=== PATIENT | female | born 1945 | race Caucasian/White ===

== ENCOUNTER → 2017-01-17 | Outpatient (CLI) | payer OTHER ==
[2015-12-27 09:49] VITALS: BP 185/74
[2017-01-17 11:39] LABS: CREATININE 1.02 mg/dL (0.55-1.02)
--- NOTE | 2017-01-17 12:32 | VAS ---
HISTORY: Right lower extremity edema Study: Right lower extremity venous Doppler Comparison: None TECHNIQUE: Multiple luis scale as well as spectral and color flow Doppler images of the deep venous system were obtained of the right lower extremity. FINDINGS: The deep venous system of the right lower extremity was evaluated from the level of the common femora l vein through the popliteal vein. Normal color flow and augmentation can be observed. In addition, normal compression is seen throughout the deep venous system. IMPRESSION: Negative for DVT. Reported By:
--- NOTE | 2017-01-17 14:06 | RAD ---
HISTORY: Dyspnea, shortness of breath or Study: Two views of the chest Comparison: None Findings: The patient is slightly rotated. The cardiac silhouette is enlarged. The lungs are clear without fo mary infiltrate or effusion. The aortic knob is partially calcified. Postoperative changes of midli ne sternotomy are noted and cardiac valve replacement are noted. IMPRESSION: 1. Cardiomegaly. Reported By:
--- NOTE | 2017-01-17 17:10 | MRI ---
MRI lumbar spine with and without contrast Indication: Back pain Technique: Multisequence, multiplanar MR images of the lumbar spine were obtained with and without IV contrast. Comparison: MRI November 28, 2015, CT December 10, 2015 Findings: There is a healed fracture of the S2 vertebral body, which appears unchanged in alignment s presley the prior CT. Lumbar spine vertebral body heights, alignment and marrow signal are otherwise nor mal. No acute fracture, subluxation or suspicious osseous lesion is seen. The conus terminates normal ly at T12-L1. The cauda equina is unremarkable. The imaged paraspinal soft tissues demonstrate no alexandria ss, unexpected findings. There is no abnormal enhancement post contrast administration. T12-L1, L1-L2, L2-L3, L3-L4: Unremarkable L4-L5: Mild broad-based disk bulge without significant canal or foraminal stenosis. Previously seen a nnular fissures of the right lateral and left paracentral posterior disc are again seen but are less conspicuous on today's exam. L5-S1: Mild broad-based disc bulge and facet arthropathy without significant canal or foraminal steno sis. Previously seen small annular fissure within the central posterior disk is not identified on tod ay's exam. Impression: Mild degenerative changes of the lumbar spine without high-grade canal or foraminal stenosis identifi ed at any level. Findings appear overall unchanged in the interval. Persistent but healing annular fissure of the L4-L5 posterior disc. Previously seen annular fissure a t L5-S1 is no longer appreciated. Healed, S2 vertebral body fracture. Reported By:
== END | disposition home or self-care (01) | DRG 204 ==
LOC: RAD 11:01
PROVIDERS: ATTEND Internal Medicine Cardiovascular Disease
DX: R06.09 Other forms of dyspnea (principal); R60.0 Localized edema; M51.37 Other intervertebral disc degeneration, lumbosacral region; I51.7 Cardiomegaly; M51.36 Other intervertebral disc degeneration, lumbar region; K60.2 Anal fissure, unspecified
CPT/HCPCS: 36415; 71020; 72158; 82565; 84520; 93971

== ENCOUNTER → 2017-07-16 | Outpatient (CLI) | payer OTHER ==
[2015-12-27 09:49] VITALS: BP 185/74
--- NOTE | 2017-07-16 12:29 | CT ---
HISTORY: Hematuria Study: CT abdomen and pelvis without contrast Comparison: None Technique: Multiple axial images of the abdomen and pelvis were obtained from the lung bases to the pubic symphy sis without the administration of IV contrast. Dose reduction techniques including automated exposur e control (AEC) and adjustment of mA and kV were utilized. Findings: The visualized portions of the lung bases are unremarkable. The liver, spleen, pancreas, adrenals, an d kidneys are grossly unremarkable in appearance given limitations of this noncontrast exam. No CT ev idence of hydronephrosis is identified. Surgical clips are noted within the gallbladder fossa. Evalua tion of the stomach, small bowel, and colon is limited without oral contrast. The appendix is grossly unremarkable. A small hiatal hernia is noted. Atherosclerotic changes are seen within the visualized aorta. Curvilinear calcifications within the distal abdominal aorta may reflect chronic dissection a nd do not appear to have significantly changed since previous CT of the lumbar spine performed on Nov. Scattered diverticula are seen within the sigmoid colon. The urinary bladder is not wel l distended which limits evaluation. An approximate 2 mm density is seen at/near the left ureterovesi mary junction and may reflect a phlebolith or perhaps stone. No evidence of hydroureter is appreciated . If symptoms persist follow-up exam may be helpful. Degenerative changes of visualized spine are not ed. IMPRESSION: Questionable 2 mm stone at the left ureterovesical junction as discussed above. Otherwise no CT evide nce of obstructive uropathy is appreciated. Diverticulosis. Cholecystectomy. Other findings as noted above. Reported By:
== END ==
LOC: RAD 11:42
PROVIDERS: ATTEND Internal Medicine
DX: R31.9 Hematuria, unspecified (principal); K57.30 Diverticulosis of large intestine without perforation or abscess without bleeding
CPT/HCPCS: 74176

== ENCOUNTER 2017-09-02 07:38 | Day surgery (SDC) | payer OTHER ==
[2017-09-02] MEDS ORDERED: ANCEF 1 GM IV PREMIX* 1 GM/50 ML BAG IV ONE (07:47)
[2017-09-02] MEDS ORDERED: LR 1000 ML IV 1,000 ML IV ONE (07:47)
[2017-09-02] MEDS ORDERED: FENTANYL INJ 100 mcg ONE (08:27)
[2017-09-02] MEDS ORDERED: XYLOCAINE 1% and EPINEPHRINE 1:100,000 ONE ×2 (08:48→09:19)
[2017-09-02] MEDS ORDERED: NS IRRIGATION 1000 ML 1,000 ML IR ONE (08:55)
[2017-09-02] MEDS ORDERED: NEOSPORIN OINT ONE ×2 (09:07→09:53)
[2017-09-02] MEDS ORDERED: ZOFRAN INJ 4 MG VIAL IVP PRN (10:25)
[2017-09-02] MEDS ORDERED: DILAUDID INJ IVP PRN (10:25)
[2017-09-02] MEDS ORDERED: BENADRYL INJ 50 MG VIAL IVP PRN (10:25)
[2017-09-02] MEDS ORDERED: PHENERGAN INJ 25 MG IVP PRN (10:25)
[2017-09-02] MEDS ORDERED: REGLAN INJ 10 MG VIAL IVP PRN (10:25)
[2017-09-02] MEDS ORDERED: PERCOCET TAB 5/325 MG ONE (11:09)
[2017-09-02 12:18] VITALS: BP 182/87
[2017-09-02] MEDS ORDERED: DIPRIVAN VIAL ONE (15:04)
[2017-09-02] MEDS ORDERED: VERSED ONE (15:04)
[2017-09-02] MEDS ORDERED: SUPRANE IN ONE (15:38)
== END 2017-09-02 12:06 | disposition home or self-care (01) ==
LOC: SURG1 07:38
PROVIDERS: ATTEND Surgery
PROC: 0JBD0ZZ Excision of Right Upper Arm Subcutaneous Tissue and Fascia, Open Approach (ICD-10-PCS; 2017-09-02)
PROC: 0JBG0ZZ Excision of Right Lower Arm Subcutaneous Tissue and Fascia, Open Approach (ICD-10-PCS; 2017-09-02)
PROC: 0JB70ZZ Excision of Back Subcutaneous Tissue and Fascia, Open Approach (ICD-10-PCS; 2017-09-02)
PROC: 0JBH0ZZ Excision of Left Lower Arm Subcutaneous Tissue and Fascia, Open Approach (ICD-10-PCS; principal; 2017-09-02 08:15)
DX: D17.22 Benign lipomatous neoplasm of skin and subcutaneous tissue of left arm (principal); D17.21 Benign lipomatous neoplasm of skin and subcutaneous tissue of right arm; D17.1 Benign lipomatous neoplasm of skin and subcutaneous tissue of trunk; Z79.01 Long term (current) use of anticoagulants
CPT/HCPCS: 36415; 85610; A4222; J0690; J2001; J2250; J3010; J3490; J7120

== ENCOUNTER 2021-02-19 12:10 | Inpatient (IN) ==
--- NOTE | 2021-02-19 12:57 | DR.SOBA ---
HPI Time Seen Time Seen by Provider: 02/19/21 12:50 Primary Care Physician Primary Care Physician: DENNYS Complaints Chief Complaint:: TONH STAFF STATES PATIENT TOOK HER OXYGEN OFF AND WAS HAVING SLIGHT SHORTNESS OF BREATH. CHARGE NURSE STATES THE HIGHEST PATIENTS SPO2 WAS 54%. SHE STATED THEY TRIED TO OBTAIN IN MULTIPLE PLACES WITH BETTER VALUE. UPON ARRIVAL TO ED NOTED PATIENT TO LOOK WEAK AND IN NO OBVIOUS RESPIRATORY DISTRESS. N/C AT 4LPM IN PLACE FOR TRANSPORT. PATIENT STATES SHE HAS BEEN FEELING A LITTLE TIRED AND FUZZY HEADED. SHE ALSO STATED SHE HAS BEEN HAVING SOME POST NASAL DRIP OVER THE PAST FEW NIGHTS. PATIENT DENIES COUGH. COVID-19 Coronavirus risk:travel/contact w/high risk person: No Has patient experienced Coronavirus symptoms: No Source History Provided: Correction Mode of Arrival Mode of Arrival: Stretcher Timing Onset of Chief Complaint: 02/17/21 Duration Duration: Hours Context Onset:: At Rest PE Risk Factors:: None History of:: None PMH PMH Past Medical History: Yes Past Medical History: Anemia, Angina, Anxiety, CHF, Depression, Dyslipidemia, G ERD, Hypertension, Hypothyroidism, TN and Sleep Apnea Past Medical History Comment: AFIB Past Surgical History: Yes Surgical History: Angioplasty/Stents, CABG/Valve Surgery, Cholecystectomy, Hysterectomy and Ortho Surgery Family History History of Family Medical Conditions: Yes Family Medical History: Coronary Artery Disease Social History Does any household member use tobacco: No Alcohol Use: None Do you use any recreational Drugs:: No Lives With: Other Lives Where: [place] Travel Risk Coronavirus risk:travel/contact w/high risk person: No Has patient experienced Coronavirus symptoms: No Infectious screening In the last 2 months have you had wt loss of >10#?: NO Have you had fever, night sweats or hemotysis?: No Have you traveled outside the country in the last 6 months?: No Isolation: Droplet ROS Review of Systems Constitutional: No Symptoms Reported and See HPI Eyes: No Symptoms Reported and See HPI ENTM: No Symptoms Reported and See HPI Respiratoy: No Symptoms Reported and See HPI Cardiovascular: No Symptoms Reported and See HPI Gastrointestinal/Abdominal: No Symptoms Reported and See HPI Genitourinary: No Symptoms Reported and See HPI Neurological: No Symptoms Reported and See HPI Musculoskeletal: No Symptoms Reported and See HPI Integumentary: No Symptoms Reported and See HPI Hematologic/Lymphatic: No Symptoms Reported and See HPI Endocrine: No Symptoms Reported and See HPI Psychiatric: No Symptoms Reported and See HPI All Other Systems: Reviewed and Negative PE Vital Signs Vitals: Temperature 98.0 F Pulse Rate 81 Respiratory Rate 30 Blood Pressure [Left Arm] 146/64 Blood Pressure 127/59 O2 Sat by Pulse Oximetry 92 General Limitations: No Limitations General Appearance: Alert and In No Apparent Distress Head Head Exam: Normal Inspection Eyes Eye exam: Normal Appearance ENT ENT Exam: Normal Exam Neck Neck Exam: Normal Inspection Chest Chest Inspection: Normal Inspection Respiratory Respiratory Exam: Normal Lung Sounds Bilat Respiratory Exam: Bilateral: Clear to Auscultation Cardiovascular Cardiovascular Exam: Regular Rate and Normal Rhythm Abdominal Exam Abdominal Exam: Normal Inspection, Normal Bowel Sounds and Soft Extremities Extremities Exam: Normal Inspection Back Back Exam: Normal Inspection Neurologic Neurological Exam: Alert and Oriented X3 Psychiatric Psychiatric Exam: Normal Affect and Normal Mood Skin Skin Exam: Warm, Dry, Intact and Normal Color ROR Labs Reviewed Result Diagrams: 02/19/21 12:45 02/19/21 12:45 Laboratory: WBC 9.6 X10^3/uL (3.6-10.0) 02/19/21 12:45 RBC 4.12 X10^6/uL (3.5-5.4) 02/19/21 12:45 Hgb 11.8 g/dL (12.0-16.0) L 02/19/21 12:45 Hct 34.7 % (36.0-47.0) L 02/19/21 12:45 MCV 84.2 fL (80.0-100.0) 02/19/21 12:45 MCH 28.5 pg (27.0-34.0) 02/19/21 12:45 MCHC 33.9 g/dL (33.0-35.0) 02/19/21 12:45 RDW 25.6 % (11.6-16.5) H 02/19/21 12:45 Plt Count 469 X10^3/uL (150.0-450.0) H 02/19/21 12:45 Plt Count Comment Adequate (ADEQUATE) 02/19/21 12:45 MPV 7.9 fL (7.4-11.0) 02/19/21 12:45 Neut % (Auto) 79.8 % (42.0-75.0) H 02/19/21 12:45 Lymph % (Auto) 8.1 % (21.0-51.0) L 02/19/21 12:45 [place] % (Auto) 10.8 % (0.0-13.0) 02/19/21 12:45 Eos % (Auto) 0.6 % (0.9-2.9) L 02/19/21 12:45 Baso % (Auto) 0.7 % (0.2-1.0) 02/19/21 12:45 Neut # (Auto) 7.7 x10^3/uL (2.2-4.8) H 02/19/21 12:45 Lymph # (Auto) 0.8 X10^3/uL (1.3-2.9) L 02/19/21 12:45 [place] # (Auto) 1.0 x10^3/uL (0.3-0.8) H 02/19/21 12:45 Eos # (Auto) 0.1 x10^3/uL (0.0-0.2) 02/19/21 12:45 Baso # (Auto) 0.1 X10^3/uL (0.0-0.1) 02/19/21 12:45 Absolute Nucleated RBC 0.1 /100WBC 02/19/21 12:45 Total Counted 100 02/19/21 12:45 Neutrophils % (Manual) 87 % (39-76) H 02/19/21 12:45 Lymphocytes % (Manual) 8 % (13-43) L 02/19/21 12:45 Monocytes % (Manual) 5 % (4-9) 02/19/21 12:45 Plt Morphology Comment Normal (NORMAL) 02/19/21 12:45 RBC Morphology Abnormal (NORMAL) A 02/19/21 12:45 Dimorphic RBCs Slight 02/19/21 12:45 Anisocytosis 3+ A 02/19/21 12:45 PT 23.9 SECONDS (11.8-14.3) 02/19/21 12:45 INR Target Range - 02/19/21 12:45 INR 2.26 (0.8-1.3) H 02/19/21 12:45 APTT 62.1 SECONDS (22.9-36.5) H 02/19/21 12:45 PTT Comment - 02/19/21 12:45 D-Dimer 0.42 ug/ml (0.0-0.57) 02/19/21 12:45 Sample Site Rra 02/19/21 12:59 ABG pH 7.440 (7.35-7.45) 02/19/21 12:59 ABG pCO2 39.0 mmHg (35.0-45.0) 02/19/21 12:59 ABG pO2 53.0 mmHg (80.0-100.0) L 02/19/21 12:59 ABG HCO3 26.5 mmol/L (22-26) H 02/19/21 12:59 ABG O2 Saturation 88.0 % (90-100) L 02/19/21 12:59 ABG Base Excess 2.2 mmol/L (-2.0-2.0) H 02/19/21 12:59 Singh Test Pos 02/19/21 12:59 A-a Gradient 98.0 mmHg 02/19/21 12:59 FiO2 28.0 02/19/21 12:59 Blood Gas Comments Pt krysta well eb 02/19/21 12:59 Sodium 126 mmol/L (136-145) L 02/19/21 12:45 Corrected Sodium TNP 02/19/21 12:45 Potassium 4.3 mmol/L (3.5-5.1) 02/19/21 12:45 Chloride 90 mmol/L (98-107) L 02/19/21 12:45 Carbon Dioxide 27.2 mmol/L (21-32) 02/19/21 12:45 BUN 40 mg/dL (7-18) H 02/19/21 12:45 Creatinine 2.14 mg/dL (0.55-1.02) H 02/19/21 12:45 Est GFR (MDRD) Af Amer 29 (>60) L 02/19/21 12:45 Est GFR (MDRD) Non-Af 24 (>60) L 02/19/21 12:45 Glucose 100 mg/dL (65-99) H 02/19/21 12:45 Lactic Acid 1.0 mmol/L (0.4-2.0) 02/19/21 12:45 Calcium 9.4 mg/dL (8.5-10.1) 02/19/21 12:45 Corrected Calcium 10.7 mg/dL (8.5-10.1) H 02/19/21 12:45 Total Bilirubin 0.50 mg/dL (0.2-1.0) 02/19/21 12:45 AST 51 Units/L (15-37) H 02/19/21 12:45 ALT 18 Units/L (12-78) 02/19/21 12:45 Alkaline Phosphatase 118 Units/L (46-116) H 02/19/21 12:45 Creatine Kinase 28 Units/L (26-192) 02/19/21 12:45 CK-MB (CK-2) < 1.0 ng/mL (0-4.0) 02/19/21 12:45 CK/CKMB % Calc 3.6 % (<4) 02/19/21 12:45 Troponin I < 0.02 ng/mL (0-1.5) 02/19/21 12:45 Total Protein 7.5 g/dL (6.4-8.2) 02/19/21 12:45 Albumin 2.4 g/dL (3.4-5.0) L 02/19/21 12:45 Globulin 5.1 g/dL (2.5-4.5) H 02/19/21 12:45 Albumin/Globulin Ratio 0.5 Ratio (1.1-2.1) L 02/19/21 12:45 SARS-CoV-2 (PCR) Negative (NEGATIVE) 02/19/21 12:46 Influenza Type A (PCR) Negative (NEGATIVE) 02/19/21 12:46 Influenza Type B (PCR) Negative (NEGATIVE) 02/19/21 12:46 RSV (PCR) Negative (NEGATIVE) 02/19/21 12:46 Opioid Opioid Risk Tool Age (Clint box if 16-45): No History of Preadolescent Sexual Abuse: No Total: 0 Total Score Risk Category: Low Risk Copyright: Junior GARCIA predicting aberrant behaviors Diagnosis Discharge Problem: Pneumonia, Hypoxia Instructions Forms: Precautions for COVID19 [facility] Social Distancing
[2021-02-19 13:10] LABS: ABG BASE EXCESS 2.2 mmol/L (-2.0-2.0); ABG HCO3 26.5 mmol/L (22-26)
[2021-02-19 13:10] LABS: BASOPHILS # (AUTO) 0.1 X10^3/uL (0.0-0.1); BASOPHILS % (AUTO) 0.7 % (0.2-1.0); EOSINOPHILS # (AUTO) 0.1 x10^3/uL (0.0-0.2); EOSINOPHILS % (AUTO) 0.6 % (0.9-2.9); HEMATOCRIT 34.7 % (36.0-47.0); HEMOGLOBIN 11.8 g/dL (12.0-16.0); LYMPHOCYTES # (AUTO) 0.8 X10^3/uL (1.3-2.9); LYMPHOCYTES % (AUTO) 8.1 % (21.0-51.0); MEAN CORPUSCULAR HEMOGLOBIN 28.5 pg (27.0-34.0); MEAN CORPUSCULAR HGB CONC 33.9 g/dL (33.0-35.0); MEAN CORPUSCULAR VOLUME 84.2 fL (80.0-100.0); MEAN PLATELET VOLUME 7.9 fL (7.4-11.0); MONOCYTES % (AUTO) 10.8 % (0.0-13.0); NEUTROPHILS # (AUTO) 7.7 x10^3/uL (2.2-4.8); NEUTROPHILS % (AUTO) 79.8 % (42.0-75.0); PLATELET COUNT 469 X10^3/uL (150.0-450.0); RED BLOOD COUNT 4.12 X10^6/uL (3.5-5.4); RED CELL DISTRIBUTION WIDTH 25.6 % (11.6-16.5); WHITE BLOOD COUNT 9.6 X10^3/uL (3.6-10.0)
[2021-02-19 13:11] LABS: ABG ALLEN TEST POS
--- NOTE | 2021-02-19 13:12 | RAD ---
HISTORYLOW O2 SAT HTN PSH:HYSTO, GB, CABG [id number], 1 VIEWCOMPARISONNone itsFINDINGSThe trachea is midline. The cardiac silhouette is mildly enlarged. There are sternotomy wires from prior CABG surgery and cardiac valve surgery. There is an interstitial infiltrate in the right lung base which without old films for comparison is suspicious for interstitial pneumonitis/bronchopneumonia. Radiographic follow-up is recommended. No effusions or pneumothorax are observed.. The bony thorax is unremarkable.IMPRESSIONCardiomegaly and postsurgical changes from CABG surgery and cardiac valve replacement.Perihilar interstitial infiltrate in the left and right lower lobe interstitial infiltrates suspicious for bronchopneumonia. Recommend radiographic follow-up. These interstitial infiltrates were not reported on prior films of December 2016 and old chest films are will not load for comparison.. Recommend radiographic follow-up.Electronically signed by: ASHLEY LIVE (Feb 19, 2021 13:10:11)
[2021-02-19 13:30] LABS: ALANINE AMINOTRANSFERASE 18 Units/L (12-78); ALBUMIN 2.4 g/dL (3.4-5.0); ALKALINE PHOSPHATASE 118 Units/L (46-116); ASPARTATE AMINO TRANSFERASE 51 Units/L (15-37); BLOOD UREA NITROGEN 40 mg/dL (7-18); CALCIUM 9.4 mg/dL (8.5-10.1); CARBON DIOXIDE 27.2 mmol/L (21-32); CHLORIDE 90 mmol/L (98-107); CKMB % 3.6 % (<4); COR CA(FOR HYPOALB) 10.7 mg/dL (8.5-10.1); CREATINE KINASE 28 Units/L (26-192); CREATINE KINASE MB < 1.0 ng/mL (0-4.0); CREATININE 2.14 mg/dL (0.55-1.02); SODIUM 126 mmol/L (136-145); TOTAL PROTEIN 7.5 g/dL (6.4-8.2); TROPONIN I < 0.02 ng/mL (0-1.5); eGFR NON BLACK RACES 24 (>60)
[2021-02-19 13:31] LABS: ANISOCYTOSIS 3+; PLATELET MORPHOLOGY COMMENT NORMAL (NORMAL)
[2021-02-19 16:54] VITALS: BMI 31.4
[2021-02-19] MEDS ORDERED: NS 1/2 1,000 ML IV 1,000 ML IV ONE (17:19)
[2021-02-19] MEDS: NS 1/2 1,000 ML IV 1,000 ML IV SCH (17:22)
[2021-02-19] MEDS: ROBITUSSIN DM PO SCH ×2 (17:23→20:54)
[2021-02-19] MEDS: ZOSYN VIAL 3.375 GRAMS 3.375 G in NS 100 ML IV + SPIKE MINIBAG* 100 ML IV SCH ×2 (17:50→18:16)
[2021-02-19] MEDS: DUONEB 0.5 MG/3 MG (3 mL) NEB SCH ×2 (18:00→20:00)
[2021-02-19] MEDS ORDERED: PULMICORT NEB TX 0.5 MG NEB ONE (19:50)
[2021-02-19] MEDS: PULMICORT NEB TX 0.5 MG NEB SCH (20:00)
[2021-02-20] MEDS: ROXICODONE TAB 5 MG PO PRN ×2 (00:10→22:30)
[2021-02-20 05:24] LABS: BASOPHILS % (AUTO) 0.7 % (0.2-1.0); EOSINOPHILS # (AUTO) 0.2 x10^3/uL (0.0-0.2); EOSINOPHILS % (AUTO) 2.5 % (0.9-2.9); HEMATOCRIT 32.9 % (36.0-47.0); HEMOGLOBIN 11.1 g/dL (12.0-16.0); LYMPHOCYTES # (AUTO) 0.8 X10^3/uL (1.3-2.9); MEAN CORPUSCULAR HEMOGLOBIN 28.4 pg (27.0-34.0); MEAN CORPUSCULAR HGB CONC 33.7 g/dL (33.0-35.0); MEAN CORPUSCULAR VOLUME 84.2 fL (80.0-100.0); MEAN PLATELET VOLUME 7.8 fL (7.4-11.0); MONOCYTES # (AUTO) 0.7 x10^3/uL (0.3-0.8); MONOCYTES % (AUTO) 11.5 % (0.0-13.0); NEUTROPHILS # (AUTO) 4.5 x10^3/uL (2.2-4.8); NEUTROPHILS % (AUTO) 72.3 % (42.0-75.0); PLATELET COUNT 365 X10^3/uL (150.0-450.0); RED CELL DISTRIBUTION WIDTH 25.3 % (11.6-16.5); WHITE BLOOD COUNT 6.2 X10^3/uL (3.6-10.0)
[2021-02-20 05:40] LABS: ALANINE AMINOTRANSFERASE 17 Units/L (12-78); ALBUMIN 2.1 g/dL (3.4-5.0); ALKALINE PHOSPHATASE 104 Units/L (46-116); ASPARTATE AMINO TRANSFERASE 42 Units/L (15-37); BLOOD UREA NITROGEN 34 mg/dL (7-18); CALCIUM 9.3 mg/dL (8.5-10.1); CARBON DIOXIDE 28.9 mmol/L (21-32); CHLORIDE 94 mmol/L (98-107); COR CA(FOR HYPOALB) 10.8 mg/dL (8.5-10.1); CREATININE 1.78 mg/dL (0.55-1.02); SODIUM 132 mmol/L (136-145); TOTAL PROTEIN 6.7 g/dL (6.4-8.2); eGFR NON BLACK RACES 30 (>60)
[2021-02-20 05:46] LABS: PLATELET MORPHOLOGY COMMENT NORMAL (NORMAL)
--- NOTE | 2021-02-20 05:48 | RAD ---
PROCEDURE: Chest X-ray 1 View .HISTORY: Dyspnea.TECHNIQUE: AP view .COMPARISON: 02/19/2021.TECHNICAL QUALITY: Satisfactory .FINDINGS:Unchanged mild cardiomegaly with previous sternotomy.Mediastinum and hilar regions show no masses or lymphadenopathy .Normal central vascularity .Continued increased interstitial markings both lung nam could represent interstitial fluid pneumonia or fibrosis. No pleural fluid or pneumothorax.No acute bony abnormality .IMPRESSION:1. Continued increased interstitial markings similar to previous study that could be acute or chronic.2. Unchanged mild cardiomegaly.Electronically signed by: Yusuf Medellin (Feb 20, 2021 05:46:02)
[2021-02-20] MEDS: ZOSYN VIAL 3.375 GRAMS 3.375 G in NS 100 ML IV + SPIKE MINIBAG* 100 ML IV SCH ×5 (06:12→22:03)
[2021-02-20] MEDS: NS 1/2 1,000 ML IV 1,000 ML IV SCH ×2 (08:37→21:52)
[2021-02-20] MEDS: PULMICORT NEB TX 0.5 MG NEB SCH ×2 (08:45→21:51)
[2021-02-20] MEDS: DUONEB 0.5 MG/3 MG (3 mL) NEB SCH ×4 (08:45→21:51)
[2021-02-20] MEDS ORDERED: ROCEPHIN 1 GRAM IV PREMIX 1 G/50 ML IV.SOLN. IV SCH (09:00)
[2021-02-20] MEDS: ROBITUSSIN DM PO SCH ×4 (10:30→21:52)
[2021-02-20] MEDS: VSL#3 PO SCH (10:31)
[2021-02-21] MEDS ORDERED: NS 1/2 1,000 ML IV 1,000 ML IV ONE (03:47)
[2021-02-21] MEDS: NS 1/2 1,000 ML IV 1,000 ML IV SCH ×2 (04:00→12:29)
[2021-02-21 05:26] LABS: BASOPHILS % (AUTO) 0.7 % (0.2-1.0); EOSINOPHILS # (AUTO) 0.2 x10^3/uL (0.0-0.2); EOSINOPHILS % (AUTO) 3.8 % (0.9-2.9); HEMATOCRIT 31.5 % (36.0-47.0); HEMOGLOBIN 10.6 g/dL (12.0-16.0); LYMPHOCYTES # (AUTO) 0.6 X10^3/uL (1.3-2.9); LYMPHOCYTES % (AUTO) 12.3 % (21.0-51.0); MEAN CORPUSCULAR HEMOGLOBIN 28.6 pg (27.0-34.0); MEAN CORPUSCULAR HGB CONC 33.7 g/dL (33.0-35.0); MEAN PLATELET VOLUME 7.6 fL (7.4-11.0); MONOCYTES # (AUTO) 0.7 x10^3/uL (0.3-0.8); MONOCYTES % (AUTO) 13.2 % (0.0-13.0); NEUTROPHILS # (AUTO) 3.4 x10^3/uL (2.2-4.8); PLATELET COUNT 377 X10^3/uL (150.0-450.0); RED BLOOD COUNT 3.71 X10^6/uL (3.5-5.4); RED CELL DISTRIBUTION WIDTH 25.2 % (11.6-16.5); WHITE BLOOD COUNT 4.9 X10^3/uL (3.6-10.0)
[2021-02-21 05:44] LABS: ALANINE AMINOTRANSFERASE 22 Units/L (12-78); ALKALINE PHOSPHATASE 94 Units/L (46-116); ASPARTATE AMINO TRANSFERASE 42 Units/L (15-37); BLOOD UREA NITROGEN 16 mg/dL (7-18); CALCIUM 8.9 mg/dL (8.5-10.1); CARBON DIOXIDE 30.9 mmol/L (21-32); CHLORIDE 97 mmol/L (98-107); COR CA(FOR HYPOALB) 10.5 mg/dL (8.5-10.1); CREATININE 1.06 mg/dL (0.55-1.02); SODIUM 135 mmol/L (136-145); TOTAL PROTEIN 6.5 g/dL (6.4-8.2); eGFR NON BLACK RACES 54 (>60)
[2021-02-21 05:50] LABS: ANISOCYTOSIS 3+; PLATELET MORPHOLOGY COMMENT NORMAL (NORMAL)
--- NOTE | 2021-02-21 05:58 | RAD ---
PROCEDURE: Chest X-ray 1 View .HISTORY: Dyspnea.TECHNIQUE: AP view .COMPARISON: 02/20/2021.TECHNICAL QUALITY: Satisfactory .FINDINGS:Unchanged prominent size heart with previous sternotomy and valve replacement.Mediastinum and hilar regions show no masses or lymphadenopathy .Normal central vascularity .No pulmonary consolidation, masses, pleural fluid, or pneumothorax. Unchanged increased interstitial markings.No acute bony abnormality .IMPRESSION:Stable chest.Electronically signed by: Yusuf Medellin (Feb 21, 2021 05:56:08)
[2021-02-21] MEDS ORDERED: NS 100 ML IV + SPIKE MINIBAG* 100 ML IV ONE (06:20)
[2021-02-21] MEDS: ZOSYN VIAL 3.375 GRAMS 3.375 G in NS 100 ML IV + SPIKE MINIBAG* 100 ML IV SCH ×3 (06:41→21:56)
[2021-02-21] MEDS ORDERED: POTASSIUM CHL 40 MEQ/NS 0.45% 500 ML IV PRN (07:43)
[2021-02-21] MEDS ORDERED: POTASSIUM CHL 60 MEQ/NS 0.45% 500 ML IV PRN (07:43)
[2021-02-21] MEDS ORDERED: MICRO K EXTEN CAP 10 MEQ PO PRN (07:43)
[2021-02-21] MEDS ORDERED: KLOR-CON PO PRN (07:43)
[2021-02-21] MEDS ORDERED: POTASSIUM CHLORIDE LIQ 20 MEQ UDC PO PRN (07:43)
[2021-02-21] MEDS ORDERED: K-RIDER 10 MEQ/NS 100 ML 10 MEQ/100 ML BAG IV PRN (07:43)
[2021-02-21] MEDS: DUONEB 0.5 MG/3 MG (3 mL) NEB SCH ×4 (08:25→20:43)
[2021-02-21] MEDS: PULMICORT NEB TX 0.5 MG NEB SCH ×2 (08:25→20:43)
[2021-02-21] MEDS: K-DUR TAB 20 MEQ PO PRN (09:09)
[2021-02-21] MEDS: VSL#3 PO SCH (09:09)
[2021-02-21] MEDS: ROBITUSSIN DM PO SCH ×4 (09:09→20:23)
--- NOTE | 2021-02-21 11:13 | DR.H&P ---
H&P - History & Physical for Day of: H&P Date: 02/19/21 - Chief Complaint Chief Complaint: SHORTNESS OF BREATH, WEAKNESS, FATIGUE, LOW OXYGEN SATURATIONS - History of Present Illness History of Present Illness: IS A 75 YEAR OLD PATIENT OF OURS. SHE IS A RESIDENT OF [facility]. SHE HAS BEEN AT THE INTERMEDIATE FOR PHYSICAL THERAPY AND REHAB FOLLOWING SURGERY TO THE RIGHT ANKLE AND TIB/FIB. PATIENT REPORTS TRIPPING OVER A SHOE AT HOME AND BREAKING HER ANKLE. SHE HAS AN EXTERNAL FIXATOR TO THE RIGHT FOOT/LOWER LEG. SURGERY WAS PERFORMED BY DR.ERIC MELARA IN [place], [place]. PATIENT BEGAN HAVING SHORTNESS OF BREATH AT THE INTERMEDIATE ON 02/19. INTERMEDIATE STAFF REPORTED THAT PATIENTS OXYGEN SATURATIONS WERE 54%. SHE WAS PLACED ON NASAL CANNULA WITH OXYGEN AT 4 LITERS/MINUTE AND TRANSPORTED TO THE ER FOR FURTHER EVALUATION AND TREATMENT. UPON ARRIVAL TO THE ER, PATIENT COMPLAINED OF WEAKNESS AND FATIGUE. SHE ADMITTED TO POST NASAL DRIP FOR A FEW NIGHTS PRIOR TO PRESENTATION TO THE ER. SHE DENIED FEVER OR COUGH. ON EXAMINATION, SHE WAS NOTED TO HAVE DIMINISHED LUNG SOUNDS. HER PMH INCLUDES: ANEMIA, ANGINA, ANXIETY, CHF, DEPRESSION, DYSLIPIDEMIA, GERD, HTN, HYPOTHYROIDISM, NJ, SLEEP APNEA, A-FIB, CARDIAC STENTS, CABG, CHOLECYSTECTOMY, HYSTERECTOMY, AND ORTHOPEDIC SURGERY. ON ARRIVAL, HER VITALS WERE 98.0-90-24-90%NC-116/58. LABS WERE OBTAINED. ABNORMAL LAB VALUES INCLUDE THE FOLLOWING: HGB 11.8, HCT 34.7, PLT COUNT 469, INR 2.26, PTT 62.1, SODIUM 126, CHLORIDE 90, BUN 40, CREATININE 2.14, GLUCOSE 100, AST 51, ALK PHOS 118, ALBUMIN 2.4, GLOBULIN 5.1. COVID, INFLUENZA, AND RSV WERE NEGATIVE. AN ABG WAS OBTAINED AND REVEALED: PH 7.440, PC02 39, P02 53, HC03 26.5, 02 SAT 88, BASE EXCESS 2.2, A-A GRADIENT 98, FI02 28. BLOOD CULTURES WERE SET UP. A CHEST XRAY WAS OBTAINED AND REVEALED: Cardiomegaly and postsurgical changes from CABG surgery and cardiac valve replacement. Perihilar interstitial infiltrate in the left and right lower lobe interstitial infiltrates suspicious for bronchopneumonia. These interstitial infiltrates were not reported on prior films of December 2016 and old chest films are will not load for comparison. AND ECHO WAS OBTAINED AND REVEALED AN EJECTION FRACTION OF 55%, RVSP 55mmHg. EKG WAS OBTAINED AND REVEALED: SINUS RHYTHM WITH HR 88. SHE WAS ADMITTED TO THE HOSPITAL FOR FURTHER EVALUATION AND TREATMENT OF PNEUMONIA, HYPOXIA, HYPONATREMIA, AND RENAL INSUFFICIENCY. SHE WAS STARTED ON 1/2NORMAL SALINE AT 75 ML/HR, ZOSYN 3.375G IV TID, THE POTASSIUM PROTOCOL, DUONEBS QID, PULMICORT NEBS QID, ROBITUSSIN DM 10ML PO QID, PROBIOTICS 2 CAP PO DAILY, AND OXYCODONE 5MG PO Q4H PRN PAIN. WE WILL REVIEW HER HOME MEDICATIONS AND RESUME APPROPRIATE. OTHERWISE, WE PLAN TO FOLLOW UP WITH AM LABS AND CHEST XRAY AND CONTINUE TO MONITOR. PHYSICAL THERAPY WILL EVALUATE AND WORK WITH PATIENT. TIME SPENT ON CLINICAL ASSESSMENT, REVIEWING LABS AND IMAGING, DECISION MAKING, AND DOCUMENTATION GREATER THAN 75 MINUTES. - Past Medical History Past Medical History: Angina, NJ, Hypertension, Dyslipidemia, Depression, Anxiety, Hypothyroidism, Anemia, GERD, Sleep Apnea, CHF - Past Surgical History Surgical History: Cholecystectomy, Hysterectomy - Family History Family Medical History: Coronary Artery Disease - Social History Does patient currently use any type of tobacco product: No Have you used tobacco products in the last 12 months: No Type of Tobacco Use: None Does any household member use tobacco: No Alcohol Use: None Drug Use: None - Medications Home Medications: ANGIE Inhibitors Allergy (Verified 03/05/18 10:04) codeine Allergy (Verified 03/05/18 09:54) gabapentin Allergy (Verified 03/05/18 09:54) vancomycin Allergy (Verified 03/05/18 09:54) STATINS Allergy (Uncoded 03/05/18 09:54) CONTINUE taking the following medications amiodarone 200 mg PO DAILY 02/19/21 [History] ascorbic acid (vitamin C) 200 mg PO BID 02/19/21 [History] cholecalciferol (vitamin D3) 100 mcg PO DAILY 02/19/21 [History] esomeprazole magnesium 40 mg PO DAILY 02/19/21 [History] lactobacillus combination no.4 [Probiotic] 3,000 mmu cells PO DAILY PRN 02/19/21 [History] levothyroxine [Synthroid] 125 mcg PO DAILY 02/19/21 [History] melatonin 5 mg PO HS 02/19/21 [History] metoprolol succinate 50 mg PO DAILY 02/19/21 [History] multivitamin 1 tab PO QAM 02/19/21 [History] ondansetron HCl [Zofran] 8 mg PO Q4H PRN 02/19/21 [History] oxycodone 5 mg PO Q4H PRN 02/19/21 [History] ropinirole 1 mg PO TID 02/19/21 [History] sennosides [senna] 8.6 mg PO QHS 02/19/21 [History] tizanidine 4 mg PO HS 02/19/21 [History] warfarin [Coumadin] 1 mg PO DAILY 02/19/21 [History] - Review of Systems Constitutional: Weakness Eyes: No Symptoms Reported ENT: No Symptoms Reported Respiratory: Shortness of Breath, SOB with Excertion. denies: Cough Cardiovascular: No Symptoms Reported Gastrointestinal: No Symptoms Reported Genitourinary: No Symptoms Reported Musculoskeletal: Leg Pain, Foot Pain (RIGHT LEG/FOOT) Skin: No Symptoms Reported Neurological: Weakness - Physical Exam Vital Signs: Temperature 97.6 F Pulse Rate 88 Respiratory Rate 29 Blood Pressure [Left Arm] 146/64 Blood Pressure 128/61 O2 Sat by Pulse Oximetry 99 Oriented: Normal Eyes: Normal Ear: Normal Nose: Normal Throat: Normal Respiratory: Diminished Throughout Cardiovascular: Normal : Normal Auscultation: Bowel Sounds: Normal Palpation: Normal Tenderness: Normal Skin: Normal Musculoskeletal: Right (RIGHT ANKLE/LOWER LEG EXTERNAL FIXATOR ), Leg, Ankle, Foot, Tender Psychiatric: Normal Mood Description: Calm Affect: Normal Speech Pattern: Clear - Assessment/Plan (1) Pneumonia Qualifiers: Pneumonia type: due to unspecified organism Laterality: bilateral Lung location: lower lobe of lung Qualified Code(s): J18.9 - Pneumonia, unspecified organism Status: Acute Plan: ADMIT, SUPPLEMENTAL OXYGEN, NORMAL SALINE AT 75 ML/HR, ZOSYN 3.375G IV TID, THE POTASSIUM PROTOCOL, DUONEBS QID, PULMICORT NEBS QID, ROBITUSSIN DM 10ML PO QID, PROBIOTICS 2 CAP PO DAILY, AND OXYCODONE 5MG PO Q4H PRN PAIN. (2) Hypoxia Status: Acute (3) Hyponatremia Status: Acute (4) Renal insufficiency Status: Acute - Allergies Allergies/Adverse Reactions: Allergies Allergy/AdvReac Type Severity Reaction Status Date / Time ANGIE Inhibitors Allergy Verified 03/05/18 10:04 codeine Allergy Verified 03/05/18 09:54 gabapentin Allergy Verified 03/05/18 09:54 vancomycin Allergy Verified 03/05/18 09:54 STATINS Allergy Uncoded 03/05/18 09:54
[2021-02-21] MEDS ORDERED: ZOFRAN TAB 4 MG PO PRN (12:22)
--- NOTE | 2021-02-21 12:22 | PCM.PROG ---
Progress Note - Progress Note for Day of Date of Exam: 02/21/21 - Subjective Subjective: WAS ADMITTED FOR TREATMENT OF BILATERAL LOWER LOBE PNEUMONIA. TODAY, SHE IS ALERT AND ORIENTED, SITTING UP IN BED ON MORNING ROUNDS. SHE CONTINUES WITH SHORTNESS OF BREATH AT TIMES, BUT DOES ADMIT TO SLIGHT IMPROVEMENT IN SYMPTOMS. SHE ALSO ADMITS TO INTERMITTENT RIGHT FOOT/LEG PAIN BUT PAIN SEEMS TO BE CONTROLLED BY HER CURRENT PAIN MEDICATIONS. ON EXAMINATION, HEART IS REGULAR IN RATE AND RHYTHM. BILATERAL LUNGS NOTED WITH DIMINISHED LUNG SOUNDS THROUGHOUT. ABDOMEN IS ROUND, SOFT, AND NON-TENDER WITH NORMAL BOWEL SOUNDS NOTED IN ALL QUADRANTS. EXTERNAL FIXATOR AND DRESSING NOTED TO RIGHT ANKLE/LOWER LEG. HER VITALS THIS MORNING ARE: 97.6-90-16-100%-158/67. LABS WERE OBTAINED. WBC 4.9, SODIUM 135, HGB 10.6, POTASSIUM 3.1, BUN 16, CREATININE 1.06, ALBUMIN 2.0. BLOOD CULTURES ARE PENDING. CHEST XRAY REPEATED AND REVEALED: STABLE CHEST. SHE IS CURRENTLY RECEIVING 1/2NORMAL SALINE AT 75 ML/HR, ZOSYN 3.375G IV TID, THE POTASSIUM PROTOCOL, DUONEBS QID, PULMICORT NEBS QID, ROBITUSSIN DM 10ML PO QID, PROBIOTICS 2 CAP PO DAILY, AND OXYCODONE 5MG PO Q4H PRN PAIN. WE WILL REVIEW HER HOME MEDICATIONS AND RESUME APPROPRIATE. WE WILL ALSO ADD ALBUMIN 25% IV DAILY. OTHERWISE, WE PLAN TO FOLLOW UP WITH AM LABS AND CHEST XRAY AND CONTINUE TO MONITOR. TIME SPENT ON CLINICAL ASSESSMENT, REVIEWING LABS AND IMAGING, DECISION MAKING, AND DOCUMENTATION GREATER THAN 45 MINUTES. - Past Medical Family Social History Past Med/Fam/Surg Hx: No changes since H&P Allergies: Allergies ANGIE Inhibitors Allergy (Verified 03/05/18 10:04) codeine Allergy (Verified 03/05/18 09:54) gabapentin Allergy (Verified 03/05/18 09:54) vancomycin Allergy (Verified 03/05/18 09:54) STATINS Allergy (Uncoded 03/05/18 09:54) - Review of Systems ROS: No change since H&P - Vital Signs and I&O's Vital Signs: Temperature 97.6 F Pulse Rate 92 Respiratory Rate 17 Blood Pressure [Left Arm] 146/64 Blood Pressure 126/57 O2 Sat by Pulse Oximetry 97 Intake and Output: Intake & Output 02/19/21 02/20/21 02/21/21 02/22/21 11:59 11:59 11:59 11:59 Intake Total 881 / 881 2158 / 2158 Output Total 400 / 400 950 / 950 Balance 481 / 481 1208 / 1208 - Physical Exam Oriented: Normal Eyes: Normal Ear: Normal Nose: Normal Throat: Normal Respiratory: Generalized, Diminished Cardiovascular: Normal : Normal Auscultation: Bowel Sounds: Normal Palpation: Normal Tenderness: Normal Skin: Normal Musculoskeletal: Right (RIGHT ANKLE/LOWER LEG EXTERNAL FIXATOR ), Leg, Ankle, Foot, Tender Psychiatric: Normal Mood Description: Calm Affect: Normal Speech Pattern: Clear - Laboratory and Diagnostics Result Diagrams: 02/21/21 04:36 02/21/21 04:36 Labs: 02/19/21 12:45 Blood Blood Culture - Preliminary 02/19/21 12:54 Blood Blood Culture - Preliminary Laboratory WBC 4.9 X10^3/uL (3.6-10.0) 02/21/21 04:36 RBC 3.71 X10^6/uL (3.5-5.4) 02/21/21 04:36 Hgb 10.6 g/dL (12.0-16.0) L 02/21/21 04:36 Hct 31.5 % (36.0-47.0) L 02/21/21 04:36 MCV 85.0 fL (80.0-100.0) 02/21/21 04:36 MCH 28.6 pg (27.0-34.0) 02/21/21 04:36 MCHC 33.7 g/dL (33.0-35.0) 02/21/21 04:36 RDW 25.2 % (11.6-16.5) H 02/21/21 04:36 Plt Count 377 X10^3/uL (150.0-450.0) 02/21/21 04:36 Plt Count Comment Adequate (ADEQUATE) 02/21/21 04:36 MPV 7.6 fL (7.4-11.0) 02/21/21 04:36 Neut % (Auto) 70.0 % (42.0-75.0) 02/21/21 04:36 Lymph % (Auto) 12.3 % (21.0-51.0) L 02/21/21 04:36 [place] % (Auto) 13.2 % (0.0-13.0) H 02/21/21 04:36 Eos % (Auto) 3.8 % (0.9-2.9) H 02/21/21 04:36 Baso % (Auto) 0.7 % (0.2-1.0) 02/21/21 04:36 Neut # (Auto) 3.4 x10^3/uL (2.2-4.8) 02/21/21 04:36 Lymph # (Auto) 0.6 X10^3/uL (1.3-2.9) L 02/21/21 04:36 [place] # (Auto) 0.7 x10^3/uL (0.3-0.8) 02/21/21 04:36 Eos # (Auto) 0.2 x10^3/uL (0.0-0.2) 02/21/21 04:36 Baso # (Auto) 0.0 X10^3/uL (0.0-0.1) 02/21/21 04:36 Absolute Nucleated RBC 0.2 /100WBC 02/21/21 04:36 Total Counted 100 02/21/21 04:36 Neutrophils % (Manual) 70 % (39-76) 02/21/21 04:36 Lymphocytes % (Manual) 18 % (13-43) 02/21/21 04:36 Monocytes % (Manual) 6 % (4-9) 02/21/21 04:36 Eosinophils % (Manual) 6 % (0-6) 02/21/21 04:36 Plt Morphology Comment Normal (NORMAL) 02/21/21 04:36 RBC Morphology Abnormal (NORMAL) A 02/21/21 04:36 Dimorphic RBCs 2+ 02/21/21 04:36 Anisocytosis 3+ A 02/21/21 04:36 PT 23.9 SECONDS (11.8-14.3) 02/19/21 12:45 INR Target Range - 02/19/21 12:45 INR 2.26 (0.8-1.3) H 02/19/21 12:45 APTT 62.1 SECONDS (22.9-36.5) H 02/19/21 12:45 PTT Comment - 02/19/21 12:45 D-Dimer 0.42 ug/ml (0.0-0.57) 02/19/21 12:45 Sample Site Rra 02/19/21 12:59 ABG pH 7.440 (7.35-7.45) 02/19/21 12:59 ABG pCO2 39.0 mmHg (35.0-45.0) 02/19/21 12:59 ABG pO2 53.0 mmHg (80.0-100.0) L 02/19/21 12:59 ABG HCO3 26.5 mmol/L (22-26) H 02/19/21 12:59 ABG O2 Saturation 88.0 % (90-100) L 02/19/21 12:59 ABG Base Excess 2.2 mmol/L (-2.0-2.0) H 02/19/21 12:59 Singh Test Pos 02/19/21 12:59 A-a Gradient 98.0 mmHg 02/19/21 12:59 FiO2 28.0 02/19/21 12:59 Blood Gas Comments Pt krysta well eb 02/19/21 12:59 Sodium 135 mmol/L (136-145) L 02/21/21 04:36 Corrected Sodium TNP 02/21/21 04:36 Potassium 3.1 mmol/L (3.5-5.1) L 02/21/21 04:36 Chloride 97 mmol/L (98-107) L 02/21/21 04:36 Carbon Dioxide 30.9 mmol/L (21-32) 02/21/21 04:36 BUN 16 mg/dL (7-18) 02/21/21 04:36 Creatinine 1.06 mg/dL (0.55-1.02) H 02/21/21 04:36 Est GFR (MDRD) Af Amer > 60 (>60) 02/21/21 04:36 Est GFR (MDRD) Non-Af 54 (>60) L 02/21/21 04:36 Glucose 87 mg/dL (65-99) 02/21/21 04:36 Lactic Acid 1.0 mmol/L (0.4-2.0) 02/19/21 12:45 Calcium 8.9 mg/dL (8.5-10.1) 02/21/21 04:36 Corrected Calcium 10.5 mg/dL (8.5-10.1) H 02/21/21 04:36 Magnesium 1.7 mg/dL (1.7-2.9) 02/21/21 04:36 Total Bilirubin 0.30 mg/dL (0.2-1.0) 02/21/21 04:36 AST 42 Units/L (15-37) H 02/21/21 04:36 ALT 22 Units/L (12-78) 02/21/21 04:36 Alkaline Phosphatase 94 Units/L (46-116) 02/21/21 04:36 Creatine Kinase 28 Units/L (26-192) 02/19/21 12:45 CK-MB (CK-2) < 1.0 ng/mL (0-4.0) 02/19/21 12:45 CK/CKMB % Calc 3.6 % (<4) 02/19/21 12:45 Troponin I < 0.02 ng/mL (0-1.5) 02/19/21 12:45 B-Natriuretic Peptide 126 pg/mL (0-79) H 02/20/21 04:15 Total Protein 6.5 g/dL (6.4-8.2) 02/21/21 04:36 Albumin 2.0 g/dL (3.4-5.0) L 02/21/21 04:36 Globulin 4.5 g/dL (2.5-4.5) 02/21/21 04:36 Albumin/Globulin Ratio 0.4 Ratio (1.1-2.1) L 02/21/21 04:36 SARS-CoV-2 (PCR) Negative (NEGATIVE) 02/19/21 12:46 Influenza Type A (PCR) Negative (NEGATIVE) 02/19/21 12:46 Influenza Type B (PCR) Negative (NEGATIVE) 02/19/21 12:46 RSV (PCR) Negative (NEGATIVE) 02/19/21 12:46 - Plan (1) Pneumonia Status: Acute Qualifiers: Pneumonia type: due to unspecified organism Laterality: bilateral Lung location: lower lobe of lung Qualified Code(s): J18.9 - Pneumonia, unspecified organism Plan: SUPPLEMENTAL OXYGEN, NORMAL SALINE AT 75 ML/HR, ZOSYN 3.375G IV TID, ALBUMIN 25% IV DAILY, THE POTASSIUM PROTOCOL, DUONEBS QID, PULMICORT NEBS QID, ROBITUSSIN DM 10ML PO QID, PROBIOTICS 2 CAP PO DAILY, AND OXYCODONE 5MG PO Q4H PRN PAIN. (2) Hypoxia Status: Acute (3) Hyponatremia Status: Acute (4) Renal insufficiency Status: Acute
--- NOTE | 2021-02-21 12:29 | PCM.PROG ---
Progress Note - Progress Note for Day of Date of Exam: 02/20/21 - Subjective Subjective: WAS ADMITTED FOR TREATMENT OF BILATERAL LOWER LOBE PNEUMONIA. TODAY, SHE IS ALERT AND ORIENTED, SITTING UP IN BED ON MORNING ROUNDS. SHE CONTINUES WITH SHORTNESS OF BREATH AT TIMES, BUT DOES ADMIT TO SLIGHT IMPROVEMENT IN SYMPTOMS. SHE ALSO ADMITS TO INTERMITTENT RIGHT FOOT/LEG PAIN BUT PAIN SEEMS TO BE CONTROLLED BY HER CURRENT PAIN MEDICATIONS. ON EXAMINATION, HEART IS REGULAR IN RATE AND RHYTHM. BILATERAL LUNGS NOTED WITH DIMINISHED LUNG SOUNDS THROUGHOUT. ABDOMEN IS ROUND, SOFT, AND NON-TENDER WITH NORMAL BOWEL SOUNDS NOTED IN ALL QUADRANTS. EXTERNAL FIXATOR AND DRESSING NOTED TO RIGHT ANKLE/LOWER LEG. HER VITALS THIS MORNING ARE: 97.6-73-20-98%-128/60. LABS WERE OBTAINED. HGB 11.1, HCT 32.9, SODIUM 132, CHLORIDE 94, BUN 34, CREATININE 1.78, AST 42, BNP 126, ALBUMIN 2.1, GLOBULIN 4.6. BLOOD CULTURES ARE PENDING. CHEST XRAY REPEATED AND REVEALED: 1. Continued increased interstitial markings similar to previous study that could be acute or chronic. 2. Unchanged mild cardiomegaly. SHE IS CURRENTLY RECEIVING NORMAL SALINE AT 75 ML/HR, ZOSYN 3.375G IV TID, THE POTASSIUM PROTOCOL, DUONEBS QID, PULMICORT NEBS QID, ROBITUSSIN DM 10ML PO QID, PROBIOTICS 2 CAP PO DAILY, AND OXYCODONE 5MG PO Q4H PRN PAIN. WE WILL REVIEW HER HOME MEDICATIONS AND RESUME APPROPRIATE. OTHERWISE, WE PLAN TO FOLLOW UP WITH AM LABS AND CHEST XRAY AND CONTINUE TO MONITOR. TIME SPENT ON CLINICAL ASSESSMENT, REVIEWING LABS AND IMAGING, DECISION MAKING, AND DOCUMENTATION GREATER THAN 45 MINUTES. - Past Medical Family Social History Past Med/Fam/Surg Hx: No changes since H&P Allergies: Allergies ANGIE Inhibitors Allergy (Verified 03/05/18 10:04) codeine Allergy (Verified 03/05/18 09:54) gabapentin Allergy (Verified 03/05/18 09:54) vancomycin Allergy (Verified 03/05/18 09:54) STATINS Allergy (Uncoded 03/05/18 09:54) - Review of Systems ROS: No change since H&P - Vital Signs and I&O's Vital Signs: Temperature 97.6 F Pulse Rate 92 Respiratory Rate 17 Blood Pressure [Left Arm] 146/64 Blood Pressure 126/57 O2 Sat by Pulse Oximetry 97 Intake and Output: Intake & Output 02/19/21 02/20/21 02/21/21 02/22/21 11:59 11:59 11:59 11:59 Intake Total 881 / 881 2158 / 2158 Output Total 400 / 400 950 / 950 Balance 481 / 481 1208 / 1208 - Physical Exam Oriented: Normal Eyes: Normal Ear: Normal Nose: Normal Throat: Normal Respiratory: Generalized, Diminished Cardiovascular: Normal : Normal Auscultation: Bowel Sounds: Normal Palpation: Normal Tenderness: Normal Skin: Normal Musculoskeletal: Right (RIGHT ANKLE/LOWER LEG EXTERNAL FIXATOR ), Leg, Ankle, Foot, Tender Psychiatric: Normal Mood Description: Calm Affect: Normal Speech Pattern: Clear - Laboratory and Diagnostics Result Diagrams: 02/21/21 04:36 02/21/21 04:36 Labs: 02/19/21 12:45 Blood Blood Culture - Preliminary 02/19/21 12:54 Blood Blood Culture - Preliminary Laboratory WBC 4.9 X10^3/uL (3.6-10.0) 02/21/21 04:36 RBC 3.71 X10^6/uL (3.5-5.4) 02/21/21 04:36 Hgb 10.6 g/dL (12.0-16.0) L 02/21/21 04:36 Hct 31.5 % (36.0-47.0) L 02/21/21 04:36 MCV 85.0 fL (80.0-100.0) 02/21/21 04:36 MCH 28.6 pg (27.0-34.0) 02/21/21 04:36 MCHC 33.7 g/dL (33.0-35.0) 02/21/21 04:36 RDW 25.2 % (11.6-16.5) H 02/21/21 04:36 Plt Count 377 X10^3/uL (150.0-450.0) 02/21/21 04:36 Plt Count Comment Adequate (ADEQUATE) 02/21/21 04:36 MPV 7.6 fL (7.4-11.0) 02/21/21 04:36 Neut % (Auto) 70.0 % (42.0-75.0) 02/21/21 04:36 Lymph % (Auto) 12.3 % (21.0-51.0) L 02/21/21 04:36 [place] % (Auto) 13.2 % (0.0-13.0) H 02/21/21 04:36 Eos % (Auto) 3.8 % (0.9-2.9) H 02/21/21 04:36 Baso % (Auto) 0.7 % (0.2-1.0) 02/21/21 04:36 Neut # (Auto) 3.4 x10^3/uL (2.2-4.8) 02/21/21 04:36 Lymph # (Auto) 0.6 X10^3/uL (1.3-2.9) L 02/21/21 04:36 [place] # (Auto) 0.7 x10^3/uL (0.3-0.8) 02/21/21 04:36 Eos # (Auto) 0.2 x10^3/uL (0.0-0.2) 02/21/21 04:36 Baso # (Auto) 0.0 X10^3/uL (0.0-0.1) 02/21/21 04:36 Absolute Nucleated RBC 0.2 /100WBC 02/21/21 04:36 Total Counted 100 02/21/21 04:36 Neutrophils % (Manual) 70 % (39-76) 02/21/21 04:36 Lymphocytes % (Manual) 18 % (13-43) 02/21/21 04:36 Monocytes % (Manual) 6 % (4-9) 02/21/21 04:36 Eosinophils % (Manual) 6 % (0-6) 02/21/21 04:36 Plt Morphology Comment Normal (NORMAL) 02/21/21 04:36 RBC Morphology Abnormal (NORMAL) A 02/21/21 04:36 Dimorphic RBCs 2+ 02/21/21 04:36 Anisocytosis 3+ A 02/21/21 04:36 PT 23.9 SECONDS (11.8-14.3) 02/19/21 12:45 INR Target Range - 02/19/21 12:45 INR 2.26 (0.8-1.3) H 02/19/21 12:45 APTT 62.1 SECONDS (22.9-36.5) H 02/19/21 12:45 PTT Comment - 02/19/21 12:45 D-Dimer 0.42 ug/ml (0.0-0.57) 02/19/21 12:45 Sample Site Rra 02/19/21 12:59 ABG pH 7.440 (7.35-7.45) 02/19/21 12:59 ABG pCO2 39.0 mmHg (35.0-45.0) 02/19/21 12:59 ABG pO2 53.0 mmHg (80.0-100.0) L 02/19/21 12:59 ABG HCO3 26.5 mmol/L (22-26) H 02/19/21 12:59 ABG O2 Saturation 88.0 % (90-100) L 02/19/21 12:59 ABG Base Excess 2.2 mmol/L (-2.0-2.0) H 02/19/21 12:59 Singh Test Pos 02/19/21 12:59 A-a Gradient 98.0 mmHg 02/19/21 12:59 FiO2 28.0 02/19/21 12:59 Blood Gas Comments Pt krysta well eb 02/19/21 12:59 Sodium 135 mmol/L (136-145) L 02/21/21 04:36 Corrected Sodium TNP 02/21/21 04:36 Potassium 3.1 mmol/L (3.5-5.1) L 02/21/21 04:36 Chloride 97 mmol/L (98-107) L 02/21/21 04:36 Carbon Dioxide 30.9 mmol/L (21-32) 02/21/21 04:36 BUN 16 mg/dL (7-18) 02/21/21 04:36 Creatinine 1.06 mg/dL (0.55-1.02) H 02/21/21 04:36 Est GFR (MDRD) Af Amer > 60 (>60) 02/21/21 04:36 Est GFR (MDRD) Non-Af 54 (>60) L 02/21/21 04:36 Glucose 87 mg/dL (65-99) 02/21/21 04:36 Lactic Acid 1.0 mmol/L (0.4-2.0) 02/19/21 12:45 Calcium 8.9 mg/dL (8.5-10.1) 02/21/21 04:36 Corrected Calcium 10.5 mg/dL (8.5-10.1) H 02/21/21 04:36 Magnesium 1.7 mg/dL (1.7-2.9) 02/21/21 04:36 Total Bilirubin 0.30 mg/dL (0.2-1.0) 02/21/21 04:36 AST 42 Units/L (15-37) H 02/21/21 04:36 ALT 22 Units/L (12-78) 02/21/21 04:36 Alkaline Phosphatase 94 Units/L (46-116) 02/21/21 04:36 Creatine Kinase 28 Units/L (26-192) 02/19/21 12:45 CK-MB (CK-2) < 1.0 ng/mL (0-4.0) 02/19/21 12:45 CK/CKMB % Calc 3.6 % (<4) 02/19/21 12:45 Troponin I < 0.02 ng/mL (0-1.5) 02/19/21 12:45 B-Natriuretic Peptide 126 pg/mL (0-79) H 02/20/21 04:15 Total Protein 6.5 g/dL (6.4-8.2) 02/21/21 04:36 Albumin 2.0 g/dL (3.4-5.0) L 02/21/21 04:36 Globulin 4.5 g/dL (2.5-4.5) 02/21/21 04:36 Albumin/Globulin Ratio 0.4 Ratio (1.1-2.1) L 02/21/21 04:36 SARS-CoV-2 (PCR) Negative (NEGATIVE) 02/19/21 12:46 Influenza Type A (PCR) Negative (NEGATIVE) 02/19/21 12:46 Influenza Type B (PCR) Negative (NEGATIVE) 02/19/21 12:46 RSV (PCR) Negative (NEGATIVE) 02/19/21 12:46 - Plan (1) Pneumonia Status: Acute Qualifiers: Pneumonia type: due to unspecified organism Laterality: bilateral Lung location: lower lobe of lung Qualified Code(s): J18.9 - Pneumonia, unspecified organism Plan: SUPPLEMENTAL OXYGEN, NORMAL SALINE AT 75 ML/HR, ZOSYN 3.375G IV TID, THE POTASSIUM PROTOCOL, DUONEBS QID, PULMICORT NEBS QID, ROBITUSSIN DM 10ML PO QID, PROBIOTICS 2 CAP PO DAILY, AND OXYCODONE 5MG PO Q4H PRN PAIN. (2) Hypoxia Status: Acute (3) Hyponatremia Status: Acute (4) Renal insufficiency Status: Acute
[2021-02-21] MEDS: VITAMIN D3 125 mcg (5,000 UNITS) PO SCH (12:59)
[2021-02-21] MEDS: ALBUMIN HUMAN 25%- 100 ML 100 ML IV SCH (13:00)
[2021-02-21] MEDS: CORDARONE TAB 200 MG PO SCH (13:01)
[2021-02-21] MEDS: EFFEXOR XR 150 MG CAP 24-HR PO SCH (13:02)
[2021-02-21] MEDS: NexIUM PO SCH (13:02)
[2021-02-21] MEDS: SENOKOT PO SCH ×2 (13:02→20:23)
[2021-02-21] MEDS: SYNTHROID 125 mcg TAB PO SCH (13:02)
[2021-02-21] MEDS: TOPROL XL PO SCH (13:03)
[2021-02-21] MEDS: COUMADIN PO SCH (20:18)
[2021-02-21] MEDS: BRILINTA PO SCH (20:18)
[2021-02-21] MEDS: MELATONIN PO SCH (20:22)
[2021-02-21] MEDS: VITAMIN C PO SCH (20:23)
[2021-02-21] MEDS: REQUIP PO PRN (20:24)
[2021-02-21] MEDS: ZANAFLEX PO SCH (20:24)
[2021-02-21] MEDS: MAGNESIUM SULFATE 1 GRAM/100 mL PREMIX 1 G/100 ML BAG IV PRN (20:29)
[2021-02-22] MEDS: MAGNESIUM SULFATE 1 GRAM/100 mL PREMIX 1 G/100 ML BAG IV PRN (02:45)
[2021-02-22] MEDS: NS 1/2 1,000 ML IV 1,000 ML IV SCH ×2 (05:16→14:02)
[2021-02-22] MEDS: ZOSYN VIAL 3.375 GRAMS 3.375 G in NS 100 ML IV + SPIKE MINIBAG* 100 ML IV SCH ×3 (05:17→21:14)
[2021-02-22 05:32] LABS: BASOPHILS % (AUTO) 0.7 % (0.2-1.0); EOSINOPHILS # (AUTO) 0.2 x10^3/uL (0.0-0.2); EOSINOPHILS % (AUTO) 4.4 % (0.9-2.9); HEMATOCRIT 29.7 % (36.0-47.0); HEMOGLOBIN 10.1 g/dL (12.0-16.0); LYMPHOCYTES # (AUTO) 0.6 X10^3/uL (1.3-2.9); LYMPHOCYTES % (AUTO) 13.4 % (21.0-51.0); MEAN CORPUSCULAR HEMOGLOBIN 28.7 pg (27.0-34.0); MEAN CORPUSCULAR HGB CONC 33.9 g/dL (33.0-35.0); MEAN CORPUSCULAR VOLUME 84.6 fL (80.0-100.0); MEAN PLATELET VOLUME 7.3 fL (7.4-11.0); MONOCYTES # (AUTO) 0.7 x10^3/uL (0.3-0.8); MONOCYTES % (AUTO) 15.8 % (0.0-13.0); NEUTROPHILS # (AUTO) 2.9 x10^3/uL (2.2-4.8); NEUTROPHILS % (AUTO) 65.7 % (42.0-75.0); PLATELET COUNT 349 X10^3/uL (150.0-450.0); RED BLOOD COUNT 3.51 X10^6/uL (3.5-5.4); WHITE BLOOD COUNT 4.4 X10^3/uL (3.6-10.0)
[2021-02-22 05:52] LABS: ALANINE AMINOTRANSFERASE 20 Units/L (12-78); ALBUMIN 2.4 g/dL (3.4-5.0); ALKALINE PHOSPHATASE 77 Units/L (46-116); ASPARTATE AMINO TRANSFERASE 33 Units/L (15-37); BLOOD UREA NITROGEN 7 mg/dL (7-18); CALCIUM 9.1 mg/dL (8.5-10.1); CARBON DIOXIDE 27.5 mmol/L (21-32); CHLORIDE 103 mmol/L (98-107); COR CA(FOR HYPOALB) 10.4 mg/dL (8.5-10.1); COR NA(FOR HYPERGLY) 139 mmol/L (136-145); CREATININE 0.81 mg/dL (0.55-1.02); SODIUM 139 mmol/L (136-145); TOTAL PROTEIN 6.4 g/dL (6.4-8.2); eGFR NON BLACK RACES > 60 (>60)
[2021-02-22 06:17] LABS: PLATELET MORPHOLOGY COMMENT NORMAL (NORMAL)
--- NOTE | 2021-02-22 06:34 | RAD ---
HISTORYShortness of breathSTUDYChest AP [id number] ent is status post median sternotomy, CABG, and valve replacement. Heart is enlarged. Pulmonary venous congestion is present. Diffuse interstitial lung changes are present and unchanged. This could represent interstitial edema, pneumonitis, chronic lung changes or a combination of acute and chronic lung changes. No definite alveolar infiltrates or pleural effusions are identified. Bony thorax is unremarkable.IMPRESSIONCardiomegaly with pulmonary venous congestionDiffuse interstitial lung changes which could be chronic or acute and represent interstitial edema or pneumonitis.Electronically signed by: MARIA T GARCIA (Feb 22, 2021 06:32:03)
[2021-02-22] MEDS: BRILINTA PO SCH ×2 (08:59→20:22)
[2021-02-22] MEDS: CORDARONE TAB 200 MG PO SCH (08:59)
[2021-02-22] MEDS: NexIUM PO SCH (09:00)
[2021-02-22] MEDS: EFFEXOR XR 150 MG CAP 24-HR PO SCH (09:00)
[2021-02-22] MEDS: ROBITUSSIN DM PO SCH ×4 (09:00→20:25)
[2021-02-22] MEDS: SYNTHROID 125 mcg TAB PO SCH (09:01)
[2021-02-22] MEDS: TAB-A-VITE PO SCH (09:01)
[2021-02-22] MEDS: VITAMIN D3 125 mcg (5,000 UNITS) PO SCH (09:02)
[2021-02-22] MEDS: VITAMIN C PO SCH ×2 (09:02→20:26)
[2021-02-22] MEDS: TOPROL XL PO SCH (09:02)
[2021-02-22] MEDS: VSL#3 PO SCH (09:02)
[2021-02-22] MEDS: ALBUMIN HUMAN 25%- 100 ML 100 ML IV SCH (09:30)
[2021-02-22] MEDS: PULMICORT NEB TX 0.5 MG NEB SCH ×2 (09:35→20:10)
[2021-02-22] MEDS: DUONEB 0.5 MG/3 MG (3 mL) NEB SCH ×4 (09:35→20:10)
--- NOTE | 2021-02-22 10:08 | PCM.PROG ---
Progress Note - Progress Note for Day of Date of Exam: 02/22/21 - Subjective Subjective: IS BEING TREATED FOR BILATERAL LOWER LOBE PNEUMONIA. TODAY, SHE IS ALERT AND ORIENTED, SITTING UP IN BED ON MORNING ROUNDS. SHE CONTINUES WITH SHORTNESS OF BREATH AT TIMES, BUT DOES ADMIT TO IMPROVEMENT IN SYMPTOMS SINCE ADMISSION. SHE ALSO ADMITS TO INTERMITTENT RIGHT FOOT/LEG PAIN BUT PAIN SEEMS TO BE CONTROLLED BY HER CURRENT PAIN MEDICATIONS. ON EXAMINATION, HEART IS REGULAR IN RATE AND RHYTHM. BILATERAL LUNGS NOTED WITH DIMINISHED LUNG SOUNDS THROUGHOUT. ABDOMEN IS ROUND, SOFT, AND NON-TENDER WITH NORMAL BOWEL SOUNDS NOTED IN ALL QUADRANTS. EXTERNAL FIXATOR AND DRESSING NOTED TO RIGHT ANKLE/LOWER LEG. HER VITALS THIS MORNING ARE: 97.9-76-23-97%-142/76. LABS WERE OBTAINED. WBC 4.4, HGB 10.1, HCT 29.7, GLUCOSE 112, ALBUMIN 2.4, OTHERWISE UNREMARKABLE. BLOOD CULTURES ARE PENDING. CHEST XRAY REPEATED AND REVEALED: Cardiomegaly with pulmonary venous congestion. Diffuse interstitial lung changes which could be chronic or acute and represent interstitial edema or pneumonitis. SHE IS CURRENTLY RECEIVING 1/2NORMAL SALINE AT 75 ML/HR, ALBUMIN 25% IV DAILY, ZOSYN 3.375G IV TID, THE POTASSIUM PROTOCOL, DUONEBS QID, PULMICORT NEBS QID, ROBITUSSIN DM 10ML PO QID, PROBIOTICS 2 CAP PO DAILY, AND OXYCODONE 5MG PO Q4H PRN PAIN. HER HOME MEDICATIONS WERE RESUMED WITH EXCEPTION OF LASIX. WE WILL DECREASE IV FLUIDS TO KVO. OTHERWISE, WE PLAN TO FOLLOW UP WITH AM LABS AND CHES T XRAY AND CONTINUE TO MONITOR. TIME SPENT ON CLINICAL ASSESSMENT, REVIEWING LABS AND IMAGING, DECISION MAKING, AND DOCUMENTATION GREATER THAN 45 MINUTES. - Past Medical Family Social History Past Med/Fam/Surg Hx: No changes since H&P Allergies: Allergies ANGIE Inhibitors Allergy (Verified 03/05/18 10:04) codeine Allergy (Verified 03/05/18 09:54) gabapentin Allergy (Verified 03/05/18 09:54) vancomycin Allergy (Verified 03/05/18 09:54) STATINS Allergy (Uncoded 03/05/18 09:54) - Review of Systems ROS: No change since H&P - Vital Signs and I&O's Vital Signs: Temperature 97.9 F Pulse Rate 83 Respiratory Rate 22 Blood Pressure [Left Arm] 146/64 Blood Pressure 134/60 O2 Sat by Pulse Oximetry 100 Intake and Output: Intake & Output 02/19/21 02/20/21 02/21/21 02/22/21 11:59 11:59 11:59 11:59 Intake Total 881 / 881 2158 / 2158 2482 / 2482 Output Total 400 / 400 950 / 950 1600 / 1600 Balance 481 / 481 1208 / 1208 882 / 882 - Physical Exam Oriented: Normal Eyes: Normal Ear: Normal Nose: Normal Throat: Normal Respiratory: Generalized, Diminished Cardiovascular: Normal : Normal Auscultation: Bowel Sounds: Normal Tenderness: Normal Skin: Normal Musculoskeletal: Right (RIGHT ANKLE/LOWER LEG EXTERNAL FIXATOR ), Leg, Ankle, Foot, Tender Psychiatric: Normal Mood Description: Calm Affect: Normal Speech Pattern: Clear - Laboratory and Diagnostics Result Diagrams: 02/22/21 05:10 02/22/21 05:10 Labs: 02/19/21 12:45 Blood Blood Culture - Preliminary 02/19/21 12:54 Blood Blood Culture - Preliminary Laboratory WBC 4.4 X10^3/uL (3.6-10.0) 02/22/21 05:10 RBC 3.51 X10^6/uL (3.5-5.4) 02/22/21 05:10 Hgb 10.1 g/dL (12.0-16.0) L 02/22/21 05:10 Hct 29.7 % (36.0-47.0) L 02/22/21 05:10 MCV 84.6 fL (80.0-100.0) 02/22/21 05:10 MCH 28.7 pg (27.0-34.0) 02/22/21 05:10 MCHC 33.9 g/dL (33.0-35.0) 02/22/21 05:10 RDW 24.0 % (11.6-16.5) H 02/22/21 05:10 Plt Count 349 X10^3/uL (150.0-450.0) 02/22/21 05:10 Plt Count Comment Adequate (ADEQUATE) 02/22/21 05:10 MPV 7.3 fL (7.4-11.0) L 02/22/21 05:10 Neut % (Auto) 65.7 % (42.0-75.0) 02/22/21 05:10 Lymph % (Auto) 13.4 % (21.0-51.0) L 02/22/21 05:10 [place] % (Auto) 15.8 % (0.0-13.0) H 02/22/21 05:10 Eos % (Auto) 4.4 % (0.9-2.9) H 02/22/21 05:10 Baso % (Auto) 0.7 % (0.2-1.0) 02/22/21 05:10 Neut # (Auto) 2.9 x10^3/uL (2.2-4.8) 02/22/21 05:10 Lymph # (Auto) 0.6 X10^3/uL (1.3-2.9) L 02/22/21 05:10 [place] # (Auto) 0.7 x10^3/uL (0.3-0.8) 02/22/21 05:10 Eos # (Auto) 0.2 x10^3/uL (0.0-0.2) 02/22/21 05:10 Baso # (Auto) 0.0 X10^3/uL (0.0-0.1) 02/22/21 05:10 Absolute Nucleated RBC 0.1 /100WBC 02/22/21 05:10 Total Counted 100 02/22/21 05:10 Neutrophils % (Manual) 75 % (39-76) 02/22/21 05:10 Lymphocytes % (Manual) 21 % (13-43) 02/22/21 05:10 Monocytes % (Manual) 4 % (4-9) 02/22/21 05:10 Eosinophils % (Manual) 6 % (0-6) 02/21/21 04:36 Plt Morphology Comment Normal (NORMAL) 02/22/21 05:10 RBC Morphology Abnormal (NORMAL) A 02/22/21 05:10 Dimorphic RBCs 2+ 02/22/21 05:10 Anisocytosis 3+ A 02/21/21 04:36 PT 20.3 SECONDS (11.8-14.3) 02/22/21 05:10 INR Target Range - 02/22/21 05:10 INR 1.83 (0.8-1.3) H 02/22/21 05:10 APTT 54.8 SECONDS (22.9-36.5) H 02/22/21 05:10 PTT Comment - 02/22/21 05:10 D-Dimer 0.42 ug/ml (0.0-0.57) 02/19/21 12:45 Sample Site Rra 02/19/21 12:59 ABG pH 7.440 (7.35-7.45) 02/19/21 12:59 ABG pCO2 39.0 mmHg (35.0-45.0) 02/19/21 12:59 ABG pO2 53.0 mmHg (80.0-100.0) L 02/19/21 12:59 ABG HCO3 26.5 mmol/L (22-26) H 02/19/21 12:59 ABG O2 Saturation 88.0 % (90-100) L 02/19/21 12:59 ABG Base Excess 2.2 mmol/L (-2.0-2.0) H 02/19/21 12:59 Singh Test Pos 02/19/21 12:59 A-a Gradient 98.0 mmHg 02/19/21 12:59 FiO2 28.0 02/19/21 12:59 Blood Gas Comments Pt krysta well eb 02/19/21 12:59 Sodium 139 mmol/L (136-145) 02/22/21 05:10 Corrected Sodium 139 mmol/L (136-145) 02/22/21 05:10 Potassium 3.7 mmol/L (3.5-5.1) 02/22/21 05:10 Chloride 103 mmol/L (98-107) 02/22/21 05:10 Carbon Dioxide 27.5 mmol/L (21-32) 02/22/21 05:10 BUN 7 mg/dL (7-18) 02/22/21 05:10 Creatinine 0.81 mg/dL (0.55-1.02) 02/22/21 05:10 Est GFR (MDRD) Af Amer > 60 (>60) 02/22/21 05:10 Est GFR (MDRD) Non-Af > 60 (>60) 02/22/21 05:10 Glucose 112 mg/dL (65-99) H 02/22/21 05:10 Lactic Acid 1.0 mmol/L (0.4-2.0) 02/19/21 12:45 Calcium 9.1 mg/dL (8.5-10.1) 02/22/21 05:10 Corrected Calcium 10.4 mg/dL (8.5-10.1) H 02/22/21 05:10 Magnesium 2.3 mg/dL (1.7-2.9) 02/22/21 05:10 Total Bilirubin 0.30 mg/dL (0.2-1.0) 02/22/21 05:10 AST 33 Units/L (15-37) 02/22/21 05:10 ALT 20 Units/L (12-78) 02/22/21 05:10 Alkaline Phosphatase 77 Units/L (46-116) 02/22/21 05:10 Creatine Kinase 28 Units/L (26-192) 02/19/21 12:45 CK-MB (CK-2) < 1.0 ng/mL (0-4.0) 02/19/21 12:45 CK/CKMB % Calc 3.6 % (<4) 02/19/21 12:45 Troponin I < 0.02 ng/mL (0-1.5) 02/19/21 12:45 B-Natriuretic Peptide 126 pg/mL (0-79) H 02/20/21 04:15 Total Protein 6.4 g/dL (6.4-8.2) 02/22/21 05:10 Albumin 2.4 g/dL (3.4-5.0) L 02/22/21 05:10 Globulin 4.0 g/dL (2.5-4.5) 02/22/21 05:10 Albumin/Globulin Ratio 0.6 Ratio (1.1-2.1) L 02/22/21 05:10 SARS-CoV-2 (PCR) Negative (NEGATIVE) 02/19/21 12:46 Influenza Type A (PCR) Negative (NEGATIVE) 02/19/21 12:46 Influenza Type B (PCR) Negative (NEGATIVE) 02/19/21 12:46 RSV (PCR) Negative (NEGATIVE) 02/19/21 12:46 - Plan (1) Pneumonia Status: Acute Qualifiers: Pneumonia type: due to unspecified organism Laterality: bilateral Lung location: lower lobe of lung Qualified Code(s): J18.9 - Pneumonia, unspecified organism Plan: SUPPLEMENTAL OXYGEN, NORMAL SALINE AT 30 ML/HR, ALBUMIN 25% IV DAILY, ZOSYN 3.375G IV TID, THE POTASSIUM PROTOCOL, DUONEBS QID, PULMICORT NEBS QID, ROBITUSSIN DM 10ML PO QID, PROBIOTICS 2 CAP PO DAILY, AND OXYCODONE 5MG PO Q4H PRN PAIN. (2) Hypoxia Status: Acute (3) Hyponatremia Status: Acute (4) Renal insufficiency Status: Acute
[2021-02-22] MEDS ORDERED: NS 1/2 1,000 ML IV 1,000 ML IV ONE (12:00)
[2021-02-22] MEDS: COUMADIN PO SCH (20:22)
[2021-02-22] MEDS: MELATONIN PO SCH (20:25)
[2021-02-22] MEDS: ZANAFLEX PO SCH (20:26)
[2021-02-22] MEDS: SENOKOT PO SCH ×2 (20:26→20:56)
[2021-02-22] MEDS: ROXICODONE TAB 5 MG PO PRN (20:27)
[2021-02-22] MEDS: REQUIP PO PRN (20:27)
[2021-02-23 05:30] LABS: BASOPHILS % (AUTO) 0.7 % (0.2-1.0); EOSINOPHILS # (AUTO) 0.2 x10^3/uL (0.0-0.2); EOSINOPHILS % (AUTO) 3.9 % (0.9-2.9); HEMATOCRIT 28.1 % (36.0-47.0); HEMOGLOBIN 9.4 g/dL (12.0-16.0); LYMPHOCYTES # (AUTO) 0.7 X10^3/uL (1.3-2.9); LYMPHOCYTES % (AUTO) 14.9 % (21.0-51.0); MEAN CORPUSCULAR HEMOGLOBIN 28.4 pg (27.0-34.0); MEAN CORPUSCULAR HGB CONC 33.3 g/dL (33.0-35.0); MEAN CORPUSCULAR VOLUME 85.1 fL (80.0-100.0); MEAN PLATELET VOLUME 7.3 fL (7.4-11.0); MONOCYTES # (AUTO) 0.7 x10^3/uL (0.3-0.8); MONOCYTES % (AUTO) 14.1 % (0.0-13.0); NEUTROPHILS # (AUTO) 3.3 x10^3/uL (2.2-4.8); NEUTROPHILS % (AUTO) 66.4 % (42.0-75.0); PLATELET COUNT 327 X10^3/uL (150.0-450.0); RED CELL DISTRIBUTION WIDTH 24.7 % (11.6-16.5); WHITE BLOOD COUNT 4.9 X10^3/uL (3.6-10.0)
[2021-02-23 05:47] LABS: ALANINE AMINOTRANSFERASE 19 Units/L (12-78); ALBUMIN 2.5 g/dL (3.4-5.0); ALKALINE PHOSPHATASE 65 Units/L (46-116); ASPARTATE AMINO TRANSFERASE 33 Units/L (15-37); BLOOD UREA NITROGEN 3 mg/dL (7-18); CALCIUM 8.8 mg/dL (8.5-10.1); CARBON DIOXIDE 26.6 mmol/L (21-32); CHLORIDE 104 mmol/L (98-107); CREATININE 0.69 mg/dL (0.55-1.02); SODIUM 139 mmol/L (136-145); eGFR NON BLACK RACES > 60 (>60)
[2021-02-23 05:58] LABS: PLATELET MORPHOLOGY COMMENT NORMAL (NORMAL)
[2021-02-23] MEDS: NS 1/2 1,000 ML IV 1,000 ML IV SCH ×2 (05:59→20:28)
[2021-02-23] MEDS: ZOSYN VIAL 3.375 GRAMS 3.375 G in NS 100 ML IV + SPIKE MINIBAG* 100 ML IV SCH ×3 (06:15→21:19)
--- NOTE | 2021-02-23 06:40 | RAD ---
HISTORYShortness of breathSTUDYChest AP [id number] ent is status post median sternotomy, CABG, and valve replacement. Heart remains enlarged. Diffuse bilateral interstitial and now some left upper lobe ground-glass infiltrates are present. Findings could represent edema, pneumonitis, chronic lung changes or combination of acute chronic lung changes. No pleural effusions are identified. Bony thorax is unremarkable.IMPRESSIONNo change cardiomegaly with diffuse bilateral interstitial lung changes which could represent edema, infection, or a combination of chronic and acute interstitial lung changes.New alveolar infiltrate left upper lobe which could represent pneumonia or asymmetric edemaElectronically signed by: MARIA T GARCIA (Feb 23, 2021 06:37:52)
[2021-02-23] MEDS: PULMICORT NEB TX 0.5 MG NEB SCH ×2 (09:10→21:00)
[2021-02-23] MEDS: DUONEB 0.5 MG/3 MG (3 mL) NEB SCH ×4 (09:10→21:00)
[2021-02-23] MEDS: EFFEXOR XR 150 MG CAP 24-HR PO SCH (09:12)
[2021-02-23] MEDS: BRILINTA PO SCH ×2 (09:12→20:50)
[2021-02-23] MEDS: CORDARONE TAB 200 MG PO SCH (09:12)
[2021-02-23] MEDS: NexIUM PO SCH (09:13)
[2021-02-23] MEDS: ROBITUSSIN DM PO SCH ×4 (09:13→20:54)
[2021-02-23] MEDS: SYNTHROID 125 mcg TAB PO SCH (09:18)
[2021-02-23] MEDS: TOPROL XL PO SCH (09:19)
[2021-02-23] MEDS: VITAMIN C PO SCH ×2 (09:19→20:55)
[2021-02-23] MEDS: VSL#3 PO SCH (09:19)
[2021-02-23] MEDS: TAB-A-VITE PO SCH (09:19)
[2021-02-23] MEDS: VITAMIN D3 125 mcg (5,000 UNITS) PO SCH (09:19)
[2021-02-23] MEDS: ALBUMIN HUMAN 25%- 100 ML 100 ML IV SCH (09:50)
--- NOTE | 2021-02-23 11:31 | PCM.PROG ---
Progress Note - Progress Note for Day of Date of Exam: 02/23/21 - Subjective Subjective: IS BEING TREATED FOR BILATERAL LOWER LOBE PNEUMONIA. TODAY, SHE IS ALERT AND ORIENTED, SITTING UP IN BED ON MORNING ROUNDS. SHE CONTINUES WITH SHORTNESS OF BREATH AT TIMES, BUT DOES ADMIT TO IMPROVEMENT IN SYMPTOMS SINCE ADMISSION. SHE ALSO ADMITS TO INTERMITTENT RIGHT FOOT/LEG PAIN. ON EXAMINATION, HEART IS REGULAR IN RATE AND RHYTHM. BILATERAL LUNGS NOTED WITH DIMINISHED LUNG SOUNDS THROUGHOUT. ABDOMEN IS ROUND, SOFT, AND NON-TENDER WITH NORMAL BOWEL SOUNDS NOTED IN ALL QUADRANTS. EXTERNAL FIXATOR AND DRESSING NOTED TO RIGHT ANKLE/LOWER LEG. HER VITALS THIS MORNING ARE: 98.1-86-18-95%-167/64. LABS WERE OBTAINED. RBC 3.30, HGB 9.4, HCT 28.1, INR 1.56, PTT 48.5, POTASSIUM 3.3, BUN 3, TOTAL PROTEIN 6.0, ALBUMIN 2.5. BLOOD CULTURES ARE PENDING. CHEST XRAY REPEATED AND REVEALED: No change cardiomegaly with diffuse bilateral interstitial lung changes which could represent edema, infection, or a combination of chronic and acute interstitial lung changes. New alveolar infilt rate left upper lobe which could represent pneumonia or asymmetric edema. SHE IS CURRENTLY RECEIVING NORMAL SALINE AT 20 ML/HR, ALBUMIN 25% IV DAILY, ZOSYN 3.375G IV TID, THE POTASSIUM PROTOCOL, DUONEBS QID, PULMICORT NEBS QID, ROBITUSSIN DM 10ML PO QID, PROBIOTICS 2 CAP PO DAILY, AND OXYCODONE 5MG PO Q4H PRN PAIN. HER HOME MEDICATIONS WERE RESUMED. WE WILL CONTINUE WITH CURRENT PLAN OF CARE TODAY. WE WILL PLAN FOR DISCHARGE TOMORROW IF SHE REMAINS STABLE. OTHERWISE, WE PLAN TO FOLLOW UP WITH AM LABS AND CHEST XRAY AND CONTINUE TO MONITOR. TIME SPENT ON CLINICAL ASSESSMENT, REVIEWING LABS AND IMAGING, DECISION MAKING, AND DOCUMENTATION GREATER THAN 45 MINUTES. - Past Medical Family Social History Past Med/Fam/Surg Hx: No changes since H&P Allergies: Allergies ANGIE Inhibitors Allergy (Verified 03/05/18 10:04) codeine Allergy (Verified 03/05/18 09:54) gabapentin Allergy (Verified 03/05/18 09:54) vancomycin Allergy (Verified 03/05/18 09:54) STATINS Allergy (Uncoded 03/05/18 09:54) - Review of Systems ROS: No change since H&P - Vital Signs and I&O's Vital Signs: Temperature 98.1 F Pulse Rate 86 Respiratory Rate 18 Blood Pressure [Left Arm] 146/64 Blood Pressure 167/64 O2 Sat by Pulse Oximetry 95 Intake and Output: Intake & Output 02/20/21 02/21/21 02/22/21 02/23/21 11:59 11:59 11:59 11:59 Intake Total 881 / 881 2158 / 2158 2482 / 2482 1555 / 1555 Output Total 400 / 400 950 / 950 1600 / 1600 Balance 481 / 481 1208 / 1208 882 / 882 1555 / 1555 - Physical Exam Oriented: Normal Eyes: Normal Ear: Normal Nose: Normal Throat: Normal Respiratory: Generalized, Diminished Cardiovascular: Normal : Normal Auscultation: Bowel Sounds: Normal Tenderness: Normal Skin: Normal Musculoskeletal: Right (RIGHT ANKLE/LOWER LEG EXTERNAL FIXATOR ), Leg, Ankle, Foot, Tender Psychiatric: Normal Mood Description: Calm Affect: Normal Speech Pattern: Clear - Laboratory and Diagnostics Result Diagrams: 02/23/21 04:32 02/23/21 04:32 Labs: 02/19/21 12:45 Blood Blood Culture - Preliminary 02/19/21 12:54 Blood Blood Culture - Preliminary Laboratory WBC 4.9 X10^3/uL (3.6-10.0) 02/23/21 04:32 RBC 3.30 X10^6/uL (3.5-5.4) L 02/23/21 04:32 Hgb 9.4 g/dL (12.0-16.0) L 02/23/21 04:32 Hct 28.1 % (36.0-47.0) L 02/23/21 04:32 MCV 85.1 fL (80.0-100.0) 02/23/21 04:32 MCH 28.4 pg (27.0-34.0) 02/23/21 04:32 MCHC 33.3 g/dL (33.0-35.0) 02/23/21 04:32 RDW 24.7 % (11.6-16.5) H 02/23/21 04:32 Plt Count 327 X10^3/uL (150.0-450.0) 02/23/21 04:32 Plt Count Comment Adequate (ADEQUATE) 02/23/21 04:32 MPV 7.3 fL (7.4-11.0) L 02/23/21 04:32 Neut % (Auto) 66.4 % (42.0-75.0) 02/23/21 04:32 Lymph % (Auto) 14.9 % (21.0-51.0) L 02/23/21 04:32 [place] % (Auto) 14.1 % (0.0-13.0) H 02/23/21 04:32 Eos % (Auto) 3.9 % (0.9-2.9) H 02/23/21 04:32 Baso % (Auto) 0.7 % (0.2-1.0) 02/23/21 04:32 Neut # (Auto) 3.3 x10^3/uL (2.2-4.8) 02/23/21 04:32 Lymph # (Auto) 0.7 X10^3/uL (1.3-2.9) L 02/23/21 04:32 [place] # (Auto) 0.7 x10^3/uL (0.3-0.8) 02/23/21 04:32 Eos # (Auto) 0.2 x10^3/uL (0.0-0.2) 02/23/21 04:32 Baso # (Auto) 0.0 X10^3/uL (0.0-0.1) 02/23/21 04:32 Absolute Nucleated RBC 0.0 /100WBC 02/23/21 04:32 Total Counted 100 02/22/21 05:10 Neutrophils % (Manual) 75 % (39-76) 02/22/21 05:10 Lymphocytes % (Manual) 21 % (13-43) 02/22/21 05:10 Monocytes % (Manual) 4 % (4-9) 02/22/21 05:10 Eosinophils % (Manual) 6 % (0-6) 02/21/21 04:36 Plt Morphology Comment Normal (NORMAL) 02/23/21 04:32 RBC Morphology Abnormal (NORMAL) A 02/23/21 04:32 Dimorphic RBCs 2+ 02/23/21 04:32 Anisocytosis 3+ A 02/21/21 04:36 PT 17.9 SECONDS (11.8-14.3) 02/23/21 04:32 INR Target Range - 02/23/21 04:32 INR 1.56 (0.8-1.3) H 02/23/21 04:32 APTT 48.5 SECONDS (22.9-36.5) H 02/23/21 04:32 PTT Comment - 02/23/21 04:32 D-Dimer 0.42 ug/ml (0.0-0.57) 02/19/21 12:45 Sample Site Rra 02/19/21 12:59 ABG pH 7.440 (7.35-7.45) 02/19/21 12:59 ABG pCO2 39.0 mmHg (35.0-45.0) 02/19/21 12:59 ABG pO2 53.0 mmHg (80.0-100.0) L 02/19/21 12:59 ABG HCO3 26.5 mmol/L (22-26) H 02/19/21 12:59 ABG O2 Saturation 88.0 % (90-100) L 02/19/21 12:59 ABG Base Excess 2.2 mmol/L (-2.0-2.0) H 02/19/21 12:59 Singh Test Pos 02/19/21 12:59 A-a Gradient 98.0 mmHg 02/19/21 12:59 FiO2 28.0 02/19/21 12:59 Blood Gas Comments Pt krysta well eb 02/19/21 12:59 Sodium 139 mmol/L (136-145) 02/23/21 04:32 Corrected Sodium TNP 02/23/21 04:32 Potassium 3.3 mmol/L (3.5-5.1) L 02/23/21 04:32 Chloride 104 mmol/L (98-107) 02/23/21 04:32 Carbon Dioxide 26.6 mmol/L (21-32) 02/23/21 04:32 BUN 3 mg/dL (7-18) L 02/23/21 04:32 Creatinine 0.69 mg/dL (0.55-1.02) 02/23/21 04:32 Est GFR (MDRD) Af Amer > 60 (>60) 02/23/21 04:32 Est GFR (MDRD) Non-Af > 60 (>60) 02/23/21 04:32 Glucose 93 mg/dL (65-99) 02/23/21 04:32 Lactic Acid 1.0 mmol/L (0.4-2.0) 02/19/21 12:45 Calcium 8.8 mg/dL (8.5-10.1) 02/23/21 04:32 Corrected Calcium 10.0 mg/dL (8.5-10.1) 02/23/21 04:32 Magnesium 2.3 mg/dL (1.7-2.9) 02/22/21 05:10 Total Bilirubin 0.40 mg/dL (0.2-1.0) 02/23/21 04:32 AST 33 Units/L (15-37) 02/23/21 04:32 ALT 19 Units/L (12-78) 02/23/21 04:32 Alkaline Phosphatase 65 Units/L (46-116) 02/23/21 04:32 Creatine Kinase 28 Units/L (26-192) 02/19/21 12:45 CK-MB (CK-2) < 1.0 ng/mL (0-4.0) 02/19/21 12:45 CK/CKMB % Calc 3.6 % (<4) 02/19/21 12:45 Troponin I < 0.02 ng/mL (0-1.5) 02/19/21 12:45 B-Natriuretic Peptide 126 pg/mL (0-79) H 02/20/21 04:15 Total Protein 6.0 g/dL (6.4-8.2) L 02/23/21 04:32 Albumin 2.5 g/dL (3.4-5.0) L 02/23/21 04:32 Globulin 3.5 g/dL (2.5-4.5) 02/23/21 04:32 Albumin/Globulin Ratio 0.7 Ratio (1.1-2.1) L 02/23/21 04:32 SARS-CoV-2 (PCR) Negative (NEGATIVE) 02/19/21 12:46 Influenza Type A (PCR) Negative (NEGATIVE) 02/19/21 12:46 Influenza Type B (PCR) Negative (NEGATIVE) 02/19/21 12:46 RSV (PCR) Negative (NEGATIVE) 02/19/21 12:46 - Plan (1) Pneumonia Status: Acute Qualifiers: Pneumonia type: due to unspecified organism Laterality: bilateral Lung location: lower lobe of lung Qualified Code(s): J18.9 - Pneumonia, unspecified organism Plan: SUPPLEMENTAL OXYGEN, NORMAL SALINE AT 30 ML/HR, ALBUMIN 25% IV DAILY, ZOSYN 3.375G IV TID, THE POTASSIUM PROTOCOL, DUONEBS QID, PULMICORT NEBS QID, ROBITUSSIN DM 10ML PO QID, PROBIOTICS 2 CAP PO DAILY, AND OXYCODONE 5MG PO Q4H PRN PAIN. (2) Hypoxia Status: Acute (3) Hyponatremia Status: Acute (4) Renal insufficiency Status: Acute
[2021-02-23] MEDS: LASIX PO SCH ×2 (13:37→20:52)
[2021-02-23] MEDS: REQUIP PO PRN ×2 (14:00→20:56)
[2021-02-23] MEDS: ROXICODONE TAB 5 MG PO PRN (17:23)
[2021-02-23] MEDS: COUMADIN PO SCH (20:51)
[2021-02-23] MEDS: MELATONIN PO SCH (20:54)
[2021-02-23] MEDS: SENOKOT PO SCH (20:55)
[2021-02-23] MEDS: ZANAFLEX PO SCH (20:55)
[2021-02-23] MEDS ORDERED: VALIUM PO ONE (22:15)
[2021-02-23] MEDS: CARDIZEM CD 120 MG 24-HR PO SCH (22:42)
[2021-02-24] MEDS: ZOSYN VIAL 3.375 GRAMS 3.375 G in NS 100 ML IV + SPIKE MINIBAG* 100 ML IV SCH (05:24)
[2021-02-24 05:50] LABS: BASOPHILS % (AUTO) 0.6 % (0.2-1.0); EOSINOPHILS # (AUTO) 0.1 x10^3/uL (0.0-0.2); EOSINOPHILS % (AUTO) 1.4 % (0.9-2.9); HEMATOCRIT 30.4 % (36.0-47.0); HEMOGLOBIN 10.3 g/dL (12.0-16.0); LYMPHOCYTES # (AUTO) 0.7 X10^3/uL (1.3-2.9); LYMPHOCYTES % (AUTO) 9.6 % (21.0-51.0); MEAN CORPUSCULAR HEMOGLOBIN 28.6 pg (27.0-34.0); MEAN CORPUSCULAR HGB CONC 33.8 g/dL (33.0-35.0); MEAN CORPUSCULAR VOLUME 84.8 fL (80.0-100.0); MONOCYTES # (AUTO) 0.7 x10^3/uL (0.3-0.8); MONOCYTES % (AUTO) 10.3 % (0.0-13.0); NEUTROPHILS # (AUTO) 5.7 x10^3/uL (2.2-4.8); NEUTROPHILS % (AUTO) 78.1 % (42.0-75.0); PLATELET COUNT 349 X10^3/uL (150.0-450.0); RED BLOOD COUNT 3.59 X10^6/uL (3.5-5.4); RED CELL DISTRIBUTION WIDTH 24.9 % (11.6-16.5); WHITE BLOOD COUNT 7.3 X10^3/uL (3.6-10.0)
[2021-02-24 06:08] LABS: ALANINE AMINOTRANSFERASE 14 Units/L (12-78); ALBUMIN 2.8 g/dL (3.4-5.0); ALKALINE PHOSPHATASE 68 Units/L (46-116); ASPARTATE AMINO TRANSFERASE 38 Units/L (15-37); BLOOD UREA NITROGEN 5 mg/dL (7-18); CALCIUM 8.6 mg/dL (8.5-10.1); CARBON DIOXIDE 25.3 mmol/L (21-32); CHLORIDE 102 mmol/L (98-107); COR CA(FOR HYPOALB) 9.6 mg/dL (8.5-10.1); CREATININE 0.63 mg/dL (0.55-1.02); SODIUM 138 mmol/L (136-145); TOTAL PROTEIN 6.5 g/dL (6.4-8.2); eGFR NON BLACK RACES > 60 (>60)
--- NOTE | 2021-02-24 06:11 | RAD ---
HISTORYSOBSTUDYCHEST, 1 [id number]/04/2021.TECHNIQUEAP view of the chestFINDINGSStatus post median sternotomy and cardiac valve replacement. The cardiac silhouette is stably enlarged. Mediastinal contours appear stable. No significant change in bilateral airspace and interstitial opacities. No definite pleural effusion or pneumothorax. Soft tissue attenuation limits evaluation. Patient is rotated.IMPRESSIONNo significant change.Electronically signed by: Eric Rivas (Feb 24, 2021 06:09:36)
[2021-02-24 06:56] LABS: ANISOCYTOSIS 3+; HYPOCHROMASIA 1+; MICROCYTOSIS 1+; PLATELET MORPHOLOGY COMMENT NORMAL (NORMAL); SPHEROCYTES PRESENT
[2021-02-24] MEDS: DUONEB 0.5 MG/3 MG (3 mL) NEB SCH ×2 (08:05→10:20)
[2021-02-24] MEDS ORDERED: MAG-OX TAB PO ONE (08:38)
[2021-02-24] MEDS: VSL#3 PO SCH (08:45)
[2021-02-24] MEDS: CORDARONE TAB 200 MG PO SCH (08:45)
[2021-02-24] MEDS: CARDIZEM CD 120 MG 24-HR PO SCH (08:45)
[2021-02-24] MEDS: BRILINTA PO SCH (08:45)
[2021-02-24] MEDS: VITAMIN D3 125 mcg (5,000 UNITS) PO SCH (08:46)
[2021-02-24] MEDS: EFFEXOR XR 150 MG CAP 24-HR PO SCH (08:46)
[2021-02-24] MEDS: ROBITUSSIN DM PO SCH (08:47)
[2021-02-24] MEDS: ALBUMIN HUMAN 25%- 100 ML 100 ML IV SCH (08:48)
[2021-02-24] MEDS: VITAMIN C PO SCH (08:48)
[2021-02-24] MEDS: LASIX PO SCH (08:48)
[2021-02-24] MEDS: NexIUM PO SCH (08:48)
[2021-02-24] MEDS: TOPROL XL PO SCH (08:48)
[2021-02-24] MEDS: K-DUR TAB 20 MEQ PO PRN (08:49)
[2021-02-24] MEDS: SYNTHROID 125 mcg TAB PO SCH (08:57)
[2021-02-24] MEDS: TAB-A-VITE PO SCH (08:58)
[2021-02-24] MEDS ORDERED: KLONOPIN TAB 0.5 MG PO PRN (09:13)
[2021-02-24] MEDS: NS 1/2 1,000 ML IV 1,000 ML IV SCH (09:16)
[2021-02-24] MEDS ORDERED: XANAX PO PRN (09:37)
[2021-02-24] MEDS: PULMICORT NEB TX 0.5 MG NEB SCH (10:20)
[2021-02-24 11:26] VITALS: BP 145/66
== END 2021-02-24 11:45 | DRG 194 ==
LOC: ER 12:10 → ICU 15:58
PROVIDERS: ADMIT Internal Medicine; ATTEND Internal Medicine
DX: Z20.822 Contact with and (suspected) exposure to COVID-19; N28.9 Disorder of kidney and ureter, unspecified; E87.1 Hypo-osmolality and hyponatremia; R94.31 Abnormal electrocardiogram [ECG] [EKG]; R09.02 Hypoxemia; J18.8 Other pneumonia, unspecified organism

== ENCOUNTER 2021-02-26 01:16 | Inpatient (IN) ==
[2021-02-26 01:35] LABS: ABG BASE EXCESS -1.2 mmol/L (-2.0-2.0); ABG HCO3 22.6 mmol/L (22-26)
[2021-02-26 01:36] LABS: ABG ALLEN TEST POS
[2021-02-26 01:42] VITALS: BMI 30.9
--- NOTE | 2021-02-26 01:49 | DR.SOBA ---
HPI Time Seen Time Seen by Provider: 02/26/21 01:49 EST Primary Care Physician Primary Care Physician: DENNYS HPI Comment HPI Comment: NHP here last night for same in with low oxygen as below; she's had dry cough for several weeks and was released from hosp 02/23 on levaquin for bilateral pneu; she was covid neg at the time; she is progressively worsening and notes sob, fatigue and malaise; no cp or palpitations; she's on coumadin for afib Complaints Chief Complaint:: PT IN ED VIA STRETCHER PER [facility] STAFF WITH C/O O2 SAT IN 50'S ON C-PAP. PT ON 4L/NC ON ARRIVAL TO ER AND O2 SAT 65%. PT SOB. PT PLACED ON 100% NRB AND SAT CAME UP TO 96%. COVID-19 Coronavirus risk:travel/contact w/high risk person: No Has patient experienced Coronavirus symptoms: Yes Coronavirus symptoms experienced: Shortness of Breath Source History Provided: Patient Mode of Arrival Mode of Arrival: Stretcher Timing Onset of Chief Complaint: 02/24/21 PMH PMH Past Medical History: Yes Past Medical History: Anemia, Angina, Anxiety, CHF, Depression, Dyslipidemia, GERD, Hypertension, Hypothyroidism, [place] and Sleep Apnea Past Surgical History: Yes Surgical History: Angioplasty/Stents, Cholecystectomy, Hysterectomy and Ortho Surgery Family History History of Family Medical Conditions: Yes Family Medical History: Diabetes Mellitus, [place] and Hypertension Social History Does patient currently use any type of tobacco product: No Have you used tobacco products in the last 12 months: No Type of Tobacco Use: None Does any household member use tobacco: No Alcohol Use: None Do you use any recreational Drugs:: No Lives With: Spouse Lives Where: Home Travel Risk Coronavirus risk:travel/contact w/high risk person: No Has patient experienced Coronavirus symptoms: Yes Coronavirus symptoms experienced: Shortness of Breath Infectious screening In the last 2 months have you had wt loss of >10#?: NO Have you had fever, night sweats or hemotysis?: No Have you traveled outside the country in the last 6 months?: No Isolation: Droplet ROS Review of Systems Eyes: No Symptoms Reported ENTM: No Symptoms Reported Cardiovascular: No Symptoms Reported Gastrointestinal/Abdominal: No Symptoms Reported Genitourinary: No Symptoms Reported Neurological: No Symptoms Reported Integumentary: No Symptoms Reported Hematologic/Lymphatic: No Symptoms Reported Endocrine: No Symptoms Reported Psychiatric: No Symptoms Reported PE Vital Signs Vitals: Temperature 98.3 F Pulse Rate 110 Respiratory Rate 26 Blood Pressure [Left Arm] 98/52 Blood Pressure 98/74 O2 Sat by Pulse Oximetry 95 General Limitations: No Limitations General Appearance: Alert and Anxious (mildly) Head Head Exam: Normal Inspection Eyes Eye exam: Normal Appearance ENT ENT Exam: Normal Exam Neck Neck Exam: Normal Inspection Chest Chest Inspection: Normal Inspection Respiratory Respiratory Exam: Normal Lung Sounds Bilat Respiratory Exam: Bilateral: Clear to Auscultation Cardiovascular Cardiovascular Exam: Regular Rate and Normal Rhythm Abdominal Exam Abdominal Exam: Normal Inspection, Normal Bowel Sounds and Soft Extremities Extremities Exam: Other (pin in rt parsons, rt foot wrapped, dsg clean and dry) Back Back Exam: Normal Inspection Neurologic Neurological Exam: Alert and Oriented X3 Psychiatric Psychiatric Exam: Normal Affect and Normal Mood Skin Skin Exam: Warm, Dry, Intact and Normal Color MDM Differential Diagnosis Differential Diagnosis: Bronchitis, CHF, COPD, Pneumonia, Pulmonary embolism, Respiratory Failure, Respiratory Insufficiency and URI COURSE Reevaluation 1st: Unchanged 2nd: Improved (resting comfortably with nrb) Consultation Call Returned: 05:10 (Dr Trejo accepts admission) Critical Care Notes Total Time (mins): 30 Critical Diagnosis: sepsis, hypoxia, kelly pneu, resp insuff Critical Interventions: nasal cannula to non re-breather labs, xrays reviewed with elevated d-dimer leading to ct for possible PE ivf and zosyn for sepsis replacement of potassium discussion of results and need for admission with pt and Dr Trejo ROR Labs Reviewed Laboratory Results Reviewed?: Yes Result Diagrams: 02/26/21 01:48 EST 02/26/21 01:48 EST Laboratory: WBC 13.4 X10^3/uL (3.6-10.0) H 02/26/21 01:48 EST RBC 3.76 X10^6/uL (3.5-5.4) 02/26/21 01:48 EST Hgb 10.5 g/dL (12.0-16.0) L 02/26/21 01:48 EST Hct 31.9 % (36.0-47.0) L 02/26/21 01:48 EST MCV 84.8 fL (80.0-100.0) 02/26/21 01:48 EST MCH 27.9 pg (27.0-34.0) 02/26/21 01:48 EST MCHC 32.9 g/dL (33.0-35.0) L 02/26/21 01:48 EST RDW 24.8 % (11.6-16.5) H 02/26/21 01:48 EST Plt Count 372 X10^3/uL (150.0-450.0) 02/26/21 01:48 EST Plt Count Comment Adequate (ADEQUATE) 02/26/21 01:48 EST MPV 7.1 fL (7.4-11.0) L 02/26/21 01:48 EST Neut % (Auto) 88.7 % (42.0-75.0) H 02/26/21 01:48 EST Lymph % (Auto) 4.5 % (21.0-51.0) L 02/26/21 01:48 EST [place] % (Auto) 6.2 % (0.0-13.0) 02/26/21 01:48 EST Eos % (Auto) 0.3 % (0.9-2.9) L 02/26/21 01:48 EST Baso % (Auto) 0.3 % (0.2-1.0) 02/26/21 01:48 EST Neut # (Auto) 11.9 x10^3/uL (2.2-4.8) H 02/26/21 01:48 EST Lymph # (Auto) 0.6 X10^3/uL (1.3-2.9) L 02/26/21 01:48 EST [place] # (Auto) 0.8 x10^3/uL (0.3-0.8) 02/26/21 01:48 EST Eos # (Auto) 0.0 x10^3/uL (0.0-0.2) 02/26/21 01:48 EST Baso # (Auto) 0.0 X10^3/uL (0.0-0.1) 02/26/21 01:48 EST Absolute Nucleated RBC 0.0 /100WBC 02/26/21 01:48 EST Plt Morphology Comment Normal (NORMAL) 02/26/21 01:48 EST RBC Morphology Abnormal (NORMAL) A 02/26/21 01:48 EST Hypochromasia Slight A 02/26/21 01:48 EST Anisocytosis 3+ A 02/26/21 01:48 EST D-Dimer 1.06 ug/ml (0.0-0.57) H* 02/26/21 01:48 EST Sample Site Rrad 02/26/21 01:28 EST ABG pH 7.430 (7.35-7.45) 02/26/21 01:28 EST ABG pCO2 34.0 mmHg (35.0-45.0) L 02/26/21 01:28 EST ABG pO2 78.0 mmHg (80.0-100.0) L 02/26/21 01:28 EST ABG HCO3 22.6 mmol/L (22-26) 02/26/21 01:28 EST ABG O2 Saturation 96.0 % (90-100) 02/26/21 01:28 EST ABG Base Excess -1.2 mmol/L (-2.0-2.0) 02/26/21 01:28 EST Singh Test Pos 02/26/21 01:28 EST A-a Gradient 593.0 mmHg 02/26/21 01:28 EST FiO2 100.0 02/26/21 01:28 EST Blood Gas Comments Rufino abg well-mtf 02/26/21 01:28 EST Sodium 136 mmol/L (136-145) 02/26/21 01:48 EST Corrected Sodium TNP 02/26/21 01:48 EST Potassium 3.0 mmol/L (3.5-5.1) L* 02/26/21 01:48 EST Chloride 98 mmol/L (98-107) 02/26/21 01:48 EST Carbon Dioxide 23.0 mmol/L (21-32) 02/26/21 01:48 EST BUN 17 mg/dL (7-18) 02/26/21 01:48 EST Creatinine 1.23 mg/dL (0.55-1.02) H 02/26/21 01:48 EST Est GFR (MDRD) Af Amer 55 (>60) L 02/26/21 01:48 EST Est GFR (MDRD) Non-Af 45 (>60) L 02/26/21 01:48 EST Glucose 106 mg/dL (65-99) H 02/26/21 01:48 EST Calcium 9.2 mg/dL (8.5-10.1) 02/26/21 01:48 EST Corrected Calcium 10.2 mg/dL (8.5-10.1) H 02/26/21 01:48 EST Total Bilirubin 0.50 mg/dL (0.2-1.0) 02/26/21 01:48 EST AST 47 Units/L (15-37) H 02/26/21 01:48 EST ALT 18 Units/L (12-78) 02/26/21 01:48 EST Alkaline Phosphatase 78 Units/L (46-116) 02/26/21 01:48 EST Total Protein 6.8 g/dL (6.4-8.2) 02/26/21 01:48 EST Albumin 2.7 g/dL (3.4-5.0) L 02/26/21 01:48 EST Globulin 4.1 g/dL (2.5-4.5) 02/26/21 01:48 EST Albumin/Globulin Ratio 0.7 Ratio (1.1-2.1) L 02/26/21 01:48 EST Specimen Type Clean catch urine 02/26/21 04:47 Urine Color Dark yellow (YELLOW) 02/26/21 04:47 Urine Appearance Hazy (CLEAR) 02/26/21 04:47 Urine pH 5.0 (5.0 - 8.0) 02/26/21 04:47 Ur Specific [place] 1.020 (1.000-1.030) 02/26/21 04:47 Urine Protein 2+ (NEGATIVE) 02/26/21 04:47 Urine Glucose (UA) Negative (NEGATIVE) 02/26/21 04:47 Urine Ketones 1+ (NEGATIVE) 02/26/21 04:47 Urine Occult Blood 5+ (NEGATIVE) 02/26/21 04:47 Urine Nitrite Negative (NEGATIVE) 02/26/21 04:47 Urine Bilirubin Negative (NEGATIVE) 02/26/21 04:47 Urine Urobilinogen Normal (NORMAL) 02/26/21 04:47 Ur Leukocyte Esterase 1+ (NEGATIVE) 02/26/21 04:47 Urine RBC Tntc /HPF (0-3) A 02/26/21 04:47 Urine WBC 3-5 /HPF (0-5) 02/26/21 04:47 Ur Squamous Epith Cells Few /HPF (NEGATIVE) 02/26/21 04:47 Calcium Oxalate Crystal Moderate /HPF (NEGATIVE) 02/26/21 04:47 Amorphous Sediment 2+ /HPF (NEGATIVE) 02/26/21 04:47 Urine Bacteria Trace /HPF (NEGATIVE) 02/26/21 04:47 Hyaline Casts Many /LPF (NEGATIVE) 02/26/21 04:47 Urine Mucus Moderate /HPF (NEGATIVE) 02/26/21 04:47 Ur Culture Indicated? No/not indicated 02/26/21 04:47 SARS-CoV-2 (PCR) Negative (NEGATIVE) 02/26/21 01:40 EST Influenza Type A (PCR) Negative (NEGATIVE) 02/26/21 01:40 EST Influenza Type B (PCR) Negative (NEGATIVE) 02/26/21 01:40 EST RSV (PCR) Negative (NEGATIVE) 02/26/21 01:40 EST Other Results Comments: ct consistent with viral pneu, but pt tests neg again for covid as well as other viruses; high suspicion given circumstances; Dr Trejo requests covid protocol; will add broad spectrum abx as well XRAY XRAY Interpreted by: Radiologist X-ray Results: cxr: Progressively worsening alveolar airspace disease is noted throughout the right and left lung. cta: 1. - No evidence of pulmonary embolism - Dilated main pulmonary artery may represent pulmonary hypertension - Cardiomegaly is noted - Status post midline sternotomy - The above findings demonstrate COMMON CT imaging features of COVID-19 pneumonia. However, differential diagnosis should include, but is not limited to, influenza pneumonia, organizing pneumonia, or possible drug toxicity. Clinical correlation with laboratory viral testing may be obtained as clinically indicated Opioid Opioid Risk Tool Age (Clint box if 16-45): No History of Preadolescent Sexual Abuse: No Total: 0 Total Score Risk Category: Low Risk Copyright: [facility] predicting aberrant behaviors Diagnosis Discharge Problem: Hypoxia, Acute hypokalemia, RENU (obstructive sleep apnea), Community acquired pneumonia, bilateral Sepsis Qualifiers: Sepsis type: sepsis due to unspecified organism Sepsis acute organ dysfunction status: with acute organ dysfunction Severe sepsis acute organ dysfunction type: acute respiratory failure Acute respiratory failure type: with hypoxia Severe sepsis shock status: without septic shock Qualified Code(s): A41.9 - Sepsis, unspecified organism Instructions Forms: Precautions for COVID19 [facility] Patient Portal Social Distancing
[2021-02-26 02:17] LABS: BASOPHILS % (AUTO) 0.3 % (0.2-1.0); EOSINOPHILS % (AUTO) 0.3 % (0.9-2.9); HEMATOCRIT 31.9 % (36.0-47.0); HEMOGLOBIN 10.5 g/dL (12.0-16.0); LYMPHOCYTES # (AUTO) 0.6 X10^3/uL (1.3-2.9); LYMPHOCYTES % (AUTO) 4.5 % (21.0-51.0); MEAN CORPUSCULAR HEMOGLOBIN 27.9 pg (27.0-34.0); MEAN CORPUSCULAR HGB CONC 32.9 g/dL (33.0-35.0); MEAN CORPUSCULAR VOLUME 84.8 fL (80.0-100.0); MEAN PLATELET VOLUME 7.1 fL (7.4-11.0); MONOCYTES # (AUTO) 0.8 x10^3/uL (0.3-0.8); MONOCYTES % (AUTO) 6.2 % (0.0-13.0); NEUTROPHILS # (AUTO) 11.9 x10^3/uL (2.2-4.8); NEUTROPHILS % (AUTO) 88.7 % (42.0-75.0); PLATELET COUNT 372 X10^3/uL (150.0-450.0); RED BLOOD COUNT 3.76 X10^6/uL (3.5-5.4); RED CELL DISTRIBUTION WIDTH 24.8 % (11.6-16.5); WHITE BLOOD COUNT 13.4 X10^3/uL (3.6-10.0)
[2021-02-26 02:26] LABS: ALANINE AMINOTRANSFERASE 18 Units/L (12-78); ALBUMIN 2.7 g/dL (3.4-5.0); ALKALINE PHOSPHATASE 78 Units/L (46-116); ASPARTATE AMINO TRANSFERASE 47 Units/L (15-37); BLOOD UREA NITROGEN 17 mg/dL (7-18); CALCIUM 9.2 mg/dL (8.5-10.1); CHLORIDE 98 mmol/L (98-107); COR CA(FOR HYPOALB) 10.2 mg/dL (8.5-10.1); CREATININE 1.23 mg/dL (0.55-1.02); SODIUM 136 mmol/L (136-145); TOTAL PROTEIN 6.8 g/dL (6.4-8.2); eGFR NON BLACK RACES 45 (>60)
--- NOTE | 2021-02-26 02:27 | RAD ---
STUDY: CHEST, 1 VIEWCOMPARISON: 02/24/2021HISTORY: SOBFINDINGS:Progressively worsening alveolar airspace disease is seen throughout the right and left lung.Midline sternotomy wires are grossly unchanged. Cardiomediastinal contour is stable. No gross pleural effusion or pneumothorax is seen.IMPRESSION:Progressively worsening alveolar airspace disease is noted throughout the right and left lung.Electronically signed by: Yoni Awan (Feb 26, 2021 02:25:28)
[2021-02-26 02:37] LABS: ANISOCYTOSIS 3+; HYPOCHROMASIA SLIGHT; PLATELET MORPHOLOGY COMMENT NORMAL (NORMAL)
[2021-02-26] MEDS ORDERED: NS 100 ML IV 100 ML ONE (03:33)
[2021-02-26] MEDS ORDERED: K-DUR TAB 20 MEQ PO STA (03:36)
[2021-02-26] MEDS ORDERED: K-DUR TAB 20 MEQ PO ONE (04:21)
--- NOTE | 2021-02-26 04:36 | CT ---
STUDY: CTA CHEST WITH IV CONTRASTCOMPARISON: NoneTECHNIQUE: axial images were acquired of the chest with IV contrast for a CT angiogram. Coronal and sagittal images were provided. All images were reviewed in a variety of windows and levels. 3D 8 mm thick MIPS images were provided.RADIATION REDUCTION TECHNIQUE: Automated exposure control, Adjustment of the mA and/or kV according to patient size, or iterative reconstruction techniques were used. 8 mm thick axial MIPS images were provided.HISTORY: SOB, ELEVATED D-DIMERFINDINGS:CHEST:THYROID GLANDS: The thyroid gland is unremarkable.HEART AND VESSELS: The heart size is enlargedthere is no evidence of pericardial effusion. Thoracic aorta is normal size without evidence of an aneurysm or dissection.Main pulmonary artery size is dilated measuring 3.5 cm (normal is less than 3 cm).There are no filling defect seen within the visualized pulmonary arteries to suggest a pulmonary embolism. Status post midline sternotomy.LYMPH NODES: There is no evidence of axillary, mediastinal, or hilar lymphadenopathy.AIRWAY: The trachea and mainstem bronchi are patent.No intraluminal lesions are seen.LUNGS: Diffuse ground-glass opacities are seen involving the right and left lung extending to the subpleural surface and major fissures. Small bilateral pleural effusions are seen. No evidence of pneumothorax.ESOPHAGUS: The esophagus is grossly unremarkable.BONES: The visualized bones demonstrate degenerative changes. There are no concerning lytic or blastic lesions identified.UPPER ABDOMINAL STRUCTURES: The visualized upper abdominal structures are unremarkable.IMPRESSSION:- No evidence of pulmonary embolism- Dilated main pulmonary artery may represent pulmonary hypertension- Cardiomegaly is noted- Status post midline sternotomy- The above findings demonstrate COMMON CT imaging features of COVID-19 pneumonia. However, differential diagnosis should include, but is not limited to, influenza pneumonia, organizing pneumonia, or possible drug toxicity. Clinical correlation with laboratory viral testing may be obtained as clinically indicated. Reference: Abisai et al. Radiology. 2020 .[email or web address] 04:34:29)
[2021-02-26 05:02] LABS: BILIRUBIN,URINE NEGATIVE (NEGATIVE); BLOOD/HEMOGLOBIN,URINE 5+ (NEGATIVE); GLUCOSE, URINE NEGATIVE (NEGATIVE); KETONES,URINE 1+ (NEGATIVE); LEUKOCYTE ESTERASE ,URINE 1+ (NEGATIVE); NITRITES,URINE NEGATIVE (NEGATIVE); PROTEIN,URINE 2+ (NEGATIVE); UROBILINOGEN,URINE NORMAL (NORMAL)
[2021-02-26 05:22] LABS: AMORPHOUS SEDIMENT,UR 2+ /HPF (NEGATIVE); APPEARANCE,URINE HAZY (CLEAR); BACTERIA,URINE TRACE /HPF (NEGATIVE); CALCIUM OXALATE CRYSTALS,UR MODERATE /HPF (NEGATIVE); COLOR,URINE DARK YELLOW (YELLOW); RBC,URINE TNTC /HPF (0-3); SQUAMOUS EPITHELIAL CELL,UR FEW /HPF (NEGATIVE)
[2021-02-26 05:23] LABS: HYALINE CASTS, URINE MANY /LPF (NEGATIVE); MUCUS,URINE MODERATE /HPF (NEGATIVE)
[2021-02-26] MEDS ORDERED: PERIACTIN TAB 4 MG PO PRN (05:39)
[2021-02-26] MEDS ORDERED: NS 1,000 ML IV 1,000 ML ONE (05:48)
[2021-02-26] MEDS ORDERED: ZOSYN VIAL 2.25 GRAMS ONE (07:32)
[2021-02-26] MEDS ORDERED: MAGNESIUM SULFATE 1 GRAM/100 mL PREMIX 1 G/100 ML BAG IV ONE (07:32)
[2021-02-26] MEDS ORDERED: NS 250 ML IV 250 ML IV ONE (07:32)
[2021-02-26] MEDS ORDERED: NS 50 ML IV + SPIKE MINIBAG* 50 ML IV ONE (07:33)
[2021-02-26] MEDS ORDERED: K-RIDER 10 MEQ/NS 100 ML 10 MEQ/100 ML BAG IV PRN (07:34)
[2021-02-26] MEDS ORDERED: POTASSIUM CHL 40 MEQ/NS 0.45% 500 ML IV PRN (07:34)
[2021-02-26] MEDS ORDERED: POTASSIUM CHLORIDE LIQ 20 MEQ UDC PO PRN (07:34)
[2021-02-26] MEDS ORDERED: KLOR-CON PO PRN (07:34)
[2021-02-26] MEDS ORDERED: MICRO K EXTEN CAP 10 MEQ PO PRN (07:34)
[2021-02-26] MEDS ORDERED: POTASSIUM CHL 60 MEQ/NS 0.45% 500 ML IV PRN (07:34)
[2021-02-26] MEDS: ZOSYN VIAL 2.25 GRAMS 2.25 G in NS 100 ML IV + SPIKE MINIBAG* 100 ML IV SCH ×4 (07:37→21:29)
[2021-02-26] MEDS: MAGNESIUM SULFATE 1 GRAM/100 mL PREMIX 1 G/100 ML BAG IV PRN ×4 (07:40→15:06)
[2021-02-26] MEDS: NS 1,000 ML IV 1,000 ML IV SCH ×2 (07:42→22:30)
[2021-02-26] MEDS: PHARMACY CONSULT - IVERMECTIN XX SCH (07:43)
[2021-02-26] MEDS ORDERED: BROVANA ONE (07:57)
[2021-02-26] MEDS ORDERED: PULMICORT NEB TX 0.5 MG NEB ONE (07:57)
[2021-02-26] MEDS: BROVANA IN SCH ×2 (08:00→21:35)
[2021-02-26] MEDS: PULMICORT NEB TX 0.5 MG NEB SCH ×2 (08:00→21:35)
[2021-02-26] MEDS: ASCORBIC ACID INJ MULTI-DOSE VIAL 1,500 MG in NS 100 ML IV 100 ML IV SCH ×3 (08:23→21:29)
[2021-02-26] MEDS: CYTOTEC PO SCH ×4 (08:23→21:31)
[2021-02-26] MEDS: IVERMECTIN PO SCH (08:23)
[2021-02-26] MEDS: PEPCID TAB 40 MG PO SCH ×2 (08:24→21:30)
[2021-02-26] MEDS: ZINC SULFATE PO SCH ×2 (08:24→21:30)
[2021-02-26] MEDS: THIAMINE HCL INJ IVP SCH ×2 (08:24→21:29)
[2021-02-26] MEDS ORDERED: SOLU-Medrol 125 MG VIAL IVP SCH (09:00)
[2021-02-26] MEDS ORDERED: CHLORASEPTIC SPRAY MT PRN (09:15)
[2021-02-26] MEDS: FLUVOXAMINE MALEATE PO SCH ×2 (10:03→21:31)
[2021-02-26] MEDS: ELIQUIS PO SCH ×2 (10:03→21:29)
[2021-02-26] MEDS ORDERED: ACCUNEB 1.25 MG NEBULE ONE (12:43)
[2021-02-26] MEDS: ACCUNEB 1.25 MG NEBULE NEB SCH ×3 (12:47→21:36)
[2021-02-26] MEDS: K-DUR TAB 20 MEQ PO PRN (14:26)
[2021-02-26] MEDS: CORDARONE TAB 200 MG PO SCH (14:31)
[2021-02-26] MEDS: SOLU-Medrol 125 MG VIAL IVP SCH ×2 (14:31→21:30)
[2021-02-26] MEDS: TOPROL XL PO SCH (14:31)
[2021-02-26] MEDS: TYLENOL 325 MG TAB PO PRN (15:23)
[2021-02-26] MEDS: MELATONIN PO SCH (21:30)
[2021-02-27] MEDS: ASCORBIC ACID INJ MULTI-DOSE VIAL 1,500 MG in NS 100 ML IV 100 ML IV SCH ×4 (02:16→21:38)
[2021-02-27] MEDS: SOLU-Medrol 125 MG VIAL IVP SCH ×2 (02:16→09:28)
[2021-02-27] MEDS: TYLENOL 325 MG TAB PO PRN (02:55)
[2021-02-27 05:10] LABS: BASOPHILS % (AUTO) 0.2 % (0.2-1.0); HEMATOCRIT 29.8 % (36.0-47.0); HEMOGLOBIN 9.9 g/dL (12.0-16.0); LYMPHOCYTES # (AUTO) 0.4 X10^3/uL (1.3-2.9); LYMPHOCYTES % (AUTO) 4.8 % (21.0-51.0); MEAN CORPUSCULAR HEMOGLOBIN 28.3 pg (27.0-34.0); MEAN CORPUSCULAR HGB CONC 33.4 g/dL (33.0-35.0); MEAN CORPUSCULAR VOLUME 84.8 fL (80.0-100.0); MEAN PLATELET VOLUME 7.6 fL (7.4-11.0); MONOCYTES # (AUTO) 0.2 x10^3/uL (0.3-0.8); MONOCYTES % (AUTO) 2.1 % (0.0-13.0); NEUTROPHILS # (AUTO) 7.1 x10^3/uL (2.2-4.8); NEUTROPHILS % (AUTO) 92.9 % (42.0-75.0); PLATELET COUNT 396 X10^3/uL (150.0-450.0); RED BLOOD COUNT 3.51 X10^6/uL (3.5-5.4); RED CELL DISTRIBUTION WIDTH 24.3 % (11.6-16.5); WHITE BLOOD COUNT 7.7 X10^3/uL (3.6-10.0)
[2021-02-27 05:21] LABS: ALANINE AMINOTRANSFERASE 24 Units/L (12-78); ALBUMIN 2.6 g/dL (3.4-5.0); ALKALINE PHOSPHATASE 86 Units/L (46-116); ASPARTATE AMINO TRANSFERASE 48 Units/L (15-37); BLOOD UREA NITROGEN 18 mg/dL (7-18); CARBON DIOXIDE 22.1 mmol/L (21-32); CHLORIDE 99 mmol/L (98-107); COR CA(FOR HYPOALB) 10.1 mg/dL (8.5-10.1); COR NA(FOR HYPERGLY) 137 mmol/L (136-145); CREATININE 0.92 mg/dL (0.55-1.02); MAGNESIUM 2.2 mg/dL (1.7-2.9); SODIUM 135 mmol/L (136-145); TOTAL PROTEIN 6.7 g/dL (6.4-8.2); eGFR NON BLACK RACES > 60 (>60)
[2021-02-27 05:22] LABS: ABG BASE EXCESS -1.6 mmol/L (-2.0-2.0); ABG HCO3 21.3 mmol/L (22-26)
[2021-02-27 05:23] LABS: ABG ALLEN TEST POS
[2021-02-27] MEDS: PHARMACY CONSULT - IVERMECTIN XX SCH (05:26)
[2021-02-27] MEDS: ZOSYN VIAL 2.25 GRAMS 2.25 G in NS 100 ML IV + SPIKE MINIBAG* 100 ML IV SCH ×3 (05:26→21:40)
[2021-02-27] MEDS: NS 1,000 ML IV 1,000 ML IV SCH ×2 (05:27→18:19)
[2021-02-27 05:33] LABS: ANISOCYTOSIS 3+; HYPOCHROMASIA 1+; PLATELET MORPHOLOGY COMMENT NORMAL (NORMAL)
[2021-02-27] MEDS: ACCUNEB 1.25 MG NEBULE NEB SCH ×4 (06:00→20:20)
--- NOTE | 2021-02-27 07:15 | RAD ---
HISTORYSOBSTUDYCHEST, 1 VIEWCOMPARISONOne day prior.TECHNIQUEAP view of the chestFINDINGSStatus post median sternotomy and cardiac valve replacement. The cardiac silhouette is stably enlarged. Mediastinal contours appear stable. Mild improvement in diffuse bilateral airspace opacities. No definite pleural effusion or pneumothorax.IMPRESSIONMild improvement in diffuse bilateral airspace opacities.Electronically signed by: Eric Rivas (Feb 27, 2021 07:13:04)
[2021-02-27] MEDS: BROVANA IN SCH ×2 (08:00→20:20)
[2021-02-27] MEDS: PULMICORT NEB TX 0.5 MG NEB SCH ×2 (08:00→20:20)
[2021-02-27] MEDS: TOPROL XL PO SCH (08:31)
[2021-02-27] MEDS ORDERED: CHOLECALCIFEROL PO SCH (09:00)
[2021-02-27] MEDS ORDERED: CORDARONE TAB 200 MG PO SCH (09:00)
[2021-02-27] MEDS: ZINC SULFATE PO SCH ×2 (09:26→21:39)
[2021-02-27] MEDS: SYNTHROID 125 mcg TAB PO SCH (09:26)
[2021-02-27] MEDS: CORDARONE TAB 200 MG PO SCH (09:27)
[2021-02-27] MEDS: LASIX PO SCH (09:27)
[2021-02-27] MEDS: ELIQUIS PO SCH ×2 (09:28→21:39)
[2021-02-27] MEDS: PEPCID TAB 40 MG PO SCH ×2 (09:28→21:39)
[2021-02-27] MEDS: THIAMINE HCL INJ IVP SCH ×2 (09:32→21:40)
[2021-02-27] MEDS ORDERED: REMDESIVIR 200 MG in NS 100 ML IV 140 ML IV ONE (09:32)
[2021-02-27] MEDS: IVERMECTIN PO SCH (09:33)
[2021-02-27] MEDS ORDERED: TORADOL 30 MG VIAL IVP ONE (09:34)
[2021-02-27] MEDS: CYTOTEC PO SCH ×4 (09:34→21:38)
[2021-02-27] MEDS: FLUVOXAMINE MALEATE PO SCH ×2 (09:34→21:41)
[2021-02-27] MEDS ORDERED: LANOXIN INJ IVP ONE (09:35)
[2021-02-27] MEDS: FLONASE NASAL SPRAY ENOSTRIL SCH (10:03)
[2021-02-27] MEDS: XANAX PO PRN (10:08)
[2021-02-27] MEDS ORDERED: AFRIN NASAL SPRAY PRN (10:21)
[2021-02-27] MEDS: LEVAQUIN PREMIX IV 500 MG 500 MG/100 ML BAG IV SCH (10:22)
--- NOTE | 2021-02-27 10:33 | PCM.PROG ---
Progress Note - Progress Note for Day of Date of Exam: 02/27/21 - Subjective Subjective: WAS A READMISSION ON 02/26 FOR TREATMENT OF BILATERAL LOWER LOBE PNEUMONIA, HYPOXIA, AND HYPOKALEMIA. HER CHEST CTA WAS CONSISTENT WITH COVID PNEUMONIA ALTHOUGH HER SWAB WAS NEGATIVE. SHE WAS DISCHARGED FROM THE HOSPITAL ON 02/24 FOR TREATMENT OF SAME DIAGNOSIS. TODAY, SHE IS ALERT AND ORIENTED, SITTING UP IN BED ON MORNING ROUNDS. SHE CONTINUES WITH SHORTNESS OF BREATH AND INTERMITTENT COUGH. COUGH HAS BEEN NON-PRODUCTIVE TODAY. SHE HAS BEEN UTILIZING OXYGEN VIA NASAL CANNULA AT 3LPM. SHE ALSO ADMITS TO INTERMITTENT RIGHT FOOT/LEG PAIN AND RIGHT SHOULDER PAIN. SHE IS STATUS POST ORIF. SHE HAS BEEN IN REHAB AT [facility]. ON EXAMINATION, SHE IS TACHYCARDIC WITH HR 120-130bpm. BILATERAL LUNGS NOTED WITH DIMINISHED LUNG SOUNDS THROUGHOUT. ABDOMEN IS ROUND, SOFT, AND NON-TENDER WITH NORMAL BOWEL SOUNDS NOTED IN ALL QUADRANTS. EXTERNAL FIXATOR AND DRESSING NOTED TO RIGHT ANKLE/LOWER LEG. HER VITALS THIS MORNING ARE: 97.6-575-92-100%-134/92. LABS WERE OBTAINED. HGB 9.9, HCT 29.8, SODIUM 135, GLUCOSE 172, AST 48, CRP 246.40, ALBUMIN 2.6. ABG OBTAINED AND REVEALED: PH 7.460, PC02 30, P02 56, HC03 21.3, 02 SAT 90, A-A GRADIENT 135, FI02 32. CHEST XRAY REPEATED AND REVEALED: Mild improvement in diffuse bilateral airspace opacities. SHE IS CURRENTLY RECEIVING IV ANTIBIOTICS, NEBULIZER TREATMENTS, SOLU-MEDROL, POTASSIUM AND MAGNESIUM PROTOCOLS, NORMAL SALINE AT 100 ML/HR, IMMUNE SUPPORT SUPPLEMENTS, AND HER HOME MEDICATIONS RESUMED. TODAY, WE WILL ADD REMDESIVIR, DIGOXIN 125MCG IV X 1, TORADOL 30MG IV X 1, LEVAQUIN 500MG IV DAILY, AND FLONASE. WE WILL OBTAIN AN AIT RESPIRATORY SWAB. OTHERWISE, WE WILL CONTINUE WITH CURRENT PLAN OF CARE TODAY. WE PLAN TO FOLLOW UP WITH AM LABS AND CHEST XRAY AND CONTINUE TO MONITOR. TIME SPENT ON CLINICAL ASSESSMENT, REVI MATA LABS AND IMAGING, DECISION MAKING, AND DOCUMENTATION GREATER THAN 45 MINUTES. - Past Medical Family Social History Past Med/Fam/Surg Hx: No changes since H&P Allergies: Allergies ANGIE Inhibitors Allergy (Verified 03/05/18 10:04) codeine Allergy (Verified 03/05/18 09:54) gabapentin Allergy (Verified 03/05/18 09:54) vancomycin Allergy (Verified 03/05/18 09:54) STATINS Allergy (Uncoded 03/05/18 09:54) - Review of Systems ROS: No change since H&P - Vital Signs and I&O's Vital Signs: Temperature 97.6 F Pulse Rate [Bilateral Radial] 134 Pulse Rate 127 Respiratory Rate 26 Blood Pressure [Left Arm] 147/71 Blood Pressure 103/80 O2 Sat by Pulse Oximetry 100 Intake and Output: Intake & Output 02/24/21 02/25/21 02/26/21 02/27/21 12:59 12:59 11:59 11:59 Intake Total 3760 / 3760 Output Total 1200 / 1200 Balance 2560 / 2560 - Physical Exam Oriented: Normal Eyes: Normal Ear: Normal Nose: Normal Throat: Normal Respiratory: Generalized, Diminished Cardiovascular: Tachycardia. negative: S3, S4, Murmur : Normal Auscultation: Bowel Sounds: Normal Palpation: Normal Tenderness: Normal Skin: Wound (RIGHT ANKLE/LOWER LEG EXTERNAL FIXATOR ) Musculoskeletal: Right, Shoulder, Leg, Ankle, Foot, Tender Psychiatric: Anxiety Mood Description: Anxious Affect: Anxious Speech Pattern: Clear, Appropriate - Laboratory and Diagnostics Result Diagrams: 02/27/21 04:20 02/27/21 04:20 Labs: Laboratory WBC 7.7 X10^3/uL (3.6-10.0) 02/27/21 04:20 RBC 3.51 X10^6/uL (3.5-5.4) 02/27/21 04:20 Hgb 9.9 g/dL (12.0-16.0) L 02/27/21 04:20 Hct 29.8 % (36.0-47.0) L 02/27/21 04:20 MCV 84.8 fL (80.0-100.0) 02/27/21 04:20 MCH 28.3 pg (27.0-34.0) 02/27/21 04:20 MCHC 33.4 g/dL (33.0-35.0) 02/27/21 04:20 RDW 24.3 % (11.6-16.5) H 02/27/21 04:20 Plt Count 396 X10^3/uL (150.0-450.0) 02/27/21 04:20 Plt Count Comment Adequate (ADEQUATE) 02/27/21 04:20 MPV 7.6 fL (7.4-11.0) 02/27/21 04:20 Neut % (Auto) 92.9 % (42.0-75.0) H 02/27/21 04:20 Lymph % (Auto) 4.8 % (21.0-51.0) L 02/27/21 04:20 [place] % (Auto) 2.1 % (0.0-13.0) 02/27/21 04:20 Eos % (Auto) 0.0 % (0.9-2.9) L 02/27/21 04:20 Baso % (Auto) 0.2 % (0.2-1.0) 02/27/21 04:20 Neut # (Auto) 7.1 x10^3/uL (2.2-4.8) H 02/27/21 04:20 Lymph # (Auto) 0.4 X10^3/uL (1.3-2.9) L 02/27/21 04:20 [place] # (Auto) 0.2 x10^3/uL (0.3-0.8) L 02/27/21 04:20 Eos # (Auto) 0.0 x10^3/uL (0.0-0.2) 02/27/21 04:20 Baso # (Auto) 0.0 X10^3/uL (0.0-0.1) 02/27/21 04:20 Absolute Nucleated RBC 0.2 /100WBC 02/27/21 04:20 Total Counted 100 02/27/21 04:20 Neutrophils % (Manual) 92 % (39-76) H 02/27/21 04:20 Lymphocytes % (Manual) 5 % (13-43) L 02/27/21 04:20 Monocytes % (Manual) 3 % (4-9) L 02/27/21 04:20 Plt Morphology Comment Normal (NORMAL) 02/27/21 04:20 RBC Morphology Abnormal (NORMAL) A 02/27/21 04:20 Hypochromasia 1+ A 02/27/21 04:20 Anisocytosis 3+ A 02/27/21 04:20 D-Dimer 1.06 ug/ml (0.0-0.57) H* 02/26/21 01:48 EST Sample Site Rr 02/27/21 05:00 ABG pH 7.460 (7.35-7.45) H 02/27/21 05:00 ABG pCO2 30.0 mmHg (35.0-45.0) L 02/27/21 05:00 ABG pO2 56.0 mmHg (80.0-100.0) L 02/27/21 05:00 ABG HCO3 21.3 mmol/L (22-26) L 02/27/21 05:00 ABG O2 Saturation 90.0 % (90-100) 02/27/21 05:00 ABG Base Excess -1.6 mmol/L (-2.0-2.0) 02/27/21 05:00 Singh Test Pos 02/27/21 05:00 A-a Gradient 135.0 mmHg 02/27/21 05:00 FiO2 32.0 02/27/21 05:00 Blood Gas Comments [facility] well 02/27/21 05:00 Sodium 135 mmol/L (136-145) L 02/27/21 04:20 Corrected Sodium 137 mmol/L (136-145) 02/27/21 04:20 Potassium 3.9 mmol/L (3.5-5.1) 02/27/21 04:20 Chloride 99 mmol/L (98-107) 02/27/21 04:20 Carbon Dioxide 22.1 mmol/L (21-32) 02/27/21 04:20 BUN 18 mg/dL (7-18) 02/27/21 04:20 Creatinine 0.92 mg/dL (0.55-1.02) 02/27/21 04:20 Est GFR (MDRD) Af Amer > 60 (>60) 02/27/21 04:20 Est GFR (MDRD) Non-Af > 60 (>60) 02/27/21 04:20 Glucose 172 mg/dL (65-99) H 02/27/21 04:20 Calcium 9.0 mg/dL (8.5-10.1) 02/27/21 04:20 Corrected Calcium 10.1 mg/dL (8.5-10.1) 02/27/21 04:20 Magnesium 2.2 mg/dL (1.7-2.9) 02/27/21 04:20 Total Bilirubin 0.30 mg/dL (0.2-1.0) 02/27/21 04:20 AST 48 Units/L (15-37) H 02/27/21 04:20 ALT 24 Units/L (12-78) 02/27/21 04:20 Alkaline Phosphatase 86 Units/L (46-116) 02/27/21 04:20 C-Reactive Protein 246.40 mg/L (0-3.0) H 02/27/21 04:20 Total Protein 6.7 g/dL (6.4-8.2) 02/27/21 04:20 Albumin 2.6 g/dL (3.4-5.0) L 02/27/21 04:20 Globulin 4.1 g/dL (2.5-4.5) 02/27/21 04:20 Albumin/Globulin Ratio 0.6 Ratio (1.1-2.1) L 02/27/21 04:20 Specimen Type Clean catch urine 02/26/21 04:47 Urine Color Dark yellow (YELLOW) 02/26/21 04:47 Urine Appearance Hazy (CLEAR) 02/26/21 04:47 Urine pH 5.0 (5.0 - 8.0) 02/26/21 04:47 Ur Specific [place] 1.020 (1.000-1.030) 02/26/21 04:47 Urine Protein 2+ (NEGATIVE) 02/26/21 04:47 Urine Glucose (UA) Negative (NEGATIVE) 02/26/21 04:47 Urine Ketones 1+ (NEGATIVE) 02/26/21 04:47 Urine Occult Blood 5+ (NEGATIVE) 02/26/21 04:47 Urine Nitrite Negative (NEGATIVE) 02/26/21 04:47 Urine Bilirubin Negative (NEGATIVE) 02/26/21 04:47 Urine Urobilinogen Normal (NORMAL) 02/26/21 04:47 Ur Leukocyte Esterase 1+ (NEGATIVE) 02/26/21 04:47 Urine RBC Tntc /HPF (0-3) A 02/26/21 04:47 Urine WBC 3-5 /HPF (0-5) 02/26/21 04:47 Ur Squamous Epith Cells Few /HPF (NEGATIVE) 02/26/21 04:47 Calcium Oxalate Crystal Moderate /HPF (NEGATIVE) 02/26/21 04:47 Amorphous Sediment 2+ /HPF (NEGATIVE) 02/26/21 04:47 Urine Bacteria Trace /HPF (NEGATIVE) 02/26/21 04:47 Hyaline Casts Many /LPF (NEGATIVE) 02/26/21 04:47 Urine Mucus Moderate /HPF (NEGATIVE) 02/26/21 04:47 Ur Culture Indicated? No/not indicated 02/26/21 04:47 SARS-CoV-2 (PCR) Negative (NEGATIVE) 02/26/21 01:40 EST Influenza Type A (PCR) Negative (NEGATIVE) 02/26/21 01:40 EST Influenza Type B (PCR) Negative (NEGATIVE) 02/26/21 01:40 EST RSV (PCR) Negative (NEGATIVE) 02/26/21 01:40 EST - Plan (1) Pneumonia Status: Acute Qualifiers: Pneumonia type: due to unspecified organism Laterality: bilateral Lung location: unspecified part of lung Qualified Code(s): J18.9 - Pneumonia, unspecified organism Plan: SUPPLEMENTAL OXYGEN, IV FLUIDS, IV ANTIBIOTICS, RESPIRATORY TREATMENTS, PO TASSIUM AND MAGNESIUM PROTOCOL, IMMUNE SUPPORT SUPPLEMENTS, RESUME HOME MEDS (2) Hypoxia Status: Acute (3) Acute hypokalemia Status: Acute (4) Status post ORIF of fracture of ankle Status: Acute
[2021-02-27] MEDS ORDERED: SOLU-Medrol 40 MG VIAL IVP SCH (14:00)
[2021-02-27] MEDS: SOLU-Medrol 40 MG VIAL IVP SCH ×2 (15:00→21:39)
[2021-02-27] MEDS: SENOKOT PO SCH (21:40)
[2021-02-27] MEDS: MELATONIN PO SCH (21:41)
[2021-02-27] MEDS: ROXICODONE TAB 5 MG PO PRN (21:41)
[2021-02-28] MEDS: ASCORBIC ACID INJ MULTI-DOSE VIAL 1,500 MG in NS 100 ML IV 100 ML IV SCH ×4 (02:43→20:08)
[2021-02-28] MEDS: ACCUNEB 1.25 MG NEBULE NEB SCH ×3 (05:17→20:49)
[2021-02-28 05:25] LABS: BASOPHILS % (AUTO) 0 % (0.2-1.0); HEMATOCRIT 28.4 % (36.0-47.0); HEMOGLOBIN 9.5 g/dL (12.0-16.0); LYMPHOCYTES # (AUTO) 0.3 X10^3/uL (1.3-2.9); LYMPHOCYTES % (AUTO) 3.3 % (21.0-51.0); MEAN CORPUSCULAR HEMOGLOBIN 28.9 pg (27.0-34.0); MEAN CORPUSCULAR HGB CONC 33.5 g/dL (33.0-35.0); MEAN CORPUSCULAR VOLUME 86.4 fL (80.0-100.0); MEAN PLATELET VOLUME 7.6 fL (7.4-11.0); MONOCYTES # (AUTO) 0.5 x10^3/uL (0.3-0.8); MONOCYTES % (AUTO) 5.5 % (0.0-13.0); NEUTROPHILS # (AUTO) 8.9 x10^3/uL (2.2-4.8); NEUTROPHILS % (AUTO) 91.2 % (42.0-75.0); PLATELET COUNT 354 X10^3/uL (150.0-450.0); RED BLOOD COUNT 3.29 X10^6/uL (3.5-5.4); RED CELL DISTRIBUTION WIDTH 24.2 % (11.6-16.5); WHITE BLOOD COUNT 9.8 X10^3/uL (3.6-10.0)
[2021-02-28 05:38] LABS: ALANINE AMINOTRANSFERASE 32 Units/L (12-78); ALBUMIN 2.4 g/dL (3.4-5.0); ALKALINE PHOSPHATASE 82 Units/L (46-116); ASPARTATE AMINO TRANSFERASE 52 Units/L (15-37); BLOOD UREA NITROGEN 20 mg/dL (7-18); CALCIUM 8.5 mg/dL (8.5-10.1); CHLORIDE 106 mmol/L (98-107); COR CA(FOR HYPOALB) 9.8 mg/dL (8.5-10.1); COR NA(FOR HYPERGLY) 143 mmol/L (136-145); CREATININE 0.95 mg/dL (0.55-1.02); SODIUM 142 mmol/L (136-145); TOTAL PROTEIN 6.3 g/dL (6.4-8.2); eGFR NON BLACK RACES > 60 (>60)
[2021-02-28 05:45] LABS: ANISOCYTOSIS 3+; HYPOCHROMASIA 1+; PLATELET MORPHOLOGY COMMENT NORMAL (NORMAL)
--- NOTE | 2021-02-28 05:50 | RAD ---
HISTORYSOB HTN PSH:HYSTO, GB, CABG [id number], 1 [id number]/2021FINDINGSThe trachea is midline. The cardiac silhouette is unremarkable. 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 Diffuse bilateral airspace opacities unchanged. No pneumothorax.. The bony thorax is unremarkable.IMPRESSIONStable portable chest.Electronically signed by: Will Higgins (Feb 28, 2021 05:48:35)
[2021-02-28] MEDS: SOLU-Medrol 40 MG VIAL IVP SCH ×3 (05:54→21:34)
[2021-02-28] MEDS: ZOSYN VIAL 2.25 GRAMS 2.25 G in NS 100 ML IV + SPIKE MINIBAG* 100 ML IV SCH ×3 (05:54→21:34)
[2021-02-28] MEDS: NS 1,000 ML IV 1,000 ML IV SCH (06:31)
[2021-02-28] MEDS: PHARMACY CONSULT - IVERMECTIN XX SCH (06:31)
[2021-02-28] MEDS: K-DUR TAB 20 MEQ PO PRN (06:42)
[2021-02-28] MEDS: CORDARONE TAB 200 MG PO SCH (09:00)
[2021-02-28] MEDS: VITAMIN D3 125 mcg (5,000 UNITS) PO SCH (09:00)
[2021-02-28] MEDS: CYTOTEC PO SCH ×4 (09:00→20:37)
[2021-02-28] MEDS: ELIQUIS PO SCH ×2 (09:00→20:37)
[2021-02-28] MEDS: IVERMECTIN PO SCH (09:01)
[2021-02-28] MEDS: LASIX PO SCH (09:01)
[2021-02-28] MEDS: FLUVOXAMINE MALEATE PO SCH ×2 (09:01→20:37)
[2021-02-28] MEDS: LEVAQUIN PREMIX IV 500 MG 500 MG/100 ML BAG IV SCH (09:02)
[2021-02-28] MEDS: TOPROL XL PO SCH (09:02)
[2021-02-28] MEDS: PEPCID TAB 40 MG PO SCH ×2 (09:02→20:37)
[2021-02-28] MEDS: FLONASE NASAL SPRAY ENOSTRIL SCH (09:02)
[2021-02-28] MEDS: VITAMIN A PO SCH (09:02)
[2021-02-28] MEDS: ZINC SULFATE PO SCH ×2 (09:03→20:38)
[2021-02-28] MEDS: REMDESIVIR 100 MG in NS 100 ML IV + SPIKE MINIBAG* 120 ML IV SCH (09:03)
[2021-02-28] MEDS: SYNTHROID 125 mcg TAB PO SCH (09:03)
[2021-02-28] MEDS: THIAMINE HCL INJ IVP SCH ×2 (09:03→20:16)
[2021-02-28] MEDS ORDERED: LASIX IVP ONE (09:30)
[2021-02-28] MEDS: BROVANA IN SCH ×2 (09:40→20:49)
[2021-02-28] MEDS: PULMICORT NEB TX 0.5 MG NEB SCH ×2 (09:40→20:49)
[2021-02-28] MEDS ORDERED: CARDIZEM CD 180 MG 24-HR PO SCH (10:00)
--- NOTE | 2021-02-28 11:48 | PCM.PROG ---
Progress Note - Progress Note for Day of Date of Exam: 02/28/21 - Subjective Subjective: WAS A READMISSION ON 02/26 FOR TREATMENT OF BILATERAL LOWER LOBE PNEUMONIA, HYPOXIA, AND HYPOKALEMIA. HER CHEST CTA WAS CONSISTENT WITH COVID PNEUMONIA ALTHOUGH HER SWAB WAS NEGATIVE. SHE WAS DISCHARGED FROM THE HOSPITAL ON 02/24 FOR TREATMENT OF SAME DIAGNOSIS. TODAY, SHE IS ALERT AND ORIENTED, SITTING UP IN BED ON MORNING ROUNDS. SHE CONTINUES WITH SHORTNESS OF BREATH AND INTERMITTENT COUGH. COUGH HAS BEEN NON-PRODUCTIVE. SHORTNESS OF BREATH IS SLIGHTLY WORSE. SHE HAS BEEN UTILIZING OXYGEN VIA NASAL CANNULA AT 3LPM. SHE ALSO ADMITS TO INTERMITTENT RIGHT FOOT/LEG PAIN AND RIGHT SHOULDER PAIN. SHE IS STATUS POST ORIF. SHE HAS BEEN IN REHAB AT [facility]. ON EXAMINATION, SHE IS TACHYCARDIC WITH HR 110bpm. BILATERAL LUNGS NOTED WITH DIMINISHED LUNG SOUNDS THROUGHOUT. ABDOMEN IS ROUND, SOFT, AND NON-TENDER WITH NORMAL BOWEL SOUNDS NOTED IN ALL QUADRANTS. EXTERNAL FIXATOR AND DRESSING NOTED TO RIGHT ANKLE/LOWER LEG. HER VITALS THIS MORNING ARE: 97.6-110-26-93%-161/100. LABS WERE OBTAINED. RBC 3.29, HGB 9.5, HCT 28.4, BUN 20, GLUCOSE 149, AST 52, CRP 127.50, BNP 1310, TOTAL PROTEIN 6.3, ALBUMIN 2.4. CHEST XRAY REPEATED AND REVEALED: The trachea is midline. The cardiac silhouette is unremarkable. 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 Diffuse bilateral airspace opacities unchanged. No pneumothorax. The bony thorax is unremarkable. SHE IS CURRENTLY RECEIVING IV ANTIBIOTICS, REMDESIVIR, NEBULIZER TREATMENTS, SOLU- MEDROL, POTASSIUM AND MAGNESIUM PROTOCOLS, NORMAL SALINE AT 100 ML/HR, IMMUNE SUPPORT SUPPLEMENTS, AND HER HOME MEDICATIONS RESUMED. TODAY, WE WILL DISCONTINUE HER METOPROLOL AND ADD CARDIZEM CD 180MG PO DAILY. WE WILL ALSO ADMINISTER LASIX 40MG IV Q12H AND DECREASE IV FLUIDS TO KVO. OTHERWISE, WE WILL CONTINUE WITH CURRENT PLAN OF CARE TODAY. WE PLAN TO FOLLOW UP WITH AM LABS AND CHEST XRAY AND CONTINUE TO MONITOR. TIME SPENT ON CLINICAL ASSESSMENT, REVIEWING LABS AND IMAGING, DECISION MAKING, AND DOCUMENTATION GREATER THAN 45 MINUTES. - Past Medical Family Social History Past Med/Fam/Surg Hx: No changes since H&P Allergies: Allergies ANGIE Inhibitors Allergy (Verified 03/05/18 10:04) codeine Allergy (Verified 03/05/18 09:54) gabapentin Allergy (Verified 03/05/18 09:54) vancomycin Allergy (Verified 03/05/18 09:54) STATINS Allergy (Uncoded 03/05/18 09:54) - Review of Systems ROS: No change since H&P - Vital Signs and I&O's Vital Signs: Temperature 97.6 F Pulse Rate [Apical] 118 Pulse Rate [Bilateral Radial] 86 Pulse Rate 103 Respiratory Rate 26 Blood Pressure [Left Arm] 110/69 Blood Pressure 103/80 O2 Sat by Pulse Oximetry 93 Intake and Output: Intake & Output 02/25/21 02/26/21 02/27/21 02/28/21 12:59 11:59 11:59 11:59 Intake Total 3760 / 3760 2551 / 2551 Output Total 1200 / 1200 1200 / 1200 Balance 2560 / 2560 1351 / 1351 - Physical Exam Oriented: Normal Eyes: Normal Ear: Normal Nose: Normal Throat: Normal Respiratory: Generalized, Diminished Cardiovascular: Tachycardia. negative: S3, S4, Murmur : Normal Auscultation: Bowel Sounds: Normal Tenderness: Normal Skin: Wound (RIGHT ANKLE/LOWER LEG EXTERNAL FIXATOR ) Musculoskeletal: Right, Shoulder, Leg, Ankle, Foot, Tender Psychiatric: Anxiety Mood Description: Anxious Affect: Anxious Speech Pattern: Clear, Appropriate - Laboratory and Diagnostics Result Diagrams: 02/28/21 04:38 02/28/21 04:38 Labs: Laboratory WBC 9.8 X10^3/uL (3.6-10.0) 02/28/21 04:38 RBC 3.29 X10^6/uL (3.5-5.4) L 02/28/21 04:38 Hgb 9.5 g/dL (12.0-16.0) L 02/28/21 04:38 Hct 28.4 % (36.0-47.0) L 02/28/21 04:38 MCV 86.4 fL (80.0-100.0) 02/28/21 04:38 MCH 28.9 pg (27.0-34.0) 02/28/21 04:38 MCHC 33.5 g/dL (33.0-35.0) 02/28/21 04:38 RDW 24.2 % (11.6-16.5) H 02/28/21 04:38 Plt Count 354 X10^3/uL (150.0-450.0) 02/28/21 04:38 Plt Count Comment Adequate (ADEQUATE) 02/28/21 04:38 MPV 7.6 fL (7.4-11.0) 02/28/21 04:38 Neut % (Auto) 91.2 % (42.0-75.0) H 02/28/21 04:38 Lymph % (Auto) 3.3 % (21.0-51.0) L 02/28/21 04:38 [place] % (Auto) 5.5 % (0.0-13.0) 02/28/21 04:38 Eos % (Auto) 0.0 % (0.9-2.9) L 02/28/21 04:38 Baso % (Auto) 0 % (0.2-1.0) L 02/28/21 04:38 Neut # (Auto) 8.9 x10^3/uL (2.2-4.8) H 02/28/21 04:38 Lymph # (Auto) 0.3 X10^3/uL (1.3-2.9) L 02/28/21 04:38 [place] # (Auto) 0.5 x10^3/uL (0.3-0.8) 02/28/21 04:38 Eos # (Auto) 0.0 x10^3/uL (0.0-0.2) 02/28/21 04:38 Baso # (Auto) 0.0 X10^3/uL (0.0-0.1) 02/28/21 04:38 Absolute Nucleated RBC 0.2 /100WBC 02/28/21 04:38 Total Counted 100 02/28/21 04:38 Neutrophils % (Manual) 92 % (39-76) H 02/28/21 04:38 Lymphocytes % (Manual) 3 % (13-43) L 02/28/21 04:38 Monocytes % (Manual) 5 % (4-9) 02/28/21 04:38 Plt Morphology Comment Normal (NORMAL) 02/28/21 04:38 RBC Morphology Abnormal (NORMAL) A 02/28/21 04:38 Hypochromasia 1+ A 02/28/21 04:38 Anisocytosis 3+ A 02/28/21 04:38 D-Dimer 1.06 ug/ml (0.0-0.57) H* 02/26/21 01:48 EST Sample Site Rr 02/27/21 05:00 ABG pH 7.460 (7.35-7.45) H 02/27/21 05:00 ABG pCO2 30.0 mmHg (35.0-45.0) L 02/27/21 05:00 ABG pO2 56.0 mmHg (80.0-100.0) L 02/27/21 05:00 ABG HCO3 21.3 mmol/L (22-26) L 02/27/21 05:00 ABG O2 Saturation 90.0 % (90-100) 02/27/21 05:00 ABG Base Excess -1.6 mmol/L (-2.0-2.0) 02/27/21 05:00 Singh Test Pos 02/27/21 05:00 A-a Gradient 135.0 mmHg 02/27/21 05:00 FiO2 32.0 02/27/21 05:00 Blood Gas Comments [place] [facility] 02/27/21 05:00 Sodium 142 mmol/L (136-145) 02/28/21 04:38 Corrected Sodium 143 mmol/L (136-145) 02/28/21 04:38 Potassium 3.5 mmol/L (3.5-5.1) 02/28/21 04:38 Chloride 106 mmol/L (98-107) 02/28/21 04:38 Carbon Dioxide 24.0 mmol/L (21-32) 02/28/21 04:38 BUN 20 mg/dL (7-18) H 02/28/21 04:38 Creatinine 0.95 mg/dL (0.55-1.02) 02/28/21 04:38 Est GFR (MDRD) Af Amer > 60 (>60) 02/28/21 04:38 Est GFR (MDRD) Non-Af > 60 (>60) 02/28/21 04:38 Glucose 149 mg/dL (65-99) H 02/28/21 04:38 Calcium 8.5 mg/dL (8.5-10.1) 02/28/21 04:38 Corrected Calcium 9.8 mg/dL (8.5-10.1) 02/28/21 04:38 Magnesium 2.2 mg/dL (1.7-2.9) 02/27/21 04:20 Total Bilirubin 0.30 mg/dL (0.2-1.0) 02/28/21 04:38 AST 52 Units/L (15-37) H 02/28/21 04:38 ALT 32 Units/L (12-78) 02/28/21 04:38 Alkaline Phosphatase 82 Units/L (46-116) 02/28/21 04:38 C-Reactive Protein 127.50 mg/L (0-3.0) H 02/28/21 04:38 B-Natriuretic Peptide 1310 pg/mL (0-79) H* 02/28/21 04:38 Total Protein 6.3 g/dL (6.4-8.2) L 02/28/21 04:38 Albumin 2.4 g/dL (3.4-5.0) L 02/28/21 04:38 Globulin 3.9 g/dL (2.5-4.5) 02/28/21 04:38 Albumin/Globulin Ratio 0.6 Ratio (1.1-2.1) L 02/28/21 04:38 Specimen Type Clean catch urine 02/26/21 04:47 Urine Color Dark yellow (YELLOW) 02/26/21 04:47 Urine Appearance Hazy (CLEAR) 02/26/21 04:47 Urine pH 5.0 (5.0 - 8.0) 02/26/21 04:47 Ur Specific [place] 1.020 (1.000-1.030) 02/26/21 04:47 Urine Protein 2+ (NEGATIVE) 02/26/21 04:47 Urine Glucose (UA) Negative (NEGATIVE) 02/26/21 04:47 Urine Ketones 1+ (NEGATIVE) 02/26/21 04:47 Urine Occult Blood 5+ (NEGATIVE) 02/26/21 04:47 Urine Nitrite Negative (NEGATIVE) 02/26/21 04:47 Urine Bilirubin Negative (NEGATIVE) 02/26/21 04:47 Urine Urobilinogen Normal (NORMAL) 02/26/21 04:47 Ur Leukocyte Esterase 1+ (NEGATIVE) 02/26/21 04:47 Urine RBC Tntc /HPF (0-3) A 02/26/21 04:47 Urine WBC 3-5 /HPF (0-5) 02/26/21 04:47 Ur Squamous Epith Cells Few /HPF (NEGATIVE) 02/26/21 04:47 Calcium Oxalate Crystal Moderate /HPF (NEGATIVE) 02/26/21 04:47 Amorphous Sediment 2+ /HPF (NEGATIVE) 02/26/21 04:47 Urine Bacteria Trace /HPF (NEGATIVE) 02/26/21 04:47 Hyaline Casts Many /LPF (NEGATIVE) 02/26/21 04:47 Urine Mucus Moderate /HPF (NEGATIVE) 02/26/21 04:47 Ur Culture Indicated? No/not indicated 02/26/21 04:47 SARS-CoV-2 (PCR) Negative (NEGATIVE) 02/26/21 01:40 EST Influenza Type A (PCR) Negative (NEGATIVE) 02/26/21 01:40 EST Influenza Type B (PCR) Negative (NEGATIVE) 02/26/21 01:40 EST RSV (PCR) Negative (NEGATIVE) 02/26/21 01:40 EST - Plan (1) Pneumonia Status: Acute Qualifiers: Pneumonia type: due to unspecified organism Laterality: bilateral Lung location: unspecified part of lung Qualified Code(s): J18.9 - Pneumonia, unspecified organism Plan: SUPPLEMENTAL OXYGEN, IV FLUIDS, REMDESIVIR, IV ANTIBIOTICS, RESPIRATORY TREATMENTS, POTASSIUM AND MAGNESIUM PROTOCOL, IMMUNE SUPPORT SUPPLEMENTS, RESUME HOME MEDS (2) Hypoxia Status: Acute (3) Acute hypokalemia Status: Acute (4) Status post ORIF of fracture of ankle Status: Acute
[2021-02-28] MEDS ORDERED: CARDIZEM CD 180 MG 24-HR PO ONE ×2 (17:11→19:59)
[2021-02-28] MEDS: CARDIZEM CD 180 MG 24-HR PO SCH ×2 (17:12→20:15)
[2021-02-28] MEDS: LASIX IVP SCH (17:13)
[2021-02-28 18:32] LABS: BILIRUBIN,URINE NEGATIVE (NEGATIVE); BLOOD/HEMOGLOBIN,URINE 2+ (NEGATIVE); GLUCOSE, URINE NEGATIVE (NEGATIVE); KETONES,URINE NEGATIVE (NEGATIVE); LEUKOCYTE ESTERASE ,URINE NEGATIVE (NEGATIVE); NITRITES,URINE NEGATIVE (NEGATIVE); PROTEIN,URINE NEGATIVE (NEGATIVE); UROBILINOGEN,URINE NORMAL (NORMAL)
[2021-02-28 18:40] LABS: APPEARANCE,URINE CLEAR (CLEAR); COLOR,URINE PALE YELLOW (YELLOW)
[2021-02-28 18:41] LABS: BACTERIA,URINE TRACE /HPF (NEGATIVE); CALCIUM OXALATE CRYSTALS,UR RARE /HPF (NEGATIVE); MUCUS,URINE RARE /HPF (NEGATIVE); SQUAMOUS EPITHELIAL CELL,UR RARE /HPF (NEGATIVE)
[2021-02-28] MEDS: XANAX PO PRN (20:35)
[2021-02-28] MEDS: ROXICODONE TAB 5 MG PO PRN (20:35)
[2021-02-28] MEDS: MELATONIN PO SCH (20:37)
[2021-02-28] MEDS: SENOKOT PO SCH (20:38)
[2021-03-01] MEDS: ASCORBIC ACID INJ MULTI-DOSE VIAL 1,500 MG in NS 100 ML IV 100 ML IV SCH ×4 (03:02→20:19)
[2021-03-01 04:49] LABS: ABG BASE EXCESS 6.1 mmol/L (-2.0-2.0)
[2021-03-01 04:50] LABS: ABG ALLEN TEST POS; ABG HCO3 31.2 mmol/L (22-26)
[2021-03-01 05:31] LABS: BASOPHILS % (AUTO) 0.1 % (0.2-1.0); HEMATOCRIT 27.2 % (36.0-47.0); LYMPHOCYTES # (AUTO) 0.3 X10^3/uL (1.3-2.9); LYMPHOCYTES % (AUTO) 3.7 % (21.0-51.0); MEAN CORPUSCULAR HEMOGLOBIN 28.4 pg (27.0-34.0); MEAN CORPUSCULAR HGB CONC 33.1 g/dL (33.0-35.0); MEAN CORPUSCULAR VOLUME 85.6 fL (80.0-100.0); MEAN PLATELET VOLUME 7.6 fL (7.4-11.0); MONOCYTES # (AUTO) 0.5 x10^3/uL (0.3-0.8); MONOCYTES % (AUTO) 5.9 % (0.0-13.0); NEUTROPHILS # (AUTO) 7.3 x10^3/uL (2.2-4.8); NEUTROPHILS % (AUTO) 90.3 % (42.0-75.0); PLATELET COUNT 330 X10^3/uL (150.0-450.0); RED BLOOD COUNT 3.18 X10^6/uL (3.5-5.4); RED CELL DISTRIBUTION WIDTH 24.7 % (11.6-16.5); WHITE BLOOD COUNT 8.1 X10^3/uL (3.6-10.0)
[2021-03-01] MEDS: ACCUNEB 1.25 MG NEBULE NEB SCH ×3 (05:38→21:08)
[2021-03-01] MEDS: SOLU-Medrol 40 MG VIAL IVP SCH ×3 (05:45→21:41)
[2021-03-01] MEDS: PHARMACY CONSULT - IVERMECTIN XX SCH (05:45)
[2021-03-01] MEDS: ZOSYN VIAL 2.25 GRAMS 2.25 G in NS 100 ML IV + SPIKE MINIBAG* 100 ML IV SCH ×3 (05:46→21:41)
[2021-03-01 05:50] LABS: ALANINE AMINOTRANSFERASE 27 Units/L (12-78); ALBUMIN 2.4 g/dL (3.4-5.0); ALKALINE PHOSPHATASE 74 Units/L (46-116); ASPARTATE AMINO TRANSFERASE 42 Units/L (15-37); BLOOD UREA NITROGEN 20 mg/dL (7-18); CARBON DIOXIDE 30.5 mmol/L (21-32); CHLORIDE 106 mmol/L (98-107); COR CA(FOR HYPOALB) 9.3 mg/dL (8.5-10.1); COR NA(FOR HYPERGLY) 146 mmol/L (136-145); CREATININE 0.78 mg/dL (0.55-1.02); PLATELET MORPHOLOGY COMMENT NORMAL (NORMAL); SODIUM 144 mmol/L (136-145); eGFR NON BLACK RACES > 60 (>60)
[2021-03-01 05:51] LABS: ANISOCYTOSIS 3+; HYPOCHROMASIA 1+
--- NOTE | 2021-03-01 06:00 | RAD ---
HISTORYSOB HTN PSH:HYSTO, GB, CABG [id number], 1 [id number] trachea is midline. The cardiac silhouette is stable.. 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 Diffuse bilateral airspace opacities, unchanged. No pneumothorax.. The bony thorax is unremarkable.IMPRESSIONStable portable chest.Electronically signed by: Will Higgins (Mar 01, 2021 05:58:03)
[2021-03-01] MEDS: K-DUR TAB 20 MEQ PO PRN ×2 (06:07→11:56)
[2021-03-01] MEDS: NS 1,000 ML IV 1,000 ML IV SCH (08:27)
[2021-03-01] MEDS: CORDARONE TAB 200 MG PO SCH (08:55)
[2021-03-01] MEDS: CYTOTEC PO SCH (08:55)
[2021-03-01] MEDS: FLUVOXAMINE MALEATE PO SCH ×2 (08:58→20:20)
[2021-03-01] MEDS: FLONASE NASAL SPRAY ENOSTRIL SCH (08:58)
[2021-03-01] MEDS: ELIQUIS PO SCH ×2 (08:58→20:20)
[2021-03-01] MEDS: LEVAQUIN PREMIX IV 500 MG 500 MG/100 ML BAG IV SCH (08:59)
[2021-03-01] MEDS: IVERMECTIN PO SCH (08:59)
[2021-03-01] MEDS: LASIX IVP SCH ×3 (08:59→20:20)
[2021-03-01] MEDS: THIAMINE HCL INJ IVP SCH ×2 (09:00→20:21)
[2021-03-01] MEDS: SYNTHROID 125 mcg TAB PO SCH (09:00)
[2021-03-01] MEDS: PEPCID TAB 40 MG PO SCH ×2 (09:00→20:21)
[2021-03-01] MEDS: XANAX PO PRN ×2 (09:01→20:27)
[2021-03-01] MEDS: BROVANA IN SCH ×2 (09:40→21:08)
[2021-03-01] MEDS: PULMICORT NEB TX 0.5 MG NEB SCH ×2 (09:40→21:08)
[2021-03-01] MEDS: VITAMIN D3 125 mcg (5,000 UNITS) PO SCH (09:59)
[2021-03-01] MEDS: REMDESIVIR 100 MG in NS 100 ML IV + SPIKE MINIBAG* 120 ML IV SCH (09:59)
[2021-03-01] MEDS: VITAMIN A PO SCH (09:59)
[2021-03-01] MEDS: ZINC SULFATE PO SCH ×2 (10:00→20:21)
[2021-03-01] MEDS: MAGNESIUM SULFATE 1 GRAM/100 mL PREMIX 1 G/100 ML BAG IV PRN ×2 (10:38→12:24)
--- NOTE | 2021-03-01 10:52 | PCM.PROG ---
Progress Note - Progress Note for Day of Date of Exam: 03/01/21 - Subjective Subjective: WAS A READMISSION ON 02/26 FOR TREATMENT OF BILATERAL LOWER LOBE PNEUMONIA, HYPOXIA, AND HYPOKALEMIA. HER CHEST CTA WAS CONSISTENT WITH COVID PNEUMONIA ALTHOUGH HER SWAB WAS NEGATIVE. SHE WAS DISCHARGED FROM THE HOSPITAL ON 02/24 FOR TREATMENT OF SAME DIAGNOSIS. TODAY, SHE IS ALERT AND ORIENTED, SITTING UP IN BED ON MORNING ROUNDS. SHE CONTINUES WITH SHORTNESS OF BREATH AND INTERMITTENT COUGH. COUGH HAS BEEN NON-PRODUCTIVE. SHE PLACED ON THE NON-REBREATHER YESTERDAY DUE TO SATURATIONS DROPPING TO THE 70s. SHE HAS BEEN IN REHAB AT [facility] DUE TO RECENT ORIF AND EXTERNAL FIXATOR IN PLACE. ON EXAMINATION, HEART IS REGULAR IN RATE AND RHYTHM. BILATERAL LUNGS NOTED WITH DIMINISHED LUNG SOUNDS THROUGHOUT. ABDOMEN IS ROUND, SOFT, AND NON- TENDER WITH NORMAL BOWEL SOUNDS NOTED IN ALL QUADRANTS. EXTERNAL FIXATOR AND DRESSING NOTED TO RIGHT ANKLE/LOWER LEG. HER VITALS THIS MORNING ARE: 98.0-91-26-96%-111/54. LABS WERE OBTAINED. RBC 3.18, HGB 9.0, HCT 27.2, POTASSI UM 2.7, BUN 20, GLUCOSE 171, CALCIUM 8.0, AST 42, CRP 68.70, BNP 831, TOTAL PROTEIN 6.0, ALBUMIN 2.4. CHEST XRAY REPEATED AND REVEALED: The trachea is midline. The cardiac silhouette is stable.. 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 Diffuse bilateral airspace opacities, unchanged. No pneumothorax.. The bony thorax is unremarkable. SHE IS CURRENTLY RECEIVING IV ANTIBIOTICS, REMDESIVIR, NEBULIZER TREATMENTS, SOLU-MEDROL, POTASSIUM AND MAGNESIUM PROTOCOLS, NORMAL SALINE AT 100 ML/HR, IMMUNE SUPPORT SUPPLEMENTS, CARDIZEM, AND HER HOME MEDICATIONS RESUMED. TODAY, WE WILL ADMINISTER LASIX 40MG IV Q12H. OTHERWISE, WE WILL CONTINUE WITH CURRENT PLAN OF CARE TODAY. WE PLAN TO FOLLOW UP WITH AM LABS AND CHEST XRAY AND CONTINUE TO MONITOR. TIME SPENT ON CLINICAL ASSESSMENT, REVIEWING LABS AND IMAGING, DECISION MAKING, AND DOCUMENTATION GREATER THAN 45 MINUTES. - Past Medical Family Social History Past Med/Fam/Surg Hx: No changes since H&P Allergies: Allergies ANGIE Inhibitors Allergy (Verified 03/05/18 10:04) codeine Allergy (Verified 03/05/18 09:54) gabapentin Allergy (Verified 03/05/18 09:54) vancomycin Allergy (Verified 03/05/18 09:54) STATINS Allergy (Uncoded 03/05/18 09:54) - Review of Systems ROS: No change since H&P - Vital Signs and I&O's Vital Signs: Temperature 98.0 F Pulse Rate [Apical] 96 Pulse Rate [Bilateral Radial] 86 Pulse Rate 73 Respiratory Rate 16 Blood Pressure [Left Arm] 118/62 Blood Pressure 103/80 O2 Sat by Pulse Oximetry 98 Intake and Output: Intake & Output 02/26/21 02/27/21 02/28/21 03/01/21 11:59 11:59 11:59 11:59 Intake Total 3760 / 3760 2551 / 2551 1113 / 1113 Output Total 1200 / 1200 1200 / 1200 2500 / 2500 Balance 2560 / 2560 1351 / 1351 -1387 / -1387 - Physical Exam Oriented: Normal Eyes: Normal Ear: Normal Nose: Normal Throat: Normal Respiratory: Generalized, Diminished Cardiovascular: Tachycardia. negative: S3, S4, Murmur : Normal Auscultation: Bowel Sounds: Normal Tenderness: Normal Skin: Wound (RIGHT ANKLE/LOWER LEG EXTERNAL FIXATOR ) Musculoskeletal: Right, Shoulder, Leg, Ankle, Foot, Tender Psychiatric: Anxiety Mood Description: Anxious Affect: Anxious Speech Pattern: Clear, Appropriate - Laboratory and Diagnostics Result Diagrams: 03/01/21 04:48 03/01/21 08:16 Labs: Laboratory WBC 8.1 X10^3/uL (3.6-10.0) 03/01/21 04:48 RBC 3.18 X10^6/uL (3.5-5.4) L 03/01/21 04:48 Hgb 9.0 g/dL (12.0-16.0) L 03/01/21 04:48 Hct 27.2 % (36.0-47.0) L 03/01/21 04:48 MCV 85.6 fL (80.0-100.0) 03/01/21 04:48 MCH 28.4 pg (27.0-34.0) 03/01/21 04:48 MCHC 33.1 g/dL (33.0-35.0) 03/01/21 04:48 RDW 24.7 % (11.6-16.5) H 03/01/21 04:48 Plt Count 330 X10^3/uL (150.0-450.0) 03/01/21 04:48 Plt Count Comment Adequate (ADEQUATE) 03/01/21 04:48 MPV 7.6 fL (7.4-11.0) 03/01/21 04:48 Neut % (Auto) 90.3 % (42.0-75.0) H 03/01/21 04:48 Lymph % (Auto) 3.7 % (21.0-51.0) L 03/01/21 04:48 [place] % (Auto) 5.9 % (0.0-13.0) 03/01/21 04:48 Eos % (Auto) 0.0 % (0.9-2.9) L 03/01/21 04:48 Baso % (Auto) 0.1 % (0.2-1.0) L 03/01/21 04:48 Neut # (Auto) 7.3 x10^3/uL (2.2-4.8) H 03/01/21 04:48 Lymph # (Auto) 0.3 X10^3/uL (1.3-2.9) L 03/01/21 04:48 Clinch # (Auto) 0.5 x10^3/uL (0.3-0.8) 03/01/21 04:48 Eos # (Auto) 0.0 x10^3/uL (0.0-0.2) 03/01/21 04:48 Baso # (Auto) 0.0 X10^3/uL (0.0-0.1) 03/01/21 04:48 Absolute Nucleated RBC 0.0 /100WBC 03/01/21 04:48 Total Counted 100 03/01/21 04:48 Neutrophils % (Manual) 93 % (39-76) H 03/01/21 04:48 Lymphocytes % (Manual) 2 % (13-43) L 03/01/21 04:48 Monocytes % (Manual) 5 % (4-9) 03/01/21 04:48 Plt Morphology Comment Normal (NORMAL) 03/01/21 04:48 RBC Morphology Abnormal (NORMAL) A 03/01/21 04:48 Hypochromasia 1+ A 03/01/21 04:48 Anisocytosis 3+ A 03/01/21 04:48 D-Dimer 1.06 ug/ml (0.0-0.57) H* 02/26/21 01:48 EST Sample Site Lrad 03/01/21 04:40 ABG pH 7.440 (7.35-7.45) 03/01/21 04:40 ABG pCO2 46.0 mmHg (35.0-45.0) H 03/01/21 04:40 ABG pO2 103.0 mmHg (80.0-100.0) H 03/01/21 04:40 ABG HCO3 31.2 mmol/L (22-26) H* 03/01/21 04:40 ABG O2 Saturation 98.0 % (90-100) 03/01/21 04:40 ABG Base Excess 6.1 mmol/L (-2.0-2.0) H 03/01/21 04:40 Singh Test Pos 03/01/21 04:40 A-a Gradient 553.0 mmHg 03/01/21 04:40 FiO2 100.0 03/01/21 04:40 Blood Gas Comments [place] well ms 03/01/21 04:40 Sodium 144 mmol/L (136-145) 03/01/21 04:48 Corrected Sodium 146 mmol/L (136-145) H 03/01/21 04:48 Potassium 3.1 mmol/L (3.5-5.1) L 03/01/21 08:16 Chloride 106 mmol/L (98-107) 03/01/21 04:48 Carbon Dioxide 30.5 mmol/L (21-32) 03/01/21 04:48 BUN 20 mg/dL (7-18) H 03/01/21 04:48 Creatinine 0.78 mg/dL (0.55-1.02) 03/01/21 04:48 Est GFR (MDRD) Af Amer > 60 (>60) 03/01/21 04:48 Est GFR (MDRD) Non-Af > 60 (>60) 03/01/21 04:48 Glucose 171 mg/dL (65-99) H 03/01/21 04:48 Calcium 8.0 mg/dL (8.5-10.1) L 03/01/21 04:48 Corrected Calcium 9.3 mg/dL (8.5-10.1) 03/01/21 04:48 Magnesium 1.7 mg/dL (1.7-2.9) 03/01/21 08:16 Total Bilirubin 0.40 mg/dL (0.2-1.0) 03/01/21 04:48 AST 42 Units/L (15-37) H 03/01/21 04:48 ALT 27 Units/L (12-78) 03/01/21 04:48 Alkaline Phosphatase 74 Units/L (46-116) 03/01/21 04:48 C-Reactive Protein 68.70 mg/L (0-3.0) H 03/01/21 04:48 B-Natriuretic Peptide 831 pg/mL (0-79) H* 03/01/21 04:48 Total Protein 6.0 g/dL (6.4-8.2) L 03/01/21 04:48 Albumin 2.4 g/dL (3.4-5.0) L 03/01/21 04:48 Globulin 3.6 g/dL (2.5-4.5) 03/01/21 04:48 Albumin/Globulin Ratio 0.7 Ratio (1.1-2.1) L 03/01/21 04:48 Specimen Type Catherized urine 02/28/21 16:42 Urine Color Pale yellow (YELLOW) 02/28/21 16:42 Urine Appearance Clear (CLEAR) 02/28/21 16:42 Urine pH 6.0 (5.0 - 8.0) 02/28/21 16:42 Ur Specific [place] 1.005 (1.000-1.030) 02/28/21 16:42 Urine Protein Negative (NEGATIVE) 02/28/21 16:42 Urine Glucose (UA) Negative (NEGATIVE) 02/28/21 16:42 Urine Ketones Negative (NEGATIVE) 02/28/21 16:42 Urine Occult Blood 2+ (NEGATIVE) 02/28/21 16:42 Urine Nitrite Negative (NEGATIVE) 02/28/21 16:42 Urine Bilirubin Negative (NEGATIVE) 02/28/21 16:42 Urine Urobilinogen Normal (NORMAL) 02/28/21 16:42 Ur Leukocyte Esterase Negative (NEGATIVE) 02/28/21 16:42 Urine RBC 10-20 /HPF (0-3) A 02/28/21 16:42 Urine WBC 0-2 /HPF (0-5) 02/28/21 16:42 Ur Squamous Epith Cells Rare /HPF (NEGATIVE) 02/28/21 16:42 Calcium Oxalate Crystal Rare /HPF (NEGATIVE) 02/28/21 16:42 Amorphous Sediment 2+ /HPF (NEGATIVE) 02/26/21 04:47 Urine Bacteria Trace /HPF (NEGATIVE) 02/28/21 16:42 Hyaline Casts Many /LPF (NEGATIVE) 02/26/21 04:47 Urine Mucus Rare /HPF (NEGATIVE) 02/28/21 16:42 Ur Culture Indicated? No/not indicated 02/28/21 16:42 SARS-CoV-2 (PCR) Negative (NEGATIVE) 02/26/21 01:40 EST Influenza Type A (PCR) Negative (NEGATIVE) 02/26/21 01:40 EST Influenza Type B (PCR) Negative (NEGATIVE) 02/26/21 01:40 EST RSV (PCR) Negative (NEGATIVE) 02/26/21 01:40 EST Resp Viral Panel (PCR) See scanned report 02/27/21 12:23 - Plan (1) Pneumonia Status: Acute Qualifiers: Pneumonia type: due to unspecified organism Laterality: bilateral Lung location: unspecified part of lung Qualified Code(s): J18.9 - Pneumonia, unspecified organism Plan: SUPPLEMENTAL OXYGEN, IV FLUIDS, REMDESIVIR, IV ANTIBIOTICS, RESPIRATORY TREATMENTS, POTASSIUM AND MAGNESIUM PROTOCOL, IMMUNE SUPPORT SUPPLEMENTS, RESUME HOME MEDS (2) Hypoxia Status: Acute (3) Acute hypokalemia Status: Acute (4) Status post ORIF of fracture of ankle Status: Acute
[2021-03-01] MEDS: ROXICODONE TAB 5 MG PO PRN ×2 (15:00→20:26)
[2021-03-01] MEDS: CARDIZEM CD 180 MG 24-HR PO SCH (20:20)
[2021-03-01] MEDS: MELATONIN PO SCH (20:20)
[2021-03-01] MEDS: SENOKOT PO SCH (20:21)
[2021-03-02] MEDS: ASCORBIC ACID INJ MULTI-DOSE VIAL 1,500 MG in NS 100 ML IV 100 ML IV SCH ×2 (02:37→08:29)
[2021-03-02] MEDS: SOLU-Medrol 40 MG VIAL IVP SCH ×3 (05:19→22:02)
[2021-03-02] MEDS: ZOSYN VIAL 2.25 GRAMS 2.25 G in NS 100 ML IV + SPIKE MINIBAG* 100 ML IV SCH ×3 (05:19→22:03)
--- NOTE | 2021-03-02 05:48 | RAD ---
HISTORYSOB HTN PSH:HYSTO, GB, CABG [id number], 1 [id number] trachea is midline. The cardiac silhouette is unremarkable. 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 Diffuse bilateral airspace opacities unchanged. No pneumothorax.. The bony thorax is unremarkable.IMPRESSIONStable portable chest.Electronically signed by: Will Higgins (Mar 02, 2021 05:47:06)
[2021-03-02 05:53] LABS: BASOPHILS % (AUTO) 0.1 % (0.2-1.0); HEMATOCRIT 29.1 % (36.0-47.0); HEMOGLOBIN 9.9 g/dL (12.0-16.0); LYMPHOCYTES # (AUTO) 0.4 X10^3/uL (1.3-2.9); LYMPHOCYTES % (AUTO) 3.8 % (21.0-51.0); MEAN CORPUSCULAR HEMOGLOBIN 28.8 pg (27.0-34.0); MEAN CORPUSCULAR HGB CONC 34.1 g/dL (33.0-35.0); MEAN CORPUSCULAR VOLUME 84.5 fL (80.0-100.0); MEAN PLATELET VOLUME 7.6 fL (7.4-11.0); MONOCYTES # (AUTO) 0.6 x10^3/uL (0.3-0.8); MONOCYTES % (AUTO) 6.4 % (0.0-13.0); NEUTROPHILS # (AUTO) 8.5 x10^3/uL (2.2-4.8); NEUTROPHILS % (AUTO) 89.7 % (42.0-75.0); PLATELET COUNT 371 X10^3/uL (150.0-450.0); RED BLOOD COUNT 3.44 X10^6/uL (3.5-5.4); RED CELL DISTRIBUTION WIDTH 24.7 % (11.6-16.5); WHITE BLOOD COUNT 9.5 X10^3/uL (3.6-10.0)
[2021-03-02 05:56] LABS: ALANINE AMINOTRANSFERASE 29 Units/L (12-78); ALBUMIN 2.6 g/dL (3.4-5.0); ALKALINE PHOSPHATASE 80 Units/L (46-116); ASPARTATE AMINO TRANSFERASE 46 Units/L (15-37); BLOOD UREA NITROGEN 18 mg/dL (7-18); CALCIUM 8.2 mg/dL (8.5-10.1); CARBON DIOXIDE 33.9 mmol/L (21-32); CHLORIDE 104 mmol/L (98-107); COR CA(FOR HYPOALB) 9.3 mg/dL (8.5-10.1); COR NA(FOR HYPERGLY) 148 mmol/L (136-145); CREATININE 0.75 mg/dL (0.55-1.02); MAGNESIUM 2.1 mg/dL (1.7-2.9); SODIUM 146 mmol/L (136-145); TOTAL PROTEIN 6.3 g/dL (6.4-8.2); eGFR NON BLACK RACES > 60 (>60)
[2021-03-02] MEDS: NS 1,000 ML IV 1,000 ML IV SCH (06:42)
[2021-03-02 06:43] LABS: BAND NEUTROPHILS % 1 % (0-10); METAMYELOCYTES % 2; MYELOCYTES % 1
[2021-03-02 06:44] LABS: ANISOCYTOSIS 3+; HYPOCHROMASIA 1+; PLATELET MORPHOLOGY COMMENT NORMAL (NORMAL)
[2021-03-02] MEDS: ROXICODONE TAB 5 MG PO PRN ×3 (07:37→20:26)
[2021-03-02] MEDS: K-DUR TAB 20 MEQ PO PRN ×4 (07:39→20:26)
[2021-03-02] MEDS: PULMICORT NEB TX 0.5 MG NEB SCH ×2 (08:25→20:27)
[2021-03-02] MEDS: CORDARONE TAB 200 MG PO SCH (08:29)
[2021-03-02] MEDS: FLONASE NASAL SPRAY ENOSTRIL SCH (08:31)
[2021-03-02] MEDS: ELIQUIS PO SCH ×2 (08:31→20:25)
[2021-03-02] MEDS: FLUVOXAMINE MALEATE PO SCH ×2 (08:31→20:25)
[2021-03-02] MEDS: IVERMECTIN PO SCH (08:31)
[2021-03-02] MEDS: PEPCID TAB 40 MG PO SCH ×2 (08:32→20:21)
[2021-03-02] MEDS: SYNTHROID 125 mcg TAB PO SCH (08:32)
[2021-03-02] MEDS: REMDESIVIR 100 MG in NS 100 ML IV + SPIKE MINIBAG* 120 ML IV SCH (08:32)
[2021-03-02] MEDS: THIAMINE HCL INJ IVP SCH ×2 (08:33→20:27)
[2021-03-02] MEDS: VITAMIN A PO SCH (08:33)
[2021-03-02] MEDS: VITAMIN D3 125 mcg (5,000 UNITS) PO SCH (08:33)
[2021-03-02] MEDS: ZINC SULFATE PO SCH ×2 (08:34→20:25)
[2021-03-02] MEDS: BROVANA IN SCH (08:51)
[2021-03-02] MEDS: LEVAQUIN PREMIX IV 500 MG 500 MG/100 ML BAG IV SCH (08:57)
[2021-03-02] MEDS: LASIX IVP SCH ×2 (10:09→20:26)
[2021-03-02] MEDS ORDERED: XOPENEX 1.25 MG/3 ML NEBULE NEB ONE (13:00)
[2021-03-02] MEDS: XOPENEX 1.25 MG/3 ML NEBULE NEB SCH ×2 (13:02→20:27)
[2021-03-02] MEDS: ACCUNEB 1.25 MG NEBULE NEB SCH (13:03)
--- NOTE | 2021-03-02 13:23 | PCM.PROG ---
Progress Note - Progress Note for Day of Date of Exam: 03/02/21 - Subjective Subjective: WAS A READMISSION ON 02/26 FOR TREATMENT OF BILATERAL LOWER LOBE PNEUMONIA, HYPOXIA, AND HYPOKALEMIA. SHE WAS DISCHARGED FROM THE HOSPITAL ON 02/24 FOR TREATMENT OF SAME DIAGNOSIS. TODAY, SHE IS ALERT AND ORIENTED, SITTING UP IN BED ON MORNING ROUNDS. SHE CONTINUES WITH SHORTNESS OF BREATH AND INTERMITTENT COUGH. COUGH HAS BEEN NON-PRODUCTIVE. SHE IS CURRENTLY ON HEATED HIGH FLOW OXYGEN AT 88%. SATURATIONS HAVE BEEN 90-95%. SHE HAS BEEN IN REHAB AT [facility] DUE TO RECENT ORIF AND EXTERNAL FIXATOR IN PLACE. ON EXAMINATION, HEART IS REGULAR IN RATE AND RHYTHM. BILATERAL LUNGS NOTED WITH DIMINISHED LUNG SOUNDS THROUGHOUT. ABDOMEN IS ROUND, SOFT, AND NON-TENDER WITH NORMAL BOWEL SOUNDS NOTED IN ALL QUADRANTS. EXTERNAL FIXATOR AND DRESSING NOTED TO RIGHT ANKLE/LOWER LEG. HER VITALS THIS MORNING ARE: 98.2-100-26-90%-115/57. LABS WERE OBTAINED. RBC 3.44, HGB 9.9, HCT 29.1, SODIUM 146, POTASSIUM 2.9, CARBON DIOXIDE 33.9, GLUCOSE 167, CALCIUM 8.2, AST 46, CRP 45.60, BNP 524, TOTAL PROTEIN 6.3, ALBUMIN 2.6. RESPIRATORY AIT PANEL WAS NEGATIVE. CHEST XRAY REPEATED AND REVEALED: The trachea is midline. The cardiac silhouette is unremarkable. 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 Diffuse bilateral airspace opacities unchanged. No pneumothorax. The bony thorax is unremarkable. SHE IS CURRENTLY RECEIVING IV ANTIBIOTICS, REMDESIVIR, NEBULIZER TREATMENTS, SOLU-MEDROL, POTASSIUM AND MAGNESIUM PROTOCOLS, NORMAL SALINE AT 20 ML/HR, IMMUNE SUPPORT SUPPLEMENTS, CARDIZEM, AND HER HOME MEDICATIONS RESUMED. TODAY, WE WILL START LASIX 20MG IV Q12H. OTHERWISE, WE WILL CONTINUE WITH CURRENT PLAN OF CARE. WE PLAN TO FOLLOW UP WITH AM LABS AND CHEST XRAY AND CONTINUE TO MONITOR. TIME SPENT ON CLINICAL ASSESSMENT, REVIEWING LABS AND IMAGING, DECISION MAKING, AND DOCUMENTATION GREATER THAN 45 MINUTES. - Past Medical Family Social History Past Med/Fam/Surg Hx: No changes since H&P Allergies: Allergies ANGIE Inhibitors Allergy (Verified 03/05/18 10:04) codeine Allergy (Verified 03/05/18 09:54) gabapentin Allergy (Verified 03/05/18 09:54) vancomycin Allergy (Verified 03/05/18 09:54) STATINS Allergy (Uncoded 03/05/18 09:54) - Review of Systems ROS: No change since H&P - Vital Signs and I&O's Vital Signs: Temperature 98.4 F Pulse Rate [Apical] 102 Pulse Rate [Bilateral Radial] 86 Pulse Rate 115 Respiratory Rate 20 Blood Pressure [Left Arm] 113/79 Blood Pressure 103/80 O2 Sat by Pulse Oximetry 94 Intake and Output: Intake & Output 02/28/21 03/01/21 03/02/21 03/03/21 11:59 11:59 11:59 11:59 Intake Total 2551 / 2551 1113 / 1113 2190 / 2190 Output Total 1200 / 1200 2500 / 2500 3300 / 3300 Balance 1351 / 1351 -1387 / -1387 -1110 / -1110 - Physical Exam Oriented: Normal Eyes: Normal Ear: Normal Nose: Normal Throat: Normal Respiratory: Generalized, Diminished Cardiovascular: Tachycardia. negative: S3, S4, Murmur : Normal Auscultation: Bowel Sounds: Normal Palpation: Normal Tenderness: Normal Skin: Wound (RIGHT ANKLE/LOWER LEG EXTERNAL FIXATOR ) Musculoskeletal: Right, Shoulder, Leg, Ankle, Foot, Tender Psychiatric: Anxiety Mood Description: Anxious Affect: Anxious Speech Pattern: Clear, Appropriate - Laboratory and Diagnostics Result Diagrams: 03/02/21 05:12 03/02/21 05:12 Labs: Laboratory WBC 9.5 X10^3/uL (3.6-10.0) 03/02/21 05:12 RBC 3.44 X10^6/uL (3.5-5.4) L 03/02/21 05:12 Hgb 9.9 g/dL (12.0-16.0) L 03/02/21 05:12 Hct 29.1 % (36.0-47.0) L 03/02/21 05:12 MCV 84.5 fL (80.0-100.0) 03/02/21 05:12 MCH 28.8 pg (27.0-34.0) 03/02/21 05:12 MCHC 34.1 g/dL (33.0-35.0) 03/02/21 05:12 RDW 24.7 % (11.6-16.5) H 03/02/21 05:12 Plt Count 371 X10^3/uL (150.0-450.0) 03/02/21 05:12 Plt Count Comment Adequate (ADEQUATE) 03/02/21 05:12 MPV 7.6 fL (7.4-11.0) 03/02/21 05:12 Neut % (Auto) 89.7 % (42.0-75.0) H 03/02/21 05:12 Lymph % (Auto) 3.8 % (21.0-51.0) L 03/02/21 05:12 [place] % (Auto) 6.4 % (0.0-13.0) 03/02/21 05:12 Eos % (Auto) 0.0 % (0.9-2.9) L 03/02/21 05:12 Baso % (Auto) 0.1 % (0.2-1.0) L 03/02/21 05:12 Neut # (Auto) 8.5 x10^3/uL (2.2-4.8) H 03/02/21 05:12 Lymph # (Auto) 0.4 X10^3/uL (1.3-2.9) L 03/02/21 05:12 [place] # (Auto) 0.6 x10^3/uL (0.3-0.8) 03/02/21 05:12 Eos # (Auto) 0.0 x10^3/uL (0.0-0.2) 03/02/21 05:12 Baso # (Auto) 0.0 X10^3/uL (0.0-0.1) 03/02/21 05:12 Absolute Nucleated RBC 0.2 /100WBC 03/02/21 05:12 Total Counted 100 03/02/21 05:12 Neutrophils % (Manual) 93 % (39-76) H 03/02/21 05:12 Band Neutrophils % 1 % (0-10) 03/02/21 05:12 Lymphocytes % (Manual) 2 % (13-43) L 03/02/21 05:12 Monocytes % (Manual) 1 % (4-9) L 03/02/21 05:12 Metamyelocytes % 2 03/02/21 05:12 Myelocytes % 1 03/02/21 05:12 Plt Morphology Comment Normal (NORMAL) 03/02/21 05:12 RBC Morphology Abnormal (NORMAL) A 03/02/21 05:12 Hypochromasia 1+ A 03/02/21 05:12 Anisocytosis 3+ A 03/02/21 05:12 D-Dimer 1.06 ug/ml (0.0-0.57) H* 02/26/21 01:48 EST Sample Site Lrad 03/01/21 04:40 ABG pH 7.440 (7.35-7.45) 03/01/21 04:40 ABG pCO2 46.0 mmHg (35.0-45.0) H 03/01/21 04:40 ABG pO2 103.0 mmHg (80.0-100.0) H 03/01/21 04:40 ABG HCO3 31.2 mmol/L (22-26) H* 03/01/21 04:40 ABG O2 Saturation 98.0 % (90-100) 03/01/21 04:40 ABG Base Excess 6.1 mmol/L (-2.0-2.0) H 03/01/21 04:40 Singh Test Pos 03/01/21 04:40 A-a Gradient 553.0 mmHg 03/01/21 04:40 FiO2 100.0 03/01/21 04:40 Blood Gas Comments [facility] well ms 03/01/21 04:40 Sodium 146 mmol/L (136-145) H 03/02/21 05:12 Corrected Sodium 148 mmol/L (136-145) H 03/02/21 05:12 Potassium 2.9 mmol/L (3.5-5.1) L* 03/02/21 05:12 Chloride 104 mmol/L (98-107) 03/02/21 05:12 Carbon Dioxide 33.9 mmol/L (21-32) H 03/02/21 05:12 BUN 18 mg/dL (7-18) 03/02/21 05:12 Creatinine 0.75 mg/dL (0.55-1.02) 03/02/21 05:12 Est GFR (MDRD) Af Amer > 60 (>60) 03/02/21 05:12 Est GFR (MDRD) Non-Af > 60 (>60) 03/02/21 05:12 Glucose 167 mg/dL (65-99) H 03/02/21 05:12 Calcium 8.2 mg/dL (8.5-10.1) L 03/02/21 05:12 Corrected Calcium 9.3 mg/dL (8.5-10.1) 03/02/21 05:12 Magnesium 2.1 mg/dL (1.7-2.9) 03/02/21 05:12 Total Bilirubin 0.50 mg/dL (0.2-1.0) 03/02/21 05:12 AST 46 Units/L (15-37) H 03/02/21 05:12 ALT 29 Units/L (12-78) 03/02/21 05:12 Alkaline Phosphatase 80 Units/L (46-116) 03/02/21 05:12 C-Reactive Protein 45.60 mg/L (0-3.0) H 03/02/21 05:12 B-Natriuretic Peptide 524 pg/mL (0-79) H* 03/02/21 05:12 Total Protein 6.3 g/dL (6.4-8.2) L 03/02/21 05:12 Albumin 2.6 g/dL (3.4-5.0) L 03/02/21 05:12 Globulin 3.7 g/dL (2.5-4.5) 03/02/21 05:12 Albumin/Globulin Ratio 0.7 Ratio (1.1-2.1) L 03/02/21 05:12 Specimen Type Catherized urine 02/28/21 16:42 Urine Color Pale yellow (YELLOW) 02/28/21 16:42 Urine Appearance Clear (CLEAR) 02/28/21 16:42 Urine pH 6.0 (5.0 - 8.0) 02/28/21 16:42 Ur Specific [place] 1.005 (1.000-1.030) 02/28/21 16:42 Urine Protein Negative (NEGATIVE) 02/28/21 16:42 Urine Glucose (UA) Negative (NEGATIVE) 02/28/21 16:42 Urine Ketones Negative (NEGATIVE) 02/28/21 16:42 Urine Occult Blood 2+ (NEGATIVE) 02/28/21 16:42 Urine Nitrite Negative (NEGATIVE) 02/28/21 16:42 Urine Bilirubin Negative (NEGATIVE) 02/28/21 16:42 Urine Urobilinogen Normal (NORMAL) 02/28/21 16:42 Ur Leukocyte Esterase Negative (NEGATIVE) 02/28/21 16:42 Urine RBC 10-20 /HPF (0-3) A 02/28/21 16:42 Urine WBC 0-2 /HPF (0-5) 02/28/21 16:42 Ur Squamous Epith Cells Rare /HPF (NEGATIVE) 02/28/21 16:42 Calcium Oxalate Crystal Rare /HPF (NEGATIVE) 02/28/21 16:42 Amorphous Sediment 2+ /HPF (NEGATIVE) 02/26/21 04:47 Urine Bacteria Trace /HPF (NEGATIVE) 02/28/21 16:42 Hyaline Casts Many /LPF (NEGATIVE) 02/26/21 04:47 Urine Mucus Rare /HPF (NEGATIVE) 02/28/21 16:42 Ur Culture Indicated? No/not indicated 02/28/21 16:42 SARS-CoV-2 (PCR) Negative (NEGATIVE) 02/26/21 01:40 EST Influenza Type A (PCR) Negative (NEGATIVE) 02/26/21 01:40 EST Influenza Type B (PCR) Negative (NEGATIVE) 02/26/21 01:40 EST RSV (PCR) Negative (NEGATIVE) 02/26/21 01:40 EST Resp Viral Panel (PCR) See scanned report 02/27/21 12:23 - Plan (1) Pneumonia Status: Acute Qualifiers: Pneumonia type: due to unspecified organism Laterality: bilateral Lung location: unspecified part of lung Qualified Code(s): J18.9 - Pneumonia, unspecified organism Plan: SUPPLEMENTAL OXYGEN, SOLU-MEDROL, LASIX 20MG IV BID, REMDESIVIR, IV ANTIBIOTICS, RESPIRATORY TREATMENTS, POTASSIUM AND MAGNESIUM PROTOCOL, IMMUNE SUPPORT SUPPLEMENTS, RESUME HOME MEDS (2) Hypoxia Status: Acute (3) Acute hypokalemia Status: Acute (4) Status post ORIF of fracture of ankle Status: Acute
[2021-03-02] MEDS ORDERED: ASCORBIC ACID INJ MULTI-DOSE VIAL IV ONE (19:31)
[2021-03-02] MEDS ORDERED: NS 100 ML IV 100 ML ONE (19:31)
[2021-03-02] MEDS: MELATONIN PO SCH (20:20)
[2021-03-02] MEDS: ASCORBIC ACID INJ MULTI-DOSE VIAL 1,500 MG in NS 50 ML IV 50 ML IV SCH (20:22)
[2021-03-02] MEDS: CARDIZEM CD 180 MG 24-HR PO SCH (20:25)
[2021-03-02] MEDS: XANAX PO PRN (20:25)
[2021-03-02] MEDS: SENOKOT PO SCH (20:26)
[2021-03-02] MEDS ORDERED: LOPRESSOR INJ 5 MG AMP IVP ONE (23:48)
[2021-03-02] MEDS ORDERED: LOPRESSOR INJ 5 MG AMP ONE (23:50)
[2021-03-03] MEDS ORDERED: MORPHINE SULFATE INJ 2 MG INJ IVP ONE (01:44)
[2021-03-03] MEDS ORDERED: MORPHINE SULFATE INJ 2 MG INJ ONE (01:50)
[2021-03-03] MEDS: ZOFRAN INJ 4 MG VIAL IVP PRN (02:07)
[2021-03-03 05:31] LABS: BASOPHILS % (AUTO) 0 % (0.2-1.0); HEMATOCRIT 28.5 % (36.0-47.0); HEMOGLOBIN 9.5 g/dL (12.0-16.0); LYMPHOCYTES # (AUTO) 0.3 X10^3/uL (1.3-2.9); LYMPHOCYTES % (AUTO) 2.1 % (21.0-51.0); MEAN CORPUSCULAR HEMOGLOBIN 28.4 pg (27.0-34.0); MEAN CORPUSCULAR HGB CONC 33.4 g/dL (33.0-35.0); MEAN CORPUSCULAR VOLUME 85.2 fL (80.0-100.0); MEAN PLATELET VOLUME 7.6 fL (7.4-11.0); MONOCYTES # (AUTO) 0.6 x10^3/uL (0.3-0.8); MONOCYTES % (AUTO) 4.8 % (0.0-13.0); NEUTROPHILS # (AUTO) 11.2 x10^3/uL (2.2-4.8); NEUTROPHILS % (AUTO) 93.1 % (42.0-75.0); PLATELET COUNT 366 X10^3/uL (150.0-450.0); RED BLOOD COUNT 3.34 X10^6/uL (3.5-5.4); RED CELL DISTRIBUTION WIDTH 24.8 % (11.6-16.5); WHITE BLOOD COUNT 12.1 X10^3/uL (3.6-10.0)
[2021-03-03 05:43] LABS: ALANINE AMINOTRANSFERASE 32 Units/L (12-78); ALBUMIN 2.5 g/dL (3.4-5.0); ALKALINE PHOSPHATASE 81 Units/L (46-116); ASPARTATE AMINO TRANSFERASE 55 Units/L (15-37); BLOOD UREA NITROGEN 21 mg/dL (7-18); CALCIUM 8.4 mg/dL (8.5-10.1); CHLORIDE 105 mmol/L (98-107); COR CA(FOR HYPOALB) 9.6 mg/dL (8.5-10.1); COR NA(FOR HYPERGLY) 146 mmol/L (136-145); CREATININE 0.83 mg/dL (0.55-1.02); MAGNESIUM 1.9 mg/dL (1.7-2.9); SODIUM 144 mmol/L (136-145); TOTAL PROTEIN 5.9 g/dL (6.4-8.2); eGFR NON BLACK RACES > 60 (>60)
[2021-03-03 05:50] LABS: ANISOCYTOSIS 3+; HYPOCHROMASIA 1+; PLATELET MORPHOLOGY COMMENT NORMAL (NORMAL)
[2021-03-03] MEDS: NS 1,000 ML IV 1,000 ML IV SCH (05:58)
[2021-03-03] MEDS: SOLU-Medrol 40 MG VIAL IVP SCH ×3 (05:58→21:52)
[2021-03-03] MEDS: XOPENEX 1.25 MG/3 ML NEBULE NEB SCH ×3 (05:59→20:38)
[2021-03-03] MEDS: ZOSYN VIAL 2.25 GRAMS 2.25 G in NS 100 ML IV + SPIKE MINIBAG* 100 ML IV SCH ×3 (05:59→21:52)
--- NOTE | 2021-03-03 06:05 | RAD ---
HISTORYSOBSTUDYCHEST, 1 [id number]/2021.TECHNIQUEAP view of the chestFINDINGSStatus post median sternotomy and valve replacement. The cardiac silhouette is stably enlarged. Mediastinal contours appear stable. No significant change in diffuse bilateral airspace opacities. No definite pleural effusion or pneumothorax. Patient is rotated. Soft tissue attenuation limits evaluation.IMPRESSIONNo significant change.Electronically signed by: Eric Rivas (Mar 03, 2021 06:03:56)
[2021-03-03] MEDS: PULMICORT NEB TX 0.5 MG NEB SCH ×2 (08:01→20:38)
[2021-03-03] MEDS ORDERED: LANOXIN INJ IVP ONE (09:12)
[2021-03-03] MEDS: ASCORBIC ACID INJ MULTI-DOSE VIAL 1,500 MG in NS 50 ML IV 50 ML IV SCH ×2 (09:23→20:19)
[2021-03-03] MEDS: ZINC SULFATE PO SCH ×2 (09:23→20:25)
[2021-03-03] MEDS: VITAMIN D3 125 mcg (5,000 UNITS) PO SCH (09:23)
[2021-03-03] MEDS: CORDARONE TAB 200 MG PO SCH (09:24)
[2021-03-03] MEDS: THIAMINE HCL INJ IVP SCH ×2 (09:24→20:25)
[2021-03-03] MEDS: SYNTHROID 125 mcg TAB PO SCH (09:24)
[2021-03-03] MEDS: VITAMIN A PO SCH (09:24)
[2021-03-03] MEDS: FLONASE NASAL SPRAY ENOSTRIL SCH (09:26)
[2021-03-03] MEDS: LASIX IVP SCH ×2 (09:26→20:22)
[2021-03-03] MEDS: ELIQUIS PO SCH ×2 (09:26→20:21)
[2021-03-03] MEDS: FLUVOXAMINE MALEATE PO SCH ×2 (09:26→20:21)
[2021-03-03] MEDS: PEPCID TAB 40 MG PO SCH ×2 (09:26→20:23)
[2021-03-03] MEDS: REMDESIVIR 100 MG in NS 100 ML IV + SPIKE MINIBAG* 120 ML IV SCH (09:27)
[2021-03-03] MEDS: LEVAQUIN PREMIX IV 500 MG 500 MG/100 ML BAG IV SCH (09:27)
--- NOTE | 2021-03-03 09:44 | PCM.PROG ---
Progress Note - Progress Note for Day of Date of Exam: 03/03/21 - Subjective Subjective: WAS A READMISSION ON 02/26 FOR TREATMENT OF BILATERAL LOWER LOBE PNEUMONIA, HYPOXIA, AND HYPOKALEMIA. SHE WAS DISCHARGED FROM THE HOSPITAL ON 02/24 FOR TREATMENT OF SAME DIAGNOSIS. TODAY, SHE IS ALERT AND ORIENTED, SITTING UP IN BED ON MORNING ROUNDS. SHE CONTINUES WITH SHORTNESS OF BREATH AND INTERMITTENT COUGH. COUGH HAS BEEN NON-PRODUCTIVE. SHE REPORTS SLIGHT IMPROVEMENT IN SYMPTOMS TODAY. SHE IS CURRENTLY ON HEATED HIGH FLOW OXYGEN AT 90%. SATURATIONS HAVE BEEN 90-94%. SHE HAS BEEN IN REHAB AT [facility] DUE TO RECENT ORIF AND EXTERNAL FIXATOR IN PLACE. ON EXAMINATION, SHE IS TACHYCARDIC WITH HR 120s. BILATERAL LUNGS NOTED WITH DIMINISHED LUNG SOUNDS THROUGHOUT. ABDOMEN IS ROUND, SOFT, AND NON-TENDER WITH NORMAL BOWEL SOUNDS NOTED IN ALL QUADRANTS. EXTERNAL FIXATOR AND DRESSING NOTED TO RIGHT ANKLE/LOWER LEG. HER VITALS THIS MORNING ARE: 98.1-129-30-91%-111/80. LABS WERE OBTAINED. WBC 12.1, RBC 3.34, HGB 9.5, HCT 28.5, CARBON DIOXIDE 34, BUN 21, GLUCOSE 178, CALCIUM 8.4, AST 55, CRP 40.70, BNP 298, TOTAL PROTEIN 5.9, ALBUMIN 2.5. RESPIRATORY AIT PANEL WAS NEGATIVE. CHEST XRAY REPEATED AND REVEALED: Status post median sternotomy and valve replacement. The cardiac silhouette is stably enlarged. Mediastinal contours appear stable. No significant change in diffuse bilateral airspace opacities. No definite pleural effusion or pneumothorax. Patient is rotated. Soft tissue attenuation limits evaluation. SHE IS CURRENTLY RECEIVING IV ANTIBIOTICS, REMDESIVIR, NEBULIZER TREATMENTS, SOLU-MEDROL, POTASSIUM AND MAGNESIUM PROTOCOLS, NORMAL SALINE AT 20 ML/HR, IMMUNE SUPPORT SUPPLEMENTS, CARDIZEM, AND HER HOME MEDICATIONS RESUMED. TODAY, WE WILL ADMINISTER DIGOXIN 0.25MG IV X 1 DOSE, THEN START DIGOXIN 0.125MG PO DAILY. OTHERWISE, WE WILL CONTINUE WITH CURRENT PLAN OF CARE. WE PLAN TO FOLLOW UP WITH AM LABS AND CHEST XRAY AND CONTINUE TO MONITOR. TIME SPENT ON CLINICAL ASSESSMENT, REVIEWING LABS AND IMAGING, DECISION MAKING, AND DOCUMENTATION GREATER THAN 45 MINUTES. - Past Medical Family Social History Past Med/Fam/Surg Hx: No changes since H&P Allergies: Allergies ANGIE Inhibitors Allergy (Verified 03/05/18 10:04) gabapentin Allergy (Verified 03/05/18 09:54) vancomycin Allergy (Verified 03/05/18 09:54) codeine Adverse Reaction (Mild, Verified 03/03/21 01:51) NAUSEA STATED BY PT STATINS Allergy (Uncoded 03/05/18 09:54) - Review of Systems ROS: No change since H&P - Vital Signs and I&O's Vital Signs: Temperature 98.1 F Pulse Rate [Apical] 109 Pulse Rate [Bilateral Radial] 86 Pulse Rate 102 Respiratory Rate 33 Blood Pressure [Left Arm] 121/85 Blood Pressure 107/74 O2 Sat by Pulse Oximetry 95 Intake and Output: Intake & Output 02/28/21 03/01/21 03/02/21 03/03/21 11:59 11:59 11:59 11:59 Intake Total 2551 / 2551 1113 / 1113 2190 / 2190 1651 / 1651 Output Total 1200 / 1200 2500 / 2500 3300 / 3300 2200 / 2200 Balance 1351 / 1351 -1387 / -1387 -1110 / -1110 -549 / -549 - Physical Exam Oriented: Normal Eyes: Normal Ear: Normal Nose: Normal Throat: Normal Respiratory: Generalized, Diminished Cardiovascular: Tachycardia. negative: S3, S4, Murmur : Normal Auscultation: Bowel Sounds: Normal Palpation: Normal Tenderness: Normal Skin: Wound (RIGHT ANKLE/LOWER LEG EXTERNAL FIXATOR ) Musculoskeletal: Right, Shoulder, Leg, Ankle, Foot, Tender Psychiatric: Anxiety Mood Description: Anxious Affect: Anxious Speech Pattern: Clear, Appropriate - Laboratory and Diagnostics Result Diagrams: 03/03/21 05:18 03/03/21 05:18 Labs: Laboratory WBC 12.1 X10^3/uL (3.6-10.0) H 03/03/21 05:18 RBC 3.34 X10^6/uL (3.5-5.4) L 03/03/21 05:18 Hgb 9.5 g/dL (12.0-16.0) L 03/03/21 05:18 Hct 28.5 % (36.0-47.0) L 03/03/21 05:18 MCV 85.2 fL (80.0-100.0) 03/03/21 05:18 MCH 28.4 pg (27.0-34.0) 03/03/21 05:18 MCHC 33.4 g/dL (33.0-35.0) 03/03/21 05:18 RDW 24.8 % (11.6-16.5) H 03/03/21 05:18 Plt Count 366 X10^3/uL (150.0-450.0) 03/03/21 05:18 Plt Count Comment Adequate (ADEQUATE) 03/03/21 05:18 MPV 7.6 fL (7.4-11.0) 03/03/21 05:18 Neut % (Auto) 93.1 % (42.0-75.0) H 03/03/21 05:18 Lymph % (Auto) 2.1 % (21.0-51.0) L 03/03/21 05:18 [place] % (Auto) 4.8 % (0.0-13.0) 03/03/21 05:18 Eos % (Auto) 0.0 % (0.9-2.9) L 03/03/21 05:18 Baso % (Auto) 0 % (0.2-1.0) L 03/03/21 05:18 Neut # (Auto) 11.2 x10^3/uL (2.2-4.8) H 03/03/21 05:18 Lymph # (Auto) 0.3 X10^3/uL (1.3-2.9) L 03/03/21 05:18 [place] # (Auto) 0.6 x10^3/uL (0.3-0.8) 03/03/21 05:18 Eos # (Auto) 0.0 x10^3/uL (0.0-0.2) 03/03/21 05:18 Baso # (Auto) 0.0 X10^3/uL (0.0-0.1) 03/03/21 05:18 Absolute Nucleated RBC 0.3 /100WBC 03/03/21 05:18 Total Counted 100 03/03/21 05:18 Neutrophils % (Manual) 99 % (39-76) H 03/03/21 05:18 Band Neutrophils % 1 % (0-10) 03/02/21 05:12 Lymphocytes % (Manual) 1 % (13-43) L 03/03/21 05:18 Monocytes % (Manual) 1 % (4-9) L 03/02/21 05:12 Metamyelocytes % 2 03/02/21 05:12 Myelocytes % 1 03/02/21 05:12 Plt Morphology Comment Normal (NORMAL) 03/03/21 05:18 RBC Morphology Abnormal (NORMAL) A 03/03/21 05:18 Hypochromasia 1+ A 03/03/21 05:18 Anisocytosis 3+ A 03/03/21 05:18 D-Dimer 1.06 ug/ml (0.0-0.57) H* 02/26/21 01:48 EST Sample Site Lrad 03/01/21 04:40 ABG pH 7.440 (7.35-7.45) 03/01/21 04:40 ABG pCO2 46.0 mmHg (35.0-45.0) H 03/01/21 04:40 ABG pO2 103.0 mmHg (80.0-100.0) H 03/01/21 04:40 ABG HCO3 31.2 mmol/L (22-26) H* 03/01/21 04:40 ABG O2 Saturation 98.0 % (90-100) 03/01/21 04:40 ABG Base Excess 6.1 mmol/L (-2.0-2.0) H 03/01/21 04:40 Singh Test Pos 03/01/21 04:40 A-a Gradient 553.0 mmHg 03/01/21 04:40 FiO2 100.0 03/01/21 04:40 Blood Gas Comments Rufino well ms 03/01/21 04:40 Sodium 144 mmol/L (136-145) 03/03/21 05:18 Corrected Sodium 146 mmol/L (136-145) H 03/03/21 05:18 Potassium 4.0 mmol/L (3.5-5.1) 03/03/21 05:18 Chloride 105 mmol/L (98-107) 03/03/21 05:18 Carbon Dioxide 34.0 mmol/L (21-32) H 03/03/21 05:18 BUN 21 mg/dL (7-18) H 03/03/21 05:18 Creatinine 0.83 mg/dL (0.55-1.02) 03/03/21 05:18 Est GFR (MDRD) Af Amer > 60 (>60) 03/03/21 05:18 Est GFR (MDRD) Non-Af > 60 (>60) 03/03/21 05:18 Glucose 178 mg/dL (65-99) H 03/03/21 05:18 Calcium 8.4 mg/dL (8.5-10.1) L 03/03/21 05:18 Corrected Calcium 9.6 mg/dL (8.5-10.1) 03/03/21 05:18 Magnesium 1.9 mg/dL (1.7-2.9) 03/03/21 05:18 Total Bilirubin 0.40 mg/dL (0.2-1.0) 03/03/21 05:18 AST 55 Units/L (15-37) H 03/03/21 05:18 ALT 32 Units/L (12-78) 03/03/21 05:18 Alkaline Phosphatase 81 Units/L (46-116) 03/03/21 05:18 C-Reactive Protein 40.70 mg/L (0-3.0) H 03/03/21 05:18 B-Natriuretic Peptide 298 pg/mL (0-79) H 03/03/21 05:18 Total Protein 5.9 g/dL (6.4-8.2) L 03/03/21 05:18 Albumin 2.5 g/dL (3.4-5.0) L 03/03/21 05:18 Globulin 3.4 g/dL (2.5-4.5) 03/03/21 05:18 Albumin/Globulin Ratio 0.7 Ratio (1.1-2.1) L 03/03/21 05:18 Specimen Type Catherized urine 02/28/21 16:42 Urine Color Pale yellow (YELLOW) 02/28/21 16:42 Urine Appearance Clear (CLEAR) 02/28/21 16:42 Urine pH 6.0 (5.0 - 8.0) 02/28/21 16:42 Ur Specific [place] 1.005 (1.000-1.030) 02/28/21 16:42 Urine Protein Negative (NEGATIVE) 02/28/21 16:42 Urine Glucose (UA) Negative (NEGATIVE) 02/28/21 16:42 Urine Ketones Negative (NEGATIVE) 02/28/21 16:42 Urine Occult Blood 2+ (NEGATIVE) 02/28/21 16:42 Urine Nitrite Negative (NEGATIVE) 02/28/21 16:42 Urine Bilirubin Negative (NEGATIVE) 02/28/21 16:42 Urine Urobilinogen Normal (NORMAL) 02/28/21 16:42 Ur Leukocyte Esterase Negative (NEGATIVE) 02/28/21 16:42 Urine RBC 10-20 /HPF (0-3) A 02/28/21 16:42 Urine WBC 0-2 /HPF (0-5) 02/28/21 16:42 Ur Squamous Epith Cells Rare /HPF (NEGATIVE) 02/28/21 16:42 Calcium Oxalate Crystal Rare /HPF (NEGATIVE) 02/28/21 16:42 Amorphous Sediment 2+ /HPF (NEGATIVE) 02/26/21 04:47 Urine Bacteria Trace /HPF (NEGATIVE) 02/28/21 16:42 Hyaline Casts Many /LPF (NEGATIVE) 02/26/21 04:47 Urine Mucus Rare /HPF (NEGATIVE) 02/28/21 16:42 Ur Culture Indicated? No/not indicated 02/28/21 16:42 SARS-CoV-2 (PCR) Negative (NEGATIVE) 02/26/21 01:40 EST Influenza Type A (PCR) Negative (NEGATIVE) 02/26/21 01:40 EST Influenza Type B (PCR) Negative (NEGATIVE) 02/26/21 01:40 EST RSV (PCR) Negative (NEGATIVE) 02/26/21 01:40 EST Resp Viral Panel (PCR) See scanned report 02/27/21 12:23 - Plan (1) Pneumonia Status: Acute Qualifiers: Pneumonia type: due to unspecified organism Laterality: bilateral Lung location: unspecified part of lung Qualified Code(s): J18.9 - Pneumonia, unspecified organism Plan: SUPPLEMENTAL OXYGEN, SOLU-MEDROL, LASIX 20MG IV BID, IV ANTIBIOTICS, DIGOXIN, RESPIRATORY TREATMENTS, POTASSIUM AND MAGNESIUM PROTOCOL, IMMUNE SUPPORT SUPPLEMENTS, RESUME HOME MEDS (2) Hypoxia Status: Acute (3) Acute hypokalemia Status: Acute (4) Status post ORIF of fracture of ankle Status: Acute
[2021-03-03] MEDS: ROXICODONE TAB 5 MG PO PRN (13:52)
[2021-03-03] MEDS ORDERED: BUTT CREAM (COMPOUND) TOP PRN (15:36)
[2021-03-03] MEDS: CARDIZEM CD 180 MG 24-HR PO SCH (20:20)
[2021-03-03] MEDS: MELATONIN PO SCH (20:23)
[2021-03-03] MEDS: SENOKOT PO SCH (20:24)
[2021-03-04] MEDS: MAGNESIUM SULFATE 1 GRAM/100 mL PREMIX 1 G/100 ML BAG IV PRN (02:21)
[2021-03-04 05:13] LABS: BASOPHILS % (AUTO) 0.2 % (0.2-1.0); HEMATOCRIT 26.4 % (36.0-47.0); LYMPHOCYTES # (AUTO) 0.2 X10^3/uL (1.3-2.9); LYMPHOCYTES % (AUTO) 2.3 % (21.0-51.0); MEAN CORPUSCULAR HEMOGLOBIN 29.2 pg (27.0-34.0); MEAN CORPUSCULAR VOLUME 85.8 fL (80.0-100.0); MEAN PLATELET VOLUME 7.6 fL (7.4-11.0); MONOCYTES # (AUTO) 0.4 x10^3/uL (0.3-0.8); MONOCYTES % (AUTO) 3.6 % (0.0-13.0); NEUTROPHILS # (AUTO) 9.6 x10^3/uL (2.2-4.8); NEUTROPHILS % (AUTO) 93.9 % (42.0-75.0); PLATELET COUNT 321 X10^3/uL (150.0-450.0); RED BLOOD COUNT 3.08 X10^6/uL (3.5-5.4); RED CELL DISTRIBUTION WIDTH 24.6 % (11.6-16.5); WHITE BLOOD COUNT 10.2 X10^3/uL (3.6-10.0)
[2021-03-04 05:21] LABS: ANISOCYTOSIS 3+; HYPOCHROMASIA 1+; PLATELET MORPHOLOGY COMMENT NORMAL (NORMAL)
[2021-03-04 05:31] LABS: ALANINE AMINOTRANSFERASE 28 Units/L (12-78); ALBUMIN 2.3 g/dL (3.4-5.0); ALKALINE PHOSPHATASE 71 Units/L (46-116); ASPARTATE AMINO TRANSFERASE 35 Units/L (15-37); BLOOD UREA NITROGEN 20 mg/dL (7-18); CALCIUM 8.2 mg/dL (8.5-10.1); CARBON DIOXIDE 34.6 mmol/L (21-32); CHLORIDE 104 mmol/L (98-107); COR CA(FOR HYPOALB) 9.6 mg/dL (8.5-10.1); COR NA(FOR HYPERGLY) 144 mmol/L (136-145); CREATININE 0.71 mg/dL (0.55-1.02); DIGOXIN 0.71 ng/mL (0.9-2); MAGNESIUM 2.2 mg/dL (1.7-2.9); SODIUM 142 mmol/L (136-145); TOTAL PROTEIN 5.4 g/dL (6.4-8.2); eGFR NON BLACK RACES > 60 (>60)
[2021-03-04] MEDS: XOPENEX 1.25 MG/3 ML NEBULE NEB SCH ×3 (05:50→20:48)
--- NOTE | 2021-03-04 05:54 | RAD ---
HISTORYSOB, PNEUMONIA HX: CAD, CHF, CT, HTN SX: STENTS, GB, HYSTERECTOMY, CABGSTUDYCHEST, 1 [id number] trachea is midline. The cardiac silhouette is mildly enlarged. Changes of prior CABG surgery and prosthetic valve noted.. Diffuse bilateral airspace opacities unchanged. No pneumothorax.. The bony thorax is unremarkable.IMPRESSIONStable portable chest.Electronically signed by: Will Higgins (Mar 04, 2021 05:52:23)
[2021-03-04] MEDS: NS 1,000 ML IV 1,000 ML IV SCH (06:47)
[2021-03-04] MEDS: SOLU-Medrol 40 MG VIAL IVP SCH ×3 (06:47→22:01)
[2021-03-04] MEDS: ZOSYN VIAL 2.25 GRAMS 2.25 G in NS 100 ML IV + SPIKE MINIBAG* 100 ML IV SCH ×3 (06:48→22:01)
[2021-03-04] MEDS: PULMICORT NEB TX 0.5 MG NEB SCH ×2 (08:30→20:48)
[2021-03-04] MEDS: CORDARONE TAB 200 MG PO SCH (09:03)
[2021-03-04] MEDS: ASCORBIC ACID INJ MULTI-DOSE VIAL 1,500 MG in NS 50 ML IV 50 ML IV SCH ×2 (09:03→21:58)
[2021-03-04] MEDS: LEVAQUIN PREMIX IV 500 MG 500 MG/100 ML BAG IV SCH (09:03)
[2021-03-04] MEDS: FLONASE NASAL SPRAY ENOSTRIL SCH (09:04)
[2021-03-04] MEDS: ELIQUIS PO SCH ×2 (09:04→21:58)
[2021-03-04] MEDS: FLUVOXAMINE MALEATE PO SCH ×2 (09:05→21:59)
[2021-03-04] MEDS: LANOXIN or DIGITEK PO SCH (09:05)
[2021-03-04] MEDS: VITAMIN D3 125 mcg (5,000 UNITS) PO SCH (09:06)
[2021-03-04] MEDS: ZINC SULFATE PO SCH ×2 (09:06→21:01)
[2021-03-04] MEDS: VITAMIN A PO SCH (09:07)
[2021-03-04] MEDS: THIAMINE HCL INJ IVP SCH ×2 (09:07→22:00)
[2021-03-04] MEDS: SYNTHROID 125 mcg TAB PO SCH (09:07)
[2021-03-04] MEDS: LASIX IVP SCH ×2 (09:07→21:59)
[2021-03-04] MEDS: PEPCID TAB 40 MG PO SCH ×2 (09:07→21:59)
[2021-03-04] MEDS: Atrovent NEB TX 0.02% NEB SCH ×2 (13:45→20:47)
--- NOTE | 2021-03-04 17:44 | PCM.PROG ---
Progress Note Progress Note for Day of Date of Exam: 03/04/21 Subjective Subjective: No new complaints this am. Breathing ok. Past Medical Family Social History Past Med/Fam/Surg Hx: No changes since H&P Allergies: Allergies ANGIE Inhibitors Allergy (Verified 03/05/18 10:04) gabapentin Allergy (Verified 03/05/18 09:54) vancomycin Allergy (Verified 03/05/18 09:54) codeine Adverse Reaction (Mild, Verified 03/03/21 01:51) NAUSEA STATED BY PT STATINS Allergy (Uncoded 03/05/18 09:54) Review of Systems ROS: No change since H&P Vital Signs and I&O's Vital Signs: Temperature 98.1 F Pulse Rate [Apical] 94 Pulse Rate [Bilateral Radial] 86 Pulse Rate 130 Respiratory Rate 17 Blood Pressure [Left Arm] 124/60 Blood Pressure 107/74 O2 Sat by Pulse Oximetry 93 Intake and Output: Intake & Output 03/02/21 03/03/21 03/04/21 03/05/21 11:59 11:59 11:59 11:59 Intake Total 2190 / 2190 1651 / 1651 2529 / 2529 1030 / 1030 Output Total 3300 / 3300 2200 / 2200 1790 / 1790 Balance -1110 / -1110 -549 / -549 739 / 739 1030 / 1030 Physical Exam Oriented: Normal Eyes: Normal Ear: Normal Nose: Normal Throat: Normal Respiratory: Generalized and Diminished Cardiovascular: Tachycardia; negative S3, S4 and Murmur : Normal Auscultation: Bowel Sounds: Normal Tenderness: Normal Skin: Wound (RIGHT ANKLE/LOWER LEG EXTERNAL FIXATOR ) Musculoskeletal: Right, Shoulder, Leg, Ankle, Foot and Tender Psychiatric: Normal Mood Description: Calm Affect: Normal Speech Pattern: Clear and Appropriate Laboratory and Diagnostics Result Diagrams: 03/04/21 04:51 03/04/21 04:51 Labs: Laboratory WBC 10.2 X10^3/uL (3.6-10.0) H 03/04/21 04:51 RBC 3.08 X10^6/uL (3.5-5.4) L 03/04/21 04:51 Hgb 9.0 g/dL (12.0-16.0) L 03/04/21 04:51 Hct 26.4 % (36.0-47.0) L 03/04/21 04:51 MCV 85.8 fL (80.0-100.0) 03/04/21 04:51 MCH 29.2 pg (27.0-34.0) 03/04/21 04:51 MCHC 34.0 g/dL (33.0-35.0) 03/04/21 04:51 RDW 24.6 % (11.6-16.5) H 03/04/21 04:51 Plt Count 321 X10^3/uL (150.0-450.0) 03/04/21 04:51 Plt Count Comment Adequate (ADEQUATE) 03/04/21 04:51 MPV 7.6 fL (7.4-11.0) 03/04/21 04:51 Neut % (Auto) 93.9 % (42.0-75.0) H 03/04/21 04:51 Lymph % (Auto) 2.3 % (21.0-51.0) L 03/04/21 04:51 [place] % (Auto) 3.6 % (0.0-13.0) 03/04/21 04:51 Eos % (Auto) 0.0 % (0.9-2.9) L 03/04/21 04:51 Baso % (Auto) 0.2 % (0.2-1.0) 03/04/21 04:51 Neut # (Auto) 9.6 x10^3/uL (2.2-4.8) H 03/04/21 04:51 Lymph # (Auto) 0.2 X10^3/uL (1.3-2.9) L 03/04/21 04:51 [place] # (Auto) 0.4 x10^3/uL (0.3-0.8) 03/04/21 04:51 Eos # (Auto) 0.0 x10^3/uL (0.0-0.2) 03/04/21 04:51 Baso # (Auto) 0.0 X10^3/uL (0.0-0.1) 03/04/21 04:51 Absolute Nucleated RBC 0.1 /100WBC 03/04/21 04:51 Total Counted 100 03/04/21 04:51 Neutrophils % (Manual) 95 % (39-76) H 03/04/21 04:51 Band Neutrophils % 1 % (0-10) 03/02/21 05:12 Lymphocytes % (Manual) 1 % (13-43) L 03/04/21 04:51 Monocytes % (Manual) 4 % (4-9) 03/04/21 04:51 Metamyelocytes % 2 03/02/21 05:12 Myelocytes % 1 03/02/21 05:12 Plt Morphology Comment Normal (NORMAL) 03/04/21 04:51 RBC Morphology Abnormal (NORMAL) A 03/04/21 04:51 Hypochromasia 1+ A 03/04/21 04:51 Anisocytosis 3+ A 03/04/21 04:51 D-Dimer 1.06 ug/ml (0.0-0.57) H* 02/26/21 01:48 EST Sample Site Lrad 03/01/21 04:40 ABG pH 7.440 (7.35-7.45) 03/01/21 04:40 ABG pCO2 46.0 mmHg (35.0-45.0) H 03/01/21 04:40 ABG pO2 103.0 mmHg (80.0-100.0) H 03/01/21 04:40 ABG HCO3 31.2 mmol/L (22-26) H* 03/01/21 04:40 ABG O2 Saturation 98.0 % (90-100) 03/01/21 04:40 ABG Base Excess 6.1 mmol/L (-2.0-2.0) H 03/01/21 04:40 Singh Test Pos 03/01/21 04:40 A-a Gradient 553.0 mmHg 03/01/21 04:40 FiO2 100.0 03/01/21 04:40 Blood Gas Comments Rufino well ms 03/01/21 04:40 Sodium 142 mmol/L (136-145) 03/04/21 04:51 Corrected Sodium 144 mmol/L (136-145) 03/04/21 04:51 Potassium 3.8 mmol/L (3.5-5.1) 03/04/21 04:51 Chloride 104 mmol/L (98-107) 03/04/21 04:51 Carbon Dioxide 34.6 mmol/L (21-32) H 03/04/21 04:51 BUN 20 mg/dL (7-18) H 03/04/21 04:51 Creatinine 0.71 mg/dL (0.55-1.02) 03/04/21 04:51 Est GFR (MDRD) Af Amer > 60 (>60) 03/04/21 04:51 Est GFR (MDRD) Non-Af > 60 (>60) 03/04/21 04:51 Glucose 194 mg/dL (65-99) H 03/04/21 04:51 Calcium 8.2 mg/dL (8.5-10.1) L 03/04/21 04:51 Corrected Calcium 9.6 mg/dL (8.5-10.1) 03/04/21 04:51 Magnesium 2.2 mg/dL (1.7-2.9) 03/04/21 04:51 Total Bilirubin 0.40 mg/dL (0.2-1.0) 03/04/21 04:51 AST 35 Units/L (15-37) 03/04/21 04:51 ALT 28 Units/L (12-78) 03/04/21 04:51 Alkaline Phosphatase 71 Units/L (46-116) 03/04/21 04:51 C-Reactive Protein 26.10 mg/L (0-3.0) H 03/04/21 04:51 B-Natriuretic Peptide 263 pg/mL (0-79) H 03/04/21 04:51 Total Protein 5.4 g/dL (6.4-8.2) L 03/04/21 04:51 Albumin 2.3 g/dL (3.4-5.0) L 03/04/21 04:51 Globulin 3.1 g/dL (2.5-4.5) 03/04/21 04:51 Albumin/Globulin Ratio 0.7 Ratio (1.1-2.1) L 03/04/21 04:51 Specimen Type Catherized urine 02/28/21 16:42 Urine Color Pale yellow (YELLOW) 02/28/21 16:42 Urine Appearance Clear (CLEAR) 02/28/21 16:42 Urine pH 6.0 (5.0 - 8.0) 02/28/21 16:42 Ur Specific [place] 1.005 (1.000-1.030) 02/28/21 16:42 Urine Protein Negative (NEGATIVE) 02/28/21 16:42 Urine Glucose (UA) Negative (NEGATIVE) 02/28/21 16:42 Urine Ketones Negative (NEGATIVE) 02/28/21 16:42 Urine Occult Blood 2+ (NEGATIVE) 02/28/21 16:42 Urine Nitrite Negative (NEGATIVE) 02/28/21 16:42 Urine Bilirubin Negative (NEGATIVE) 02/28/21 16:42 Urine Urobilinogen Normal (NORMAL) 02/28/21 16:42 Ur Leukocyte Esterase Negative (NEGATIVE) 02/28/21 16:42 Urine RBC 10-20 /HPF (0-3) A 02/28/21 16:42 Urine WBC 0-2 /HPF (0-5) 02/28/21 16:42 Ur Squamous Epith Cells Rare /HPF (NEGATIVE) 02/28/21 16:42 Calcium Oxalate Crystal Rare /HPF (NEGATIVE) 02/28/21 16:42 Amorphous Sediment 2+ /HPF (NEGATIVE) 02/26/21 04:47 Urine Bacteria Trace /HPF (NEGATIVE) 02/28/21 16:42 Hyaline Casts Many /LPF (NEGATIVE) 02/26/21 04:47 Urine Mucus Rare /HPF (NEGATIVE) 02/28/21 16:42 Ur Culture Indicated? No/not indicated 02/28/21 16:42 Digoxin 0.71 ng/mL (0.9-2) L 03/04/21 04:51 SARS-CoV-2 (PCR) Negative (NEGATIVE) 02/26/21 01:40 EST Influenza Type A (PCR) Negative (NEGATIVE) 02/26/21 01:40 EST Influenza Type B (PCR) Negative (NEGATIVE) 02/26/21 01:40 EST RSV (PCR) Negative (NEGATIVE) 02/26/21 01:40 EST Resp Viral Panel (PCR) See scanned report 02/27/21 12:23 Radiology Reviewed: Yes Plan (1) Pneumonia: Status: Acute Qualifiers: Laterality: bilateral Lung location: unspecified part of lung Pneumonia type: due to unspecified organism Qualified Code(s): J18.9 - Pneumonia, unspecified organism Plan: SUPPLEMENTAL OXYGEN, SOLU-MEDROL, LASIX 20MG IV BID, IV ANTIBIOTICS, DIGOXIN, RESPIRATORY TREATMENTS, POTASSIUM AND MAGNESIUM PROTOCOL, IMMUNE SUPPORT SUPPLEMENTS, RESUME HOME MEDS. Continue treatment. (2) Hypoxia: Status: Acute (3) Acute hypokalemia: Status: Acute (4) Status post ORIF of fracture of ankle: Status: Acute
[2021-03-04] MEDS: CARDIZEM CD 180 MG 24-HR PO SCH (21:58)
[2021-03-04] MEDS: MELATONIN PO SCH (21:59)
[2021-03-04] MEDS: SENOKOT PO SCH (22:00)
[2021-03-05 05:10] LABS: BASOPHILS % (AUTO) 0.1 % (0.2-1.0); HEMOGLOBIN 9.2 g/dL (12.0-16.0); LYMPHOCYTES # (AUTO) 0.2 X10^3/uL (1.3-2.9); LYMPHOCYTES % (AUTO) 1.7 % (21.0-51.0); MEAN CORPUSCULAR HEMOGLOBIN 28.3 pg (27.0-34.0); MEAN CORPUSCULAR HGB CONC 32.9 g/dL (33.0-35.0); MEAN CORPUSCULAR VOLUME 86.2 fL (80.0-100.0); MEAN PLATELET VOLUME 7.6 fL (7.4-11.0); MONOCYTES # (AUTO) 0.4 x10^3/uL (0.3-0.8); NEUTROPHILS # (AUTO) 10.6 x10^3/uL (2.2-4.8); NEUTROPHILS % (AUTO) 94.2 % (42.0-75.0); PLATELET COUNT 332 X10^3/uL (150.0-450.0); RED BLOOD COUNT 3.25 X10^6/uL (3.5-5.4); RED CELL DISTRIBUTION WIDTH 24.5 % (11.6-16.5); WHITE BLOOD COUNT 11.2 X10^3/uL (3.6-10.0)
[2021-03-05 05:27] LABS: ALANINE AMINOTRANSFERASE 29 Units/L (12-78); ALBUMIN 2.3 g/dL (3.4-5.0); ALKALINE PHOSPHATASE 68 Units/L (46-116); ASPARTATE AMINO TRANSFERASE 33 Units/L (15-37); BLOOD UREA NITROGEN 18 mg/dL (7-18); CALCIUM 8.2 mg/dL (8.5-10.1); CARBON DIOXIDE 36.3 mmol/L (21-32); CHLORIDE 104 mmol/L (98-107); COR CA(FOR HYPOALB) 9.6 mg/dL (8.5-10.1); COR NA(FOR HYPERGLY) 145 mmol/L (136-145); CREATININE 0.72 mg/dL (0.55-1.02); SODIUM 143 mmol/L (136-145); TOTAL PROTEIN 5.3 g/dL (6.4-8.2); eGFR NON BLACK RACES > 60 (>60)
[2021-03-05 05:45] LABS: ANISOCYTOSIS 3+; HYPOCHROMASIA 1+; PLATELET MORPHOLOGY COMMENT NORMAL (NORMAL)
[2021-03-05] MEDS: ZOSYN VIAL 2.25 GRAMS 2.25 G in NS 100 ML IV + SPIKE MINIBAG* 100 ML IV SCH ×3 (05:51→21:05)
[2021-03-05] MEDS: NS 1,000 ML IV 1,000 ML IV SCH (05:56)
[2021-03-05] MEDS: SOLU-Medrol 40 MG VIAL IVP SCH ×3 (05:58→21:05)
[2021-03-05] MEDS: K-DUR TAB 20 MEQ PO PRN (06:21)
[2021-03-05] MEDS: Atrovent NEB TX 0.02% NEB SCH ×3 (06:36→21:00)
[2021-03-05] MEDS: XOPENEX 1.25 MG/3 ML NEBULE NEB SCH ×3 (06:36→21:00)
[2021-03-05] MEDS ORDERED: NS 100 ML IV 100 ML ONE (07:48)
[2021-03-05] MEDS: ASCORBIC ACID INJ MULTI-DOSE VIAL 1,500 MG in NS 50 ML IV 50 ML IV SCH ×2 (08:03→20:04)
[2021-03-05] MEDS: LEVAQUIN PREMIX IV 500 MG 500 MG/100 ML BAG IV SCH (08:03)
[2021-03-05] MEDS: CORDARONE TAB 200 MG PO SCH (08:03)
[2021-03-05] MEDS: FLONASE NASAL SPRAY ENOSTRIL SCH (08:04)
[2021-03-05] MEDS: ELIQUIS PO SCH ×2 (08:04→20:04)
[2021-03-05] MEDS: LASIX IVP SCH ×2 (08:05→20:04)
[2021-03-05] MEDS: LANOXIN or DIGITEK PO SCH (08:05)
[2021-03-05] MEDS: FLUVOXAMINE MALEATE PO SCH ×2 (08:05→20:04)
[2021-03-05] MEDS: SYNTHROID 125 mcg TAB PO SCH (08:06)
[2021-03-05] MEDS: ZINC SULFATE PO SCH ×2 (08:06→20:05)
[2021-03-05] MEDS: PEPCID TAB 40 MG PO SCH ×2 (08:06→20:05)
[2021-03-05] MEDS: VITAMIN D3 125 mcg (5,000 UNITS) PO SCH (08:06)
[2021-03-05] MEDS: THIAMINE HCL INJ IVP SCH ×2 (08:06→20:05)
[2021-03-05] MEDS: VITAMIN A PO SCH (08:06)
[2021-03-05] MEDS: PULMICORT NEB TX 0.5 MG NEB SCH ×2 (08:40→21:00)
[2021-03-05] MEDS: XANAX PO PRN (13:30)
--- NOTE | 2021-03-05 14:27 | PCM.PROG ---
Progress Note Progress Note for Day of Date of Exam: 03/05/21 Subjective Subjective: No new complaints this am. Breathing ok this am. Past Medical Family Social History Past Med/Fam/Surg Hx: No changes since H&P Allergies: Allergies ANGIE Inhibitors Allergy (Verified 03/05/18 10:04) gabapentin Allergy (Verified 03/05/18 09:54) vancomycin Allergy (Verified 03/05/18 09:54) codeine Adverse Reaction (Mild, Verified 03/03/21 01:51) NAUSEA STATED BY PT STATINS Allergy (Uncoded 03/05/18 09:54) Review of Systems ROS: No change since H&P Vital Signs and I&O's Vital Signs: Temperature 97.8 F Pulse Rate [Apical] 97 Pulse Rate [Bilateral Radial] 86 Pulse Rate 106 Respiratory Rate 19 Blood Pressure [Left Arm] 139/69 Blood Pressure 157/64 O2 Sat by Pulse Oximetry 93 Intake and Output: Intake & Output 03/03/21 03/04/21 03/05/21 03/06/21 11:59 11:59 11:59 11:59 Intake Total 1651 / 1651 2529 / 2529 1910 / 1910 Output Total 2200 / 2200 1790 / 1790 1999 Balance -549 / -549 739 / 739 -90 / -90 Physical Exam Oriented: Normal Eyes: Normal Ear: Normal Nose: Normal Throat: Normal Respiratory: Generalized and Diminished Cardiovascular: Tachycardia; negative S3, S4 and Murmur : Normal Auscultation: Bowel Sounds: Normal Tenderness: Normal Skin: Wound (RIGHT ANKLE/LOWER LEG EXTERNAL FIXATOR ) Musculoskeletal: Right, Shoulder, Leg, Ankle, Foot and Tender Psychiatric: Normal Mood Description: Calm Affect: Normal Speech Pattern: Clear Laboratory and Diagnostics Result Diagrams: 03/05/21 04:50 03/05/21 04:50 Labs: Laboratory WBC 11.2 X10^3/uL (3.6-10.0) H 03/05/21 04:50 RBC 3.25 X10^6/uL (3.5-5.4) L 03/05/21 04:50 Hgb 9.2 g/dL (12.0-16.0) L 03/05/21 04:50 Hct 28.0 % (36.0-47.0) L 03/05/21 04:50 MCV 86.2 fL (80.0-100.0) 03/05/21 04:50 MCH 28.3 pg (27.0-34.0) 03/05/21 04:50 MCHC 32.9 g/dL (33.0-35.0) L 03/05/21 04:50 RDW 24.5 % (11.6-16.5) H 03/05/21 04:50 Plt Count 332 X10^3/uL (150.0-450.0) 03/05/21 04:50 Plt Count Comment Adequate (ADEQUATE) 03/05/21 04:50 MPV 7.6 fL (7.4-11.0) 03/05/21 04:50 Neut % (Auto) 94.2 % (42.0-75.0) H 03/05/21 04:50 Lymph % (Auto) 1.7 % (21.0-51.0) L 03/05/21 04:50 [place] % (Auto) 4.0 % (0.0-13.0) 03/05/21 04:50 Eos % (Auto) 0.0 % (0.9-2.9) L 03/05/21 04:50 Baso % (Auto) 0.1 % (0.2-1.0) L 03/05/21 04:50 Neut # (Auto) 10.6 x10^3/uL (2.2-4.8) H 03/05/21 04:50 Lymph # (Auto) 0.2 X10^3/uL (1.3-2.9) L 03/05/21 04:50 [place] # (Auto) 0.4 x10^3/uL (0.3-0.8) 03/05/21 04:50 Eos # (Auto) 0.0 x10^3/uL (0.0-0.2) 03/05/21 04:50 Baso # (Auto) 0.0 X10^3/uL (0.0-0.1) 03/05/21 04:50 Absolute Nucleated RBC 0.2 /100WBC 03/05/21 04:50 Total Counted 100 03/05/21 04:50 Neutrophils % (Manual) 95 % (39-76) H 03/05/21 04:50 Band Neutrophils % 1 % (0-10) 03/02/21 05:12 Lymphocytes % (Manual) 3 % (13-43) L 03/05/21 04:50 Monocytes % (Manual) 2 % (4-9) L 03/05/21 04:50 Metamyelocytes % 2 03/02/21 05:12 Myelocytes % 1 03/02/21 05:12 Plt Morphology Comment Normal (NORMAL) 03/05/21 04:50 RBC Morphology Abnormal (NORMAL) A 03/05/21 04:50 Hypochromasia 1+ A 03/05/21 04:50 Anisocytosis 3+ A 03/05/21 04:50 D-Dimer 1.06 ug/ml (0.0-0.57) H* 02/26/21 01:48 EST Sample Site Lrad 03/01/21 04:40 ABG pH 7.440 (7.35-7.45) 03/01/21 04:40 ABG pCO2 46.0 mmHg (35.0-45.0) H 03/01/21 04:40 ABG pO2 103.0 mmHg (80.0-100.0) H 03/01/21 04:40 ABG HCO3 31.2 mmol/L (22-26) H* 03/01/21 04:40 ABG O2 Saturation 98.0 % (90-100) 03/01/21 04:40 ABG Base Excess 6.1 mmol/L (-2.0-2.0) H 03/01/21 04:40 Singh Test Pos 03/01/21 04:40 A-a Gradient 553.0 mmHg 03/01/21 04:40 FiO2 100.0 03/01/21 04:40 Blood Gas Comments Rufino well ms 03/01/21 04:40 Sodium 143 mmol/L (136-145) 03/05/21 04:50 Corrected Sodium 145 mmol/L (136-145) 03/05/21 04:50 Potassium 3.4 mmol/L (3.5-5.1) L 03/05/21 04:50 Chloride 104 mmol/L (98-107) 03/05/21 04:50 Carbon Dioxide 36.3 mmol/L (21-32) H 03/05/21 04:50 BUN 18 mg/dL (7-18) 03/05/21 04:50 Creatinine 0.72 mg/dL (0.55-1.02) 03/05/21 04:50 Est GFR (MDRD) Af Amer > 60 (>60) 03/05/21 04:50 Est GFR (MDRD) Non-Af > 60 (>60) 03/05/21 04:50 Glucose 203 mg/dL (65-99) H 03/05/21 04:50 Calcium 8.2 mg/dL (8.5-10.1) L 03/05/21 04:50 Corrected Calcium 9.6 mg/dL (8.5-10.1) 03/05/21 04:50 Magnesium 2.0 mg/dL (1.7-2.9) 03/05/21 04:50 Total Bilirubin 0.40 mg/dL (0.2-1.0) 03/05/21 04:50 AST 33 Units/L (15-37) 03/05/21 04:50 ALT 29 Units/L (12-78) 03/05/21 04:50 Alkaline Phosphatase 68 Units/L (46-116) 03/05/21 04:50 C-Reactive Protein 26.10 mg/L (0-3.0) H 03/04/21 04:51 B-Natriuretic Peptide 263 pg/mL (0-79) H 03/04/21 04:51 Total Protein 5.3 g/dL (6.4-8.2) L 03/05/21 04:50 Albumin 2.3 g/dL (3.4-5.0) L 03/05/21 04:50 Globulin 3.0 g/dL (2.5-4.5) 03/05/21 04:50 Albumin/Globulin Ratio 0.8 Ratio (1.1-2.1) L 03/05/21 04:50 Specimen Type Catherized urine 02/28/21 16:42 Urine Color Pale yellow (YELLOW) 02/28/21 16:42 Urine Appearance Clear (CLEAR) 02/28/21 16:42 Urine pH 6.0 (5.0 - 8.0) 02/28/21 16:42 Ur Specific [place] 1.005 (1.000-1.030) 02/28/21 16:42 Urine Protein Negative (NEGATIVE) 02/28/21 16:42 Urine Glucose (UA) Negative (NEGATIVE) 02/28/21 16:42 Urine Ketones Negative (NEGATIVE) 02/28/21 16:42 Urine Occult Blood 2+ (NEGATIVE) 02/28/21 16:42 Urine Nitrite Negative (NEGATIVE) 02/28/21 16:42 Urine Bilirubin Negative (NEGATIVE) 02/28/21 16:42 Urine Urobilinogen Normal (NORMAL) 02/28/21 16:42 Ur Leukocyte Esterase Negative (NEGATIVE) 02/28/21 16:42 Urine RBC 10-20 /HPF (0-3) A 02/28/21 16:42 Urine WBC 0-2 /HPF (0-5) 02/28/21 16:42 Ur Squamous Epith Cells Rare /HPF (NEGATIVE) 02/28/21 16:42 Calcium Oxalate Crystal Rare /HPF (NEGATIVE) 02/28/21 16:42 Amorphous Sediment 2+ /HPF (NEGATIVE) 02/26/21 04:47 Urine Bacteria Trace /HPF (NEGATIVE) 02/28/21 16:42 Hyaline Casts Many /LPF (NEGATIVE) 02/26/21 04:47 Urine Mucus Rare /HPF (NEGATIVE) 02/28/21 16:42 Ur Culture Indicated? No/not indicated 02/28/21 16:42 Digoxin 0.70 ng/mL (0.9-2) L 03/05/21 04:50 SARS-CoV-2 (PCR) Negative (NEGATIVE) 02/26/21 01:40 EST Influenza Type A (PCR) Negative (NEGATIVE) 02/26/21 01:40 EST Influenza Type B (PCR) Negative (NEGATIVE) 02/26/21 01:40 EST RSV (PCR) Negative (NEGATIVE) 02/26/21 01:40 EST Resp Viral Panel (PCR) See scanned report 02/27/21 12:23 Plan (1) Pneumonia: Status: Acute Qualifiers: Laterality: bilateral Lung location: unspecified part of lung Pneumonia type: due to unspecified organism Qualified Code(s): J18.9 - Pneumonia, unspecified organism Plan: SUPPLEMENTAL OXYGEN, SOLU-MEDROL, LASIX 20MG IV BID, IV ANTIBIOTICS, DIGOXIN, RESPIRATORY TREATMENTS, POTASSIUM AND MAGNESIUM PROTOCOL, IMMUNE SUPPORT SUPPLEMENTS, RESUME HOME MEDS. Continue treatment. (2) Hypoxia: Status: Acute (3) Acute hypokalemia: Status: Acute Plan: Potassium replacement protocol. (4) Status post ORIF of fracture of ankle: Status: Acute
[2021-03-05] MEDS: CARDIZEM CD 180 MG 24-HR PO SCH (20:04)
[2021-03-05] MEDS: MELATONIN PO SCH (20:04)
[2021-03-05] MEDS: SENOKOT PO SCH (20:05)
[2021-03-06 04:49] LABS: BASOPHILS % (AUTO) 0.2 % (0.2-1.0); EOSINOPHILS % (AUTO) 0.4 % (0.9-2.9); HEMATOCRIT 30.2 % (36.0-47.0); HEMOGLOBIN 10.1 g/dL (12.0-16.0); LYMPHOCYTES # (AUTO) 0.1 X10^3/uL (1.3-2.9); LYMPHOCYTES % (AUTO) 1.4 % (21.0-51.0); MEAN CORPUSCULAR HEMOGLOBIN 28.8 pg (27.0-34.0); MEAN CORPUSCULAR HGB CONC 33.3 g/dL (33.0-35.0); MEAN CORPUSCULAR VOLUME 86.6 fL (80.0-100.0); MEAN PLATELET VOLUME 7.7 fL (7.4-11.0); MONOCYTES # (AUTO) 0.4 x10^3/uL (0.3-0.8); MONOCYTES % (AUTO) 4.2 % (0.0-13.0); NEUTROPHILS # (AUTO) 9.8 x10^3/uL (2.2-4.8); NEUTROPHILS % (AUTO) 93.8 % (42.0-75.0); PLATELET COUNT 310 X10^3/uL (150.0-450.0); RED BLOOD COUNT 3.49 X10^6/uL (3.5-5.4); RED CELL DISTRIBUTION WIDTH 24.7 % (11.6-16.5); WHITE BLOOD COUNT 10.5 X10^3/uL (3.6-10.0)
[2021-03-06 05:12] LABS: ABG BASE EXCESS 19.4 mmol/L (-2.0-2.0)
[2021-03-06 05:12] LABS: PLATELET MORPHOLOGY COMMENT NORMAL (NORMAL)
[2021-03-06 05:13] LABS: ALANINE AMINOTRANSFERASE 35 Units/L (12-78); ALBUMIN 2.3 g/dL (3.4-5.0); ALKALINE PHOSPHATASE 67 Units/L (46-116); ANISOCYTOSIS 3+; ASPARTATE AMINO TRANSFERASE 32 Units/L (15-37); BLOOD UREA NITROGEN 19 mg/dL (7-18); CALCIUM 8.4 mg/dL (8.5-10.1); CARBON DIOXIDE 37.8 mmol/L (21-32); CHLORIDE 103 mmol/L (98-107); COR CA(FOR HYPOALB) 9.8 mg/dL (8.5-10.1); COR NA(FOR HYPERGLY) 146 mmol/L (136-145); CREATININE 0.63 mg/dL (0.55-1.02); DIGOXIN 0.78 ng/mL (0.9-2); HYPOCHROMASIA 1+; SODIUM 143 mmol/L (136-145); TOTAL PROTEIN 5.4 g/dL (6.4-8.2); eGFR NON BLACK RACES > 60 (>60)
[2021-03-06 05:13] LABS: ABG ALLEN TEST POS; ABG HCO3 45.5 mmol/L (22-26)
[2021-03-06] MEDS: XOPENEX 1.25 MG/3 ML NEBULE NEB SCH ×3 (05:15→21:05)
[2021-03-06] MEDS: Atrovent NEB TX 0.02% NEB SCH ×3 (05:15→21:05)
[2021-03-06] MEDS: ZOSYN VIAL 2.25 GRAMS 2.25 G in NS 100 ML IV + SPIKE MINIBAG* 100 ML IV SCH ×3 (05:19→21:45)
[2021-03-06] MEDS: NS 1,000 ML IV 1,000 ML IV SCH (05:19)
[2021-03-06] MEDS: SOLU-Medrol 40 MG VIAL IVP SCH ×3 (05:19→21:45)
[2021-03-06] MEDS: K-DUR TAB 20 MEQ PO PRN (05:25)
--- NOTE | 2021-03-06 06:47 | RAD ---
HISTORYShortness of breathSTUDYChest AP [id number] ent is status post median sternotomy, CABG, and valve replacement. The heart remains enlarged. Diffuse bilateral interstitial, ground-glass, and alveolar infiltrates are present and unchanged when compared to the prior examination. No pleural effusion or pneumothorax is identified. Bony thorax is unremarkable.IMPRESSIONNo change cardiomegalyNo change diffuse bilateral interstitial, ground-glass, and alveolar infiltrates when compared to the prior examination.Electronically signed by: MARIA T GARCIA (Mar 06, 2021 06:46:07)
[2021-03-06] MEDS: PULMICORT NEB TX 0.5 MG NEB SCH ×2 (08:00→21:05)
[2021-03-06] MEDS ORDERED: NS 100 ML IV 100 ML ONE (08:38)
[2021-03-06] MEDS: LEVAQUIN PREMIX IV 500 MG 500 MG/100 ML BAG IV SCH (08:42)
[2021-03-06] MEDS: ASCORBIC ACID INJ MULTI-DOSE VIAL 1,500 MG in NS 50 ML IV 50 ML IV SCH ×2 (08:42→20:25)
[2021-03-06] MEDS: ZINC SULFATE PO SCH ×2 (08:43→20:31)
[2021-03-06] MEDS: ELIQUIS PO SCH ×2 (08:43→20:26)
[2021-03-06] MEDS: VITAMIN D3 125 mcg (5,000 UNITS) PO SCH (08:43)
[2021-03-06] MEDS: SYNTHROID 125 mcg TAB PO SCH (08:44)
[2021-03-06] MEDS: PEPCID TAB 40 MG PO SCH ×2 (08:44→20:28)
[2021-03-06] MEDS: FLUVOXAMINE MALEATE PO SCH ×2 (08:44→20:26)
[2021-03-06] MEDS: LASIX IVP SCH ×2 (08:45→20:27)
[2021-03-06] MEDS: THIAMINE HCL INJ IVP SCH ×2 (08:45→20:30)
[2021-03-06] MEDS: LANOXIN or DIGITEK PO SCH (08:45)
[2021-03-06] MEDS: CORDARONE TAB 200 MG PO SCH (08:46)
[2021-03-06] MEDS: FLONASE NASAL SPRAY ENOSTRIL SCH (09:05)
[2021-03-06] MEDS: VITAMIN A PO SCH (09:05)
--- NOTE | 2021-03-06 10:17 | PCM.PROG ---
Progress Note - Progress Note for Day of Date of Exam: 03/06/21 - Subjective Subjective: IS BEING TREATED FOR BILATERAL LOWER LOBE PNEUMONIA, HYPOXIA, AND HYPOKALEMIA. TODAY, SHE IS LYING IN BED WITH EYES CLOSED ON MORNING ROUNDS. SHE AWAKENS TO VERBAL STIMULI. SHE CONTINUES WITH SHORTNESS OF BREATH AND INTERMITTENT COUGH. COUGH HAS BEEN NON-PRODUCTIVE. SHE REPORTS SLIGHT IMPROVEMENT IN SYMPTOMS SINCE WE LAST SAW HER. SHE IS CURRENTLY ON HEATED HIGH FLOW OXYGEN AT 90%. SATURATIONS HAVE BEEN 95-98%. SHE HAS BEEN IN REHAB AT [facility] DUE TO RECENT ORIF AND EXTERNAL FIXATOR IN PLACE. ON EXAMINATION, HEART IS REGULAR IN RATE AND RHYTHM. BILATERAL LUNGS NOTED WITH DIMINISHED LUNG SOUNDS THROUGHOUT. ABDOMEN IS ROUND, SOFT, AND NON-TENDER WITH NORMAL BOWEL SOUNDS NOTED IN ALL QUADRANTS. EXTERNAL FIXATOR AND DRESSING NOTED TO RIGHT ANKLE/LOWER LEG. HER VITALS THIS MORNING ARE: 97.6-83-13-98%-153/70. LABS WERE OBTAINED. WBC 10.5, RBC 3.49, HGB 10.1, HCT 30.2, POTASSIUM 3.4, BUN 19, GLUCOSE 220, CALCIUM 8.4, BNP 262, TOTAL PROTEIN 5.4, ALBUMIN 2.3. ABG WAS OBTAINED TODAY AND REVEALED: PH 7.510, PC02 57, P02 68, HC03 45.5, 02 SAT 95, A- A GRADIENT 517, FI02 92. RESPIRATORY AIT PANEL WAS NEGATIVE. CHEST XRAY REPEATED AND REVEALED: Patient is status post median sternotomy, CABG, and valve replacement. The heart remains enlarged. Diffuse bilateral interstitial, ground- glass, and alveolar infiltrates are present and unchanged when compared to the prior examination. No pleural effusion or pneumothorax is identified. Bony thorax is unremarkable. SHE IS CURRENTLY RECEIVING IV ANTIBIOTICS, REMDESIVIR, NEBULIZER TREATMENTS, SOLU-MEDROL, POTASSIUM AND MAGNESIUM PROTOCOLS, NORMAL SALINE AT 20 ML/HR, IMMUNE SUPPORT SUPPLEMENTS, CARDIZEM, DIGOXIN, AND HER HOME MEDICATIONS RESUMED. WE WILL CONTINUE WITH CURRENT PLAN OF CARE TODAY. OTHERWISE, WE PLAN TO FOLLOW UP WITH AM LABS AND CHEST XRAY AND CONTINUE TO MONITOR. TIME SPENT ON CLINICAL ASSESSMENT, REVIEWING LABS AND IMAGING, DECISION MAKING, AND DOCUMENTATION GREATER THAN 45 MINUTES. - Past Medical Family Social History Past Med/Fam/Surg Hx: No changes since H&P Allergies: Allergies ANGIE Inhibitors Allergy (Verified 03/05/18 10:04) gabapentin Allergy (Verified 03/05/18 09:54) vancomycin Allergy (Verified 03/05/18 09:54) codeine Adverse Reaction (Mild, Verified 03/03/21 01:51) NAUSEA STATED BY PT STATINS Allergy (Uncoded 03/05/18 09:54) - Review of Systems ROS: No change since H&P - Vital Signs and I&O's Vital Signs: Temperature 97.6 F Pulse Rate [Apical] 97 Pulse Rate [Bilateral Radial] 86 Pulse Rate 100 Respiratory Rate 11 Blood Pressure [Left Arm] 139/69 Blood Pressure 169/105 O2 Sat by Pulse Oximetry 97 Intake and Output: Intake & Output 03/03/21 03/04/21 03/05/21 03/06/21 11:59 11:59 11:59 11:59 Intake Total 1651 / 1651 2529 / 2529 1910 / 1910 2324 / 2324 Output Total 2200 / 2200 1790 / 1790 1999 / 19995 / 2124 Balance -549 / -549 739 / 739 -90 / -90 199 / 199 - Physical Exam Oriented: Normal Eyes: Normal Ear: Normal Nose: Normal Throat: Normal Respiratory: Generalized, Diminished Cardiovascular: Tachycardia. negative: S3, S4, Murmur : Normal Auscultation: Bowel Sounds: Normal Palpation: Normal Tenderness: Normal Skin: Wound (RIGHT ANKLE/LOWER LEG EXTERNAL FIXATOR) Musculoskeletal: Shoulder, Right, Leg, Ankle, Foot, Tender Psychiatric: Normal Mood Description: Calm Affect: Normal Speech Pattern: Clear - Laboratory and Diagnostics Result Diagrams: 03/06/21 04:30 03/06/21 04:30 Labs: Laboratory WBC 10.5 X10^3/uL (3.6-10.0) H 03/06/21 04:30 RBC 3.49 X10^6/uL (3.5-5.4) L 03/06/21 04:30 Hgb 10.1 g/dL (12.0-16.0) L 03/06/21 04:30 Hct 30.2 % (36.0-47.0) L 03/06/21 04:30 MCV 86.6 fL (80.0-100.0) 03/06/21 04:30 MCH 28.8 pg (27.0-34.0) 03/06/21 04:30 MCHC 33.3 g/dL (33.0-35.0) 03/06/21 04:30 RDW 24.7 % (11.6-16.5) H 03/06/21 04:30 Plt Count 310 X10^3/uL (150.0-450.0) 03/06/21 04:30 Plt Count Comment Adequate (ADEQUATE) 03/06/21 04:30 MPV 7.7 fL (7.4-11.0) 03/06/21 04:30 Neut % (Auto) 93.8 % (42.0-75.0) H 03/06/21 04:30 Lymph % (Auto) 1.4 % (21.0-51.0) L 03/06/21 04:30 [place] % (Auto) 4.2 % (0.0-13.0) 03/06/21 04:30 Eos % (Auto) 0.4 % (0.9-2.9) L 03/06/21 04:30 Baso % (Auto) 0.2 % (0.2-1.0) 03/06/21 04:30 Neut # (Auto) 9.8 x10^3/uL (2.2-4.8) H 03/06/21 04:30 Lymph # (Auto) 0.1 X10^3/uL (1.3-2.9) L 03/06/21 04:30 [place] # (Auto) 0.4 x10^3/uL (0.3-0.8) 03/06/21 04:30 Eos # (Auto) 0.0 x10^3/uL (0.0-0.2) 03/06/21 04:30 Baso # (Auto) 0.0 X10^3/uL (0.0-0.1) 03/06/21 04:30 Absolute Nucleated RBC 0.3 /100WBC 03/06/21 04:30 Total Counted 100 03/06/21 04:30 Neutrophils % (Manual) 94 % (39-76) H 03/06/21 04:30 Band Neutrophils % 1 % (0-10) 03/02/21 05:12 Lymphocytes % (Manual) 3 % (13-43) L 03/06/21 04:30 Monocytes % (Manual) 3 % (4-9) L 03/06/21 04:30 Metamyelocytes % 2 03/02/21 05:12 Myelocytes % 1 03/02/21 05:12 Plt Morphology Comment Normal (NORMAL) 03/06/21 04:30 RBC Morphology Abnormal (NORMAL) A 03/06/21 04:30 Hypochromasia 1+ A 03/06/21 04:30 Anisocytosis 3+ A 03/06/21 04:30 D-Dimer 1.06 ug/ml (0.0-0.57) H* 02/26/21 01:48 EST Sample Site Rrad 03/06/21 05:10 ABG pH 7.510 (7.35-7.45) H 03/06/21 05:10 ABG pCO2 57.0 mmHg (35.0-45.0) H* 03/06/21 05:10 ABG pO2 68.0 mmHg (80.0-100.0) L 03/06/21 05:10 ABG HCO3 45.5 mmol/L (22-26) H* 03/06/21 05:10 ABG O2 Saturation 95.0 % (90-100) 03/06/21 05:10 ABG Base Excess 19.4 mmol/L (-2.0-2.0) H 03/06/21 05:10 Singh Test Pos 03/06/21 05:10 A-a Gradient 517.0 mmHg 03/06/21 05:10 FiO2 92.0 03/06/21 05:10 Blood Gas Comments Rufino well ms 03/06/21 05:10 Sodium 143 mmol/L (136-145) 03/06/21 04:30 Corrected Sodium 146 mmol/L (136-145) H 03/06/21 04:30 Potassium 3.4 mmol/L (3.5-5.1) L 03/06/21 04:30 Chloride 103 mmol/L (98-107) 03/06/21 04:30 Carbon Dioxide 37.8 mmol/L (21-32) H 03/06/21 04:30 BUN 19 mg/dL (7-18) H 03/06/21 04:30 Creatinine 0.63 mg/dL (0.55-1.02) 03/06/21 04:30 Est GFR (MDRD) Af Amer > 60 (>60) 03/06/21 04:30 Est GFR (MDRD) Non-Af > 60 (>60) 03/06/21 04:30 Glucose 220 mg/dL (65-99) H 03/06/21 04:30 Calcium 8.4 mg/dL (8.5-10.1) L 03/06/21 04:30 Corrected Calcium 9.8 mg/dL (8.5-10.1) 03/06/21 04:30 Magnesium 1.9 mg/dL (1.7-2.9) 03/06/21 04:30 Total Bilirubin 0.50 mg/dL (0.2-1.0) 03/06/21 04:30 AST 32 Units/L (15-37) 03/06/21 04:30 ALT 35 Units/L (12-78) 03/06/21 04:30 Alkaline Phosphatase 67 Units/L (46-116) 03/06/21 04:30 C-Reactive Protein 26.10 mg/L (0-3.0) H 03/04/21 04:51 B-Natriuretic Peptide 262 pg/mL (0-79) H 03/06/21 04:30 Total Protein 5.4 g/dL (6.4-8.2) L 03/06/21 04:30 Albumin 2.3 g/dL (3.4-5.0) L 03/06/21 04:30 Globulin 3.1 g/dL (2.5-4.5) 03/06/21 04:30 Albumin/Globulin Ratio 0.7 Ratio (1.1-2.1) L 03/06/21 04:30 Specimen Type Catherized urine 02/28/21 16:42 Urine Color Pale yellow (YELLOW) 02/28/21 16:42 Urine Appearance Clear (CLEAR) 02/28/21 16:42 Urine pH 6.0 (5.0 - 8.0) 02/28/21 16:42 Ur Specific [place] 1.005 (1.000-1.030) 02/28/21 16:42 Urine Protein Negative (NEGATIVE) 02/28/21 16:42 Urine Glucose (UA) Negative (NEGATIVE) 02/28/21 16:42 Urine Ketones Negative (NEGATIVE) 02/28/21 16:42 Urine Occult Blood 2+ (NEGATIVE) 02/28/21 16:42 Urine Nitrite Negative (NEGATIVE) 02/28/21 16:42 Urine Bilirubin Negative (NEGATIVE) 02/28/21 16:42 Urine Urobilinogen Normal (NORMAL) 02/28/21 16:42 Ur Leukocyte Esterase Negative (NEGATIVE) 02/28/21 16:42 Urine RBC 10-20 /HPF (0-3) A 02/28/21 16:42 Urine WBC 0-2 /HPF (0-5) 02/28/21 16:42 Ur Squamous Epith Cells Rare /HPF (NEGATIVE) 02/28/21 16:42 Calcium Oxalate Crystal Rare /HPF (NEGATIVE) 02/28/21 16:42 Amorphous Sediment 2+ /HPF (NEGATIVE) 02/26/21 04:47 Urine Bacteria Trace /HPF (NEGATIVE) 02/28/21 16:42 Hyaline Casts Many /LPF (NEGATIVE) 02/26/21 04:47 Urine Mucus Rare /HPF (NEGATIVE) 02/28/21 16:42 Ur Culture Indicated? No/not indicated 02/28/21 16:42 Digoxin 0.78 ng/mL (0.9-2) L 03/06/21 04:30 SARS-CoV-2 (PCR) Negative (NEGATIVE) 02/26/21 01:40 EST Influenza Type A (PCR) Negative (NEGATIVE) 02/26/21 01:40 EST Influenza Type B (PCR) Negative (NEGATIVE) 02/26/21 01:40 EST RSV (PCR) Negative (NEGATIVE) 02/26/21 01:40 EST Resp Viral Panel (PCR) See scanned report 02/27/21 12:23 - Plan (1) Pneumonia Status: Acute Qualifiers: Pneumonia type: due to unspecified organism Laterality: bilateral Lung location: unspecified part of lung Qualified Code(s): J18.9 - Pneumonia, unspecified organism Plan: SUPPLEMENTAL OXYGEN, SOLU-MEDROL, LASIX 20MG IV BID, IV ANTIBIOTICS, CARDIZEM, DIGOXIN, RESPIRATORY TREATMENTS, POTASSIUM AND MAGNESIUM PROTOCOL, IMMUNE SUPPORT SUPPLEMENTS, RESUME HOME MEDS. Continue treatment. (2) Hypoxia Status: Acute (3) Acute hypokalemia Status: Acute Plan: Potassium replacement protocol. (4) Status post ORIF of fracture of ankle Status: Acute
[2021-03-06] MEDS: ZOFRAN INJ 4 MG VIAL IVP PRN (14:50)
[2021-03-06] MEDS ORDERED: MAALOX or MYLANTA PO PRN (14:59)
[2021-03-06] MEDS: MAGNESIUM SULFATE 1 GRAM/100 mL PREMIX 1 G/100 ML BAG IV PRN ×2 (16:56→17:55)
[2021-03-06] MEDS: CARDIZEM CD 180 MG 24-HR PO SCH (20:25)
[2021-03-06] MEDS: MELATONIN PO SCH (20:27)
[2021-03-06] MEDS: SENOKOT PO SCH (20:29)
[2021-03-06] MEDS: PROTONIX INJ 40 MG VIAL IVP SCH (20:29)
[2021-03-06] MEDS: ROXICODONE TAB 5 MG PO PRN (22:33)
[2021-03-07 04:52] LABS: BASOPHILS % (AUTO) 0.2 % (0.2-1.0); HEMATOCRIT 29.7 % (36.0-47.0); LYMPHOCYTES # (AUTO) 0.2 X10^3/uL (1.3-2.9); LYMPHOCYTES % (AUTO) 1.4 % (21.0-51.0); MEAN CORPUSCULAR HEMOGLOBIN 29.2 pg (27.0-34.0); MEAN CORPUSCULAR HGB CONC 33.8 g/dL (33.0-35.0); MEAN CORPUSCULAR VOLUME 86.3 fL (80.0-100.0); MEAN PLATELET VOLUME 7.7 fL (7.4-11.0); MONOCYTES # (AUTO) 0.5 x10^3/uL (0.3-0.8); MONOCYTES % (AUTO) 4.4 % (0.0-13.0); NEUTROPHILS # (AUTO) 10.1 x10^3/uL (2.2-4.8); PLATELET COUNT 285 X10^3/uL (150.0-450.0); RED BLOOD COUNT 3.44 X10^6/uL (3.5-5.4); WHITE BLOOD COUNT 10.8 X10^3/uL (3.6-10.0)
[2021-03-07 05:08] LABS: ALANINE AMINOTRANSFERASE 34 Units/L (12-78); ALBUMIN 2.2 g/dL (3.4-5.0); ALKALINE PHOSPHATASE 62 Units/L (46-116); ASPARTATE AMINO TRANSFERASE 29 Units/L (15-37); BLOOD UREA NITROGEN 19 mg/dL (7-18); CALCIUM 8.1 mg/dL (8.5-10.1); CARBON DIOXIDE 39.5 mmol/L (21-32); CHLORIDE 98 mmol/L (98-107); COR CA(FOR HYPOALB) 9.5 mg/dL (8.5-10.1); COR NA(FOR HYPERGLY) 142 mmol/L (136-145); MAGNESIUM 2.4 mg/dL (1.7-2.9); SODIUM 139 mmol/L (136-145); TOTAL PROTEIN 5.2 g/dL (6.4-8.2); eGFR NON BLACK RACES > 60 (>60)
[2021-03-07 05:21] LABS: HYPOCHROMASIA 2+; METAMYELOCYTES % 2; PLATELET MORPHOLOGY COMMENT NORMAL (NORMAL)
[2021-03-07 05:41] LABS: ABG BASE EXCESS 19.8 mmol/L (-2.0-2.0)
[2021-03-07 05:42] LABS: ABG ALLEN TEST POS; ABG HCO3 46.5 mmol/L (22-26)
[2021-03-07] MEDS: XOPENEX 1.25 MG/3 ML NEBULE NEB SCH ×3 (05:44→20:32)
[2021-03-07] MEDS: Atrovent NEB TX 0.02% NEB SCH ×3 (05:44→20:32)
[2021-03-07] MEDS: NS 1,000 ML IV 1,000 ML IV SCH (05:48)
[2021-03-07] MEDS: SOLU-Medrol 40 MG VIAL IVP SCH ×3 (05:49→21:25)
[2021-03-07] MEDS: K-DUR TAB 20 MEQ PO PRN ×2 (05:50→22:23)
[2021-03-07] MEDS: ZOSYN VIAL 2.25 GRAMS 2.25 G in NS 100 ML IV + SPIKE MINIBAG* 100 ML IV SCH ×3 (05:50→21:26)
--- NOTE | 2021-03-07 07:27 | RAD ---
HISTORYSOB HX: CAD, CHF, [place], HTN SX: STENTS, GB, HYSTERECTOMY, CABGSTUDYCHEST, 1 [id number] mild cardiomegaly. Status post sternotomy. There is again seen a prosthetic aortic valve. There are persistent diffuse bilateral alveolar radiopacities with ground-glass radiopacities and confluent zones in the right upper lobe and in the bases. There is no evidence of a pneumothorax or subcutaneous emphysema.IMPRESSIONOverall no interval change. Persistent ground-glass and alveolar radiopacities with confluent areas in the right upper lobe and in the bases.Electronically signed by: Dejah Danielson (Mar 07, 2021 07:26:14)
[2021-03-07] MEDS: PULMICORT NEB TX 0.5 MG NEB SCH ×2 (08:36→20:32)
[2021-03-07] MEDS: CORDARONE TAB 200 MG PO SCH (09:15)
[2021-03-07] MEDS: ASCORBIC ACID INJ MULTI-DOSE VIAL 1,500 MG in NS 50 ML IV 50 ML IV SCH ×2 (09:15→21:16)
[2021-03-07] MEDS: ELIQUIS PO SCH ×2 (09:16→21:17)
[2021-03-07] MEDS: FLONASE NASAL SPRAY ENOSTRIL SCH (09:16)
[2021-03-07] MEDS: FLUVOXAMINE MALEATE PO SCH ×2 (09:16→21:18)
[2021-03-07] MEDS: LANOXIN or DIGITEK PO SCH (09:16)
[2021-03-07] MEDS: PROTONIX INJ 40 MG VIAL IVP SCH ×2 (09:17→21:21)
[2021-03-07] MEDS: LASIX IVP SCH ×2 (09:17→21:18)
[2021-03-07] MEDS: LEVAQUIN PREMIX IV 500 MG 500 MG/100 ML BAG IV SCH (09:17)
[2021-03-07] MEDS: SYNTHROID 125 mcg TAB PO SCH (09:17)
[2021-03-07] MEDS: PEPCID TAB 40 MG PO SCH ×2 (09:17→21:19)
[2021-03-07] MEDS: THIAMINE HCL INJ IVP SCH ×2 (09:17→21:23)
[2021-03-07] MEDS: VITAMIN A PO SCH (09:18)
[2021-03-07] MEDS: VITAMIN D3 125 mcg (5,000 UNITS) PO SCH (09:18)
[2021-03-07] MEDS: ZINC SULFATE PO SCH ×2 (09:18→21:24)
[2021-03-07] MEDS: DIFLUCAN 200 MG IV PREMIX* 200 MG/100 ML BAG IV SCH (19:56)
[2021-03-07] MEDS: CARDIZEM CD 180 MG 24-HR PO SCH (21:17)
[2021-03-07] MEDS: MELATONIN PO SCH (21:19)
[2021-03-07] MEDS: SENOKOT PO SCH (21:24)
[2021-03-07] MEDS: NYSTATIN SUSP PO SCH (21:25)
[2021-03-07] MEDS: ROXICODONE TAB 5 MG PO PRN (22:19)
[2021-03-08 05:05] LABS: BASOPHILS % (AUTO) 0.1 % (0.2-1.0); HEMATOCRIT 29.5 % (36.0-47.0); HEMOGLOBIN 9.8 g/dL (12.0-16.0); LYMPHOCYTES # (AUTO) 0.2 X10^3/uL (1.3-2.9); LYMPHOCYTES % (AUTO) 1.5 % (21.0-51.0); MEAN CORPUSCULAR HEMOGLOBIN 28.8 pg (27.0-34.0); MEAN CORPUSCULAR HGB CONC 33.2 g/dL (33.0-35.0); MEAN CORPUSCULAR VOLUME 86.6 fL (80.0-100.0); MEAN PLATELET VOLUME 7.9 fL (7.4-11.0); MONOCYTES # (AUTO) 0.7 x10^3/uL (0.3-0.8); MONOCYTES % (AUTO) 5.5 % (0.0-13.0); NEUTROPHILS # (AUTO) 11.6 x10^3/uL (2.2-4.8); NEUTROPHILS % (AUTO) 92.9 % (42.0-75.0); PLATELET COUNT 263 X10^3/uL (150.0-450.0); RED BLOOD COUNT 3.41 X10^6/uL (3.5-5.4); WHITE BLOOD COUNT 12.5 X10^3/uL (3.6-10.0)
[2021-03-08] MEDS: Atrovent NEB TX 0.02% NEB SCH ×3 (05:07→20:53)
[2021-03-08] MEDS: XOPENEX 1.25 MG/3 ML NEBULE NEB SCH ×3 (05:07→20:53)
[2021-03-08 05:14] LABS: ALANINE AMINOTRANSFERASE 32 Units/L (12-78); ALBUMIN 2.2 g/dL (3.4-5.0); ALKALINE PHOSPHATASE 60 Units/L (46-116); ASPARTATE AMINO TRANSFERASE 24 Units/L (15-37); BLOOD UREA NITROGEN 22 mg/dL (7-18); CALCIUM 8.3 mg/dL (8.5-10.1); CHLORIDE 97 mmol/L (98-107); COR CA(FOR HYPOALB) 9.7 mg/dL (8.5-10.1); COR NA(FOR HYPERGLY) 140 mmol/L (136-145); CREATININE 0.67 mg/dL (0.55-1.02); SODIUM 137 mmol/L (136-145); TOTAL PROTEIN 5.1 g/dL (6.4-8.2); eGFR NON BLACK RACES > 60 (>60)
[2021-03-08 05:22] LABS: CARBON DIOXIDE 42.3 mmol/L (21-32)
[2021-03-08 05:39] LABS: PLATELET MORPHOLOGY COMMENT NORMAL (NORMAL)
[2021-03-08 05:40] LABS: ANISOCYTOSIS 3+
[2021-03-08] MEDS: NYSTATIN SUSP PO SCH ×3 (06:00→21:00)
[2021-03-08] MEDS: ZOSYN VIAL 2.25 GRAMS 2.25 G in NS 100 ML IV + SPIKE MINIBAG* 100 ML IV SCH ×3 (06:00→21:00)
[2021-03-08] MEDS: SOLU-Medrol 40 MG VIAL IVP SCH ×3 (06:00→21:00)
[2021-03-08] MEDS: NS 1,000 ML IV 1,000 ML IV SCH (06:23)
--- NOTE | 2021-03-08 07:03 | RAD ---
HISTORYShortness of breathSTUDYChest AP [id number] ent is status post median sternotomy, CABG, and valve replacement. Heart is mildly enlarged. Diffuse bilateral interstitial, ground-glass, and some alveolar infiltrates are unchanged considering a difference in film technique. No definite pleural effusions or pneumothoraces are identified. Bony thorax is unremarkable.IMPRESSIONNo significant change from the prior examinationElectronically signed by: MARIA T GARCIA (Mar 08, 2021 07:02:00)
[2021-03-08] MEDS: PULMICORT NEB TX 0.5 MG NEB SCH ×2 (08:10→20:53)
[2021-03-08] MEDS: SYNTHROID 125 mcg TAB PO SCH (08:42)
[2021-03-08] MEDS: VITAMIN D3 125 mcg (5,000 UNITS) PO SCH (08:45)
[2021-03-08] MEDS: PEPCID TAB 40 MG PO SCH ×2 (08:45→21:00)
[2021-03-08] MEDS: ELIQUIS PO SCH ×2 (08:45→21:00)
[2021-03-08] MEDS: FLUVOXAMINE MALEATE PO SCH ×2 (08:45→21:00)
[2021-03-08] MEDS: LASIX IVP SCH ×2 (08:45→21:00)
[2021-03-08] MEDS: VITAMIN A PO SCH (08:45)
[2021-03-08] MEDS: ZINC SULFATE PO SCH ×2 (08:45→21:00)
[2021-03-08] MEDS: CORDARONE TAB 200 MG PO SCH (08:45)
[2021-03-08] MEDS: THIAMINE HCL INJ IVP SCH ×2 (08:45→21:00)
--- NOTE | 2021-03-08 08:53 | PCM.PROG ---
Progress Note - Progress Note for Day of Date of Exam: 03/07/21 - Subjective Subjective: IS BEING TREATED FOR BILATERAL LOWER LOBE PNEUMONIA, HYPOXIA, AND HYPOKALEMIA. TODAY, SHE IS LYING ALERT AND ORIENTED, LYING IN BED ON MORNING ROUNDS. SHE CONTINUES WITH WEAKNESS, SHORTNESS OF BREATH, AND INTERMITTENT COUGH. COUGH CONTINUES TO BE NON-PRODUCTIVE. SHE REPORTS SLIGHT I MPROVEMENT IN SYMPTOMS SINCE WE LAST SAW HER. SHE IS CURRENTLY ON HEATED HIGH FLOW OXYGEN AT 90%. SATURATIONS HAVE BEEN 94-98%. SHE HAS BEEN IN REHAB AT [facility] DUE TO RECENT ORIF AND EXTERNAL FIXATOR IN PLACE. ON EXAMINATION, HEART IS REGULAR IN RATE AND RHYTHM. BILATERAL LUNGS NOTED WITH DIMINISHED LUNG SOUNDS THROUGHOUT. ABDOMEN IS ROUND, SOFT, AND NON-TENDER WITH NORMAL BOWEL SOUNDS NOTED IN ALL QUADRANTS. EXTERNAL FIXATOR AND DRESSING NOTED TO RIGHT ANKLE/LOWER LEG. HER VITALS THIS MORNING ARE: 98.1-100-20-98%-138/90. LABS WERE OBTAINED. WBC 12.5, RBC 3.41, HGB 9.8, HCT 29.5, CHLORIDE 97, CARBON DIOXIDE 42.3, BUN 22, GLUCOSE 237, CALCIUM 8.3, CRP 4.40, BNP 213, TOTAL PROTEIN 5.1, ALBUMIN 2.2. ABG WAS OBTAINED TODAY AND REVEALED: PH 7.490, PC02 61, P02 65, HC03 46.5, 02 SAT 94, BASE EXCESS 19.8, A-A GRADIENT 500, FI02 90. CHEST XRAY REPEATED AND REVEALED: Overall no interval change. Persistent ground-glass and alveolar radiopacities with confluent areas in the right upper lobe and in the bases. SHE IS CURRENTLY RECEIVING IV ANTIBIOTICS, REMDESIVIR, NEBULIZER TREATMENTS, SOLU-MEDROL, POTASSIUM AND MAGNESIUM PROTOCOLS, NORMAL SALINE AT 20 ML/HR, IMMUNE SUPPORT SUPPLEMENTS, CARDIZEM, DIGOXIN, AND HER HOME MEDICATIONS RESUMED. WE WILL CONTINUE WITH CURRENT PLAN OF CARE TODAY. OTHERWISE, WE PLAN TO FOLLOW UP WITH AM LABS AND CHEST XRAY AND CONTINUE TO MONITOR. TIME SPENT ON CLINICAL ASSESSMENT, REVIEWING LABS AND IMAGING, DECISION MAKING, AND DOCUMENTATION GREATER THAN 45 MINUTES. - Past Medical Family Social History Past Med/Fam/Surg Hx: No changes since H&P Allergies: Allergies ANGIE Inhibitors Allergy (Verified 03/05/18 10:04) gabapentin Allergy (Verified 03/05/18 09:54) vancomycin Allergy (Verified 03/05/18 09:54) codeine Adverse Reaction (Mild, Verified 03/03/21 01:51) NAUSEA STATED BY PT STATINS Allergy (Uncoded 03/05/18 09:54) - Review of Systems ROS: No change since H&P - Vital Signs and I&O's Vital Signs: Temperature 98.1 F Pulse Rate [Apical] 97 Pulse Rate [Bilateral Radial] 86 Pulse Rate 108 Respiratory Rate 14 Blood Pressure [Left Arm] 139/69 Blood Pressure 170/113 O2 Sat by Pulse Oximetry 98 Intake and Output: Intake & Output 03/05/21 03/06/21 03/07/21 03/08/21 11:59 11:59 11:59 11:59 Intake Total 1909 / 1909 2324 / 2323 188 / 1882093 / 2093 Output Total 1999 / 2124 2150 / 2149 1875 / 1875 Balance -90 / -90 199 / 199 -266 / -266 219 / 219 - Physical Exam Oriented: Normal Eyes: Normal Ear: Normal Nose: Normal Throat: Normal Respiratory: Generalized, Diminished Cardiovascular: Tachycardia. negative: S3, S4, Murmur : Normal Auscultation: Bowel Sounds: Normal Palpation: Normal Tenderness: Normal Skin: Wound (RIGHT ANKLE/LOWER LEG EXTERNAL FIXATOR) Musculoskeletal: Shoulder, Right, Leg, Ankle, Foot, Tender Psychiatric: Normal Mood Description: Calm Affect: Normal Speech Pattern: Clear, Appropriate - Laboratory and Diagnostics Result Diagrams: 03/08/21 04:40 03/08/21 04:40 Labs: Laboratory WBC 12.5 X10^3/uL (3.6-10.0) H 03/08/21 04:40 RBC 3.41 X10^6/uL (3.5-5.4) L 03/08/21 04:40 Hgb 9.8 g/dL (12.0-16.0) L 03/08/21 04:40 Hct 29.5 % (36.0-47.0) L 03/08/21 04:40 MCV 86.6 fL (80.0-100.0) 03/08/21 04:40 MCH 28.8 pg (27.0-34.0) 03/08/21 04:40 MCHC 33.2 g/dL (33.0-35.0) 03/08/21 04:40 RDW 25.0 % (11.6-16.5) H 03/08/21 04:40 Plt Count 263 X10^3/uL (150.0-450.0) 03/08/21 04:40 Plt Count Comment Adequate (ADEQUATE) 03/08/21 04:40 MPV 7.9 fL (7.4-11.0) 03/08/21 04:40 Neut % (Auto) 92.9 % (42.0-75.0) H 03/08/21 04:40 Lymph % (Auto) 1.5 % (21.0-51.0) L 03/08/21 04:40 [place] % (Auto) 5.5 % (0.0-13.0) 03/08/21 04:40 Eos % (Auto) 0.0 % (0.9-2.9) L 03/08/21 04:40 Baso % (Auto) 0.1 % (0.2-1.0) L 03/08/21 04:40 Neut # (Auto) 11.6 x10^3/uL (2.2-4.8) H 03/08/21 04:40 Lymph # (Auto) 0.2 X10^3/uL (1.3-2.9) L 03/08/21 04:40 [place] # (Auto) 0.7 x10^3/uL (0.3-0.8) 03/08/21 04:40 Eos # (Auto) 0.0 x10^3/uL (0.0-0.2) 03/08/21 04:40 Baso # (Auto) 0.0 X10^3/uL (0.0-0.1) 03/08/21 04:40 Absolute Nucleated RBC 0.2 /100WBC 03/08/21 04:40 Total Counted 100 03/08/21 04:40 Neutrophils % (Manual) 97 % (39-76) H 03/08/21 04:40 Band Neutrophils % 1 % (0-10) 03/02/21 05:12 Lymphocytes % (Manual) 1 % (13-43) L 03/08/21 04:40 Monocytes % (Manual) 2 % (4-9) L 03/08/21 04:40 Metamyelocytes % 2 03/07/21 04:15 Myelocytes % 1 03/02/21 05:12 Plt Morphology Comment Normal (NORMAL) 03/08/21 04:40 RBC Morphology Abnormal (NORMAL) A 03/08/21 04:40 Dimorphic RBCs Slight 03/07/21 04:15 Hypochromasia 2+ A 03/07/21 04:15 Anisocytosis 3+ A 03/08/21 04:40 D-Dimer 1.06 ug/ml (0.0-0.57) H* 02/26/21 01:48 EST Sample Site Rrad 03/07/21 05:39 ABG pH 7.490 (7.35-7.45) H 03/07/21 05:39 ABG pCO2 61.0 mmHg (35.0-45.0) H* 03/07/21 05:39 ABG pO2 65.0 mmHg (80.0-100.0) L 03/07/21 05:39 ABG HCO3 46.5 mmol/L (22-26) H* 03/07/21 05:39 ABG O2 Saturation 94.0 % (90-100) 03/07/21 05:39 ABG Base Excess 19.8 mmol/L (-2.0-2.0) H 03/07/21 05:39 Singh Test Pos 03/07/21 05:39 A-a Gradient 500.0 mmHg 03/07/21 05:39 FiO2 90.0 03/07/21 05:39 Blood Gas Comments Rufino abg well-mtf 03/07/21 05:39 Sodium 137 mmol/L (136-145) 03/08/21 04:40 Corrected Sodium 140 mmol/L (136-145) 03/08/21 04:40 Potassium 4.1 mmol/L (3.5-5.1) 03/08/21 04:40 Chloride 97 mmol/L (98-107) L 03/08/21 04:40 Carbon Dioxide 42.3 mmol/L (21-32) H* 03/08/21 04:40 BUN 22 mg/dL (7-18) H 03/08/21 04:40 Creatinine 0.67 mg/dL (0.55-1.02) 03/08/21 04:40 Est GFR (MDRD) Af Amer > 60 (>60) 03/08/21 04:40 Est GFR (MDRD) Non-Af > 60 (>60) 03/08/21 04:40 Glucose 237 mg/dL (65-99) H 03/08/21 04:40 Calcium 8.3 mg/dL (8.5-10.1) L 03/08/21 04:40 Corrected Calcium 9.7 mg/dL (8.5-10.1) 03/08/21 04:40 Magnesium 2.4 mg/dL (1.7-2.9) 03/07/21 04:15 Total Bilirubin 0.50 mg/dL (0.2-1.0) 03/08/21 04:40 AST 24 Units/L (15-37) 03/08/21 04:40 ALT 32 Units/L (12-78) 03/08/21 04:40 Alkaline Phosphatase 60 Units/L (46-116) 03/08/21 04:40 C-Reactive Protein 4.40 mg/L (0-3.0) H 03/08/21 04:40 B-Natriuretic Peptide 213 pg/mL (0-79) H 03/08/21 04:40 Total Protein 5.1 g/dL (6.4-8.2) L 03/08/21 04:40 Albumin 2.2 g/dL (3.4-5.0) L 03/08/21 04:40 Globulin 2.9 g/dL (2.5-4.5) 03/08/21 04:40 Albumin/Globulin Ratio 0.8 Ratio (1.1-2.1) L 03/08/21 04:40 Specimen Type Catherized urine 02/28/21 16:42 Urine Color Pale yellow (YELLOW) 02/28/21 16:42 Urine Appearance Clear (CLEAR) 02/28/21 16:42 Urine pH 6.0 (5.0 - 8.0) 02/28/21 16:42 Ur Specific [place] 1.005 (1.000-1.030) 02/28/21 16:42 Urine Protein Negative (NEGATIVE) 02/28/21 16:42 Urine Glucose (UA) Negative (NEGATIVE) 02/28/21 16:42 Urine Ketones Negative (NEGATIVE) 02/28/21 16:42 Urine Occult Blood 2+ (NEGATIVE) 02/28/21 16:42 Urine Nitrite Negative (NEGATIVE) 02/28/21 16:42 Urine Bilirubin Negative (NEGATIVE) 02/28/21 16:42 Urine Urobilinogen Normal (NORMAL) 02/28/21 16:42 Ur Leukocyte Esterase Negative (NEGATIVE) 02/28/21 16:42 Urine RBC 10-20 /HPF (0-3) A 02/28/21 16:42 Urine WBC 0-2 /HPF (0-5) 02/28/21 16:42 Ur Squamous Epith Cells Rare /HPF (NEGATIVE) 02/28/21 16:42 Calcium Oxalate Crystal Rare /HPF (NEGATIVE) 02/28/21 16:42 Amorphous Sediment 2+ /HPF (NEGATIVE) 02/26/21 04:47 Urine Bacteria Trace /HPF (NEGATIVE) 02/28/21 16:42 Hyaline Casts Many /LPF (NEGATIVE) 02/26/21 04:47 Urine Mucus Rare /HPF (NEGATIVE) 02/28/21 16:42 Ur Culture Indicated? No/not indicated 02/28/21 16:42 Digoxin 0.78 ng/mL (0.9-2) L 03/06/21 04:30 SARS-CoV-2 (PCR) Negative (NEGATIVE) 02/26/21 01:40 EST Influenza Type A (PCR) Negative (NEGATIVE) 02/26/21 01:40 EST Influenza Type B (PCR) Negative (NEGATIVE) 02/26/21 01:40 EST RSV (PCR) Negative (NEGATIVE) 02/26/21 01:40 EST Resp Viral Panel (PCR) See scanned report 02/27/21 12:23 - Plan (1) Pneumonia Status: Acute Qualifiers: Pneumonia type: due to unspecified organism Laterality: bilateral Lung location: unspecified part of lung Qualified Code(s): J18.9 - Pneumonia, unspecified organism Plan: SUPPLEMENTAL OXYGEN, SOLU-MEDROL, LASIX 20MG IV BID, IV ANTIBIOTICS, CARDIZEM, DIGOXIN, RESPIRATORY TREATMENTS, POTASSIUM AND MAGNESIUM PROTOCOL, IMMUNE SUPPORT SUPPLEMENTS, RESUME HOME MEDS. Continue treatment. (2) Hypoxia Status: Acute (3) Acute hypokalemia Status: Acute Plan: Potassium replacement protocol. (4) Status post ORIF of fracture of ankle Status: Acute
[2021-03-08] MEDS: FLONASE NASAL SPRAY ENOSTRIL SCH (09:05)
[2021-03-08] MEDS: PROTONIX INJ 40 MG VIAL IVP SCH ×2 (09:10→21:00)
[2021-03-08] MEDS: LEVAQUIN PREMIX IV 500 MG 500 MG/100 ML BAG IV SCH (09:15)
[2021-03-08] MEDS: ASCORBIC ACID INJ MULTI-DOSE VIAL 1,500 MG in NS 50 ML IV 50 ML IV SCH ×2 (09:15→21:00)
[2021-03-08] MEDS: DIFLUCAN 200 MG IV PREMIX* 200 MG/100 ML BAG IV SCH (10:00)
--- NOTE | 2021-03-08 10:01 | PCM.PROG ---
Progress Note - Progress Note for Day of Date of Exam: 03/08/21 - Subjective Subjective: IS BEING TREATED FOR BILATERAL LOWER LOBE PNEUMONIA, HYPOXIA, AND HYPOKALEMIA. TODAY, SHE IS LYING ALERT AND ORIENTED, LYING IN BED ON MORNING ROUNDS. SHE CONTINUES WITH WEAKNESS AND SHORTNESS OF BREATH. COUGH IS INTERMITTENT AND NON-PRODUCTIVE. SHE REPORTS SLIGHT IMPROVEMENT IN SYMPTOMS SINCE YESTERDAY. SHE IS CURRENTLY ON HEATED HIGH FLOW OXYGEN AT 80%. SATURATIONS HAVE BEEN 94-100%. SHE HAS BEEN IN REHAB AT [facility] DUE TO RECENT ORIF AND EXTERNAL FIXATOR IN PLACE. ON EXAMINATION, HEART IS REGULAR IN RATE AND RHYTHM. BILATERAL LUNGS NOTED WITH DIMINISHED LUNG SOUNDS THROUGHOUT. ABDOMEN IS ROUND, SOFT, AND NON-TENDER WITH NORMAL BOWEL SOUNDS NOTED IN ALL QUADRANTS. EXTERNAL FIXATOR AND DRESSING NOTED TO RIGHT ANKLE/LOWER LEG. HER VITALS THIS MORNING ARE: 98.1-103-22-97%-156/70. LABS WERE OBTAINED. WBC 12.5, RBC 3.41, HGB 9.8, HCT 29.5, CHLORIDE 97, CARBON DIOXIDE 42.3, BUN 22, GLUCOSE 237, CALCIUM 8.3, CRP 4.40, BNP 213, TOTAL PROTEIN 5.1, ALBUMIN 2.2. CHEST XRAY REPEATED AND REVEALED: Patient is status post median sternotomy, CABG, and valve replacement. Heart is mildly enlarged. Diffuse bilateral interstitial, ground-glass, and some alveolar infiltrates are unchanged considering a difference in film technique. No definite pleural effusions or pneumothoraces are identified. Bony thorax is unremarkable. SHE IS CURRENTLY RECEIVING IV ANTIBIOTICS, REMDESIVIR, NEBULIZER TREATMENTS, SOLU-MEDROL, POTASSIUM AND MAGNESIUM PROTOCOLS, NORMAL SALINE AT 20 ML/HR, IMMUNE SUPPORT SUPPLEMENTS, CARDIZEM, DIGOXIN, AND HER HOME MEDICATIONS RESUMED. WE WILL CONTINUE WITH CURRENT PLAN OF CARE TODAY. OTHERWISE, WE PLAN TO FOLLOW UP WITH AM LABS AND CHEST XRAY AND CONTINUE TO MONITOR. TIME SPENT ON CLINICAL ASSESSMENT, REVIEWING LABS AND IMAGING, DECISION MAKING, AND DOCUMENTATION GREATER THAN 45 MINUTES. - Past Medical Family Social History Past Med/Fam/Surg Hx: No changes since H&P Allergies: Allergies ANGIE Inhibitors Allergy (Verified 03/05/18 10:04) gabapentin Allergy (Verified 03/05/18 09:54) vancomycin Allergy (Verified 03/05/18 09:54) codeine Adverse Reaction (Mild, Verified 03/03/21 01:51) NAUSEA STATED BY PT STATINS Allergy (Uncoded 03/05/18 09:54) - Review of Systems ROS: No change since H&P - Vital Signs and I&O's Vital Signs: Temperature 98.1 F Pulse Rate [Apical] 97 Pulse Rate [Bilateral Radial] 86 Pulse Rate 101 Respiratory Rate 14 Blood Pressure [Left Arm] 139/69 Blood Pressure 170/113 O2 Sat by Pulse Oximetry 96 Intake and Output: Intake & Output 03/05/21 03/06/21 03/07/21 03/08/21 11:59 11:59 11:59 11:59 Intake Total 1909 / 1909 2324 / 2324 188 / 1882093 / 2093 Output Total 1999 / 2124 215 / 2149 187 / 187 Balance -90 / -90 199 / 199 -266 / -266 219 / 219 - Physical Exam Oriented: Normal Eyes: Normal Ear: Normal Nose: Normal Throat: Normal Respiratory: Generalized, Diminished Cardiovascular: Tachycardia. negative: S3, S4, Murmur : Normal Auscultation: Bowel Sounds: Normal Palpation: Normal Tenderness: Normal Skin: Wound (RIGHT ANKLE/LOWER LEG EXTERNAL FIXATOR) Musculoskeletal: Shoulder, Right, Leg, Ankle, Foot, Tender Psychiatric: Normal Mood Description: Calm Affect: Normal Speech Pattern: Clear, Appropriate - Laboratory and Diagnostics Result Diagrams: 03/08/21 04:40 03/08/21 04:40 Labs: Laboratory WBC 12.5 X10^3/uL (3.6-10.0) H 03/08/21 04:40 RBC 3.41 X10^6/uL (3.5-5.4) L 03/08/21 04:40 Hgb 9.8 g/dL (12.0-16.0) L 03/08/21 04:40 Hct 29.5 % (36.0-47.0) L 03/08/21 04:40 MCV 86.6 fL (80.0-100.0) 03/08/21 04:40 MCH 28.8 pg (27.0-34.0) 03/08/21 04:40 MCHC 33.2 g/dL (33.0-35.0) 03/08/21 04:40 RDW 25.0 % (11.6-16.5) H 03/08/21 04:40 Plt Count 263 X10^3/uL (150.0-450.0) 03/08/21 04:40 Plt Count Comment Adequate (ADEQUATE) 03/08/21 04:40 MPV 7.9 fL (7.4-11.0) 03/08/21 04:40 Neut % (Auto) 92.9 % (42.0-75.0) H 03/08/21 04:40 Lymph % (Auto) 1.5 % (21.0-51.0) L 03/08/21 04:40 [place] % (Auto) 5.5 % (0.0-13.0) 03/08/21 04:40 Eos % (Auto) 0.0 % (0.9-2.9) L 03/08/21 04:40 Baso % (Auto) 0.1 % (0.2-1.0) L 03/08/21 04:40 Neut # (Auto) 11.6 x10^3/uL (2.2-4.8) H 03/08/21 04:40 Lymph # (Auto) 0.2 X10^3/uL (1.3-2.9) L 03/08/21 04:40 [place] # (Auto) 0.7 x10^3/uL (0.3-0.8) 03/08/21 04:40 Eos # (Auto) 0.0 x10^3/uL (0.0-0.2) 03/08/21 04:40 Baso # (Auto) 0.0 X10^3/uL (0.0-0.1) 03/08/21 04:40 Absolute Nucleated RBC 0.2 /100WBC 03/08/21 04:40 Total Counted 100 03/08/21 04:40 Neutrophils % (Manual) 97 % (39-76) H 03/08/21 04:40 Band Neutrophils % 1 % (0-10) 03/02/21 05:12 Lymphocytes % (Manual) 1 % (13-43) L 03/08/21 04:40 Monocytes % (Manual) 2 % (4-9) L 03/08/21 04:40 Metamyelocytes % 2 03/07/21 04:15 Myelocytes % 1 03/02/21 05:12 Plt Morphology Comment Normal (NORMAL) 03/08/21 04:40 RBC Morphology Abnormal (NORMAL) A 03/08/21 04:40 Dimorphic RBCs Slight 03/07/21 04:15 Hypochromasia 2+ A 03/07/21 04:15 Anisocytosis 3+ A 03/08/21 04:40 D-Dimer 1.06 ug/ml (0.0-0.57) H* 02/26/21 01:48 EST Sample Site Rrad 03/07/21 05:39 ABG pH 7.490 (7.35-7.45) H 03/07/21 05:39 ABG pCO2 61.0 mmHg (35.0-45.0) H* 03/07/21 05:39 ABG pO2 65.0 mmHg (80.0-100.0) L 03/07/21 05:39 ABG HCO3 46.5 mmol/L (22-26) H* 03/07/21 05:39 ABG O2 Saturation 94.0 % (90-100) 03/07/21 05:39 ABG Base Excess 19.8 mmol/L (-2.0-2.0) H 03/07/21 05:39 Singh Test Pos 03/07/21 05:39 A-a Gradient 500.0 mmHg 03/07/21 05:39 FiO2 90.0 03/07/21 05:39 Blood Gas Comments Rufino abg well-mtf 03/07/21 05:39 Sodium 137 mmol/L (136-145) 03/08/21 04:40 Corrected Sodium 140 mmol/L (136-145) 03/08/21 04:40 Potassium 4.1 mmol/L (3.5-5.1) 03/08/21 04:40 Chloride 97 mmol/L (98-107) L 03/08/21 04:40 Carbon Dioxide 42.3 mmol/L (21-32) H* 03/08/21 04:40 BUN 22 mg/dL (7-18) H 03/08/21 04:40 Creatinine 0.67 mg/dL (0.55-1.02) 03/08/21 04:40 Est GFR (MDRD) Af Amer > 60 (>60) 03/08/21 04:40 Est GFR (MDRD) Non-Af > 60 (>60) 03/08/21 04:40 Glucose 237 mg/dL (65-99) H 03/08/21 04:40 Calcium 8.3 mg/dL (8.5-10.1) L 03/08/21 04:40 Corrected Calcium 9.7 mg/dL (8.5-10.1) 03/08/21 04:40 Magnesium 2.4 mg/dL (1.7-2.9) 03/07/21 04:15 Total Bilirubin 0.50 mg/dL (0.2-1.0) 03/08/21 04:40 AST 24 Units/L (15-37) 03/08/21 04:40 ALT 32 Units/L (12-78) 03/08/21 04:40 Alkaline Phosphatase 60 Units/L (46-116) 03/08/21 04:40 C-Reactive Protein 4.40 mg/L (0-3.0) H 03/08/21 04:40 B-Natriuretic Peptide 213 pg/mL (0-79) H 03/08/21 04:40 Total Protein 5.1 g/dL (6.4-8.2) L 03/08/21 04:40 Albumin 2.2 g/dL (3.4-5.0) L 03/08/21 04:40 Globulin 2.9 g/dL (2.5-4.5) 03/08/21 04:40 Albumin/Globulin Ratio 0.8 Ratio (1.1-2.1) L 03/08/21 04:40 Specimen Type Catherized urine 02/28/21 16:42 Urine Color Pale yellow (YELLOW) 02/28/21 16:42 Urine Appearance Clear (CLEAR) 02/28/21 16:42 Urine pH 6.0 (5.0 - 8.0) 02/28/21 16:42 Ur Specific [place] 1.005 (1.000-1.030) 02/28/21 16:42 Urine Protein Negative (NEGATIVE) 02/28/21 16:42 Urine Glucose (UA) Negative (NEGATIVE) 02/28/21 16:42 Urine Ketones Negative (NEGATIVE) 02/28/21 16:42 Urine Occult Blood 2+ (NEGATIVE) 02/28/21 16:42 Urine Nitrite Negative (NEGATIVE) 02/28/21 16:42 Urine Bilirubin Negative (NEGATIVE) 02/28/21 16:42 Urine Urobilinogen Normal (NORMAL) 02/28/21 16:42 Ur Leukocyte Esterase Negative (NEGATIVE) 02/28/21 16:42 Urine RBC 10-20 /HPF (0-3) A 02/28/21 16:42 Urine WBC 0-2 /HPF (0-5) 02/28/21 16:42 Ur Squamous Epith Cells Rare /HPF (NEGATIVE) 02/28/21 16:42 Calcium Oxalate Crystal Rare /HPF (NEGATIVE) 02/28/21 16:42 Amorphous Sediment 2+ /HPF (NEGATIVE) 02/26/21 04:47 Urine Bacteria Trace /HPF (NEGATIVE) 02/28/21 16:42 Hyaline Casts Many /LPF (NEGATIVE) 02/26/21 04:47 Urine Mucus Rare /HPF (NEGATIVE) 02/28/21 16:42 Ur Culture Indicated? No/not indicated 02/28/21 16:42 Digoxin 0.78 ng/mL (0.9-2) L 03/06/21 04:30 SARS-CoV-2 (PCR) Negative (NEGATIVE) 02/26/21 01:40 EST Influenza Type A (PCR) Negative (NEGATIVE) 02/26/21 01:40 EST Influenza Type B (PCR) Negative (NEGATIVE) 02/26/21 01:40 EST RSV (PCR) Negative (NEGATIVE) 02/26/21 01:40 EST Resp Viral Panel (PCR) See scanned report 02/27/21 12:23 - Plan (1) Pneumonia Status: Acute Qualifiers: Pneumonia type: due to unspecified organism Laterality: bilateral Lung location: unspecified part of lung Qualified Code(s): J18.9 - Pneumonia, unspecified organism Plan: SUPPLEMENTAL OXYGEN, SOLU-MEDROL, LASIX 20MG IV BID, IV ANTIBIOTICS, CARDIZEM, DIGOXIN, RESPIRATORY TREATMENTS, POTASSIUM AND MAGNESIUM PROTOCOL, IMMUNE SUPPORT SUPPLEMENTS, RESUME HOME MEDS. Continue treatment. (2) Hypoxia Status: Acute (3) Acute hypokalemia Status: Acute Plan: Potassium replacement protocol. (4) Status post ORIF of fracture of ankle Status: Acute
[2021-03-08] MEDS: LANOXIN or DIGITEK PO SCH (10:36)
[2021-03-08] MEDS: MELATONIN PO SCH (21:00)
[2021-03-08] MEDS: CARDIZEM CD 180 MG 24-HR PO SCH (21:00)
[2021-03-08] MEDS: SENOKOT PO SCH (21:00)
[2021-03-09 04:47] LABS: BASOPHILS % (AUTO) 0.2 % (0.2-1.0); HEMOGLOBIN 9.6 g/dL (12.0-16.0); LYMPHOCYTES # (AUTO) 0.2 X10^3/uL (1.3-2.9); LYMPHOCYTES % (AUTO) 1.7 % (21.0-51.0); MEAN CORPUSCULAR HEMOGLOBIN 29.6 pg (27.0-34.0); MEAN CORPUSCULAR HGB CONC 34.2 g/dL (33.0-35.0); MEAN CORPUSCULAR VOLUME 86.5 fL (80.0-100.0); MEAN PLATELET VOLUME 8.1 fL (7.4-11.0); MONOCYTES # (AUTO) 0.6 x10^3/uL (0.3-0.8); MONOCYTES % (AUTO) 5.4 % (0.0-13.0); NEUTROPHILS # (AUTO) 9.8 x10^3/uL (2.2-4.8); NEUTROPHILS % (AUTO) 92.7 % (42.0-75.0); PLATELET COUNT 238 X10^3/uL (150.0-450.0); RED BLOOD COUNT 3.24 X10^6/uL (3.5-5.4); RED CELL DISTRIBUTION WIDTH 25.3 % (11.6-16.5); WHITE BLOOD COUNT 10.6 X10^3/uL (3.6-10.0)
[2021-03-09 04:57] LABS: ALANINE AMINOTRANSFERASE 28 Units/L (12-78); ALBUMIN 2.2 g/dL (3.4-5.0); ALKALINE PHOSPHATASE 58 Units/L (46-116); ASPARTATE AMINO TRANSFERASE 21 Units/L (15-37); BLOOD UREA NITROGEN 23 mg/dL (7-18); CALCIUM 8.3 mg/dL (8.5-10.1); CHLORIDE 99 mmol/L (98-107); COR CA(FOR HYPOALB) 9.7 mg/dL (8.5-10.1); COR NA(FOR HYPERGLY) 143 mmol/L (136-145); CREATININE 0.64 mg/dL (0.55-1.02); SODIUM 139 mmol/L (136-145); eGFR NON BLACK RACES > 60 (>60)
[2021-03-09 05:04] LABS: ANISOCYTOSIS 3+; HYPOCHROMASIA 1+; PLATELET MORPHOLOGY COMMENT NORMAL (NORMAL)
[2021-03-09] MEDS: NYSTATIN SUSP PO SCH ×3 (06:00→21:00)
[2021-03-09] MEDS: ZOSYN VIAL 2.25 GRAMS 2.25 G in NS 100 ML IV + SPIKE MINIBAG* 100 ML IV SCH ×3 (06:00→21:30)
[2021-03-09] MEDS: NS 1,000 ML IV 1,000 ML IV SCH (06:00)
[2021-03-09] MEDS: SOLU-Medrol 40 MG VIAL IVP SCH ×3 (06:00→21:00)
[2021-03-09] MEDS: Atrovent NEB TX 0.02% NEB SCH ×3 (06:33→20:48)
[2021-03-09] MEDS: XOPENEX 1.25 MG/3 ML NEBULE NEB SCH ×3 (06:33→20:48)
--- NOTE | 2021-03-09 07:30 | RAD ---
HISTORYSOBSTUDYCHEST, 1 [id number]/2021.TECHNIQUEAP view of the chestFINDINGSStatus post median sternotomy and cardiac valve replacement.The cardiac and mediastinal contours appear stable. No significant change in bilateral airspace and interstitial opacities. No definite pleural effusion or pneumothorax. Soft tissue attenuation limits evaluation.IMPRESSIONNo significant change.Electronically signed by: Eric Rivas (Mar 09, 2021 07:29:00)
[2021-03-09] MEDS: PULMICORT NEB TX 0.5 MG NEB SCH ×2 (08:34→20:48)
[2021-03-09] MEDS ORDERED: NS 50 ML IV 50 ML IV ONE (09:08)
[2021-03-09] MEDS: LEVAQUIN PREMIX IV 500 MG 500 MG/100 ML BAG IV SCH (09:37)
[2021-03-09] MEDS: ASCORBIC ACID INJ MULTI-DOSE VIAL 1,500 MG in NS 50 ML IV 50 ML IV SCH ×2 (09:37→21:00)
[2021-03-09] MEDS: CORDARONE TAB 200 MG PO SCH (09:37)
[2021-03-09] MEDS: DIFLUCAN 200 MG IV PREMIX* 200 MG/100 ML BAG IV SCH (09:37)
[2021-03-09] MEDS: FLONASE NASAL SPRAY ENOSTRIL SCH (09:38)
[2021-03-09] MEDS: ELIQUIS PO SCH ×2 (09:38→21:00)
[2021-03-09] MEDS: FLUVOXAMINE MALEATE PO SCH ×2 (09:38→21:00)
[2021-03-09] MEDS: LANOXIN or DIGITEK PO SCH (09:39)
[2021-03-09] MEDS: ZINC SULFATE PO SCH ×2 (09:41→21:00)
[2021-03-09] MEDS: LASIX IVP SCH ×2 (09:41→21:00)
[2021-03-09] MEDS: PEPCID TAB 40 MG PO SCH ×2 (09:41→21:00)
[2021-03-09] MEDS: PROTONIX INJ 40 MG VIAL IVP SCH ×2 (09:41→21:00)
[2021-03-09] MEDS: VITAMIN D3 125 mcg (5,000 UNITS) PO SCH (09:42)
[2021-03-09] MEDS: VITAMIN A PO SCH (09:42)
[2021-03-09] MEDS: SYNTHROID 125 mcg TAB PO SCH (09:42)
[2021-03-09] MEDS: THIAMINE HCL INJ IVP SCH ×2 (09:42→21:00)
--- NOTE | 2021-03-09 10:16 | PCM.PROG ---
Progress Note - Progress Note for Day of Date of Exam: 03/09/21 - Subjective Subjective: IS BEING TREATED FOR BILATERAL LOWER LOBE PNEUMONIA, HYPOXIA, AND HYPOKALEMIA. TODAY, SHE IS LYING ALERT AND ORIENTED, LYING IN BED ON MORNING ROUNDS. SHE CONTINUES WITH WEAKNESS AND SHORTNESS OF BREATH. COUGH IS INTERMITTENT AND NON-PRODUCTIVE. SHE CONTINUES TO HAVE SLIGHT IMPROVEMENT DAILY. SHE IS CURRENTLY ON HEATED HIGH FLOW OXYGEN AT 75%. SATURATIONS HAVE BEEN 95- 100%. SHE HAS BEEN SITTING UP ON THE SIDE OF THE BED AND PARTICIPATING IN EXERCISES WITH PHYSICAL THERAPY. SHE HAS BEEN IN REHAB AT [facility] DUE TO RECENT ORIF AND EXTERNAL FIXATOR IN PLACE. , ORTHO, REPORTS THAT FIXATOR WILL BE OK TO STAY IN PLACE UNTIL SOMETIME NEXT WEEK. ON EXAMINATION, H EART IS REGULAR IN RATE AND RHYTHM. BILATERAL LUNGS NOTED WITH DIMINISHED LUNG SOUNDS THROUGHOUT. ABDOMEN IS ROUND, SOFT, AND NON-TENDER WITH NORMAL BOWEL SOUNDS NOTED IN ALL QUADRANTS. EXTERNAL FIXATOR AND DRESSING NOTED TO RIGHT ANKLE/LOWER LEG. HER VITALS THIS MORNING ARE: 97.7-95-11-99%-166/86. LABS WERE OBTAINED. WBC 10.6, RBC 3.24, HGB 9.6, HCT 28.0, CARBON DIOXIDE 42.0, BUN 23, GLUCOSE 249, CRP 3.10, BNP 177, TOTAL PROTEIN 5.0, ALBUMIN 2.2. CHEST XRAY REPEATED AND REVEALED: Status post median sternotomy and cardiac valve replacement.The cardiac and mediastinal contours appear stable. No significant change in bilateral airspace and interstitial opacities. No definite pleural effusion or pneumothorax. Soft tissue attenuation limits evaluation. SHE IS CURRENTLY RECEIVING IV ANTIBIOTICS, REMDESIVIR, NEBULIZER TREATMENTS, SOLU- MEDROL, POTASSIUM AND MAGNESIUM PROTOCOLS, NORMAL SALINE AT 20 ML/HR, IMMUNE SUPPORT SUPPLEMENTS, CARDIZEM, DIGOXIN, AND HER HOME MEDICATIONS RESUMED. WE WILL CONTINUE WITH CURRENT PLAN OF CARE TODAY. OTHERWISE, WE PLAN TO FOLLOW UP WITH AM LABS AND CHEST XRAY AND CONTINUE TO MONITOR. TIME SPENT ON CLINICAL ASSESSMENT, REVIEWING LABS AND IMAGING, DECISION MAKING, AND DOCUMENTATION GREATER THAN 45 MINUTES. - Past Medical Family Social History Past Med/Fam/Surg Hx: No changes since H&P Allergies: Allergies ANGIE Inhibitors Allergy (Verified 03/05/18 10:04) gabapentin Allergy (Verified 03/05/18 09:54) vancomycin Allergy (Verified 03/05/18 09:54) codeine Adverse Reaction (Mild, Verified 03/03/21 01:51) NAUSEA STATED BY PT STATINS Allergy (Uncoded 03/05/18 09:54) - Review of Systems ROS: No change since H&P - Vital Signs and I&O's Vital Signs: Temperature 97.7 F Pulse Rate [Apical] 97 Pulse Rate [Bilateral Radial] 86 Pulse Rate 116 Respiratory Rate 20 Blood Pressure [Left Arm] 139/69 Blood Pressure 166/86 O2 Sat by Pulse Oximetry 97 Intake and Output: Intake & Output 03/06/21 03/07/21 03/08/21 03/09/21 11:59 11:59 11:59 11:59 Intake Total 2324 / 2324 1884 / 1884 2093 / 2093 Output Total 2124 / 2124 2150 / 2150 1875 / 1875 1150 / 1150 Balance 199 / 199 -266 / -266 219 / 219 905 / 905 - Physical Exam Oriented: Normal Eyes: Normal Ear: Normal Nose: Normal Throat: Normal Respiratory: Generalized, Diminished Cardiovascular: Tachycardia. negative: S3, S4, Murmur : Normal Auscultation: Bowel Sounds: Normal Palpation: Normal Tenderness: Normal Skin: Wound (RIGHT ANKLE/LOWER LEG EXTERNAL FIXATOR) Musculoskeletal: Shoulder, Right, Leg, Ankle, Foot, Tender Psychiatric: Normal Mood Description: Calm Affect: Normal Speech Pattern: Clear, Appropriate - Laboratory and Diagnostics Result Diagrams: 03/09/21 04:20 03/09/21 04:20 Labs: Laboratory WBC 10.6 X10^3/uL (3.6-10.0) H 03/09/21 04:20 RBC 3.24 X10^6/uL (3.5-5.4) L 03/09/21 04:20 Hgb 9.6 g/dL (12.0-16.0) L 03/09/21 04:20 Hct 28.0 % (36.0-47.0) L 03/09/21 04:20 MCV 86.5 fL (80.0-100.0) 03/09/21 04:20 MCH 29.6 pg (27.0-34.0) 03/09/21 04:20 MCHC 34.2 g/dL (33.0-35.0) 03/09/21 04:20 RDW 25.3 % (11.6-16.5) H 03/09/21 04:20 Plt Count 238 X10^3/uL (150.0-450.0) 03/09/21 04:20 Plt Count Comment Adequate (ADEQUATE) 03/09/21 04:20 MPV 8.1 fL (7.4-11.0) 03/09/21 04:20 Neut % (Auto) 92.7 % (42.0-75.0) H 03/09/21 04:20 Lymph % (Auto) 1.7 % (21.0-51.0) L 03/09/21 04:20 [place] % (Auto) 5.4 % (0.0-13.0) 03/09/21 04:20 Eos % (Auto) 0.0 % (0.9-2.9) L 03/09/21 04:20 Baso % (Auto) 0.2 % (0.2-1.0) 03/09/21 04:20 Neut # (Auto) 9.8 x10^3/uL (2.2-4.8) H 03/09/21 04:20 Lymph # (Auto) 0.2 X10^3/uL (1.3-2.9) L 03/09/21 04:20 [place] # (Auto) 0.6 x10^3/uL (0.3-0.8) 03/09/21 04:20 Eos # (Auto) 0.0 x10^3/uL (0.0-0.2) 03/09/21 04:20 Baso # (Auto) 0.0 X10^3/uL (0.0-0.1) 03/09/21 04:20 Absolute Nucleated RBC 0.2 /100WBC 03/09/21 04:20 Total Counted 100 03/09/21 04:20 Neutrophils % (Manual) 93 % (39-76) H 03/09/21 04:20 Band Neutrophils % 1 % (0-10) 03/02/21 05:12 Lymphocytes % (Manual) 2 % (13-43) L 03/09/21 04:20 Monocytes % (Manual) 5 % (4-9) 03/09/21 04:20 Metamyelocytes % 2 03/07/21 04:15 Myelocytes % 1 03/02/21 05:12 Plt Morphology Comment Normal (NORMAL) 03/09/21 04:20 RBC Morphology Abnormal (NORMAL) A 03/09/21 04:20 Dimorphic RBCs 1+ 03/09/21 04:20 Hypochromasia 1+ A 03/09/21 04:20 Anisocytosis 3+ A 03/09/21 04:20 D-Dimer 1.06 ug/ml (0.0-0.57) H* 02/26/21 01:48 EST Sample Site Rrad 03/07/21 05:39 ABG pH 7.490 (7.35-7.45) H 03/07/21 05:39 ABG pCO2 61.0 mmHg (35.0-45.0) H* 03/07/21 05:39 ABG pO2 65.0 mmHg (80.0-100.0) L 03/07/21 05:39 ABG HCO3 46.5 mmol/L (22-26) H* 03/07/21 05:39 ABG O2 Saturation 94.0 % (90-100) 03/07/21 05:39 ABG Base Excess 19.8 mmol/L (-2.0-2.0) H 03/07/21 05:39 Singh Test Pos 03/07/21 05:39 A-a Gradient 500.0 mmHg 03/07/21 05:39 FiO2 90.0 03/07/21 05:39 Blood Gas Comments Rufino abg well-mtf 03/07/21 05:39 Sodium 139 mmol/L (136-145) 03/09/21 04:20 Corrected Sodium 143 mmol/L (136-145) 03/09/21 04:20 Potassium 3.8 mmol/L (3.5-5.1) 03/09/21 04:20 Chloride 99 mmol/L (98-107) 03/09/21 04:20 Carbon Dioxide 42.0 mmol/L (21-32) H* 03/09/21 04:20 BUN 23 mg/dL (7-18) H 03/09/21 04:20 Creatinine 0.64 mg/dL (0.55-1.02) 03/09/21 04:20 Est GFR (MDRD) Af Amer > 60 (>60) 03/09/21 04:20 Est GFR (MDRD) Non-Af > 60 (>60) 03/09/21 04:20 Glucose 249 mg/dL (65-99) H 03/09/21 04:20 Calcium 8.3 mg/dL (8.5-10.1) L 03/09/21 04:20 Corrected Calcium 9.7 mg/dL (8.5-10.1) 03/09/21 04:20 Magnesium 2.4 mg/dL (1.7-2.9) 03/07/21 04:15 Total Bilirubin 0.40 mg/dL (0.2-1.0) 03/09/21 04:20 AST 21 Units/L (15-37) 03/09/21 04:20 ALT 28 Units/L (12-78) 03/09/21 04:20 Alkaline Phosphatase 58 Units/L (46-116) 03/09/21 04:20 C-Reactive Protein 3.10 mg/L (0-3.0) H 03/09/21 04:20 B-Natriuretic Peptide 177 pg/mL (0-79) H 03/09/21 04:20 Total Protein 5.0 g/dL (6.4-8.2) L 03/09/21 04:20 Albumin 2.2 g/dL (3.4-5.0) L 03/09/21 04:20 Globulin 2.8 g/dL (2.5-4.5) 03/09/21 04:20 Albumin/Globulin Ratio 0.8 Ratio (1.1-2.1) L 03/09/21 04:20 Specimen Type Catherized urine 02/28/21 16:42 Urine Color Pale yellow (YELLOW) 02/28/21 16:42 Urine Appearance Clear (CLEAR) 02/28/21 16:42 Urine pH 6.0 (5.0 - 8.0) 02/28/21 16:42 Ur Specific [place] 1.005 (1.000-1.030) 02/28/21 16:42 Urine Protein Negative (NEGATIVE) 02/28/21 16:42 Urine Glucose (UA) Negative (NEGATIVE) 02/28/21 16:42 Urine Ketones Negative (NEGATIVE) 02/28/21 16:42 Urine Occult Blood 2+ (NEGATIVE) 02/28/21 16:42 Urine Nitrite Negative (NEGATIVE) 02/28/21 16:42 Urine Bilirubin Negative (NEGATIVE) 02/28/21 16:42 Urine Urobilinogen Normal (NORMAL) 02/28/21 16:42 Ur Leukocyte Esterase Negative (NEGATIVE) 02/28/21 16:42 Urine RBC 10-20 /HPF (0-3) A 02/28/21 16:42 Urine WBC 0-2 /HPF (0-5) 02/28/21 16:42 Ur Squamous Epith Cells Rare /HPF (NEGATIVE) 02/28/21 16:42 Calcium Oxalate Crystal Rare /HPF (NEGATIVE) 02/28/21 16:42 Amorphous Sediment 2+ /HPF (NEGATIVE) 02/26/21 04:47 Urine Bacteria Trace /HPF (NEGATIVE) 02/28/21 16:42 Hyaline Casts Many /LPF (NEGATIVE) 02/26/21 04:47 Urine Mucus Rare /HPF (NEGATIVE) 02/28/21 16:42 Ur Culture Indicated? No/not indicated 02/28/21 16:42 Digoxin 0.78 ng/mL (0.9-2) L 03/06/21 04:30 SARS-CoV-2 (PCR) Negative (NEGATIVE) 02/26/21 01:40 EST Influenza Type A (PCR) Negative (NEGATIVE) 02/26/21 01:40 EST Influenza Type B (PCR) Negative (NEGATIVE) 02/26/21 01:40 EST RSV (PCR) Negative (NEGATIVE) 02/26/21 01:40 EST Resp Viral Panel (PCR) See scanned report 02/27/21 12:23 - Plan (1) Pneumonia Status: Acute Qualifiers: Pneumonia type: due to unspecified organism Laterality: bilateral Lung location: unspecified part of lung Qualified Code(s): J18.9 - Pneumonia, unspecified organism Plan: SUPPLEMENTAL OXYGEN, SOLU-MEDROL, LASIX 20MG IV BID, IV ANTIBIOTICS, CARDIZEM, DIGOXIN, RESPIRATORY TREATMENTS, POTASSIUM AND MAGNESIUM PROTOCOL, IMMUNE SUPPORT SUPPLEMENTS, RESUME HOME MEDS. Continue treatment. (2) Hypoxia Status: Acute (3) Acute hypokalemia Status: Acute Plan: Potassium replacement protocol. (4) Status post ORIF of fracture of ankle Status: Acute
[2021-03-09] MEDS: MELATONIN PO SCH (21:00)
[2021-03-09] MEDS: CARDIZEM CD 180 MG 24-HR PO SCH (21:00)
[2021-03-09] MEDS: SENOKOT PO SCH (21:00)
[2021-03-10 04:59] LABS: BASOPHILS % (AUTO) 0.1 % (0.2-1.0); HEMATOCRIT 26.7 % (36.0-47.0); HEMOGLOBIN 8.9 g/dL (12.0-16.0); LYMPHOCYTES # (AUTO) 0.1 X10^3/uL (1.3-2.9); LYMPHOCYTES % (AUTO) 1.1 % (21.0-51.0); MEAN CORPUSCULAR HGB CONC 33.3 g/dL (33.0-35.0); MEAN PLATELET VOLUME 8.2 fL (7.4-11.0); MONOCYTES # (AUTO) 0.6 x10^3/uL (0.3-0.8); MONOCYTES % (AUTO) 5.5 % (0.0-13.0); NEUTROPHILS % (AUTO) 93.3 % (42.0-75.0); PLATELET COUNT 200 X10^3/uL (150.0-450.0); RED BLOOD COUNT 3.07 X10^6/uL (3.5-5.4); RED CELL DISTRIBUTION WIDTH 25.3 % (11.6-16.5); WHITE BLOOD COUNT 11.8 X10^3/uL (3.6-10.0)
[2021-03-10 05:11] LABS: ALANINE AMINOTRANSFERASE 26 Units/L (12-78); ALBUMIN 2.2 g/dL (3.4-5.0); ALKALINE PHOSPHATASE 50 Units/L (46-116); ASPARTATE AMINO TRANSFERASE 25 Units/L (15-37); BLOOD UREA NITROGEN 23 mg/dL (7-18); CALCIUM 8.2 mg/dL (8.5-10.1); CHLORIDE 99 mmol/L (98-107); COR CA(FOR HYPOALB) 9.6 mg/dL (8.5-10.1); COR NA(FOR HYPERGLY) 142 mmol/L (136-145); CREATININE 0.59 mg/dL (0.55-1.02); SODIUM 138 mmol/L (136-145); TOTAL PROTEIN 4.7 g/dL (6.4-8.2); eGFR NON BLACK RACES > 60 (>60)
[2021-03-10 05:18] LABS: CARBON DIOXIDE 40.3 mmol/L (21-32)
[2021-03-10] MEDS: Atrovent NEB TX 0.02% NEB SCH ×3 (05:23→20:51)
[2021-03-10] MEDS: XOPENEX 1.25 MG/3 ML NEBULE NEB SCH ×3 (05:23→20:51)
[2021-03-10 05:45] LABS: ANISOCYTOSIS 3+; BAND NEUTROPHILS % 5 % (0-10); PLATELET MORPHOLOGY COMMENT NORMAL (NORMAL)
[2021-03-10] MEDS: SOLU-Medrol 40 MG VIAL IVP SCH ×3 (06:15→22:10)
[2021-03-10] MEDS: NYSTATIN SUSP PO SCH ×3 (06:15→22:10)
[2021-03-10] MEDS: ZOSYN VIAL 2.25 GRAMS 2.25 G in NS 100 ML IV + SPIKE MINIBAG* 100 ML IV SCH ×3 (06:15→22:10)
[2021-03-10] MEDS: NS 1,000 ML IV 1,000 ML IV SCH (06:31)
--- NOTE | 2021-03-10 08:15 | RAD ---
HISTORYSOBSTUDYCHEST, 1 [id number] cardiomediastinal silhouette is stable. Similar post sternotomy and valve replacement changes. Similar bilateral airspace opacities. The bony thorax appears intact.IMPRESSIONNo significant change.Electronically signed by: MARIA T GARCIA (Mar 10, 2021 08:13:42)
[2021-03-10] MEDS: ASCORBIC ACID INJ MULTI-DOSE VIAL 1,500 MG in NS 50 ML IV 50 ML IV SCH ×2 (08:23→22:10)
[2021-03-10] MEDS: ZINC SULFATE PO SCH ×2 (08:31→22:10)
[2021-03-10] MEDS: ELIQUIS PO SCH ×2 (08:31→22:10)
[2021-03-10] MEDS: CORDARONE TAB 200 MG PO SCH (08:32)
[2021-03-10] MEDS: FLONASE NASAL SPRAY ENOSTRIL SCH (08:32)
[2021-03-10] MEDS: FLUVOXAMINE MALEATE PO SCH ×2 (08:33→22:10)
[2021-03-10] MEDS: LANOXIN or DIGITEK PO SCH (08:33)
[2021-03-10] MEDS: PEPCID TAB 40 MG PO SCH ×2 (08:35→22:10)
[2021-03-10] MEDS: VITAMIN A PO SCH (08:36)
[2021-03-10] MEDS: SYNTHROID 125 mcg TAB PO SCH (08:37)
[2021-03-10] MEDS: VITAMIN D3 125 mcg (5,000 UNITS) PO SCH (08:38)
[2021-03-10] MEDS: LASIX IVP SCH ×2 (08:38→22:10)
[2021-03-10] MEDS: THIAMINE HCL INJ IVP SCH ×2 (08:39→22:10)
[2021-03-10] MEDS: PROTONIX INJ 40 MG VIAL IVP SCH ×2 (08:39→22:10)
[2021-03-10] MEDS: LEVAQUIN PREMIX IV 500 MG 500 MG/100 ML BAG IV SCH (08:52)
[2021-03-10] MEDS: PULMICORT NEB TX 0.5 MG NEB SCH ×2 (09:30→20:51)
--- NOTE | 2021-03-10 10:01 | PCM.PROG ---
Progress Note - Progress Note for Day of Date of Exam: 03/10/21 - Subjective Subjective: IS BEING TREATED FOR BILATERAL LOWER LOBE PNEUMONIA, HYPOXIA, AND HYPOKALEMIA. TODAY, SHE IS LYING ALERT AND ORIENTED, LYING IN BED ON MORNING ROUNDS. SHE CONTINUES WITH WEAKNESS AND SHORTNESS OF BREATH. COUGH IS INTERMITTENT AND NON-PRODUCTIVE. SHE CONTINUES TO HAVE SLIGHT IMPROVEMENT DAILY. SHE IS CURRENTLY ON HEATED HIGH FLOW OXYGEN AT 54%. SATURATIONS HAVE BEEN 93- 97%. SHE HAS BEEN SITTING UP ON THE SIDE OF THE BED AND PARTICIPATING IN EXERCISES WITH PHYSICAL THERAPY. SHE HAS BEEN IN REHAB AT [facility] DUE TO RECENT ORIF AND EXTERNAL FIXATOR IN PLACE. , ORTHO, REPORTS THAT FIXATOR WILL BE OK TO STAY IN PLACE UNTIL SOMETIME NEXT WEEK. ON EXAMINATION, HE ART IS REGULAR IN RATE AND RHYTHM. BILATERAL LUNGS NOTED WITH DIMINISHED LUNG SOUNDS THROUGHOUT. ABDOMEN IS ROUND, SOFT, AND NON-TENDER WITH NORMAL BOWEL SOUNDS NOTED IN ALL QUADRANTS. EXTERNAL FIXATOR AND DRESSING NOTED TO RIGHT ANKLE/LOWER LEG. HER VITALS THIS MORNING ARE: 97.2-111-17-96%-180/93. LABS WERE OBTAINED. WBC 11.8, RBC 3.07, HGB 8.9, HCT 26.7, CARBON DIOXIDE 40.3, BUN 23, GLUCOSE 259, CALCIUM 8.2, BNP 165, TOTAL PROTEIN 4.7, ALBUMIN 2.2. CHEST XRAY REPEATED AND REVEALED: The cardiomediastinal silhouette is stable. Similar post sternotomy and valve replacement changes. Similar bilateral airspace opacities. The bony thorax appears intact. SHE IS CURRENTLY RECEIVING IV ANTIBIOTICS, REMDESIVIR, NEBULIZER TREATMENTS, SOLU-MEDROL, POTASSIUM AND MAGNESIUM PROTOCOLS, NORMAL SALINE AT 20 ML/HR, IMMUNE SUPPORT SUPPLEMENTS, CARDIZEM, DIGOXIN, AND HER HOME MEDICATIONS RESUMED. WE WILL CONTINUE WITH CURRENT PLAN OF CARE TODAY. OTHERWISE, WE PLAN TO FOLLOW UP WITH AM LABS AND CHEST XRAY AND CONTINUE TO MONITOR. TIME SPENT ON CLINICAL ASSESSMENT, REVIEWING LABS AND IMAGING, DECISION MAKING, AND DOCUMENTATION GREATER THAN 45 MINUTES. - Past Medical Family Social History Past Med/Fam/Surg Hx: No changes since H&P Allergies: Allergies ANGIE Inhibitors Allergy (Verified 03/05/18 10:04) gabapentin Allergy (Verified 03/05/18 09:54) vancomycin Allergy (Verified 03/05/18 09:54) codeine Adverse Reaction (Mild, Verified 03/03/21 01:51) NAUSEA STATED BY PT STATINS Allergy (Uncoded 03/05/18 09:54) - Review of Systems ROS: No change since H&P - Vital Signs and I&O's Vital Signs: Temperature 97.2 F Pulse Rate [Apical] 97 Pulse Rate [Bilateral Radial] 86 Pulse Rate 125 Respiratory Rate 17 Blood Pressure [Left Arm] 139/69 Blood Pressure 180/93 O2 Sat by Pulse Oximetry 96 Intake and Output: Intake & Output 03/07/21 03/08/21 03/09/21 03/10/21 11:59 11:59 11:59 11:59 Intake Total 1884 / 1884 2094 / 2094 2055 / 5 1214 / 1214 Output Total 2150 / 2150 1875 / 1875 1150 / 1150 1555 / 1555 Balance -266 / -266 219 / 219 905 / 905 -341 / -341 - Physical Exam Oriented: Normal Eyes: Normal Ear: Normal Nose: Normal Throat: Normal Respiratory: Generalized, Diminished Cardiovascular: Tachycardia. negative: S3, S4, Murmur : Normal Auscultation: Bowel Sounds: Normal Tenderness: Normal Skin: Wound (RIGHT ANKLE/LOWER LEG EXTERNAL FIXATOR) Musculoskeletal: Shoulder, Right, Leg, Ankle, Foot, Tender Psychiatric: Normal Mood Description: Calm Affect: Normal Speech Pattern: Clear, Appropriate - Laboratory and Diagnostics Result Diagrams: 03/10/21 04:35 03/10/21 04:35 Labs: Laboratory WBC 11.8 X10^3/uL (3.6-10.0) H 03/10/21 04:35 RBC 3.07 X10^6/uL (3.5-5.4) L 03/10/21 04:35 Hgb 8.9 g/dL (12.0-16.0) L 03/10/21 04:35 Hct 26.7 % (36.0-47.0) L 03/10/21 04:35 MCV 87.0 fL (80.0-100.0) 03/10/21 04:35 MCH 29.0 pg (27.0-34.0) 03/10/21 04:35 MCHC 33.3 g/dL (33.0-35.0) 03/10/21 04:35 RDW 25.3 % (11.6-16.5) H 03/10/21 04:35 Plt Count 200 X10^3/uL (150.0-450.0) 03/10/21 04:35 Plt Count Comment Adequate (ADEQUATE) 03/10/21 04:35 MPV 8.2 fL (7.4-11.0) 03/10/21 04:35 Neut % (Auto) 93.3 % (42.0-75.0) H 03/10/21 04:35 Lymph % (Auto) 1.1 % (21.0-51.0) L 03/10/21 04:35 [place] % (Auto) 5.5 % (0.0-13.0) 03/10/21 04:35 Eos % (Auto) 0.0 % (0.9-2.9) L 03/10/21 04:35 Baso % (Auto) 0.1 % (0.2-1.0) L 03/10/21 04:35 Neut # (Auto) 11.0 x10^3/uL (2.2-4.8) H 03/10/21 04:35 Lymph # (Auto) 0.1 X10^3/uL (1.3-2.9) L 03/10/21 04:35 [place] # (Auto) 0.6 x10^3/uL (0.3-0.8) 03/10/21 04:35 Eos # (Auto) 0.0 x10^3/uL (0.0-0.2) 03/10/21 04:35 Baso # (Auto) 0.0 X10^3/uL (0.0-0.1) 03/10/21 04:35 Absolute Nucleated RBC 0.1 /100WBC 03/10/21 04:35 Total Counted 100 03/10/21 04:35 Neutrophils % (Manual) 90 % (39-76) H 03/10/21 04:35 Band Neutrophils % 5 % (0-10) 03/10/21 04:35 Lymphocytes % (Manual) 5 % (13-43) L 03/10/21 04:35 Monocytes % (Manual) 5 % (4-9) 03/09/21 04:20 Metamyelocytes % 2 03/07/21 04:15 Myelocytes % 1 03/02/21 05:12 Plt Morphology Comment Normal (NORMAL) 03/10/21 04:35 RBC Morphology Abnormal (NORMAL) A 03/10/21 04:35 Dimorphic RBCs 1+ 03/10/21 04:35 Hypochromasia 1+ A 03/09/21 04:20 Anisocytosis 3+ A 03/10/21 04:35 D-Dimer 1.06 ug/ml (0.0-0.57) H* 02/26/21 01:48 EST Sample Site Rrad 03/07/21 05:39 ABG pH 7.490 (7.35-7.45) H 03/07/21 05:39 ABG pCO2 61.0 mmHg (35.0-45.0) H* 03/07/21 05:39 ABG pO2 65.0 mmHg (80.0-100.0) L 03/07/21 05:39 ABG HCO3 46.5 mmol/L (22-26) H* 03/07/21 05:39 ABG O2 Saturation 94.0 % (90-100) 03/07/21 05:39 ABG Base Excess 19.8 mmol/L (-2.0-2.0) H 03/07/21 05:39 Singh Test Pos 03/07/21 05:39 A-a Gradient 500.0 mmHg 03/07/21 05:39 FiO2 90.0 03/07/21 05:39 Blood Gas Comments Rufino abg well-mtf 03/07/21 05:39 Sodium 138 mmol/L (136-145) 03/10/21 04:35 Corrected Sodium 142 mmol/L (136-145) 03/10/21 04:35 Potassium 3.8 mmol/L (3.5-5.1) 03/10/21 04:35 Chloride 99 mmol/L (98-107) 03/10/21 04:35 Carbon Dioxide 40.3 mmol/L (21-32) H* 03/10/21 04:35 BUN 23 mg/dL (7-18) H 03/10/21 04:35 Creatinine 0.59 mg/dL (0.55-1.02) 03/10/21 04:35 Est GFR (MDRD) Af Amer > 60 (>60) 03/10/21 04:35 Est GFR (MDRD) Non-Af > 60 (>60) 03/10/21 04:35 Glucose 259 mg/dL (65-99) H 03/10/21 04:35 Calcium 8.2 mg/dL (8.5-10.1) L 03/10/21 04:35 Corrected Calcium 9.6 mg/dL (8.5-10.1) 03/10/21 04:35 Magnesium 2.4 mg/dL (1.7-2.9) 03/07/21 04:15 Total Bilirubin 0.50 mg/dL (0.2-1.0) 03/10/21 04:35 AST 25 Units/L (15-37) 03/10/21 04:35 ALT 26 Units/L (12-78) 03/10/21 04:35 Alkaline Phosphatase 50 Units/L (46-116) 03/10/21 04:35 C-Reactive Protein 2.00 mg/L (0-3.0) 03/10/21 04:35 B-Natriuretic Peptide 165 pg/mL (0-79) H 03/10/21 04:35 Total Protein 4.7 g/dL (6.4-8.2) L 03/10/21 04:35 Albumin 2.2 g/dL (3.4-5.0) L 03/10/21 04:35 Globulin 2.5 g/dL (2.5-4.5) 03/10/21 04:35 Albumin/Globulin Ratio 0.9 Ratio (1.1-2.1) L 03/10/21 04:35 Specimen Type Catherized urine 02/28/21 16:42 Urine Color Pale yellow (YELLOW) 02/28/21 16:42 Urine Appearance Clear (CLEAR) 02/28/21 16:42 Urine pH 6.0 (5.0 - 8.0) 02/28/21 16:42 Ur Specific [place] 1.005 (1.000-1.030) 02/28/21 16:42 Urine Protein Negative (NEGATIVE) 02/28/21 16:42 Urine Glucose (UA) Negative (NEGATIVE) 02/28/21 16:42 Urine Ketones Negative (NEGATIVE) 02/28/21 16:42 Urine Occult Blood 2+ (NEGATIVE) 02/28/21 16:42 Urine Nitrite Negative (NEGATIVE) 02/28/21 16:42 Urine Bilirubin Negative (NEGATIVE) 02/28/21 16:42 Urine Urobilinogen Normal (NORMAL) 02/28/21 16:42 Ur Leukocyte Esterase Negative (NEGATIVE) 02/28/21 16:42 Urine RBC 10-20 /HPF (0-3) A 02/28/21 16:42 Urine WBC 0-2 /HPF (0-5) 02/28/21 16:42 Ur Squamous Epith Cells Rare /HPF (NEGATIVE) 02/28/21 16:42 Calcium Oxalate Crystal Rare /HPF (NEGATIVE) 02/28/21 16:42 Amorphous Sediment 2+ /HPF (NEGATIVE) 02/26/21 04:47 Urine Bacteria Trace /HPF (NEGATIVE) 02/28/21 16:42 Hyaline Casts Many /LPF (NEGATIVE) 02/26/21 04:47 Urine Mucus Rare /HPF (NEGATIVE) 02/28/21 16:42 Ur Culture Indicated? No/not indicated 02/28/21 16:42 Digoxin 0.78 ng/mL (0.9-2) L 03/06/21 04:30 SARS-CoV-2 (PCR) Negative (NEGATIVE) 02/26/21 01:40 EST Influenza Type A (PCR) Negative (NEGATIVE) 02/26/21 01:40 EST Influenza Type B (PCR) Negative (NEGATIVE) 02/26/21 01:40 EST RSV (PCR) Negative (NEGATIVE) 02/26/21 01:40 EST Resp Viral Panel (PCR) See scanned report 02/27/21 12:23 - Plan (1) Pneumonia Status: Acute Qualifiers: Pneumonia type: due to unspecified organism Laterality: bilateral Lung location: unspecified part of lung Qualified Code(s): J18.9 - Pneumonia, unspecified organism Plan: SUPPLEMENTAL OXYGEN, SOLU-MEDROL, LASIX 20MG IV BID, IV ANTIBIOTICS, CARDIZEM, DIGOXIN, RESPIRATORY TREATMENTS, POTASSIUM AND MAGNESIUM PROTOCOL, IMMUNE SUPPORT SUPPLEMENTS, RESUME HOME MEDS. Continue treatment. (2) Hypoxia Status: Acute (3) Acute hypokalemia Status: Acute Plan: Potassium replacement protocol. (4) Status post ORIF of fracture of ankle Status: Acute
[2021-03-10] MEDS: DIFLUCAN 200 MG IV PREMIX* 200 MG/100 ML BAG IV SCH (10:19)
[2021-03-10] MEDS: VOLTAREN 1 % GEL MULTI DOSE TUBE TOP SCH ×3 (11:16→22:10)
[2021-03-10] MEDS: CARDIZEM CD 180 MG 24-HR PO SCH (22:10)
[2021-03-10] MEDS: MELATONIN PO SCH (22:10)
[2021-03-10] MEDS: SENOKOT PO SCH (22:10)
[2021-03-11 05:54] LABS: BASOPHILS % (AUTO) 0.1 % (0.2-1.0); HEMATOCRIT 27.2 % (36.0-47.0); HEMOGLOBIN 8.9 g/dL (12.0-16.0); LYMPHOCYTES # (AUTO) 0.2 X10^3/uL (1.3-2.9); LYMPHOCYTES % (AUTO) 1.7 % (21.0-51.0); MEAN CORPUSCULAR HEMOGLOBIN 28.8 pg (27.0-34.0); MEAN CORPUSCULAR HGB CONC 32.8 g/dL (33.0-35.0); MEAN CORPUSCULAR VOLUME 87.7 fL (80.0-100.0); MEAN PLATELET VOLUME 8.3 fL (7.4-11.0); MONOCYTES # (AUTO) 0.7 x10^3/uL (0.3-0.8); MONOCYTES % (AUTO) 5.6 % (0.0-13.0); NEUTROPHILS # (AUTO) 10.8 x10^3/uL (2.2-4.8); NEUTROPHILS % (AUTO) 92.6 % (42.0-75.0); PLATELET COUNT 191 X10^3/uL (150.0-450.0); RED CELL DISTRIBUTION WIDTH 25.2 % (11.6-16.5); WHITE BLOOD COUNT 11.7 X10^3/uL (3.6-10.0)
[2021-03-11] MEDS: Atrovent NEB TX 0.02% NEB SCH ×3 (05:59→20:30)
[2021-03-11] MEDS: XOPENEX 1.25 MG/3 ML NEBULE NEB SCH ×3 (05:59→20:30)
[2021-03-11 06:08] LABS: ALANINE AMINOTRANSFERASE 28 Units/L (12-78); ALBUMIN 2.3 g/dL (3.4-5.0); ALKALINE PHOSPHATASE 50 Units/L (46-116); ASPARTATE AMINO TRANSFERASE 23 Units/L (15-37); BLOOD UREA NITROGEN 20 mg/dL (7-18); CALCIUM 8.2 mg/dL (8.5-10.1); CHLORIDE 98 mmol/L (98-107); COR CA(FOR HYPOALB) 9.6 mg/dL (8.5-10.1); COR NA(FOR HYPERGLY) 143 mmol/L (136-145); CREATININE 0.54 mg/dL (0.55-1.02); SODIUM 139 mmol/L (136-145); eGFR NON BLACK RACES > 60 (>60)
[2021-03-11] MEDS: VOLTAREN 1 % GEL MULTI DOSE TUBE TOP SCH ×3 (06:10→22:00)
[2021-03-11] MEDS: NYSTATIN SUSP PO SCH ×3 (06:10→22:00)
[2021-03-11] MEDS: SOLU-Medrol 40 MG VIAL IVP SCH ×3 (06:10→22:00)
[2021-03-11] MEDS: ZOSYN VIAL 2.25 GRAMS 2.25 G in NS 100 ML IV + SPIKE MINIBAG* 100 ML IV SCH ×3 (06:10→22:00)
[2021-03-11 06:13] LABS: CARBON DIOXIDE 41.1 mmol/L (21-32)
--- NOTE | 2021-03-11 06:22 | RAD ---
HISTORYSOB HX: CAD, CHF, HTN SX: STENTS, HYSTERECTOMY, GBSTUDYCHEST, 1 [id number] trachea is midline. There is stable mild cardiomegaly. Patient is status post sternotomy. 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 There is again seen interstitial and patchy ground-glass radiopacities involving the lungs bilaterally. There is unchanged some pleural thickening or on small effusion in the left. There is no evidence of pneumothorax.IMPRESSIONStable bilateral interstitial and patchy alveolar radiopacities throughout the lungs.Electronically signed by: Dejah Danielson (Mar 11, 2021 06:21:10)
[2021-03-11 06:28] LABS: PLATELET MORPHOLOGY COMMENT NORMAL (NORMAL)
[2021-03-11 06:30] LABS: ANISOCYTOSIS 3+; TARGET CELLS PRESENT
[2021-03-11 06:32] LABS: HYPOCHROMASIA SLIGHT
[2021-03-11] MEDS: NS 1,000 ML IV 1,000 ML IV SCH (07:14)
[2021-03-11] MEDS: PULMICORT NEB TX 0.5 MG NEB SCH ×3 (07:57→20:30)
[2021-03-11] MEDS: CORDARONE TAB 200 MG PO SCH (08:19)
[2021-03-11] MEDS: ZINC SULFATE PO SCH ×2 (08:20→20:10)
[2021-03-11] MEDS: ELIQUIS PO SCH ×2 (08:20→20:08)
[2021-03-11] MEDS: VITAMIN A PO SCH (08:21)
[2021-03-11] MEDS: VITAMIN D3 125 mcg (5,000 UNITS) PO SCH (08:21)
[2021-03-11] MEDS: SYNTHROID 125 mcg TAB PO SCH (08:22)
[2021-03-11] MEDS: PEPCID TAB 40 MG PO SCH ×2 (08:22→20:09)
[2021-03-11] MEDS: PROTONIX INJ 40 MG VIAL IVP SCH ×2 (08:22→20:09)
[2021-03-11] MEDS: FLUVOXAMINE MALEATE PO SCH ×2 (08:22→20:09)
[2021-03-11] MEDS: LASIX IVP SCH ×2 (08:23→20:09)
[2021-03-11] MEDS: FLONASE NASAL SPRAY ENOSTRIL SCH (08:23)
[2021-03-11] MEDS: LANOXIN or DIGITEK PO SCH (08:23)
[2021-03-11] MEDS: ASCORBIC ACID INJ MULTI-DOSE VIAL 1,500 MG in NS 50 ML IV 50 ML IV SCH ×2 (09:30→20:04)
--- NOTE | 2021-03-11 09:49 | PCM.PROG ---
Progress Note - Progress Note for Day of Date of Exam: 03/11/21 - Subjective Subjective: IS BEING TREATED FOR BILATERAL LOWER LOBE PNEUMONIA, HYPOXIA, AND HYPOKALEMIA. TODAY, SHE IS LYING ALERT AND ORIENTED, LYING IN BED ON MORNING ROUNDS. SHE CONTINUES WITH WEAKNESS AND SHORTNESS OF BREATH AT TIMES. COUGH IS INTERMITTENT AND NON-PRODUCTIVE. SHE CONTINUES TO HAVE SLIGHT IMPROVEMENT DAILY. SHE IS CURRENTLY ON HEATED HIGH FLOW OXYGEN AT 55%. SATURATIONS HAVE BEEN 92-98%. SHE HAS BEEN SITTING UP ON THE SIDE OF THE BED AND PARTICIPATING IN EXERCISES WITH PHYSICAL THERAPY. SHE HAS BEEN IN REHAB AT [facility] DUE TO RECENT ORIF AND EXTERNAL FIXATOR IN PLACE. , ORTHO, REPORTS THAT FIXATOR WILL BE OK TO STAY IN PLACE UNTIL SOMETIME NEXT WEEK. ON EXAMINATION, HEART IS REGULAR IN RATE AND RHYTHM. BILATERAL LUNGS NOTED WITH DIMINISHED LUNG SOUNDS THROUGHOUT. ABDOMEN IS ROUND, SOFT, AND NON-TENDER WITH NORMAL BOWEL SOUNDS NOTED IN ALL QUADRANTS. EXTERNAL FIXATOR AND DRESSING NOTED TO RIGHT ANKLE/LOWER LEG. HER VITALS THIS MORNING ARE: 97.9-100-20-98%- 188/77. LABS WERE OBTAINED. ABNORMAL LAB VALUES INCLUDE THE FOLLOWING: WBC 11.7, RBC 3.10, HGB 8.9, HCT 27.2, POTASSIUM 3.4, CARBON DIOXIDE 41.1, BUN 20, CREATININE 0.54, GLUCOSE 249, CALCIUM 8.2, TOTAL PROTEIN 5.0, ALBUMIN 2.3. CHEST XRAY REPEATED AND REVEALED: Stable bilateral interstitial and patchy alveolar radiopacities throughout the lungs. SHE IS CURRENTLY RECEIVING IV ANTIBIOTICS, REMDESIVIR, NEBULIZER TREATMENTS, SOLU-MEDROL, POTASSIUM AND MAGNESIUM PROTOCOLS, NORMAL SALINE AT 20 ML/HR, IMMUNE SUPPORT SUPPLEMENTS, CARDIZEM, DIGOXIN, AND HER HOME MEDICATIONS RESUMED. WE WILL CONTINUE WITH CURRENT PLAN OF CARE TODAY. OTHERWISE, WE PLAN TO FOLLOW UP WITH AM LABS AND CHEST XRAY AND CON TINUE TO MONITOR. TIME SPENT ON CLINICAL ASSESSMENT, REVIEWING LABS AND IMAGING, DECISION MAKING, AND DOCUMENTATION GREATER THAN 45 MINUTES. - Past Medical Family Social History Past Med/Fam/Surg Hx: No changes since H&P Allergies: Allergies ANGIE Inhibitors Allergy (Verified 03/05/18 10:04) gabapentin Allergy (Verified 03/05/18 09:54) vancomycin Allergy (Verified 03/05/18 09:54) codeine Adverse Reaction (Mild, Verified 03/03/21 01:51) NAUSEA STATED BY PT STATINS Allergy (Uncoded 03/05/18 09:54) - Review of Systems ROS: No change since H&P - Vital Signs and I&O's Vital Signs: Temperature 97.6 F Pulse Rate [Apical] 97 Pulse Rate [Bilateral Radial] 86 Pulse Rate 102 Respiratory Rate 20 Blood Pressure [Left Arm] 139/69 Blood Pressure 188/77 O2 Sat by Pulse Oximetry 98 Intake and Output: Intake & Output 03/08/21 03/09/21 03/10/21 03/11/21 11:59 11:59 11:59 11:59 Intake Total 2094 / 4 2055 / 5 1214 / 1214 2150 / 2150 Output Total 1875 / 1875 1150 / 1150 1555 / 1555 1450 / 1450 Balance 219 / 219 905 / 905 -341 / -341 700 / 700 - Physical Exam Oriented: Normal Eyes: Normal Ear: Normal Nose: Normal Throat: Normal Respiratory: Generalized, Diminished Cardiovascular: Tachycardia. negative: S3, S4, Murmur : Normal Auscultation: Bowel Sounds: Normal Tenderness: Normal Skin: Wound (RIGHT ANKLE/LOWER LEG EXTERNAL FIXATOR) Musculoskeletal: Shoulder, Right, Leg, Ankle, Foot, Tender Psychiatric: Normal Mood Description: Calm Affect: Normal Speech Pattern: Clear, Appropriate - Laboratory and Diagnostics Result Diagrams: 03/11/21 05:07 03/11/21 05:07 Labs: Laboratory WBC 11.7 X10^3/uL (3.6-10.0) H 03/11/21 05:07 RBC 3.10 X10^6/uL (3.5-5.4) L 03/11/21 05:07 Hgb 8.9 g/dL (12.0-16.0) L 03/11/21 05:07 Hct 27.2 % (36.0-47.0) L 03/11/21 05:07 MCV 87.7 fL (80.0-100.0) 03/11/21 05:07 MCH 28.8 pg (27.0-34.0) 03/11/21 05:07 MCHC 32.8 g/dL (33.0-35.0) L 03/11/21 05:07 RDW 25.2 % (11.6-16.5) H 03/11/21 05:07 Plt Count 191 X10^3/uL (150.0-450.0) 03/11/21 05:07 Plt Count Comment Adequate (ADEQUATE) 03/11/21 05:07 MPV 8.3 fL (7.4-11.0) 03/11/21 05:07 Neut % (Auto) 92.6 % (42.0-75.0) H 03/11/21 05:07 Lymph % (Auto) 1.7 % (21.0-51.0) L 03/11/21 05:07 [place] % (Auto) 5.6 % (0.0-13.0) 03/11/21 05:07 Eos % (Auto) 0.0 % (0.9-2.9) L 03/11/21 05:07 Baso % (Auto) 0.1 % (0.2-1.0) L 03/11/21 05:07 Neut # (Auto) 10.8 x10^3/uL (2.2-4.8) H 03/11/21 05:07 Lymph # (Auto) 0.2 X10^3/uL (1.3-2.9) L 03/11/21 05:07 [place] # (Auto) 0.7 x10^3/uL (0.3-0.8) 03/11/21 05:07 Eos # (Auto) 0.0 x10^3/uL (0.0-0.2) 03/11/21 05:07 Baso # (Auto) 0.0 X10^3/uL (0.0-0.1) 03/11/21 05:07 Absolute Nucleated RBC 0.1 /100WBC 03/11/21 05:07 Total Counted 100 03/11/21 05:07 Neutrophils % (Manual) 91 % (39-76) H 03/11/21 05:07 Band Neutrophils % 5 % (0-10) 03/10/21 04:35 Lymphocytes % (Manual) 4 % (13-43) L 03/11/21 05:07 Monocytes % (Manual) 5 % (4-9) 03/11/21 05:07 Metamyelocytes % 2 03/07/21 04:15 Myelocytes % 1 03/02/21 05:12 Plt Morphology Comment Normal (NORMAL) 03/11/21 05:07 RBC Morphology Abnormal (NORMAL) A 03/11/21 05:07 Dimorphic RBCs Present 03/11/21 05:07 Hypochromasia Slight A 03/11/21 05:07 Anisocytosis 3+ A 03/11/21 05:07 Target Cells Present 03/11/21 05:07 D-Dimer 1.06 ug/ml (0.0-0.57) H* 02/26/21 01:48 EST Sample Site Rrad 03/07/21 05:39 ABG pH 7.490 (7.35-7.45) H 03/07/21 05:39 ABG pCO2 61.0 mmHg (35.0-45.0) H* 03/07/21 05:39 ABG pO2 65.0 mmHg (80.0-100.0) L 03/07/21 05:39 ABG HCO3 46.5 mmol/L (22-26) H* 03/07/21 05:39 ABG O2 Saturation 94.0 % (90-100) 03/07/21 05:39 ABG Base Excess 19.8 mmol/L (-2.0-2.0) H 03/07/21 05:39 Singh Test Pos 03/07/21 05:39 A-a Gradient 500.0 mmHg 03/07/21 05:39 FiO2 90.0 03/07/21 05:39 Blood Gas Comments Rufino abg well-mtf 03/07/21 05:39 Sodium 139 mmol/L (136-145) 03/11/21 05:07 Corrected Sodium 143 mmol/L (136-145) 03/11/21 05:07 Potassium 3.4 mmol/L (3.5-5.1) L 03/11/21 05:07 Chloride 98 mmol/L (98-107) 03/11/21 05:07 Carbon Dioxide 41.1 mmol/L (21-32) H* 03/11/21 05:07 BUN 20 mg/dL (7-18) H 03/11/21 05:07 Creatinine 0.54 mg/dL (0.55-1.02) L 03/11/21 05:07 Est GFR (MDRD) Af Amer > 60 (>60) 03/11/21 05:07 Est GFR (MDRD) Non-Af > 60 (>60) 03/11/21 05:07 Glucose 249 mg/dL (65-99) H 03/11/21 05:07 Calcium 8.2 mg/dL (8.5-10.1) L 03/11/21 05:07 Corrected Calcium 9.6 mg/dL (8.5-10.1) 03/11/21 05:07 Magnesium 2.1 mg/dL (1.7-2.9) 03/11/21 05:07 Total Bilirubin 0.60 mg/dL (0.2-1.0) 03/11/21 05:07 AST 23 Units/L (15-37) 03/11/21 05:07 ALT 28 Units/L (12-78) 03/11/21 05:07 Alkaline Phosphatase 50 Units/L (46-116) 03/11/21 05:07 C-Reactive Protein 1.40 mg/L (0-3.0) 03/11/21 05:07 B-Natriuretic Peptide 165 pg/mL (0-79) H 03/10/21 04:35 Total Protein 5.0 g/dL (6.4-8.2) L 03/11/21 05:07 Albumin 2.3 g/dL (3.4-5.0) L 03/11/21 05:07 Globulin 2.7 g/dL (2.5-4.5) 03/11/21 05:07 Albumin/Globulin Ratio 0.9 Ratio (1.1-2.1) L 03/11/21 05:07 Specimen Type Catherized urine 02/28/21 16:42 Urine Color Pale yellow (YELLOW) 02/28/21 16:42 Urine Appearance Clear (CLEAR) 02/28/21 16:42 Urine pH 6.0 (5.0 - 8.0) 02/28/21 16:42 Ur Specific [place] 1.005 (1.000-1.030) 02/28/21 16:42 Urine Protein Negative (NEGATIVE) 02/28/21 16:42 Urine Glucose (UA) Negative (NEGATIVE) 02/28/21 16:42 Urine Ketones Negative (NEGATIVE) 02/28/21 16:42 Urine Occult Blood 2+ (NEGATIVE) 02/28/21 16:42 Urine Nitrite Negative (NEGATIVE) 02/28/21 16:42 Urine Bilirubin Negative (NEGATIVE) 02/28/21 16:42 Urine Urobilinogen Normal (NORMAL) 02/28/21 16:42 Ur Leukocyte Esterase Negative (NEGATIVE) 02/28/21 16:42 Urine RBC 10-20 /HPF (0-3) A 02/28/21 16:42 Urine WBC 0-2 /HPF (0-5) 02/28/21 16:42 Ur Squamous Epith Cells Rare /HPF (NEGATIVE) 02/28/21 16:42 Calcium Oxalate Crystal Rare /HPF (NEGATIVE) 02/28/21 16:42 Amorphous Sediment 2+ /HPF (NEGATIVE) 02/26/21 04:47 Urine Bacteria Trace /HPF (NEGATIVE) 02/28/21 16:42 Hyaline Casts Many /LPF (NEGATIVE) 02/26/21 04:47 Urine Mucus Rare /HPF (NEGATIVE) 02/28/21 16:42 Ur Culture Indicated? No/not indicated 02/28/21 16:42 Digoxin 0.78 ng/mL (0.9-2) L 03/06/21 04:30 SARS-CoV-2 (PCR) Negative (NEGATIVE) 02/26/21 01:40 EST Influenza Type A (PCR) Negative (NEGATIVE) 02/26/21 01:40 EST Influenza Type B (PCR) Negative (NEGATIVE) 02/26/21 01:40 EST RSV (PCR) Negative (NEGATIVE) 02/26/21 01:40 EST Resp Viral Panel (PCR) See scanned report 02/27/21 12:23 - Plan (1) Pneumonia Status: Acute Qualifiers: Pneumonia type: due to unspecified organism Laterality: bilateral Lung location: unspecified part of lung Qualified Code(s): J18.9 - Pneumonia, unspecified organism Plan: SUPPLEMENTAL OXYGEN, SOLU-MEDROL, LASIX 20MG IV BID, IV ANTIBIOTICS, CARDIZEM, DIGOXIN, RESPIRATORY TREATMENTS, POTASSIUM AND MAGNESIUM PROTOCOL, IMMUNE SUPPORT SUPPLEMENTS, RESUME HOME MEDS. Continue treatment. (2) Hypoxia Status: Acute (3) Acute hypokalemia Status: Acute Plan: Potassium replacement protocol. (4) Status post ORIF of fracture of ankle Status: Acute
[2021-03-11] MEDS: LEVAQUIN PREMIX IV 500 MG 500 MG/100 ML BAG IV SCH (10:01)
[2021-03-11] MEDS: DIFLUCAN 200 MG IV PREMIX* 200 MG/100 ML BAG IV SCH (11:25)
[2021-03-11] MEDS: THIAMINE HCL INJ IVP SCH ×2 (14:49→20:10)
[2021-03-11] MEDS: CARDIZEM CD 180 MG 24-HR PO SCH (20:04)
[2021-03-11] MEDS: MELATONIN PO SCH (20:09)
[2021-03-11] MEDS: SENOKOT PO SCH (20:10)
[2021-03-11] MEDS: K-DUR TAB 20 MEQ PO PRN (20:11)
[2021-03-12] MEDS: NYSTATIN SUSP PO SCH ×3 (05:21→21:14)
[2021-03-12] MEDS: ZOSYN VIAL 2.25 GRAMS 2.25 G in NS 100 ML IV + SPIKE MINIBAG* 100 ML IV SCH ×3 (05:21→21:15)
[2021-03-12] MEDS: VOLTAREN 1 % GEL MULTI DOSE TUBE TOP SCH ×3 (05:22→21:14)
[2021-03-12] MEDS: NS 1,000 ML IV 1,000 ML IV SCH (05:22)
[2021-03-12] MEDS: SOLU-Medrol 40 MG VIAL IVP SCH ×3 (05:22→21:14)
[2021-03-12 05:59] LABS: BASOPHILS % (AUTO) 0.1 % (0.2-1.0); HEMATOCRIT 25.6 % (36.0-47.0); HEMOGLOBIN 8.7 g/dL (12.0-16.0); LYMPHOCYTES # (AUTO) 0.2 X10^3/uL (1.3-2.9); LYMPHOCYTES % (AUTO) 1.5 % (21.0-51.0); MEAN CORPUSCULAR HEMOGLOBIN 29.9 pg (27.0-34.0); MEAN CORPUSCULAR VOLUME 87.9 fL (80.0-100.0); MEAN PLATELET VOLUME 8.5 fL (7.4-11.0); MONOCYTES # (AUTO) 0.6 x10^3/uL (0.3-0.8); MONOCYTES % (AUTO) 5.3 % (0.0-13.0); NEUTROPHILS # (AUTO) 10.6 x10^3/uL (2.2-4.8); NEUTROPHILS % (AUTO) 93.1 % (42.0-75.0); PLATELET COUNT 166 X10^3/uL (150.0-450.0); RED BLOOD COUNT 2.91 X10^6/uL (3.5-5.4); RED CELL DISTRIBUTION WIDTH 25.2 % (11.6-16.5); WHITE BLOOD COUNT 11.3 X10^3/uL (3.6-10.0)
[2021-03-12] MEDS: XOPENEX 1.25 MG/3 ML NEBULE NEB SCH ×4 (06:01→20:10)
[2021-03-12] MEDS: Atrovent NEB TX 0.02% NEB SCH ×5 (06:01→20:10)
[2021-03-12 06:03] LABS: ALANINE AMINOTRANSFERASE 27 Units/L (12-78); ALBUMIN 2.2 g/dL (3.4-5.0); ALKALINE PHOSPHATASE 47 Units/L (46-116); ASPARTATE AMINO TRANSFERASE 21 Units/L (15-37); BLOOD UREA NITROGEN 18 mg/dL (7-18); CALCIUM 8.1 mg/dL (8.5-10.1); CARBON DIOXIDE 38.4 mmol/L (21-32); CHLORIDE 98 mmol/L (98-107); COR CA(FOR HYPOALB) 9.5 mg/dL (8.5-10.1); COR NA(FOR HYPERGLY) 146 mmol/L (136-145); CREATININE 0.55 mg/dL (0.55-1.02); SODIUM 142 mmol/L (136-145); TOTAL PROTEIN 4.7 g/dL (6.4-8.2); eGFR NON BLACK RACES > 60 (>60)
[2021-03-12] MEDS: K-DUR TAB 20 MEQ PO PRN (06:13)
--- NOTE | 2021-03-12 06:59 | RAD ---
HISTORYSOB pneumonia hypoxiaSTUDYAP [id number] cardiomegaly. Cardiac valve prosthesis again noted. Diffuse bilateral airspace disease is again noted with slight interval progression, especially in the right lung. No associated pleural effusion or extrapulmonary air identified.IMPRESSIONIncreasing bilateral airspace pulmonary involvement consistent with progression of pneumonia/pulmonary edema.Electronically signed by: GLO DESHPANDE (Mar 12, 2021 06:58:01)
[2021-03-12 07:22] LABS: BAND NEUTROPHILS % 2 % (0-10); PLATELET MORPHOLOGY COMMENT NORMAL (NORMAL)
[2021-03-12 07:23] LABS: ANISOCYTOSIS 3+
[2021-03-12 07:24] LABS: HYPOCHROMASIA SLIGHT; TARGET CELLS PRESENT
--- NOTE | 2021-03-12 07:58 | PCM.PROG ---
Progress Note - Progress Note for Day of Date of Exam: 03/12/21 - Subjective Subjective: IS BEING TREATED FOR BILATERAL LOWER LOBE PNEUMONIA, HYPOXIA, AND HYPOKALEMIA. TODAY, SHE IS LYING ALERT AND ORIENTED, LYING IN BED ON MORNING ROUNDS. SHE CONTINUES WITH WEAKNESS AND SHORTNESS OF BREATH AT TIMES. SHE CONTINUES TO HAVE SLIGHT IMPROVEMENT DAILY. SHE IS CURRENTLY ON OXYGEN VIA NASAL CANNULA AT 6 LITERS/MINUTE. SATURATIONS HAVE BEEN 93-96%. SHE HAS BEEN SITTING UP ON THE SIDE OF THE BED AND PARTICIPATING IN EXERCISES WITH PHYSICAL THERAPY. SHE HAS BEEN IN REHAB AT [facility] DUE TO RECENT ORIF AND EXTERNAL FIXATOR IN PLACE. , ORTHO, REPORTS THAT FIXATOR WILL BE OK TO STAY IN PLACE UNTIL SOMETIME NEXT WEEK. ON EXAMINATION, HEART IS REGULAR IN RATE AND RHYTHM. BILATERAL LUNGS NOTED WITH DIMINISHED LUNG SOUNDS THROUGHOUT. ABDOMEN IS ROUND, SOFT, AND NON-TENDER WITH NORMAL BOWEL SOUNDS NOTED IN ALL QUADRANTS. EXTERNAL FIXATOR AND DRESSING NOTED TO RIGHT ANKLE/LOWER LEG. HER VITALS THIS MORNING ARE: 97.9-112-12-93%-159/69. LABS WERE OBTAINED. ABNORMAL LAB VALUES INCLUDE THE FOLLOWING: WBC 11.3, RBC 2.91, HGB 8.7, HCT 25.6, POTASSIUM 3.2, CARBON DIOXIDE 38.4, GLUCOSE 286, CALCIUM 8.1, TOTAL PROTEIN 4.7, ALBUMIN 2.2. CHEST XRAY REPEATED AND REVEALED: Increasing bilateral airspace pulmonary involvement consistent with progression of pneumonia/pulmonary edema. SHE IS CURRENTLY RECEIVING IV ANTIBIOTICS, REMDESIVIR, NEBULIZER TREATMENTS, YANETH U-MEDROL, POTASSIUM AND MAGNESIUM PROTOCOLS, NORMAL SALINE AT 20 ML/HR, IMMUNE SUPPORT SUPPLEMENTS, CARDIZEM, DIGOXIN, AND HER HOME MEDICATIONS RESUMED. TODAY, WE WILL INCREASE THE CARDIZEM TO 240MG PO DAILY. OTHERWISE, WE WILL CONTINUE WITH CURRENT PLAN OF CARE TODAY. WE PLAN TO FOLLOW UP WITH AM LABS AND CHEST XRAY AND CONTINUE TO MONITOR. TIME SPENT ON CLINICAL ASSESSMENT, REVIEWING LABS AND IMAGING, DECISION MAKING, AND DOCUMENTATION GREATER THAN 45 MINUTES. - Past Medical Family Social History Past Med/Fam/Surg Hx: No changes since H&P Allergies: Allergies ANGIE Inhibitors Allergy (Verified 03/05/18 10:04) gabapentin Allergy (Verified 03/05/18 09:54) vancomycin Allergy (Verified 03/05/18 09:54) codeine Adverse Reaction (Mild, Verified 03/03/21 01:51) NAUSEA STATED BY PT STATINS Allergy (Uncoded 03/05/18 09:54) - Review of Systems ROS: No change since H&P - Vital Signs and I&O's Vital Signs: Temperature 97.8 F Pulse Rate [Apical] 97 Pulse Rate [Bilateral Radial] 86 Pulse Rate 112 Respiratory Rate 12 Blood Pressure [Left Arm] 139/69 Blood Pressure 159/69 O2 Sat by Pulse Oximetry 93 Intake and Output: Intake & Output 03/09/21 03/10/21 03/11/21 03/12/21 11:59 11:59 11:59 11:59 Intake Total 2055 / 2055 1214 / 1214 2150 / 2150 3061 / 3061 Output Total 1150 / 1150 1555 / 1555 1450 / 1450 1600 / 1600 Balance 905 / 905 -341 / -341 700 / 700 1461 / 1461 - Physical Exam Oriented: Normal Eyes: Normal Ear: Normal Nose: Normal Throat: Normal Respiratory: Generalized, Diminished Cardiovascular: Tachycardia. negative: S3, S4, Murmur : Normal Auscultation: Bowel Sounds: Normal Tenderness: Normal Skin: Wound (RIGHT ANKLE/LOWER LEG EXTERNAL FIXATOR) Musculoskeletal: Shoulder, Right, Leg, Ankle, Foot, Tender Psychiatric: Normal Mood Description: Calm Affect: Normal Speech Pattern: Clear, Appropriate - Laboratory and Diagnostics Result Diagrams: 03/12/21 05:12 03/12/21 05:12 Labs: Laboratory WBC 11.3 X10^3/uL (3.6-10.0) H 03/12/21 05:12 RBC 2.91 X10^6/uL (3.5-5.4) L 03/12/21 05:12 Hgb 8.7 g/dL (12.0-16.0) L 03/12/21 05:12 Hct 25.6 % (36.0-47.0) L 03/12/21 05:12 MCV 87.9 fL (80.0-100.0) 03/12/21 05:12 MCH 29.9 pg (27.0-34.0) 03/12/21 05:12 MCHC 34.0 g/dL (33.0-35.0) 03/12/21 05:12 RDW 25.2 % (11.6-16.5) H 03/12/21 05:12 Plt Count 166 X10^3/uL (150.0-450.0) 03/12/21 05:12 Plt Count Comment Adequate (ADEQUATE) 03/12/21 05:12 MPV 8.5 fL (7.4-11.0) 03/12/21 05:12 Neut % (Auto) 93.1 % (42.0-75.0) H 03/12/21 05:12 Lymph % (Auto) 1.5 % (21.0-51.0) L 03/12/21 05:12 [place] % (Auto) 5.3 % (0.0-13.0) 03/12/21 05:12 Eos % (Auto) 0.0 % (0.9-2.9) L 03/12/21 05:12 Baso % (Auto) 0.1 % (0.2-1.0) L 03/12/21 05:12 Neut # (Auto) 10.6 x10^3/uL (2.2-4.8) H 03/12/21 05:12 Lymph # (Auto) 0.2 X10^3/uL (1.3-2.9) L 03/12/21 05:12 [place] # (Auto) 0.6 x10^3/uL (0.3-0.8) 03/12/21 05:12 Eos # (Auto) 0.0 x10^3/uL (0.0-0.2) 03/12/21 05:12 Baso # (Auto) 0.0 X10^3/uL (0.0-0.1) 03/12/21 05:12 Absolute Nucleated RBC 0.2 /100WBC 03/12/21 05:12 Total Counted 100 03/12/21 05:12 Neutrophils % (Manual) 91 % (39-76) H 03/12/21 05:12 Band Neutrophils % 2 % (0-10) 03/12/21 05:12 Lymphocytes % (Manual) 2 % (13-43) L 03/12/21 05:12 Monocytes % (Manual) 5 % (4-9) 03/12/21 05:12 Metamyelocytes % 2 03/07/21 04:15 Myelocytes % 1 03/02/21 05:12 Plt Morphology Comment Normal (NORMAL) 03/12/21 05:12 RBC Morphology Abnormal (NORMAL) A 03/12/21 05:12 Dimorphic RBCs Present 03/11/21 05:07 Hypochromasia Slight A 03/12/21 05:12 Anisocytosis 3+ A 03/12/21 05:12 Target Cells Present 03/12/21 05:12 D-Dimer 1.06 ug/ml (0.0-0.57) H* 02/26/21 01:48 EST Sample Site Rrad 03/07/21 05:39 ABG pH 7.490 (7.35-7.45) H 03/07/21 05:39 ABG pCO2 61.0 mmHg (35.0-45.0) H* 03/07/21 05:39 ABG pO2 65.0 mmHg (80.0-100.0) L 03/07/21 05:39 ABG HCO3 46.5 mmol/L (22-26) H* 03/07/21 05:39 ABG O2 Saturation 94.0 % (90-100) 03/07/21 05:39 ABG Base Excess 19.8 mmol/L (-2.0-2.0) H 03/07/21 05:39 Singh Test Pos 03/07/21 05:39 A-a Gradient 500.0 mmHg 03/07/21 05:39 FiO2 90.0 03/07/21 05:39 Blood Gas Comments Rufino abg well-mtf 03/07/21 05:39 Sodium 142 mmol/L (136-145) 03/12/21 05:12 Corrected Sodium 146 mmol/L (136-145) H 03/12/21 05:12 Potassium 3.2 mmol/L (3.5-5.1) L 03/12/21 05:12 Chloride 98 mmol/L (98-107) 03/12/21 05:12 Carbon Dioxide 38.4 mmol/L (21-32) H 03/12/21 05:12 BUN 18 mg/dL (7-18) 03/12/21 05:12 Creatinine 0.55 mg/dL (0.55-1.02) 03/12/21 05:12 Est GFR (MDRD) Af Amer > 60 (>60) 03/12/21 05:12 Est GFR (MDRD) Non-Af > 60 (>60) 03/12/21 05:12 Glucose 286 mg/dL (65-99) H 03/12/21 05:12 Calcium 8.1 mg/dL (8.5-10.1) L 03/12/21 05:12 Corrected Calcium 9.5 mg/dL (8.5-10.1) 03/12/21 05:12 Magnesium 1.9 mg/dL (1.7-2.9) 03/12/21 05:12 Total Bilirubin 0.60 mg/dL (0.2-1.0) 03/12/21 05:12 AST 21 Units/L (15-37) 03/12/21 05:12 ALT 27 Units/L (12-78) 03/12/21 05:12 Alkaline Phosphatase 47 Units/L (46-116) 03/12/21 05:12 C-Reactive Protein 1.40 mg/L (0-3.0) 03/11/21 05:07 B-Natriuretic Peptide 165 pg/mL (0-79) H 03/10/21 04:35 Total Protein 4.7 g/dL (6.4-8.2) L 03/12/21 05:12 Albumin 2.2 g/dL (3.4-5.0) L 03/12/21 05:12 Globulin 2.5 g/dL (2.5-4.5) 03/12/21 05:12 Albumin/Globulin Ratio 0.9 Ratio (1.1-2.1) L 03/12/21 05:12 Specimen Type Catherized urine 02/28/21 16:42 Urine Color Pale yellow (YELLOW) 02/28/21 16:42 Urine Appearance Clear (CLEAR) 02/28/21 16:42 Urine pH 6.0 (5.0 - 8.0) 02/28/21 16:42 Ur Specific [place] 1.005 (1.000-1.030) 02/28/21 16:42 Urine Protein Negative (NEGATIVE) 02/28/21 16:42 Urine Glucose (UA) Negative (NEGATIVE) 02/28/21 16:42 Urine Ketones Negative (NEGATIVE) 02/28/21 16:42 Urine Occult Blood 2+ (NEGATIVE) 02/28/21 16:42 Urine Nitrite Negative (NEGATIVE) 02/28/21 16:42 Urine Bilirubin Negative (NEGATIVE) 02/28/21 16:42 Urine Urobilinogen Normal (NORMAL) 02/28/21 16:42 Ur Leukocyte Esterase Negative (NEGATIVE) 02/28/21 16:42 Urine RBC 10-20 /HPF (0-3) A 02/28/21 16:42 Urine WBC 0-2 /HPF (0-5) 02/28/21 16:42 Ur Squamous Epith Cells Rare /HPF (NEGATIVE) 02/28/21 16:42 Calcium Oxalate Crystal Rare /HPF (NEGATIVE) 02/28/21 16:42 Amorphous Sediment 2+ /HPF (NEGATIVE) 02/26/21 04:47 Urine Bacteria Trace /HPF (NEGATIVE) 02/28/21 16:42 Hyaline Casts Many /LPF (NEGATIVE) 02/26/21 04:47 Urine Mucus Rare /HPF (NEGATIVE) 02/28/21 16:42 Ur Culture Indicated? No/not indicated 02/28/21 16:42 Digoxin 1.12 ng/mL (0.9-2) 03/12/21 05:12 SARS-CoV-2 (PCR) Negative (NEGATIVE) 02/26/21 01:40 EST Influenza Type A (PCR) Negative (NEGATIVE) 02/26/21 01:40 EST Influenza Type B (PCR) Negative (NEGATIVE) 02/26/21 01:40 EST RSV (PCR) Negative (NEGATIVE) 02/26/21 01:40 EST Resp Viral Panel (PCR) See scanned report 02/27/21 12:23 - Plan (1) Pneumonia Status: Acute Qualifiers: Pneumonia type: due to unspecified organism Laterality: bilateral Lung location: unspecified part of lung Qualified Code(s): J18.9 - Pneumonia, unspecified organism Plan: SUPPLEMENTAL OXYGEN, SOLU-MEDROL, LASIX 20MG IV BID, IV ANTIBIOTICS, CARDIZEM, DIGOXIN, RESPIRATORY TREATMENTS, POTASSIUM AND MAGNESIUM PROTOCOL, IMMUNE SUPPORT SUPPLEMENTS, RESUME HOME MEDS. Continue treatment. (2) Hypoxia Status: Acute (3) Acute hypokalemia Status: Acute Plan: Potassium replacement protocol. (4) Status post ORIF of fracture of ankle Status: Acute
[2021-03-12] MEDS: PULMICORT NEB TX 0.5 MG NEB SCH ×2 (08:14→20:10)
[2021-03-12] MEDS: CORDARONE TAB 200 MG PO SCH (09:50)
[2021-03-12] MEDS: ASCORBIC ACID INJ MULTI-DOSE VIAL 1,500 MG in NS 50 ML IV 50 ML IV SCH ×2 (09:50→20:10)
[2021-03-12] MEDS: CARDIZEM CD 240 MG 24-HR PO SCH (09:50)
[2021-03-12] MEDS: DIFLUCAN 200 MG IV PREMIX* 200 MG/100 ML BAG IV SCH (09:51)
[2021-03-12] MEDS: ELIQUIS PO SCH ×2 (09:51→20:11)
[2021-03-12] MEDS: FLONASE NASAL SPRAY ENOSTRIL SCH (09:51)
[2021-03-12] MEDS: FLUVOXAMINE MALEATE PO SCH ×2 (09:51→20:11)
[2021-03-12] MEDS: LANOXIN or DIGITEK PO SCH (09:51)
[2021-03-12] MEDS: LASIX IVP SCH ×2 (09:52→20:10)
[2021-03-12] MEDS: NYSTATIN POWDER TOP SCH ×2 (09:52→20:11)
[2021-03-12] MEDS: PEPCID TAB 40 MG PO SCH ×2 (09:52→20:10)
[2021-03-12] MEDS: LEVAQUIN PREMIX IV 500 MG 500 MG/100 ML BAG IV SCH (09:52)
[2021-03-12] MEDS: PROTONIX INJ 40 MG VIAL IVP SCH ×2 (09:53→20:11)
[2021-03-12] MEDS: SYNTHROID 125 mcg TAB PO SCH (09:53)
[2021-03-12] MEDS: ZINC SULFATE PO SCH ×2 (09:53→20:12)
[2021-03-12] MEDS: VITAMIN D3 125 mcg (5,000 UNITS) PO SCH (09:53)
[2021-03-12] MEDS: VITAMIN A PO SCH (09:53)
[2021-03-12] MEDS: THIAMINE HCL INJ IVP SCH ×2 (09:53→20:12)
[2021-03-12] MEDS: XANAX PO PRN (09:54)
[2021-03-12] MEDS: MAGNESIUM SULFATE 1 GRAM/100 mL PREMIX 1 G/100 ML BAG IV PRN ×2 (09:54→11:32)
[2021-03-12] MEDS: MELATONIN PO SCH (20:10)
[2021-03-12] MEDS: SENOKOT PO SCH (20:10)
[2021-03-13 05:32] LABS: BASOPHILS % (AUTO) 0.1 % (0.2-1.0); HEMATOCRIT 24.6 % (36.0-47.0); HEMOGLOBIN 8.1 g/dL (12.0-16.0); LYMPHOCYTES # (AUTO) 0.1 X10^3/uL (1.3-2.9); MEAN CORPUSCULAR HEMOGLOBIN 29.2 pg (27.0-34.0); MEAN CORPUSCULAR VOLUME 88.4 fL (80.0-100.0); MEAN PLATELET VOLUME 8.8 fL (7.4-11.0); MONOCYTES # (AUTO) 0.4 x10^3/uL (0.3-0.8); NEUTROPHILS # (AUTO) 10.6 x10^3/uL (2.2-4.8); NEUTROPHILS % (AUTO) 94.9 % (42.0-75.0); PLATELET COUNT 152 X10^3/uL (150.0-450.0); RED BLOOD COUNT 2.78 X10^6/uL (3.5-5.4); RED CELL DISTRIBUTION WIDTH 25.4 % (11.6-16.5); WHITE BLOOD COUNT 11.1 X10^3/uL (3.6-10.0)
[2021-03-13] MEDS: XOPENEX 1.25 MG/3 ML NEBULE NEB SCH ×3 (05:35→20:27)
[2021-03-13] MEDS: Atrovent NEB TX 0.02% NEB SCH ×3 (05:35→20:27)
[2021-03-13 05:44] LABS: ALANINE AMINOTRANSFERASE 25 Units/L (12-78); ALBUMIN 2.2 g/dL (3.4-5.0); ALKALINE PHOSPHATASE 44 Units/L (46-116); ASPARTATE AMINO TRANSFERASE 21 Units/L (15-37); BLOOD UREA NITROGEN 16 mg/dL (7-18); CALCIUM 8.1 mg/dL (8.5-10.1); CARBON DIOXIDE 38.3 mmol/L (21-32); CHLORIDE 100 mmol/L (98-107); COR CA(FOR HYPOALB) 9.5 mg/dL (8.5-10.1); COR NA(FOR HYPERGLY) 146 mmol/L (136-145); CREATININE 0.56 mg/dL (0.55-1.02); MAGNESIUM 2.3 mg/dL (1.7-2.9); SODIUM 141 mmol/L (136-145); TOTAL PROTEIN 4.6 g/dL (6.4-8.2); eGFR NON BLACK RACES > 60 (>60)
[2021-03-13] MEDS: SOLU-Medrol 40 MG VIAL IVP SCH ×3 (05:46→21:01)
[2021-03-13] MEDS: NYSTATIN SUSP PO SCH ×3 (05:46→21:01)
[2021-03-13] MEDS: NS 1,000 ML IV 1,000 ML IV SCH (05:46)
[2021-03-13] MEDS: VOLTAREN 1 % GEL MULTI DOSE TUBE TOP SCH ×3 (05:47→21:01)
[2021-03-13] MEDS: ZOSYN VIAL 2.25 GRAMS 2.25 G in NS 100 ML IV + SPIKE MINIBAG* 100 ML IV SCH ×3 (05:47→21:01)
[2021-03-13] MEDS: CARDIZEM CD 240 MG 24-HR PO SCH ×2 (05:53→08:45)
[2021-03-13 06:13] LABS: BAND NEUTROPHILS % 1 % (0-10); PLATELET MORPHOLOGY COMMENT NORMAL (NORMAL)
[2021-03-13 06:14] LABS: ANISOCYTOSIS 3+; HYPOCHROMASIA 1+; TARGET CELLS PRESENT
[2021-03-13] MEDS: K-DUR TAB 20 MEQ PO PRN (06:30)
--- NOTE | 2021-03-13 06:30 | RAD ---
HISTORYShortness of breathSTUDYChest AP [id number] ent is status post median sternotomy, CABG, and valve replacement. Heart remains enlarged. Diffuse bilateral interstitial and alveolar infiltrates are unchanged. No definite pleural effusions are identified. Bony thorax is unremarkable.IMPRESSIONNo change diffuse bilateral interstitial and alveolar infiltratesNo change cardiomegalyElectronically signed by: MARIA T GARCIA (Mar 13, 2021 06:27:59)
[2021-03-13] MEDS: PULMICORT NEB TX 0.5 MG NEB SCH ×2 (08:09→20:27)
[2021-03-13] MEDS: LEVAQUIN PREMIX IV 500 MG 500 MG/100 ML BAG IV SCH (08:35)
[2021-03-13] MEDS: DIFLUCAN 200 MG IV PREMIX* 200 MG/100 ML BAG IV SCH (08:45)
[2021-03-13] MEDS: PEPCID TAB 40 MG PO SCH ×2 (08:45→20:12)
[2021-03-13] MEDS: VITAMIN A PO SCH (08:45)
[2021-03-13] MEDS: THIAMINE HCL INJ IVP SCH ×2 (08:45→20:11)
[2021-03-13] MEDS: ASCORBIC ACID INJ MULTI-DOSE VIAL 1,500 MG in NS 50 ML IV 50 ML IV SCH ×2 (08:45→20:09)
[2021-03-13] MEDS: PROTONIX INJ 40 MG VIAL IVP SCH ×2 (08:45→20:12)
[2021-03-13] MEDS: SYNTHROID 125 mcg TAB PO SCH (08:45)
[2021-03-13] MEDS: ZINC SULFATE PO SCH ×2 (08:45→20:10)
[2021-03-13] MEDS: CORDARONE TAB 200 MG PO SCH (08:45)
[2021-03-13] MEDS: LASIX IVP SCH ×2 (08:45→20:10)
[2021-03-13] MEDS: VITAMIN D3 125 mcg (5,000 UNITS) PO SCH (08:45)
[2021-03-13] MEDS: LANOXIN or DIGITEK PO SCH (09:00)
[2021-03-13] MEDS: FLONASE NASAL SPRAY ENOSTRIL SCH (09:10)
[2021-03-13] MEDS: ELIQUIS PO SCH ×2 (09:10→20:10)
--- NOTE | 2021-03-13 09:46 | PCM.PROG ---
Progress Note - Progress Note for Day of Date of Exam: 03/13/21 - Subjective Subjective: IS BEING TREATED FOR BILATERAL LOWER LOBE PNEUMONIA, HYPOXIA, AND HYPOKALEMIA. TODAY, SHE IS LYING ALERT AND ORIENTED, LYING IN BED ON MORNING ROUNDS. SHE CONTINUES WITH WEAKNESS AND SHORTNESS OF BREATH AT TIMES. SHE IS CURRENTLY ON OXYGEN VIA NASAL CANNULA AT 5 LITERS/MINUTE. SATURATIONS HAVE BEEN 90-95%. SHE HAS BEEN SITTING UP ON THE SIDE OF THE BED AND PARTICIPATING IN EXERCISES WITH PHYSICAL THERAPY. SHE HAS BEEN IN REHAB AT [facility] DUE TO RECENT ORIF AND EXTERNAL FIXATOR IN PLACE. ON EXAMINATION, HEART IS REGULAR IN RATE AND RHYTHM. BILATERAL LUNGS NOTED WITH DIMINISHED LUNG SOUNDS THROUGHOUT. ABDOMEN IS ROUND, SOFT, AND NON-TENDER WITH NORMAL BOWEL SOUNDS NOTED IN ALL QUADRANTS. EXTERNAL FIXATOR AND DRESSING NOTED TO RIGHT ANKLE/LOWER LEG. HER VITALS THIS MORNING ARE: 97.9-100-18-90%-161/64. LABS WERE OBTAINED. ABNORMAL LAB VALUES INCLUDE THE FOLLOWING: WBC 11.1, RBC 2.78, HGB 8.1, HCT 24.6, POTASSIUM 3.4, CARBON DIOXIDE 38.3, GLUCOSE 325, CALCIUM 8.1, ALK PHOS 44, TOTAL PROTEIN 4.6, ALBUMIN 2.2. CHEST XRAY REPEATED AND REVEALED: No change diffuse bilateral interstitial and alveolar infiltrates. No change cardiomegaly. SHE IS CURRENTLY RECEIVING IV ANTIBIOTICS, REMDESIVIR, NEBULIZER TREATMENTS, SOLU-MEDROL, POTASSIUM AND MAGNESIUM PROTOCOLS, NORMAL SALINE AT 20 ML/HR, IMMUNE SUPPORT SUPPLEMENTS, CARDIZEM, DIGOXIN, AND HER HOME MEDICATIONS RESUMED. TODAY, WE WILL ADD TOPROL 12.5MG PO DAILY. WE WILL REACH OUT TO YAKELIN WALLIS, TO INQUIRE ABOUT HIS PLANS FOR REMOVAL OF EXTERNAL FIXATOR. OTHERWISE, WE WILL CONTINUE WITH CURRENT PLAN OF CARE TODAY. WE PLAN TO FOLLOW UP WITH AM LABS AND CHEST XRAY AND CONTINUE TO MONITOR. TIME SPENT ON CLI NICAL ASSESSMENT, REVIEWING LABS AND IMAGING, DECISION MAKING, AND DOCUMENTATION GREATER THAN 45 MINUTES. - Past Medical Family Social History Past Med/Fam/Surg Hx: No changes since H&P Allergies: Allergies ANGIE Inhibitors Allergy (Verified 03/05/18 10:04) gabapentin Allergy (Verified 03/05/18 09:54) vancomycin Allergy (Verified 03/05/18 09:54) codeine Adverse Reaction (Mild, Verified 03/03/21 01:51) NAUSEA STATED BY PT STATINS Allergy (Uncoded 03/05/18 09:54) - Review of Systems ROS: No change since H&P - Vital Signs and I&O's Vital Signs: Temperature 97.9 F Pulse Rate [Apical] 97 Pulse Rate [Bilateral Radial] 86 Pulse Rate 104 Respiratory Rate 18 Blood Pressure [Left Arm] 139/69 Blood Pressure 161/64 O2 Sat by Pulse Oximetry 90 Intake and Output: Intake & Output 03/10/21 03/11/21 03/12/21 03/13/21 11:59 11:59 11:59 11:59 Intake Total 1214 / 1214 2150 / 2150 3061 / 3061 2021 Output Total 1555 / 1555 1450 / 1450 1600 / 1600 2450 / 2450 Balance -341 / -341 700 / 700 1461 / 1461 -428 / -428 - Physical Exam Oriented: Normal Eyes: Normal Ear: Normal Nose: Normal Throat: Normal Respiratory: Generalized, Diminished Cardiovascular: Tachycardia. negative: S3, S4, Murmur : Normal Auscultation: Bowel Sounds: Normal Palpation: Normal Tenderness: Normal Skin: Wound (RIGHT ANKLE/LOWER LEG EXTERNAL FIXATOR) Musculoskeletal: Shoulder, Right, Leg, Ankle, Foot, Tender Psychiatric: Normal Mood Description: Calm Affect: Normal Speech Pattern: Clear, Appropriate - Laboratory and Diagnostics Result Diagrams: 03/13/21 04:49 03/13/21 08:50 Labs: Laboratory WBC 11.1 X10^3/uL (3.6-10.0) H 03/13/21 04:49 RBC 2.78 X10^6/uL (3.5-5.4) L 03/13/21 04:49 Hgb 8.1 g/dL (12.0-16.0) L 03/13/21 04:49 Hct 24.6 % (36.0-47.0) L 03/13/21 04:49 MCV 88.4 fL (80.0-100.0) 03/13/21 04:49 MCH 29.2 pg (27.0-34.0) 03/13/21 04:49 MCHC 33.0 g/dL (33.0-35.0) 03/13/21 04:49 RDW 25.4 % (11.6-16.5) H 03/13/21 04:49 Plt Count 152 X10^3/uL (150.0-450.0) 03/13/21 04:49 Plt Count Comment Adequate (ADEQUATE) 03/13/21 04:49 MPV 8.8 fL (7.4-11.0) 03/13/21 04:49 Neut % (Auto) 94.9 % (42.0-75.0) H 03/13/21 04:49 Lymph % (Auto) 1.0 % (21.0-51.0) L 03/13/21 04:49 [place] % (Auto) 4.0 % (0.0-13.0) 03/13/21 04:49 Eos % (Auto) 0.0 % (0.9-2.9) L 03/13/21 04:49 Baso % (Auto) 0.1 % (0.2-1.0) L 03/13/21 04:49 Neut # (Auto) 10.6 x10^3/uL (2.2-4.8) H 03/13/21 04:49 Lymph # (Auto) 0.1 X10^3/uL (1.3-2.9) L 03/13/21 04:49 [place] # (Auto) 0.4 x10^3/uL (0.3-0.8) 03/13/21 04:49 Eos # (Auto) 0.0 x10^3/uL (0.0-0.2) 03/13/21 04:49 Baso # (Auto) 0.0 X10^3/uL (0.0-0.1) 03/13/21 04:49 Absolute Nucleated RBC 0.2 /100WBC 03/13/21 04:49 Total Counted 100 03/13/21 04:49 Neutrophils % (Manual) 92 % (39-76) H 03/13/21 04:49 Band Neutrophils % 1 % (0-10) 03/13/21 04:49 Lymphocytes % (Manual) 3 % (13-43) L 03/13/21 04:49 Monocytes % (Manual) 4 % (4-9) 03/13/21 04:49 Metamyelocytes % 2 03/07/21 04:15 Myelocytes % 1 03/02/21 05:12 Plt Morphology Comment Normal (NORMAL) 03/13/21 04:49 RBC Morphology Abnormal (NORMAL) A 03/13/21 04:49 Dimorphic RBCs Present 03/13/21 04:49 Hypochromasia 1+ A 03/13/21 04:49 Anisocytosis 3+ A 03/13/21 04:49 Target Cells Present 03/13/21 04:49 D-Dimer 1.06 ug/ml (0.0-0.57) H* 02/26/21 01:48 EST Sample Site Rrad 03/07/21 05:39 ABG pH 7.490 (7.35-7.45) H 03/07/21 05:39 ABG pCO2 61.0 mmHg (35.0-45.0) H* 03/07/21 05:39 ABG pO2 65.0 mmHg (80.0-100.0) L 03/07/21 05:39 ABG HCO3 46.5 mmol/L (22-26) H* 03/07/21 05:39 ABG O2 Saturation 94.0 % (90-100) 03/07/21 05:39 ABG Base Excess 19.8 mmol/L (-2.0-2.0) H 03/07/21 05:39 Singh Test Pos 03/07/21 05:39 A-a Gradient 500.0 mmHg 03/07/21 05:39 FiO2 90.0 03/07/21 05:39 Blood Gas Comments Rufino abg well-mtf 03/07/21 05:39 Sodium 141 mmol/L (136-145) 03/13/21 04:49 Corrected Sodium 146 mmol/L (136-145) H 03/13/21 04:49 Potassium 3.5 mmol/L (3.5-5.1) 03/13/21 08:50 Chloride 100 mmol/L (98-107) 03/13/21 04:49 Carbon Dioxide 38.3 mmol/L (21-32) H 03/13/21 04:49 BUN 16 mg/dL (7-18) 03/13/21 04:49 Creatinine 0.56 mg/dL (0.55-1.02) 03/13/21 04:49 Est GFR (MDRD) Af Amer > 60 (>60) 03/13/21 04:49 Est GFR (MDRD) Non-Af > 60 (>60) 03/13/21 04:49 Glucose 325 mg/dL (65-99) H 03/13/21 04:49 Calcium 8.1 mg/dL (8.5-10.1) L 03/13/21 04:49 Corrected Calcium 9.5 mg/dL (8.5-10.1) 03/13/21 04:49 Magnesium 2.3 mg/dL (1.7-2.9) 03/13/21 04:49 Total Bilirubin 0.60 mg/dL (0.2-1.0) 03/13/21 04:49 AST 21 Units/L (15-37) 03/13/21 04:49 ALT 25 Units/L (12-78) 03/13/21 04:49 Alkaline Phosphatase 44 Units/L (46-116) L 03/13/21 04:49 C-Reactive Protein 1.40 mg/L (0-3.0) 03/11/21 05:07 B-Natriuretic Peptide 165 pg/mL (0-79) H 03/10/21 04:35 Total Protein 4.6 g/dL (6.4-8.2) L 03/13/21 04:49 Albumin 2.2 g/dL (3.4-5.0) L 03/13/21 04:49 Globulin 2.4 g/dL (2.5-4.5) L 03/13/21 04:49 Albumin/Globulin Ratio 0.9 Ratio (1.1-2.1) L 03/13/21 04:49 Specimen Type Catherized urine 02/28/21 16:42 Urine Color Pale yellow (YELLOW) 02/28/21 16:42 Urine Appearance Clear (CLEAR) 02/28/21 16:42 Urine pH 6.0 (5.0 - 8.0) 02/28/21 16:42 Ur Specific [place] 1.005 (1.000-1.030) 02/28/21 16:42 Urine Protein Negative (NEGATIVE) 02/28/21 16:42 Urine Glucose (UA) Negative (NEGATIVE) 02/28/21 16:42 Urine Ketones Negative (NEGATIVE) 02/28/21 16:42 Urine Occult Blood 2+ (NEGATIVE) 02/28/21 16:42 Urine Nitrite Negative (NEGATIVE) 02/28/21 16:42 Urine Bilirubin Negative (NEGATIVE) 02/28/21 16:42 Urine Urobilinogen Normal (NORMAL) 02/28/21 16:42 Ur Leukocyte Esterase Negative (NEGATIVE) 02/28/21 16:42 Urine RBC 10-20 /HPF (0-3) A 02/28/21 16:42 Urine WBC 0-2 /HPF (0-5) 02/28/21 16:42 Ur Squamous Epith Cells Rare /HPF (NEGATIVE) 02/28/21 16:42 Calcium Oxalate Crystal Rare /HPF (NEGATIVE) 02/28/21 16:42 Amorphous Sediment 2+ /HPF (NEGATIVE) 02/26/21 04:47 Urine Bacteria Trace /HPF (NEGATIVE) 02/28/21 16:42 Hyaline Casts Many /LPF (NEGATIVE) 02/26/21 04:47 Urine Mucus Rare /HPF (NEGATIVE) 02/28/21 16:42 Ur Culture Indicated? No/not indicated 02/28/21 16:42 Digoxin 1.12 ng/mL (0.9-2) 03/12/21 05:12 SARS-CoV-2 (PCR) Negative (NEGATIVE) 02/26/21 01:40 EST Influenza Type A (PCR) Negative (NEGATIVE) 02/26/21 01:40 EST Influenza Type B (PCR) Negative (NEGATIVE) 02/26/21 01:40 EST RSV (PCR) Negative (NEGATIVE) 02/26/21 01:40 EST Resp Viral Panel (PCR) See scanned report 02/27/21 12:23 SARS-CoV-2 IgG Ab Negative (Negative) 03/08/21 04:40 SARS-CoV-2 IgG (TUNG) 1 < 1.00 IV (<=0.99) 03/08/21 04:40 - Plan (1) Pneumonia Status: Acute Qualifiers: Pneumonia type: due to unspecified organism Laterality: bilateral Lung location: unspecified part of lung Qualified Code(s): J18.9 - Pneumonia, unspecified organism Plan: SUPPLEMENTAL OXYGEN, SOLU-MEDROL, LASIX 20MG IV BID, IV ANTIBIOTICS, CARDIZEM, DIGOXIN, TOPROL XL, RESPIRATORY TREATMENTS, POTASSIUM AND MAGNESIUM PROTOCOL, IMMUNE SUPPORT SUPPLEMENTS, RESUME HOME MEDS. Continue treatment. (2) Hypoxia Status: Acute (3) Acute hypokalemia Status: Acute Plan: Potassium replacement protocol. (4) Status post ORIF of fracture of ankle Status: Acute
[2021-03-13] MEDS: NYSTATIN POWDER TOP SCH ×2 (10:00→20:10)
[2021-03-13] MEDS: TOPROL XL PO SCH (10:00)
[2021-03-13] MEDS: FLUVOXAMINE MALEATE PO SCH ×2 (10:42→20:09)
[2021-03-13] MEDS ORDERED: NovoLIN R (or HumuLIN R) ONE (14:15)
[2021-03-13] MEDS: NovoLIN R (or HumuLIN R) SUBCUT PRN ×3 (14:17→21:00)
[2021-03-13] MEDS ORDERED: SNACK - Diabetic Appropriate PO SCH (20:00)
[2021-03-13] MEDS: MELATONIN PO SCH (20:10)
[2021-03-13] MEDS: SENOKOT PO SCH (20:11)
[2021-03-14] MEDS: ROXICODONE TAB 5 MG PO PRN (03:14)
[2021-03-14] MEDS: XANAX PO PRN (03:50)
[2021-03-14] MEDS: Atrovent NEB TX 0.02% NEB SCH ×2 (05:00→13:30)
[2021-03-14] MEDS: XOPENEX 1.25 MG/3 ML NEBULE NEB SCH ×2 (05:01→13:30)
[2021-03-14] MEDS: NYSTATIN SUSP PO SCH ×2 (05:06→13:43)
[2021-03-14] MEDS: SOLU-Medrol 40 MG VIAL IVP SCH ×2 (05:07→13:43)
[2021-03-14] MEDS: ZOSYN VIAL 2.25 GRAMS 2.25 G in NS 100 ML IV + SPIKE MINIBAG* 100 ML IV SCH ×2 (05:08→13:43)
[2021-03-14] MEDS: NS 1,000 ML IV 1,000 ML IV SCH (05:08)
[2021-03-14] MEDS: VOLTAREN 1 % GEL MULTI DOSE TUBE TOP SCH ×2 (05:09→13:43)
[2021-03-14 05:29] LABS: BASOPHILS # (AUTO) 0.1 X10^3/uL (0.0-0.1); BASOPHILS % (AUTO) 0.5 % (0.2-1.0); HEMATOCRIT 23.3 % (36.0-47.0); HEMOGLOBIN 7.7 g/dL (12.0-16.0); LYMPHOCYTES # (AUTO) 0.2 X10^3/uL (1.3-2.9); LYMPHOCYTES % (AUTO) 1.2 % (21.0-51.0); MEAN CORPUSCULAR HEMOGLOBIN 29.3 pg (27.0-34.0); MEAN CORPUSCULAR HGB CONC 33.1 g/dL (33.0-35.0); MEAN CORPUSCULAR VOLUME 88.6 fL (80.0-100.0); MEAN PLATELET VOLUME 8.8 fL (7.4-11.0); MONOCYTES # (AUTO) 0.6 x10^3/uL (0.3-0.8); MONOCYTES % (AUTO) 3.9 % (0.0-13.0); NEUTROPHILS # (AUTO) 13.5 x10^3/uL (2.2-4.8); NEUTROPHILS % (AUTO) 94.4 % (42.0-75.0); PLATELET COUNT 131 X10^3/uL (150.0-450.0); RED BLOOD COUNT 2.63 X10^6/uL (3.5-5.4); RED CELL DISTRIBUTION WIDTH 25.6 % (11.6-16.5); WHITE BLOOD COUNT 14.3 X10^3/uL (3.6-10.0)
--- NOTE | 2021-03-14 05:30 | RAD ---
PROCEDURE: Chest X-ray 1 View .HISTORY: Dyspnea.TECHNIQUE: AP view .COMPARISON: 03/13/2021.TECHNICAL QUALITY: Satisfactory .FINDINGS:Unchanged start size upper limits of normal with previous sternotomy and artificial valve replacement.Normal central vascularity.Patchy consolidation throughout both lung nam are unchanged. No pleural fluid or pneumothorax.IMPRESSION:Unchanged bilateral pneumonia.Electronically signed by: Yusuf Medellin (Mar 14, 2021 05:29:17)
[2021-03-14 05:45] LABS: ALANINE AMINOTRANSFERASE 23 Units/L (12-78); ALBUMIN 2.1 g/dL (3.4-5.0); ALKALINE PHOSPHATASE 42 Units/L (46-116); ASPARTATE AMINO TRANSFERASE 23 Units/L (15-37); BLOOD UREA NITROGEN 17 mg/dL (7-18); CALCIUM 7.9 mg/dL (8.5-10.1); CHLORIDE 102 mmol/L (98-107); COR CA(FOR HYPOALB) 9.4 mg/dL (8.5-10.1); COR NA(FOR HYPERGLY) 145 mmol/L (136-145); CREATININE 0.46 mg/dL (0.55-1.02); SODIUM 142 mmol/L (136-145); TOTAL PROTEIN 4.4 g/dL (6.4-8.2); eGFR NON BLACK RACES > 60 (>60)
[2021-03-14 06:17] LABS: BAND NEUTROPHILS % 2 % (0-10); PLATELET MORPHOLOGY COMMENT NORMAL (NORMAL)
[2021-03-14 06:18] LABS: ANISOCYTOSIS 3+; HYPOCHROMASIA 1+; TARGET CELLS PRESENT
[2021-03-14] MEDS: NovoLIN R (or HumuLIN R) SUBCUT PRN ×2 (06:20→13:01)
[2021-03-14] MEDS ORDERED: NS 50 ML IV 50 ML IV ONE (07:35)
[2021-03-14] MEDS: ASCORBIC ACID INJ MULTI-DOSE VIAL 1,500 MG in NS 50 ML IV 50 ML IV SCH (08:56)
[2021-03-14] MEDS: CARDIZEM CD 240 MG 24-HR PO SCH (08:57)
[2021-03-14] MEDS: CORDARONE TAB 200 MG PO SCH (08:57)
[2021-03-14] MEDS: DIFLUCAN 200 MG IV PREMIX* 200 MG/100 ML BAG IV SCH (08:58)
[2021-03-14] MEDS: LANOXIN or DIGITEK PO SCH (08:59)
[2021-03-14] MEDS: ELIQUIS PO SCH (08:59)
[2021-03-14] MEDS: FLUVOXAMINE MALEATE PO SCH (08:59)
[2021-03-14] MEDS: FLONASE NASAL SPRAY ENOSTRIL SCH (08:59)
[2021-03-14] MEDS: PEPCID TAB 40 MG PO SCH (09:00)
[2021-03-14] MEDS: LEVAQUIN PREMIX IV 500 MG 500 MG/100 ML BAG IV SCH (09:00)
[2021-03-14] MEDS: NYSTATIN POWDER TOP SCH (09:00)
[2021-03-14] MEDS: LASIX IVP SCH (09:00)
[2021-03-14] MEDS: THIAMINE HCL INJ IVP SCH (09:01)
[2021-03-14] MEDS: TOPROL XL PO SCH (09:01)
[2021-03-14] MEDS: PROTONIX INJ 40 MG VIAL IVP SCH (09:01)
[2021-03-14] MEDS: SYNTHROID 125 mcg TAB PO SCH (09:01)
[2021-03-14] MEDS: VITAMIN A PO SCH (09:01)
[2021-03-14] MEDS: VITAMIN D3 125 mcg (5,000 UNITS) PO SCH (09:01)
[2021-03-14] MEDS: ZINC SULFATE PO SCH (09:02)
[2021-03-14] MEDS: PULMICORT NEB TX 0.5 MG NEB SCH (09:20)
--- NOTE | 2021-03-14 09:44 | PCM.PROG ---
Progress Note - Progress Note for Day of Date of Exam: 03/14/21 - Subjective Subjective: IS BEING TREATED FOR BILATERAL LOWER LOBE PNEUMONIA, HYPOXIA, AND HYPOKALEMIA. TODAY, SHE IS LYING ALERT AND ORIENTED, LYING IN BED ON MORNING ROUNDS. SHE CONTINUES WITH WEAKNESS AND SHORTNESS OF BREATH AT TIMES. SHE IS CURRENTLY ON OXYGEN VIA NASAL CANNULA AT 5 LITERS/MINUTE. SATURATIONS HAVE BEEN 88-94%. SHE HAS BEEN SITTING UP ON THE SIDE OF THE BED AND PARTICIPATING IN EXERCISES WITH PHYSICAL THERAPY. SHE HAS BEEN IN REHAB AT [facility] DUE TO RECENT ORIF AND EXTERNAL FIXATOR IN PLACE. ON EXAMINATION, HEART IS REGULAR IN RATE AND RHYTHM. BILATERAL LUNGS NOTED WITH DIMINISHED LUNG SOUNDS THROUGHOUT. ABDOMEN IS ROUND, SOFT, AND NON-TENDER WITH NORMAL BOWEL SOUNDS NOTED IN ALL QUADRANTS. EXTERNAL FIXATOR AND DRESSING NOTED TO RIGHT ANKLE/LOWER LEG. HER VITALS THIS MORNING ARE: 97.5-69-13-94%-166/62. LABS WERE OBTAINED. ABNORMAL LAB VALUES INCLUDE THE FOLLOWING: WBC 14.3, RBC 2.63, HGB 7.7, HCT 23.3, PLT COUNT 131, POTASSIUM 3.2, CARBON DIOXIDE 37.0, CREATININE 0.46, GLUCOSE 236, CALCIUM 7.9, ALK PHOS 42, TOTAL PROTEIN 4.4, ALBUMIN 2.1. CHEST XRAY REPEATED AND REVEALED: Unchanged start size upper limits of normal with previous sternotomy and artificial valve replacement. Normal central vascularity. Patchy consolidation throughout both lung nam are unchanged. No pleural fluid or pneumothorax.SHE IS CURRENTLY RECEIVING IV ANTIBIOTICS, NEBULIZER TREATMENTS, SOLU-MEDROL, LASIX, POTASSIUM AND MAGNESIUM PROTOCOLS, NORMAL SALINE AT 20 ML/HR, IMMUNE SUPPORT SUPPLEMENTS, CARDIZEM, DIGOXIN, TOPROL, AND HER HOME MEDICATIONS RESUMED. WE SPOKE WITH YAKELIN WALLIS, AND HE WILL ACCEPT PATIENT A TRANSFER TO [facility] FOR REMOVAL OF FIXATOR. WE WILL TRANSFER TO HIS SERVICES TODAY. TIME SPENT ON CLINICAL ASSESSMENT, REVIEWING LABS AND IMAGING, DECISION MAKING, TRANSFER, AND DOCUMENTATION GREATER THAN 45 MINUTES. - Past Medical Family Social History Past Med/Fam/Surg Hx: No changes since H&P Allergies: Allergies ANGIE Inhibitors Allergy (Verified 03/05/18 10:04) gabapentin Allergy (Verified 03/05/18 09:54) vancomycin Allergy (Verified 03/05/18 09:54) codeine Adverse Reaction (Mild, Verified 03/03/21 01:51) NAUSEA STATED BY PT STATINS Allergy (Uncoded 03/05/18 09:54) - Review of Systems ROS: No change since H&P - Vital Signs and I&O's Vital Signs: Temperature 97.5 F Pulse Rate [Apical] 97 Pulse Rate [Bilateral Radial] 86 Pulse Rate 80 Respiratory Rate 22 Blood Pressure [Left Arm] 139/69 Blood Pressure 166/62 O2 Sat by Pulse Oximetry 94 Intake and Output: Intake & Output 03/11/21 03/12/21 03/13/21 03/14/21 11:59 11:59 11:59 11:59 Intake Total 2150 / 2150 3061 / 3061 2021 / 2021 1665 / 1665 Output Total 1450 / 1450 1600 / 1600 2450 / 2450 1350 / 1350 Balance 700 / 700 1461 / 1461 -428 / -428 315 / 315 - Physical Exam Oriented: Normal Eyes: Normal Ear: Normal Nose: Normal Throat: Normal Respiratory: Generalized, Diminished Cardiovascular: Tachycardia. negative: S3, S4, Murmur : Normal Auscultation: Bowel Sounds: Normal Tenderness: Normal Skin: Wound (RIGHT ANKLE/LOWER LEG EXTERNAL FIXATOR) Musculoskeletal: Shoulder, Right, Leg, Ankle, Foot, Tender Psychiatric: Normal Mood Description: Calm Affect: Normal Speech Pattern: Clear, Appropriate - Laboratory and Diagnostics Result Diagrams: 03/14/21 04:56 03/14/21 04:56 Labs: Laboratory WBC 14.3 X10^3/uL (3.6-10.0) H 03/14/21 04:56 RBC 2.63 X10^6/uL (3.5-5.4) L 03/14/21 04:56 Hgb 7.7 g/dL (12.0-16.0) L 03/14/21 04:56 Hct 23.3 % (36.0-47.0) L 03/14/21 04:56 MCV 88.6 fL (80.0-100.0) 03/14/21 04:56 MCH 29.3 pg (27.0-34.0) 03/14/21 04:56 MCHC 33.1 g/dL (33.0-35.0) 03/14/21 04:56 RDW 25.6 % (11.6-16.5) H 03/14/21 04:56 Plt Count 131 X10^3/uL (150.0-450.0) L 03/14/21 04:56 Plt Count Comment Decreased (ADEQUATE) A 03/14/21 04:56 MPV 8.8 fL (7.4-11.0) 03/14/21 04:56 Neut % (Auto) 94.4 % (42.0-75.0) H 03/14/21 04:56 Lymph % (Auto) 1.2 % (21.0-51.0) L 03/14/21 04:56 [place] % (Auto) 3.9 % (0.0-13.0) 03/14/21 04:56 Eos % (Auto) 0.0 % (0.9-2.9) L 03/14/21 04:56 Baso % (Auto) 0.5 % (0.2-1.0) 03/14/21 04:56 Neut # (Auto) 13.5 x10^3/uL (2.2-4.8) H 03/14/21 04:56 Lymph # (Auto) 0.2 X10^3/uL (1.3-2.9) L 03/14/21 04:56 [place] # (Auto) 0.6 x10^3/uL (0.3-0.8) 03/14/21 04:56 Eos # (Auto) 0.0 x10^3/uL (0.0-0.2) 03/14/21 04:56 Baso # (Auto) 0.1 X10^3/uL (0.0-0.1) 03/14/21 04:56 Absolute Nucleated RBC 0.2 /100WBC 03/14/21 04:56 Total Counted 100 03/14/21 04:56 Neutrophils % (Manual) 92 % (39-76) H 03/14/21 04:56 Band Neutrophils % 2 % (0-10) 03/14/21 04:56 Lymphocytes % (Manual) 1 % (13-43) L 03/14/21 04:56 Monocytes % (Manual) 5 % (4-9) 03/14/21 04:56 Metamyelocytes % 2 03/07/21 04:15 Myelocytes % 1 03/02/21 05:12 Plt Morphology Comment Normal (NORMAL) 03/14/21 04:56 RBC Morphology Abnormal (NORMAL) A 03/14/21 04:56 Dimorphic RBCs Present 03/14/21 04:56 Hypochromasia 1+ A 03/14/21 04:56 Anisocytosis 3+ A 03/14/21 04:56 Target Cells Present 03/14/21 04:56 D-Dimer 1.06 ug/ml (0.0-0.57) H* 02/26/21 01:48 EST Sample Site Rrad 03/07/21 05:39 ABG pH 7.490 (7.35-7.45) H 03/07/21 05:39 ABG pCO2 61.0 mmHg (35.0-45.0) H* 03/07/21 05:39 ABG pO2 65.0 mmHg (80.0-100.0) L 03/07/21 05:39 ABG HCO3 46.5 mmol/L (22-26) H* 03/07/21 05:39 ABG O2 Saturation 94.0 % (90-100) 03/07/21 05:39 ABG Base Excess 19.8 mmol/L (-2.0-2.0) H 03/07/21 05:39 Singh Test Pos 03/07/21 05:39 A-a Gradient 500.0 mmHg 03/07/21 05:39 FiO2 90.0 03/07/21 05:39 Blood Gas Comments Rufino abg well-mtf 03/07/21 05:39 Sodium 142 mmol/L (136-145) 03/14/21 04:56 Corrected Sodium 145 mmol/L (136-145) 03/14/21 04:56 Potassium 3.2 mmol/L (3.5-5.1) L 03/14/21 04:56 Chloride 102 mmol/L (98-107) 03/14/21 04:56 Carbon Dioxide 37.0 mmol/L (21-32) H 03/14/21 04:56 BUN 17 mg/dL (7-18) 03/14/21 04:56 Creatinine 0.46 mg/dL (0.55-1.02) L 03/14/21 04:56 Est GFR (MDRD) Af Amer > 60 (>60) 03/14/21 04:56 Est GFR (MDRD) Non-Af > 60 (>60) 03/14/21 04:56 Glucose 236 mg/dL (65-99) H 03/14/21 04:56 POC Glucose (mg/dL) 220 mg/dL (65-99) H 03/14/21 06:17 Calcium 7.9 mg/dL (8.5-10.1) L 03/14/21 04:56 Corrected Calcium 9.4 mg/dL (8.5-10.1) 03/14/21 04:56 Magnesium 2.3 mg/dL (1.7-2.9) 03/13/21 04:49 Total Bilirubin 0.60 mg/dL (0.2-1.0) 03/14/21 04:56 AST 23 Units/L (15-37) 03/14/21 04:56 ALT 23 Units/L (12-78) 03/14/21 04:56 Alkaline Phosphatase 42 Units/L (46-116) L 03/14/21 04:56 C-Reactive Protein 1.40 mg/L (0-3.0) 03/11/21 05:07 B-Natriuretic Peptide 165 pg/mL (0-79) H 03/10/21 04:35 Total Protein 4.4 g/dL (6.4-8.2) L 03/14/21 04:56 Albumin 2.1 g/dL (3.4-5.0) L 03/14/21 04:56 Globulin 2.3 g/dL (2.5-4.5) L 03/14/21 04:56 Albumin/Globulin Ratio 0.9 Ratio (1.1-2.1) L 03/14/21 04:56 Specimen Type Catherized urine 02/28/21 16:42 Urine Color Pale yellow (YELLOW) 02/28/21 16:42 Urine Appearance Clear (CLEAR) 02/28/21 16:42 Urine pH 6.0 (5.0 - 8.0) 02/28/21 16:42 Ur Specific [place] 1.005 (1.000-1.030) 02/28/21 16:42 Urine Protein Negative (NEGATIVE) 02/28/21 16:42 Urine Glucose (UA) Negative (NEGATIVE) 02/28/21 16:42 Urine Ketones Negative (NEGATIVE) 02/28/21 16:42 Urine Occult Blood 2+ (NEGATIVE) 02/28/21 16:42 Urine Nitrite Negative (NEGATIVE) 02/28/21 16:42 Urine Bilirubin Negative (NEGATIVE) 02/28/21 16:42 Urine Urobilinogen Normal (NORMAL) 02/28/21 16:42 Ur Leukocyte Esterase Negative (NEGATIVE) 02/28/21 16:42 Urine RBC 10-20 /HPF (0-3) A 02/28/21 16:42 Urine WBC 0-2 /HPF (0-5) 02/28/21 16:42 Ur Squamous Epith Cells Rare /HPF (NEGATIVE) 02/28/21 16:42 Calcium Oxalate Crystal Rare /HPF (NEGATIVE) 02/28/21 16:42 Amorphous Sediment 2+ /HPF (NEGATIVE) 02/26/21 04:47 Urine Bacteria Trace /HPF (NEGATIVE) 02/28/21 16:42 Hyaline Casts Many /LPF (NEGATIVE) 02/26/21 04:47 Urine Mucus Rare /HPF (NEGATIVE) 02/28/21 16:42 Ur Culture Indicated? No/not indicated 02/28/21 16:42 Digoxin 1.12 ng/mL (0.9-2) 03/12/21 05:12 SARS-CoV-2 (PCR) Negative (NEGATIVE) 02/26/21 01:40 EST Influenza Type A (PCR) Negative (NEGATIVE) 02/26/21 01:40 EST Influenza Type B (PCR) Negative (NEGATIVE) 02/26/21 01:40 EST RSV (PCR) Negative (NEGATIVE) 02/26/21 01:40 EST Resp Viral Panel (PCR) See scanned report 02/27/21 12:23 SARS-CoV-2 IgG Ab Negative (Negative) 03/08/21 04:40 SARS-CoV-2 IgG (TUNG) 1 < 1.00 IV (<=0.99) 03/08/21 04:40 - Plan (1) Pneumonia Status: Acute Qualifiers: Pneumonia type: due to unspecified organism Laterality: bilateral Lung location: unspecified part of lung Qualified Code(s): J18.9 - Pneumonia, unspecified organism Plan: SUPPLEMENTAL OXYGEN, SOLU-MEDROL, LASIX 20MG IV BID, IV ANTIBIOTICS, CARDIZEM, DIGOXIN, TOPROL XL, RESPIRATORY TREATMENTS, POTASSIUM AND MAGNESIUM PROTOCOL, IMMUNE SUPPORT SUPPLEMENTS, RESUME HOME MEDS. Continue treatment. (2) Hypoxia Status: Acute (3) Acute hypokalemia Status: Acute Plan: Potassium replacement protocol. (4) Status post ORIF of fracture of ankle Status: Acute
[2021-03-14 13:08] VITALS: BP 168/68
== END 2021-03-14 14:03 | disposition home or self-care (01) | DRG 194 ==
LOC: ER 01:16 → ICU 05:47
PROVIDERS: ADMIT Obstetrics & Gynecology Obstetrics; ATTEND Internal Medicine
DX: Z98.890 Other specified postprocedural states; D68.9 Coagulation defect, unspecified; R26.2 Difficulty in walking, not elsewhere classified; Z95.4 Presence of other heart-valve replacement; J18.8 Other pneumonia, unspecified organism; B37.2 Candidiasis of skin and nail; R09.02 Hypoxemia; B37.0 Candidal stomatitis; Z20.822 Contact with and (suspected) exposure to COVID-19